=== PATIENT | female | born 1940 | race Caucasian/White ===

== ENCOUNTER 2022-03-17 09:53 | Observation (INO) ==
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
[2022-03-17] MEDS ORDERED: ACETAMINOPHEN 500 MG TAB PO STA (10:14)
[2022-03-17] MEDS ORDERED: BENZONATATE 100 MG CAPSULE PO ONE (10:14)
[2022-03-17] MEDS ORDERED: ALBUTEROL HFA 8 GM INHALER INH ONE (10:14)
[2022-03-17] MEDS ORDERED: SODIUM CHLORIDE 0.9% 1000ML 1,000 ML IV SCH (10:15)
[2022-03-17 10:51] LABS: Basophils # (auto) 0.06 K/uL (0-0.2); Basophils % (auto) 0.7 %; Eosinophils # (auto) 0.15 K/uL (0-0.50); Eosinophils % (auto) 1.8 %; Hematocrit (blood only) 41.2 % (37.0-47.0); Hemoglobin 14.1 g/dl (12.0-16.0); Immature Granulocytes # (auto) 0.04 K/uL (0.01-0.20); Immature Granulocytes % (auto) 0.5 %; Lymphocytes # (auto) 1.27 K/uL (1.2-3.4); Lymphocytes % (auto) 14.9 %; Mean Corpuscular Hemoglobin 31.1 pg (25.0-34.0); Mean Corpuscular Hgb Conc 34.2 g/dL (32.0-36.0); Mean Corpuscular Volume 90.9 fL (80.0-100.0); Mean Platelet Volume 9.4 fL (9.4-12.4); Neutrophils % (auto) 75.1 %; Platelet Count 232 K/uL (130-400); RDW Coefficient of Variation 11.8 % (11.5-14.5); RDW Standard Deviation 39.5 fL (36.4-46.3); Red Blood Count 4.53 M/uL (4.20-5.40); White Blood Count 8.52 K/ul (4.8-10.8)
--- NOTE | 2022-03-17 11:08 | XRay Report ---
XR chest 1V portable HISTORY: 81 years-old Female cough acute cough COMPARISON: CT abdomen and pelvis 05/17/2020 TECHNIQUE: AP view of the chest FINDINGS: Mild cardiomegaly with coronary arterial stenting. No pneumothorax, pleural effusion, airspace consol idation or overt pulmonary edema. Suspected right paratracheal opacity may be secondary to summation density/vascular pedicle. Bones appear grossly intact. IMPRESSION: No acute process. ACT 112: Negative or not required by law. The above report was generated using voice recognition software. It may contain grammatical, syntax o r spelling errors. Electronically signed by: Jaxson Wilkinson M.D. 03/17/2022 11:06 AM
[2022-03-17 11:13] LABS: Albumin Globulin Ratio 1.3 (0.9-2); Albumin Level 3.6 gm/dl (3.4-5.0); Bilirubin,Total 0.9 mg/dl (0.2-1.0); Creatinine Clr Calc Pharmacy 49.6 ml/min; Est GFR (African American) 66.7 ml/min; Est GFR (Non-African American) 57.6 ml/min; Globulin 2.8 gm/dl (2.5-4.0); Magnesium 1.9 mg/dl (1.7-2.4); Potassium 3.6 mmol/L (3.5-5.1); Total Protein 6.4 gm/dl (6.0-8.3)
[2022-03-17 12:02] LABS: Influenza A virus by PCR Negative (Neg); Influenza B virus by PCR Negative (Neg); RSV by PCR Negative (Neg); SARS CoV2 RNA(COVID-19) Ceph NEGATIVE (Negative)
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
[2022-03-17] MEDS ORDERED: METOPROLOL SUCC 25MG EXT REL TAB PO SCH (12:45)
[2022-03-17] MEDS ORDERED: METOPROLOL TARTRATE 1 MG/ML VIAL IV STA ×3 (12:45→14:09)
--- NOTE | 2022-03-17 13:18 | Electrocardiogram Report ---
Test Reason : Blood Pressure : / mmHG Vent. Rate : 098 BPM Atrial Rate : 098 BPM P-R Int : 120 ms QRS Dur : 088 ms QT Int : 354 ms P-R-T Axes : 015 -46 136 degrees QTc Int : 451 ms Sinus rhythm with Premature supraventricular complexes Left axis deviation Abnormal ECG No previous ECGs available Confirmed by Gregorio Mcdaniel ([id number]) on 03/17/2022 1:18:02 PM Referred By: REFERRED SELF Confirmed By:Gregorio Mcdaniel
--- NOTE | 2022-03-17 13:18 | Electrocardiogram Report ---
Test Reason : Blood Pressure : / mmHG Vent. Rate : 158 BPM Atrial Rate : 312 BPM P-R Int : 000 ms QRS Dur : 084 ms QT Int : 228 ms P-R-T Axes : -86 -50 228 degrees QTc Int : 369 ms Atrial flutter with variable A-V block Left axis deviation Abnormal ECG When compared with ECG of 17-MAR-2022 10:21, (unconfirmed) Significant changes have occurred Confirmed by Gregorio Mcdaniel ([id number]) on 03/17/2022 1:18:15 PM Referred By: REFERRED SELF Confirmed By:Gregorio Mcdaniel
[2022-03-17] MEDS ORDERED: ACETAMINOPHEN 325 MG TAB PO PRN (14:38)
[2022-03-17] MEDS ORDERED: GLUCOSE 40% GEL 15 GM TUBE PO PRN (14:38)
[2022-03-17] MEDS ORDERED: PANCREAZE (LIPASE 10,500U) CAP PO PRN (14:38)
[2022-03-17] MEDS ORDERED: METOPROLOL TARTRATE 1 MG/ML VIAL IV PRN (14:38)
[2022-03-17] MEDS ORDERED: DEXTROSE 50% 50 ML SYRINGE IV PRN (14:38)
[2022-03-17] MEDS ORDERED: GLUCAGON FOR INJ 1 MG VIAL SQ PRN (14:38)
[2022-03-17] MEDS ORDERED: GLUCOSE 10 TAB/TUBE PO PRN (14:38)
[2022-03-17] MEDS ORDERED: CARBOHYDRATES FOR HYPOGLYCEMIA PO PRN (14:38)
[2022-03-17] MEDS ORDERED: Heparin IV Adult Wt-Based Standard WITH Bolus Protocol IV SCH (15:15)
[2022-03-17] MEDS ORDERED: HEPARIN SOD (PORCINE) 1000 UNIT/ML IV ONE (15:30)
[2022-03-17 15:59] LABS: INR 1.1 (0.9-1.1); Partial Thromboplastin Time 27.1 Seconds (21.0-31.0); Prothrombin Time 11.9 Seconds (9.0-12.0)
[2022-03-17] MEDS: HEPARIN SODIUM/DEXTROSE 25,000 UNITS/500 ML BAG IV SCH (16:24)
[2022-03-17] MEDS: ASPIRIN 81 MG ECTAB PO SCH (16:24)
[2022-03-17] MEDS: INSULIN ASPART PER UNIT SC SCH ×2 (17:10→20:36)
[2022-03-17] MEDS: BENZONATATE 100 MG CAPSULE PO PRN (19:53)
[2022-03-17] MEDS: MELATONIN 3 MG TAB PO SCH (20:52)
[2022-03-17] MEDS: METOPROLOL TARTRATE 25 MG TAB PO SCH (20:52)
[2022-03-17] MEDS: LANTUS PER UNIT CHARGE SQ SCH (20:56)
[2022-03-17 23:33] LABS: Partial Thromboplastin Ratio > 5.1
[2022-03-18 00:14] LABS: Partial Thromboplastin Time > 139.0 Seconds (21.0-31.0)
[2022-03-18] MEDS ORDERED: ALBUTEROL HFA 8 GM INHALER INH ONE (02:27)
[2022-03-18] MEDS: BENZONATATE 100 MG CAPSULE PO PRN (02:30)
[2022-03-18 03:25] LABS: Basophils # (auto) 0.08 K/uL (0-0.2); Basophils % (auto) 0.8 %; Eosinophils # (auto) 0.36 K/uL (0-0.50); Eosinophils % (auto) 3.6 %; Hematocrit (blood only) 37.5 % (37.0-47.0); Hemoglobin 12.8 g/dl (12.0-16.0); Immature Granulocytes # (auto) 0.04 K/uL (0.01-0.20); Immature Granulocytes % (auto) 0.4 %; Lymphocytes # (auto) 2.49 K/uL (1.2-3.4); Lymphocytes % (auto) 24.7 %; Mean Corpuscular Hemoglobin 31.3 pg (25.0-34.0); Mean Corpuscular Hgb Conc 34.1 g/dL (32.0-36.0); Mean Corpuscular Volume 91.7 fL (80.0-100.0); Mean Platelet Volume 9.4 fL (9.4-12.4); Monocytes # (auto) 0.82 K/uL (0.11-0.59); Monocytes % (auto) 8.1 %; Neutrophils # (auto) 6.29 K/uL (1.40-6.50); Neutrophils % (auto) 62.4 %; Platelet Count 214 K/uL (130-400); RDW Coefficient of Variation 11.9 % (11.5-14.5); RDW Standard Deviation 39.8 fL (36.4-46.3); Red Blood Count 4.09 M/uL (4.20-5.40); White Blood Count 10.08 K/ul (4.8-10.8)
[2022-03-18 03:45] LABS: Calcium 9.3 mg/dl (8.5-10.1); Creatinine Clr Calc Pharmacy 48.6 ml/min; Est GFR (Non-African American) 56.1 ml/min; Potassium 3.4 mmol/L (3.5-5.1)
[2022-03-18 03:50] LABS: Partial Thromboplastin Ratio 1.7
[2022-03-18] MEDS: LEVOTHYROXINE SODIUM 75 MCG TABLET PO SCH (05:58)
[2022-03-18] MEDS: INSULIN ASPART PER UNIT SC SCH ×4 (08:04→20:01)
[2022-03-18] MEDS: METOPROLOL TARTRATE 25 MG TAB PO SCH ×2 (09:24→20:06)
[2022-03-18] MEDS: PANTOprazole 40 MG TAB PO SCH (09:24)
[2022-03-18] MEDS: ATORVASTATIN 40 MG TAB PO SCH (09:25)
[2022-03-18] MEDS: ASPIRIN 81 MG ECTAB PO SCH (09:25)
[2022-03-18] MEDS: LANTUS PER UNIT CHARGE SQ SCH ×2 (09:30→21:20)
--- NOTE | 2022-03-18 10:32 | XCELERA ---
[id number]
--- NOTE | 2022-03-18 17:01 | Hospitalist Progress Note ---
Date of Service March 18, 2022 Assessment & Plan (1) Atrial flutter: Plan: URI symptoms No hypoxia COVID/flu/RSV negative CXR no evidence of acute process or pneumonia. No pulmonary edema Suspect viral URI, treat symptomatically New atrial flutter, rates 150s, history of CAD with PCI x4 Initial EKG sinus, during ER stay EKG with ST depressions and atrial flutter rate 158. On review with cardiology with flutter, but not reflective of ischemia. Improved with fluid, did not receive any rate control/rhythm control prior to converting spontaneously in the room initially Patient did not twice recurrently enter and then abort into atrial flutter wi th a rate of approximately 150 while under hospitalist assessment, asymptomatic with this Heparinized pending additional cardiac eval Troponin trended Clinically without chest pain Echo pending Discussed with cardiology. Agree that is likely precipitated in the setting of missing metoprolol and a URI. Will give metoprolol now, and restart oral dosing. If echo is not significantly abnormal, and troponin is normal or has a peak and downtrend consistent with demand reasonable to convert to DOAC in the morning, discharged on metoprolol, and have outpatient follow-up. Will need to establish with [facility] cardiology on discharge. Will defer formal inpatient consult at this time. 03/18--- patient presently denies chest pain or shortness of breath Patient reports that she has episodes of a flutter/A. fib in the past and was evaluated by counter molder in [facility] and recommended to be on oral anticoagulants. Patient however due to her experience with anticoagulants in her aspirin and bleeding concerns stop taking her oral anticoagulation after initial period of time over the past few years Patient presently on IV heparin and wants to think about if she wants to continue oral anticoagulants upon discharge We will continue present management at this time and trend troponin levels and decide on further management with anticoagulation with on patient's decision Type II DM Hold glipizide Weight-based basal bolus Glucose checks AC/at bedtime, goal BSG [id number] A1c pending Depression GERD Continue pantoprazole Hypothyroidism Synthroid 75 mcg daily DVT prophylaxis: Anticoagulated Diet: Heart healthy, DM Disposition: PCU as may require IV metoprolol for rate control CODE STATUS: DNR/DNI discussed with patient (2) Diabetic neuropathy associated with type 2 diabetes mellitus: (3) CAD (coronary artery disease): (4) PVD (peripheral vascular disease): (5) Hypertension: (6) Hyperlipidemia: (7) Diabetes: (8) Hypothyroidism: Admission and Anticipated Discharge Date Admission Date: March 17, 2022 Subjective Patient reports feeling improved with her nasal congestion secondary to URI No further palpitations or chest pain Presently on IV heparin Patient reports that she was asked to start oral anticoagulation for a flutter but patient had stopped taking it few years ago Physical Exam Physical Exam: Head and ENT no thyroid enlargement trachea midline Cardiovascular S1-S2 heard l no S3 no rubs Lungs bilateral air entry fair no wheezing Abdomen soft nondistended positive bowel sounds no rebound tenderness Extremity shows trace edema Neurologically no focal deficits Skin shows no rash no cyanosis Results & Data Results & Data ([facility]) Vital Signs (Past 12 Hours) Vital Signs Temp Pulse Pulse Resp BP BP Pulse Ox 03/18/22 15:27 36.3 C L 58 L 16 108/56 L 97 03/18/22 11:03 36.9 C 60 16 128/74 98 03/18/22 07:50 36.6 C 57 L 16 129/80 96 03/18/22 07:00 58 L O2 Del Method 03/18/22 15:27 Room Air 03/18/22 11:03 Room Air 03/18/22 07:50 Room Air 03/18/22 07:00 Laboratory Results Short CBC 03/18/22 Range/Units 03:04 WBC 10.08 (4.8-10.8) K/ul Hgb 12.8 (12.0-16.0) g/dl Hct 37.5 (37.0-47.0) % Plt Count 214 (130-400) K/uL BMP 03/18/22 03:04 Sodium 140 Potassium 3.4 L Chloride 105 Carbon Dioxide 29 BUN 15 Creatinine 0.94 Glucose 116 H Calcium 9.3 PG Care Time/CCT Total # of Minutes Spent Total Time Spent with Patient: Total time spent is greater than 50% in coordination of care (as documented) at patient's floor/unit and/or counseling patient: Coding Level of Care Code 54397 SUB INP/OBS CARE 2/35MIN Diagnoses Atrial flutter I48.92 Diabetic neuropathy associated with type 2 diabetes mellitus E11.40 CAD (coronary artery disease) I25.10 PVD (peripheral vascular disease) I73.9 Hypertension I10 Hyperlipidemia E78.5 Diabetes E11.9 Hypothyroidism E03.9
[2022-03-18] MEDS: MELATONIN 3 MG TAB PO SCH (20:01)
[2022-03-18] MEDS: FLUTICASONE PROPIONATE NA SPR 16 GM BTL SCH (20:01)
[2022-03-18] MEDS: HEPARIN SODIUM/DEXTROSE 25,000 UNITS/500 ML BAG IV SCH (22:40)
[2022-03-19] MEDS: LEVOTHYROXINE SODIUM 75 MCG TABLET PO SCH (06:20)
[2022-03-19 07:11] LABS: Hematocrit (blood only) 35.9 % (37.0-47.0); Hemoglobin 12.2 g/dl (12.0-16.0); Mean Corpuscular Hemoglobin 31.3 pg (25.0-34.0); Mean Corpuscular Volume 92.1 fL (80.0-100.0); Mean Platelet Volume 9.5 fL (9.4-12.4); Platelet Count 229 K/uL (130-400); RDW Coefficient of Variation 12.2 % (11.5-14.5); RDW Standard Deviation 40.9 fL (36.4-46.3); White Blood Count 9.78 K/ul (4.8-10.8)
[2022-03-19 07:20] LABS: Estimated Average Glucose 134 mg/dl; Hemoglobin A1C 6.3 % (4.5-5.6)
[2022-03-19 07:32] LABS: BUN Creatinine Ratio 14.9 (10-20); Calcium 9.3 mg/dl (8.5-10.1); Creatinine Clr Calc Pharmacy 47.6 ml/min; Est GFR (African American) 71.4 ml/min; Est GFR (Non-African American) 61.6 ml/min; Potassium 3.6 mmol/L (3.5-5.1)
[2022-03-19 07:47] LABS: Thyroid Stimulating Hormone 3.433 uIu/ml (0.300-4.500)
[2022-03-19] MEDS: ASPIRIN 81 MG ECTAB PO SCH (09:30)
[2022-03-19] MEDS: ATORVASTATIN 40 MG TAB PO SCH (09:31)
[2022-03-19] MEDS: FLUTICASONE PROPIONATE NA SPR 16 GM BTL SCH (09:33)
[2022-03-19] MEDS: LANTUS PER UNIT CHARGE SQ SCH ×2 (09:34→20:39)
[2022-03-19] MEDS: PANTOprazole 40 MG TAB PO SCH (09:38)
[2022-03-19] MEDS: INSULIN ASPART PER UNIT SC SCH ×4 (09:58→20:41)
[2022-03-19] MEDS: METOPROLOL TARTRATE 25 MG TAB PO SCH ×2 (09:59→20:37)
[2022-03-19] MEDS: BENZONATATE 100 MG CAPSULE PO PRN (10:03)
[2022-03-19 10:18] LABS: T4 Free Thyroxine 0.99 ng/dl (0.61-1.60)
--- NOTE | 2022-03-19 15:51 | Hospitalist Progress Note ---
Date of Service March 19, 2022 Assessment & Plan (1) Atrial flutter: Plan: She has converted to normal sinus rhythm. She has back on her metoprolol. Heparin drip converted to Eliquis. Risks and benefits of systemic anticoagulation were explained to the patient and her who is at the bedside. Cardiac echo reveals mild left ventricular hypertrophy with no regional wall motion abnormalities, normal ejection fraction, mild mitral regurgitation. Appreciate cardiology consultation and recommendations (2) Diabetic neuropathy associated with type 2 diabetes mellitus: Plan: ADA diet. Sliding scale coverage if needed. Continue current medical therapy (3) CAD (coronary artery disease): Plan: Stable. Medical management (4) PVD (peripheral vascular disease): Plan: Stable. Medical management (5) Hypertension: Plan: Stable. Medical management (6) Hyperlipidemia: Plan: Statin therapy (7) Diabetes: Plan: Type II. ADA diet. Sliding scale coverage as needed (8) Hypothyroidism: Plan: Continue thyroid replacement therapy (9) Weakness: Plan: OT and PT assessments requested. Supportive care Plan Hopefully home tomorrow on March 20 Admission and Anticipated Discharge Date Admission Date: March 17, 2022 Subjective Alert and oriented. She remains in normal sinus rhythm. Heparin drip has again been converted to Eliquis. She is complaining of weakness that she states is chronic and has been present for years. OT and PT assessments requested. Hopefully she will go home tomorrow, March 20 Review of Systems Review of Systems: Constitutional-no fever or chills ENT-no blurred vision, no double vision, no epistaxis, no sore throat Respiratory-no cough, no wheezing, no shortness of breath Cardiac-no palpitations, no chest pain, no syncope GI-no nausea, vomiting, diarrhea, melena, hematochezia -no urinary retention, no urinary incontinence, no dysuria, no hematuria Musculoskeletal-no joint pain, no muscle tenderness Skin-no bruising, no rashes, no pruritus Neuro-generalized weakness which is not new Psych-no depression, no anxiety Physical Exam Physical Exam: General-alert and oriented x3, no fevers, no chills HEENT-head atraumatic and normocephalic, pupils equal and reactive to light, extraocular muscles intact Neck-no lymphadenopathy or thyromegaly, trachea midline Chest-clear to auscultation percussion. No rales wheezing or rhonchi Cardiac-regular rate and rhythm, normal S1 and S2 Abdomen-normal bowel sounds, nontender, no hepatosplenomegaly Extremities-no cyanosis, clubbing, or edema Neuro-cranial nerves II through XII intact, motor and sensory function within normal limits, strength symmetrical but generalized weakness , no focal deficits Psych-normal affect, normal mood Results & Data Results & Data ([facility]) Vital Signs (Past 12 Hours) Vital Signs Temp Pulse Resp BP BP Pulse Ox O2 Del Method 03/19/22 11:34 Room Air 03/19/22 11:13 37 C 53 L 16 114/68 95 Room Air 03/19/22 09:16 56 L 113/63 03/19/22 07:37 36.6 C 65 14 131/83 95 Room Air 03/19/22 04:29 36.8 C 54 L 19 134/73 96 Room Air Laboratory Results 03/19/22 06:30 03/19/22 06:30 PG Care Time/CCT Total # of Minutes Spent Total Time Spent with Patient: Total time spent is greater than 50% in coordination of care (as documented) at patient's floor/unit and/or counseling patient: Coding Level of Care Code 54686 SUB INP/OBS CARE 3/50MIN Diagnoses Atrial flutter I48.92 Diabetic neuropathy associated with type 2 diabetes mellitus E11.40 CAD (coronary artery disease) I25.10 PVD (peripheral vascular disease) I73.9 Hypertension I10 Hyperlipidemia E78.5 Diabetes E11.9 Hypothyroidism E03.9 Weakness R53.1
[2022-03-19] MEDS: APIXABAN 5 MG TABLET PO SCH (20:38)
[2022-03-19] MEDS: MELATONIN 3 MG TAB PO SCH (20:39)
[2022-03-20] MEDS: LEVOTHYROXINE SODIUM 75 MCG TABLET PO SCH (06:26)
[2022-03-20 06:41] LABS: Hematocrit (blood only) 33.8 % (37.0-47.0); Hemoglobin 11.4 g/dl (12.0-16.0); Mean Corpuscular Hemoglobin 30.9 pg (25.0-34.0); Mean Corpuscular Hgb Conc 33.7 g/dL (32.0-36.0); Mean Corpuscular Volume 91.6 fL (80.0-100.0); Mean Platelet Volume 9.2 fL (9.4-12.4); Platelet Count 222 K/uL (130-400); RDW Standard Deviation 40.3 fL (36.4-46.3); Red Blood Count 3.69 M/uL (4.20-5.40)
[2022-03-20 07:04] LABS: BUN Creatinine Ratio 22.5 (10-20); Calcium 9.1 mg/dl (8.5-10.1); Creatinine Clr Calc Pharmacy 51.8 ml/min; Est GFR (Non-African American) 68.2 ml/min; Potassium 3.8 mmol/L (3.5-5.1)
[2022-03-20] MEDS: PANTOprazole 40 MG TAB PO SCH (08:19)
[2022-03-20] MEDS: ATORVASTATIN 40 MG TAB PO SCH (08:19)
[2022-03-20] MEDS: ASPIRIN 81 MG ECTAB PO SCH (08:19)
[2022-03-20] MEDS: METOPROLOL TARTRATE 25 MG TAB PO SCH ×2 (08:19→22:35)
[2022-03-20] MEDS: APIXABAN 5 MG TABLET PO SCH ×2 (08:20→20:55)
[2022-03-20] MEDS: FLUTICASONE PROPIONATE NA SPR 16 GM BTL SCH (08:20)
[2022-03-20] MEDS: INSULIN ASPART PER UNIT SC SCH ×4 (08:21→20:43)
[2022-03-20] MEDS: LANTUS PER UNIT CHARGE SQ SCH ×2 (08:22→20:58)
[2022-03-20 11:37] LABS: Appearance Urine Turbid (Clear); Bacteria Urine Automated 3+ (Negative); Bilirubin Urine Negative (Negative); Blood Urine 2+ (Negative); Color Urine Yellow; Epithelial Cell Urine Auto >30 /lpf (0-5); Glucose Urine UA Negative (Negative); Ketones Urine Negative (Negative); Leukocyte Esterase Urine 2+ (Negative); Nitrite Urine Negative (Negative); Protein Urine Negative (Negative); Specific Gravity Urine 1.019 (1.000-1.030); Urobilinogen Urine Negative (Negative); WBC Urine Automated >30 /hpf (0-5)
--- NOTE | 2022-03-20 14:17 | Hospitalist Progress Note ---
Date of Service March 20, 2022 Assessment & Plan (1) Atrial flutter: Plan: She has converted to and remains in normal sinus rhythm. She has back on her metoprolol. Heparin drip has been converted to Eliquis. Risks and benefits of systemic anticoagulation were explained to the patient and her who is at the bedside. Cardiac echo reveals mild left ventricular hypertrophy with no regional wall motion abnormalities, normal ejection fraction, mild mitral r egurgitation. Appreciate cardiology consultation and recommendations (2) Diabetic neuropathy associated with type 2 diabetes mellitus: Plan: ADA diet. Sliding scale coverage if needed. Continue current medical therapy (3) CAD (coronary artery disease): Plan: Stable. Medical management (4) PVD (peripheral vascular disease): Plan: Stable. Medical management (5) Hypertension: Plan: Stable. Medical management (6) Hyperlipidemia: Plan: Statin therapy (7) Diabetes: Plan: Type II. ADA diet. Sliding scale coverage as needed (8) Hypothyroidism: Plan: Continue thyroid replacement therapy (9) Weakness: Plan: OT and PT assessments appreciated . Supportive care Plan Therapy services have recommended rehab placement. Case management notified. Admission and Anticipated Discharge Date Admission Date: March 17, 2022 Subjective Alert and oriented. No distress. She remains in normal sinus rhythm. She is tolerating Eliquis well. OT and PT evaluations completed. Rehab placement recommended. Case management notified. Review of Systems Review of Systems: Constitutional-no fever or chills ENT-no blurred vision, no double vision, no epistaxis, no sore throat Respiratory-no cough, no wheezing, no shortness of breath Cardiac-no palpitations, no chest pain, no syncope GI-no nausea, vomiting, diarrhea, melena, hematochezia -no urinary retention, no urinary incontinence, no dysuria, no hematuria Musculoskeletal-no joint pain, no muscle tenderness Skin-no bruising, no rashes, no pruritus Neuro-generalized weakness which is not new Psych-no depression, no anxiety Physical Exam Physical Exam: General-alert and oriented x3, no fevers, no chills HEENT-head atraumatic and normocephalic, pupils equal and reactive to light, extraocular muscles intact Neck-no lymphadenopathy or thyromegaly, trachea midline Chest-clear to auscultation percussion. No rales wheezing or rhonchi Cardiac-regular rate and rhythm, normal S1 and S2 Abdomen-normal bowel sounds, nontender, no hepatosplenomegaly Extremities-no cyanosis, clubbing, or edema Neuro-cranial nerves II through XII intact, motor and sensory function within normal limits, strength symmetrical but generalized weakness , no focal deficits Psych-normal affect, normal mood Results & Data Results & Data ([facility]) Vital Signs (Past 12 Hours) Vital Signs Temp Pulse Resp BP BP Pulse Ox O2 Del Method 03/20/22 11:02 36.8 C 56 L 17 131/70 96 Room Air 03/20/22 07:12 36.6 C 59 L 17 133/76 95 Room Air 03/20/22 03:36 36.7 C 59 L 20 128/74 96 Room Air Laboratory Results 03/20/22 06:16 03/20/22 06:16 PG Care Time/CCT Total # of Minutes Spent Total Time Spent with Patient: Total time spent is greater than 50% in coordination of care (as documented) at patient's floor/unit and/or counseling patient: Coding Level of Care Code 90879 SUB INP/OBS CARE 3/50MIN Diagnoses Atrial flutter I48.92 Diabetic neuropathy associated with type 2 diabetes mellitus E11.40 CAD (coronary artery disease) I25.10 PVD (peripheral vascular disease) I73.9 Hypertension I10 Hyperlipidemia E78.5 Diabetes E11.9 Hypothyroidism E03.9 Weakness R53.1
[2022-03-20] MEDS: MELATONIN 3 MG TAB PO SCH (20:55)
[2022-03-21] MEDS: LEVOTHYROXINE SODIUM 75 MCG TABLET PO SCH (06:29)
[2022-03-21] MEDS: LANTUS PER UNIT CHARGE SQ SCH ×2 (08:42→19:51)
[2022-03-21] MEDS: INSULIN ASPART PER UNIT SC SCH ×4 (08:42→19:45)
[2022-03-21] MEDS: APIXABAN 5 MG TABLET PO SCH ×2 (08:46→19:45)
[2022-03-21] MEDS: ATORVASTATIN 40 MG TAB PO SCH (08:46)
[2022-03-21] MEDS: ASPIRIN 81 MG ECTAB PO SCH (08:46)
[2022-03-21 08:47] LABS: Calcium 9.6 mg/dl (8.5-10.1)
[2022-03-21] MEDS: PANTOprazole 40 MG TAB PO SCH (08:47)
[2022-03-21] MEDS: FLUTICASONE PROPIONATE NA SPR 16 GM BTL SCH (08:47)
[2022-03-21 08:50] LABS: Creatinine Clr Calc Pharmacy 39.9 ml/min; Est GFR (African American) 57.5 ml/min; Est GFR (Non-African American) 49.6 ml/min
[2022-03-21] MEDS: METOPROLOL TARTRATE 25 MG TAB PO SCH ×2 (10:20→19:46)
--- NOTE | 2022-03-21 12:48 | Hospitalist Progress Note ---
Date of Service March 21, 2022 Assessment & Plan (1) Atrial flutter: Plan: She has converted to and remains in normal sinus rhythm. She has back on her metoprolol. Heparin drip has been converted to Eliquis. Risks and benefits of systemic anticoagulation were explained to the patient and her who is at the bedside. Cardiac echo reveals mild left ventricular hypertrophy with no regional wall motion abnormalities, normal ejection fraction, mild mitral r egurgitation. Appreciate cardiology consultation and recommendations (2) Diabetic neuropathy associated with type 2 diabetes mellitus: Plan: ADA diet. Sliding scale coverage if needed. Continue current medical therapy (3) CAD (coronary artery disease): Plan: Stable. Medical management (4) PVD (peripheral vascular disease): Plan: Stable. Medical management (5) Hypertension: Plan: Stable. Medical management (6) Hyperlipidemia: Plan: Statin therapy (7) Diabetes: Plan: Type II. ADA diet. Sliding scale coverage as needed (8) Hypothyroidism: Plan: Continue thyroid replacement therapy (9) Weakness: Plan: OT and PT assessments appreciated . Supportive care (10) Demand ischemia: Plan: Present on admission due to elevated heart rate. Now resolved. No evidence of acute coronary syndrome Plan Anticipate discharge to either IPR or SNF when arrangements are finalized. She is stable for discharge Admission and Anticipated Discharge Date Admission Date: March 17, 2022 Subjective Alert and oriented. Asymptomatic. is at the bedside. She is awaiting placement Review of Systems Review of Systems: Constitutional-no fever or chills ENT-no blurred vision, no double vision, no epistaxis, no sore throat Respiratory-no cough, no wheezing, no shortness of breath Cardiac-no palpitations, no chest pain, no syncope GI-no nausea, vomiting, diarrhea, melena, hematochezia -no urinary retention, no urinary incontinence, no dysuria, no hematuria Musculoskeletal-no joint pain, no muscle tenderness Skin-no bruising, no rashes, no pruritus Neuro-generalized weakness which is not new Psych-no depression, no anxiety Physical Exam Physical Exam: General-alert and oriented x3, no fevers, no chills HEENT-head atraumatic and normocephalic, pupils equal and reactive to light, extraocular muscles intact Neck-no lymphadenopathy or thyromegaly, trachea midline Chest-clear to auscultation percussion. No rales wheezing or rhonchi Cardiac-regular rate and rhythm, normal S1 and S2 Abdomen-normal bowel sounds, nontender, no hepatosplenomegaly Extremities-no cyanosis, clubbing, or edema Neuro-cranial nerves II through XII intact, motor and sensory function within normal limits, strength symmetrical but generalized weakness , no focal deficits Psych-normal affect, normal mood Results & Data Results & Data ([facility]) Vital Signs (Past 12 Hours) Vital Signs Temp Pulse Resp BP Pulse Ox O2 Del Method 03/21/22 12:00 36.7 C 62 18 142/82 H 96 Room Air 03/21/22 10:20 65 03/21/22 07:54 36.6 C 59 L 18 133/79 95 Room Air 03/21/22 02:50 36.5 C 52 L 20 123/73 96 Room Air Laboratory Results 03/20/22 06:16 03/21/22 07:06 PG Care Time/CCT Total # of Minutes Spent Total Time Spent with Patient: Total time spent is greater than 50% in coordination of care (as documented) at patient's floor/unit and/or counseling patient: Coding Level of Care Code 55575 SUB INP/OBS CARE 3/50MIN Diagnoses Atrial flutter I48.92 Diabetic neuropathy associated with type 2 diabetes mellitus E11.40 CAD (coronary artery disease) I25.10 PVD (peripheral vascular disease) I73.9 Hypertension I10 Hyperlipidemia E78.5 Diabetes E11.9 Hypothyroidism E03.9 Weakness R53.1 Demand ischemia I24.8
[2022-03-21] MEDS: MELATONIN 3 MG TAB PO SCH (19:47)
[2022-03-22] MEDS: LEVOTHYROXINE SODIUM 75 MCG TABLET PO SCH (06:08)
[2022-03-22 07:58] LABS: BUN Creatinine Ratio 25.6 (10-20); Calcium 8.9 mg/dl (8.5-10.1); Creatinine Clr Calc Pharmacy 50.6 ml/min; Est GFR (African American) 76.7 ml/min; Est GFR (Non-African American) 66.2 ml/min; Potassium 4.2 mmol/L (3.5-5.1)
[2022-03-22] MEDS: INSULIN ASPART PER UNIT SC SCH ×4 (09:10→20:13)
[2022-03-22] MEDS: LANTUS PER UNIT CHARGE SQ SCH ×2 (09:11→20:29)
[2022-03-22] MEDS: APIXABAN 5 MG TABLET PO SCH ×2 (09:18→20:31)
[2022-03-22] MEDS: ASPIRIN 81 MG ECTAB PO SCH (09:18)
[2022-03-22] MEDS: FLUTICASONE PROPIONATE NA SPR 16 GM BTL SCH (09:18)
[2022-03-22] MEDS: METOPROLOL TARTRATE 25 MG TAB PO SCH ×2 (09:19→20:31)
[2022-03-22] MEDS: ATORVASTATIN 40 MG TAB PO SCH (09:19)
[2022-03-22] MEDS: PANTOprazole 40 MG TAB PO SCH (09:19)
--- NOTE | 2022-03-22 12:46 | Hospitalist Progress Note ---
Date of Service March 22, 2022 Assessment & Plan (1) Atrial flutter: Plan: She has converted to and remains in normal sinus rhythm. She has back on her metoprolol. Heparin drip has been converted to Eliquis. Risks and benefits of systemic anticoagulation were explained to the patient and her . Cardiac echo reveals mild left ventricular hypertrophy with no regional wall motion abnormalities, normal ejection fraction, mild mitral regurgitation. Appreciate cardiology consultation and recommendations (2) Diabetic neuropathy associated with type 2 diabetes mellitus: Plan: ADA diet. Sliding scale coverage if needed. Continue current medical therapy (3) CAD (coronary artery disease): Plan: Stable. Medical management (4) PVD (peripheral vascular disease): Plan: Stable. Medical management (5) Hypertension: Plan: Stable. Medical management (6) Hyperlipidemia: Plan: Statin therapy (7) Diabetes: Plan: Type II. ADA diet. Sliding scale coverage as needed (8) Hypothyroidism: Plan: Continue thyroid replacement therapy (9) Weakness: Plan: OT and PT assessments appreciated . Supportive care (10) Demand ischemia: Plan: Present on admission due to elevated heart rate. Now resolved. No evidence of acute coronary syndrome Plan Anticipate discharge to either IPR or SNF when arrangements are finalized. She is stable for discharge Admission and Anticipated Discharge Date Admission Date: March 17, 2022 Subjective Alert and oriented. No new problems. She remains in normal sinus rhythm. Case management pursuing SNF or IPR placement. Review of Systems Review of Systems: Constitutional-no fever or chills ENT-no blurred vision, no double vision, no epistaxis, no sore throat Respiratory-no cough, no wheezing, no shortness of breath Cardiac-no palpitations, no chest pain, no syncope GI-no nausea, vomiting, diarrhea, melena, hematochezia -no urinary retention, no urinary incontinence, no dysuria, no hematuria Musculoskeletal-no joint pain, no muscle tenderness Skin-no bruising, no rashes, no pruritus Neuro-generalized weakness which is not new Psych-no depression, no anxiety Physical Exam Physical Exam: General-alert and oriented x3, no fevers, no chills HEENT-head atraumatic and normocephalic, pupils equal and reactive to light, extraocular muscles intact Neck-no lymphadenopathy or thyromegaly, trachea midline Chest-clear to auscultation percussion. No rales wheezing or rhonchi Cardiac-regular rate and rhythm, normal S1 and S2 Abdomen-normal bowel sounds, nontender, no hepatosplenomegaly Extremities-no cyanosis, clubbing, or edema Neuro-cranial nerves II through XII intact, motor and sensory function within normal limits, strength symmetrical but generalized weakness , no focal deficits Psych-normal affect, normal mood Results & Data Results & Data ([facility]) Vital Signs (Past 12 Hours) Vital Signs Temp Pulse Pulse Resp BP BP Pulse Ox 03/22/22 12:15 36.7 C 49 L 16 127/70 95 03/22/22 10:08 56 L 03/22/22 09:17 63 03/22/22 08:27 36.6 C 62 16 124/73 96 03/22/22 02:33 36.6 C 52 L 16 147/79 H 98 O2 Del Method 03/22/22 12:15 Room Air 03/22/22 10:08 03/22/22 09:17 03/22/22 08:27 Room Air 03/22/22 02:33 Room Air Laboratory Results 03/20/22 06:16 03/22/22 07:14 PG Care Time/CCT Total # of Minutes Spent Total Time Spent with Patient: Total time spent is greater than 50% in coordination of care (as documented) at patient's floor/unit and/or counseling patient: Coding Level of Care Code 17442 SUB INP/OBS CARE 2/35MIN Diagnoses Atrial flutter I48.92 Diabetic neuropathy associated with type 2 diabetes mellitus E11.40 CAD (coronary artery disease) I25.10 PVD (peripheral vascular disease) I73.9 Hypertension I10 Hyperlipidemia E78.5 Diabetes E11.9 Hypothyroidism E03.9 Weakness R53.1 Demand ischemia I24.8
[2022-03-22] MEDS: MELATONIN 3 MG TAB PO SCH (20:31)
[2022-03-23] MEDS: METOPROLOL TARTRATE 25 MG TAB PO SCH ×4 (03:50→21:11)
[2022-03-23] MEDS: LEVOTHYROXINE SODIUM 75 MCG TABLET PO SCH (05:50)
[2022-03-23 07:30] LABS: Potassium 4.2 mmol/L (3.5-5.1)
[2022-03-23 07:35] LABS: BUN Creatinine Ratio 22.1 (10-20); Creatinine Clr Calc Pharmacy 43.6 ml/min; Est GFR (African American) 64.2 ml/min; Est GFR (Non-African American) 55.4 ml/min
[2022-03-23] MEDS: INSULIN ASPART PER UNIT SC SCH ×4 (08:00→21:02)
[2022-03-23] MEDS: ATORVASTATIN 40 MG TAB PO SCH (08:01)
[2022-03-23] MEDS: PANTOprazole 40 MG TAB PO SCH (08:02)
[2022-03-23] MEDS: APIXABAN 5 MG TABLET PO SCH ×2 (08:02→21:10)
[2022-03-23] MEDS: ASPIRIN 81 MG ECTAB PO SCH (08:02)
[2022-03-23] MEDS: FLUTICASONE PROPIONATE NA SPR 16 GM BTL SCH (08:05)
[2022-03-23] MEDS: LANTUS PER UNIT CHARGE SQ SCH ×2 (08:10→21:11)
--- NOTE | 2022-03-23 12:22 | Hospitalist Progress Note ---
Date of Service March 23, 2022 Assessment & Plan (1) Atrial flutter: Plan: She has converted to and remains in normal sinus rhythm although she has a somewhat slow heart rate. We will hold metoprolol if heart rate is less than 50 rather than 60. She is back on her metoprolol. Heparin drip has been converted to Eliquis. Risks and benefits of systemic anticoagulation were explained to the patient and her . Cardiac echo reveals mild left ventricular hy pertrophy with no regional wall motion abnormalities, normal ejection fraction, mild mitral regurgitation. Appreciate cardiology consultation and recommendations (2) Diabetic neuropathy associated with type 2 diabetes mellitus: Plan: ADA diet. Sliding scale coverage if needed. Continue current medical therapy (3) CAD (coronary artery disease): Plan: Stable. Medical management (4) PVD (peripheral vascular disease): Plan: Stable. Medical management (5) Hypertension: Plan: Stable. Medical management (6) Hyperlipidemia: Plan: Statin therapy (7) Diabetes: Plan: Type II. ADA diet. Sliding scale coverage as needed (8) Hypothyroidism: Plan: Continue thyroid replacement therapy (9) Weakness: Plan: OT and PT assessments appreciated . Supportive care (10) Demand ischemia: Plan: Present on admission due to elevated heart rate. Now resolved. No evidence of acute coronary syndrome Plan Anticipate discharge to either IPR or SNF when arrangements are finalized. She is stable for discharge. Hopefully that will occur today, March 23 Admission and Anticipated Discharge Date Admission Date: March 17, 2022 Subjective Stable. Metoprolol holding parameters adjusted for heart rate less than 50 rat her than 60. Blood pressure is stable. She is asymptomatic. Awaiting SNF or IPR placement. Awaiting insurance authorization Review of Systems Review of Systems: Constitutional-no fever or chills ENT-no blurred vision, no double vision, no epistaxis, no sore throat Respiratory-no cough, no wheezing, no shortness of breath Cardiac-no palpitations, no chest pain, no syncope GI-no nausea, vomiting, diarrhea, melena, hematochezia -no urinary retention, no urinary incontinence, no dysuria, no hematuria Musculoskeletal-no joint pain, no muscle tenderness Skin-no bruising, no rashes, no pruritus Neuro-generalized weakness which is not new Psych-no depression, no anxiety Physical Exam Physical Exam: General-alert and oriented x3, no fevers, no chills HEENT-head atraumatic and normocephalic, pupils equal and reactive to light, extraocular muscles intact Neck-no lymphadenopathy or thyromegaly, trachea midline Chest-clear to auscultation percussion. No rales wheezing or rhonchi Cardiac-bradycardic regular rate and rhythm, normal S1 and S2 Abdomen-normal bowel sounds, nontender, no hepatosplenomegaly Extremities-no cyanosis, clubbing, or edema Neuro-cranial nerves II through XII intact, motor and sensory function within normal limits, strength symmetrical but generalized weakness , no focal deficits Psych-normal affect, normal mood Results & Data Results & Data ([facility]) Vital Signs (Past 12 Hours) Vital Signs Temp Pulse Resp BP BP Pulse Ox O2 Del Method 03/23/22 11:27 36.7 C 64 19 118/74 93 Room Air 03/23/22 08:08 36.6 C 50 L 18 131/71 92 Room Air 03/23/22 03:01 36.8 C 56 L 18 138/78 94 Room Air PG Care Time/CCT Total # of Minutes Spent Total Time Spent with Patient: Total time spent is greater than 50% in coordination of care (as documented) at patient's floor/unit and/or counseling patient: Coding Level of Care Code 73543 SUB INP/OBS CARE 3/50MIN Diagnoses Atrial flutter I48.92 Diabetic neuropathy associated with type 2 diabetes mellitus E11.40 CAD (coronary artery disease) I25.10 PVD (peripheral vascular disease) I73.9 Hypertension I10 Hyperlipidemia E78.5 Diabetes E11.9 Hypothyroidism E03.9 Weakness R53.1 Demand ischemia I24.8
[2022-03-23] MEDS: MELATONIN 3 MG TAB PO SCH (21:10)
[2022-03-24] MEDS: LEVOTHYROXINE SODIUM 75 MCG TABLET PO SCH (05:41)
[2022-03-24] MEDS: INSULIN ASPART PER UNIT SC SCH ×2 (08:00→12:46)
[2022-03-24] MEDS: APIXABAN 5 MG TABLET PO SCH (08:32)
[2022-03-24] MEDS: ASPIRIN 81 MG ECTAB PO SCH (08:34)
[2022-03-24] MEDS: METOPROLOL TARTRATE 25 MG TAB PO SCH (08:35)
[2022-03-24] MEDS: ATORVASTATIN 40 MG TAB PO SCH (08:35)
[2022-03-24] MEDS: PANTOprazole 40 MG TAB PO SCH (08:35)
[2022-03-24] MEDS: FLUTICASONE PROPIONATE NA SPR 16 GM BTL SCH (08:36)
[2022-03-24] MEDS: LANTUS PER UNIT CHARGE SQ SCH (08:39)
--- NOTE | 2022-03-24 11:07 | Discharge Summary ---
Date of Service March 24, 2022 Admission HPI Per Admitting Provider Yobani is an 81-year-old female with a past medical history of CAD with 4 stents who presented with cough and URI symptoms COVID-negative and he was found to be in atrial flutter with RVR on admission Yobani is an 81yo F who presented with one week of URI symptoms. Feeling sick wth a sore throat for 4 days with a cough. Non productive. No wheezing. No fevers. some chills throughout the day. No sick contacts. No nausea or vomting, +1 day sof loose bowels which improved after she stopped chewing gum No chest pain, n ochest pressure. Was lightheaded during Er assessment Uses nitro intermittently at home fo the last 4 years. Rare intermittent chest pain, does not think exercise associated. Dizzy 'all the time intermittently' in the last 4 yearsa Hx of 4x stents placed 6 years ago at [facility] in [place]. Is not currently following with a cardiology No history of heart failure. stents were caught 'for some other reason', pt denies heart attack Takes an occasional aspirin, misses dosees frequency as it is hard on her stomach. akes a full dose. No bloody or black bowel movements. 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 She notes since feeling sick for the last 4 days she has not taken any of her medications including metoprolol. Other than aspirin and a second medicine which she took for 1 year after stents denies any other anticoagulation treatment history, has never had bleeding problems Medical History: Reviewed Medications: Reviewed Surgical History: Reviewed Allergies: Reviewed Social History: Former tobacco use, more than 100 pack years in remission for several years Code Status: DNR/DNI Principal Diagnosis Atrial flutter with rapid ventricular rate Discharge Exam General-alert and oriented x3, no fevers, no chills HEENT-head atraumatic and normocephalic, pupils equal and reactive to light, extraocular muscles intact Neck-no lymphadenopathy or thyromegaly, trachea midline Chest-clear to auscultation percussion. No rales wheezing or rhonchi Cardiac-bradycardic regular rate and rhythm, normal S1 and S2 Abdomen-normal bowel sounds, nontender, no hepatosplenomegaly Extremities-no cyanosis, clubbing, or edema Neuro-cranial nerves II through XII intact, motor and sensory function within normal limits, strength symmetrical but generalized weakness , no focal deficits Psych-normal affect, normal mood Discharge Data Allergies Allergy/AdvReac Type Severity Reaction Status Date / Time bee venom protein (honey bee) Allergy Unknown Unverified 10/19/21 14:41 Consultations 03/17/22 12:13 ED Decision to Admit Stat Hospital Course (1) Atrial flutter: She has converted to and remains in normal sinus rhythm although she has a somewhat slow heart rate. We will hold metoprolol if heart rate is less than 50 . She is back on her metoprolol. Heparin drip has been converted to Eliquis. Risks and benefits of systemic anticoagulation were explained to the patient and her . Cardiac echo reveals mild left ventricular hypertrophy with no regional wall motion abnormalities, normal ejection fraction, mild mitral regurgitation. Appreciate cardiology consultation and recommendations (2) Diabetic neuropathy associated with type 2 diabetes mellitus: ADA diet. Sliding scale coverage if needed. Continue current medical therapy (3) CAD (coronary artery disease): Stable. Medical management (4) PVD (peripheral vascular disease): Stable. Medical management (5) Hypertension: Stable. Medical management (6) Hyperlipidemia: Statin therapy (7) Diabetes: Type II. ADA diet. Sliding scale coverage as needed (8) Hypothyroidism: Continue thyroid replacement therapy (9) Weakness: OT and PT assessments appreciated . Supportive care (10) Demand ischemia: Present on admission due to elevated heart rate. Now resolved. No evidence of acute coronary syndrome Plan IPR has been denied by insurance and she does not not want to wait until a bed is available at [facility]. She prefers to go home today, March 24. Home health services will be requested. Total Time Total Time Spent Total Time Spent (In Minutes): 35 minutes Discharge Plan Discharge Items Patient Disposition: Home - Home Health Services Reason For Visit: AFLUTTER RVR Discharge Diagnosis: New onset atrial flutter with rapid ventricular rate Activity: Resume your previous activity Non-emergency contact: Primary Care Provider Call non-emergency contact if: you have any medication questions and your symptoms worsen Follow-up/Referrals: Yash Tavares DO [Primary Care Provider] - Diet: Carb Consistent or DM2 and Heart Healthy Addtl Attending Provider Instructions: Eliquis blood thinner has been started. Decrease aspirin dose to 81 mg daily Pending Studies at Discharge: No Stand-Alone Forms: My [facility], Smoking Cessation Medications and DC Order Prescriptions: New Eliquis 5 mg Tablet 5 mg PO BID Qty: 30 0RF aspirin 81 mg tablet,delayed release (DR/EC) 81 mg PO DAILY Qty: 90 0RF Continued nystatin 100,000 unit/gram cream 1 applic topical BID Qty: 30 0RF atorvastatin 80 mg tablet 80 mg PO DAILY Qty: 90 1RF levothyroxine 75 mcg tablet 75 mcg PO DAILY Qty: 90 1RF glipizide 2.5 mg tablet extended release 24hr 2.5 mg PO DAILY Qty: 90 3RF nitroglycerin 0.4 mg tablet, sublingual 0.4 mg SL Q5M PRN (Reason: chest pain) Qty: 25 1RF sulfamethoxazole-trimethoprim [Bactrim DS] 800-160 mg tablet 1 tab PO BID Qty: 14 0RF senna 8.6 mg capsule 8.6 mg PO DAILY levocetirizine [Xyzal] 5 mg tablet 5 mg PO DAILY PRN metoprolol tartrate 25 mg tablet 25 mg PO BID Qty: 180 3RF loratadine [Claritin] 10 mg tablet 10 mg PO DAILY PRN mecobalamin (vitamin B12) 1,000 mcg tablet,chewable 1,000 mcg PO DAILY melatonin 3 mg capsule 3 mg PO HS Creon 36,000-114,000- 180,000 unit capsule,delayed release(DR/EC) 2 cap PO TID PRN (Reason: digestion) cholecalciferol (vitamin D3) [Vitamin D3] 2,000 unit Capsule 2,000 unit PO DAILY pantoprazole 40 mg tablet,delayed release (DR/EC) 40 mg PO DAILY PRN Discontinued aspirin 325 mg tablet 325 mg PO .COMPLEX Rx Instructions: 325 mg PO Q 3-4 DAYS; Discharge Orders: Discharge Order (Routine); Ordered 03/24/22 Ordered By: Barber Rivera/Other Patient Handouts: Managing Type 2 Diabetes Admission Data Admit Date/Time: 03/17/22 12:28 Attending Provider: Barber Tellez Admit Provider: Moy Calloway Primary Care Provider: Yash Tavares Other Providers: Moy Calloway ; [facility] ; Brendan Greco [facility] Coding Level of Care Code HOSP INP/OBS DISCH >30 MIN Diagnoses Atrial flutter I48.92 Diabetic neuropathy associated with type 2 diabetes mellitus E11.40 CAD (coronary artery disease) I25.10 PVD (peripheral vascular disease) I73.9 Hypertension I10 Hyperlipidemia E78.5 Diabetes E11.9 Hypothyroidism E03.9 Weakness R53.1 Demand ischemia I24.8
== END 2022-03-24 13:33 | disposition home health service (06) | DRG 309 ==
LOC: ED 09:53 → SUATTDRO 12:28 → 2S 12:28 → INTOOBSV 12:28 → 2S 14:00

== ENCOUNTER 2022-05-03 17:31 | Inpatient (IN) ==
--- NOTE | 2022-05-03 17:36 | ED Triage Note ---
Date of Service May 03, 2022 History of Present Illness This patient was briefly evaluated while in triage. An abbreviated physical exam was performed. This patient is a 81-year-old Female who presents to the ED for evaluation of confusion, trouble moving arms and legs and feeling weak for the past few days. No recent falls, did not hit head. Takes Eliquis and aspirin. Was seen this morning and diagnosed with UTI and COVID. Started on Paxlovid today. says that she does not walk much or leave her bed often at baseline. Physical Exam CONSTITUTIONAL: No acute distress. Well appearing. RESPIRATORY: Nonlabored breathing. Equal expansion bilaterally. CARDIOVASCULAR: No peripheral edema. NEUROLOGIC: Alert and oriented X 4. Normal speech. Initial orders for labs and / or imaging were placed and patient was placed in the waiting area until a bed is available. Please see further documentation for the full ED course.
[2022-05-03 18:21] LABS: Basophils # (auto) 0.01 K/uL (0-0.2); Basophils % (auto) 0.2 %; Hematocrit (blood only) 44.9 % (37.0-47.0); Hemoglobin 14.6 g/dl (12.0-16.0); Immature Granulocytes # (auto) 0.03 K/uL (0.01-0.20); Immature Granulocytes % (auto) 0.6 %; Lymphocytes # (auto) 1.14 K/uL (1.2-3.4); Lymphocytes % (auto) 23.1 %; Mean Corpuscular Hemoglobin 30.2 pg (25.0-34.0); Mean Corpuscular Hgb Conc 32.5 g/dL (32.0-36.0); Mean Platelet Volume 9.6 fL (9.4-12.4); Monocytes # (auto) 0.58 K/uL (0.11-0.59); Monocytes % (auto) 11.8 %; Neutrophils # (auto) 3.17 K/uL (1.40-6.50); Neutrophils % (auto) 64.3 %; Platelet Count 181 K/uL (130-400); RDW Coefficient of Variation 12.6 % (11.5-14.5); RDW Standard Deviation 43.3 fL (36.4-46.3); Red Blood Count 4.83 M/uL (4.20-5.40); White Blood Count 4.93 K/ul (4.8-10.8)
[2022-05-03 18:33] LABS: Alanine Aminotransferase 24 U/L (7-52); Albumin Globulin Ratio 1.3 (0.9-2); Alkaline Phosphatase 89 U/L (34-104); Anion Gap 11 (3-11); Aspartate Aminotransferase 32 U/L (13-39); BUN Creatinine Ratio 19.3 (10-20); Bilirubin,Total 0.7 mg/dl (0.2-1.0); Blood Urea Nitrogen 21 mg/dl (6-23); Calcium 9.1 mg/dl (8.6-10.3); Carbon Dioxide 23 mmol/L (21-32); Chloride 104 mmol/L (98-107); Est GFR (African American) 54.4 ml/min; Est GFR (Non-African American) 46.9 ml/min; Globulin 3.1 gm/dl (2.5-4.0); Glucose 114 mg/dl (70-99(Fasting)); Magnesium 1.9 mg/dl (1.7-2.4); Potassium 4.2 mmol/L (3.5-5.1); Sodium 138 mmol/L (136-145); Total Protein 7.1 gm/dl (6.0-8.3)
[2022-05-03 18:41] LABS: Prothrombin Time 11.1 Seconds (9.0-12.0)
[2022-05-03 18:47] LABS: Troponin I High Sensitivity 89.7 pg/ml (0-14)
[2022-05-03 18:49] LABS: Thyroid Stimulating Hormone 0.273 uIu/ml (0.300-4.500)
[2022-05-03 19:24] LABS: T4 Free Thyroxine 0.81 ng/dl (0.61-1.60)
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
--- NOTE | 2022-05-03 19:41 | XRay Report ---
XR chest 1V portable HISTORY: weakness COMPARISON: Chest 05/03/2022. FINDINGS: There is a punctate calcified granuloma within the left lower lobe. Otherwise, the lungs ar e clear. The heart is normal in size. No pleural effusions. No pneumothorax. Prior cholecystectomy. IMPRESSION: No acute process. ACT 112: Negative or not required by law. Electronically signed by: Silverio Monroe M.D. 05/03/2022 7:40 PM
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
[2022-05-03] MEDS ORDERED: GLUCOSE 10 TAB/TUBE PO PRN (20:00)
[2022-05-03] MEDS ORDERED: CARBOHYDRATES FOR HYPOGLYCEMIA PO PRN (20:00)
[2022-05-03] MEDS ORDERED: GLUCOSE 40% GEL 15 GM TUBE PO PRN (20:00)
[2022-05-03] MEDS ORDERED: DEXTROSE 50% 50 ML SYRINGE IV PRN (20:00)
[2022-05-03] MEDS ORDERED: GLUCAGON FOR INJ 1 MG VIAL SQ PRN (20:00)
[2022-05-03] MEDS ORDERED: guaiFENesin SUGAR FREE 200 MG/10 ML UDC PO PRN (20:23)
[2022-05-03] MEDS ORDERED: LACTATED RINGER'S 1,000 ML IV SCH (20:45)
[2022-05-03] MEDS ORDERED: OR MISCELLANEOUS MED XX ONE (21:00)
[2022-05-03] MEDS: LANTUS PER UNIT CHARGE SQ SCH (23:59)
[2022-05-03] MEDS: INSULIN ASPART PER UNIT CHARGE SC SCH (23:59)
[2022-05-04] MEDS: Patient's HEIGHT &/or WEIGHT Needed SCH ×2 (00:49→00:54)
[2022-05-04] MEDS ORDERED: MICONAZOLE NITRATE POWDER 85 GM EXT PRN (01:08)
[2022-05-04] MEDS: NIRMATRELVIR/RITONAVIR 1 EA TAB PO SCH ×3 (01:41→21:22)
[2022-05-04] MEDS: APIXABAN 2.5 MG TAB PO SCH ×3 (01:42→21:18)
[2022-05-04] MEDS: METOPROLOL TARTRATE 25 MG TAB PO SCH ×3 (01:42→21:19)
[2022-05-04 06:16] LABS: Basophils # (auto) 0.02 K/uL (0-0.2); Basophils % (auto) 0.3 %; Hematocrit (blood only) 40.6 % (37.0-47.0); Hemoglobin 13.8 g/dl (12.0-16.0); Immature Granulocytes # (auto) 0.03 K/uL (0.01-0.20); Immature Granulocytes % (auto) 0.4 %; Lymphocytes # (auto) 1.88 K/uL (1.2-3.4); Mean Corpuscular Hemoglobin 30.6 pg (25.0-34.0); Mean Platelet Volume 10.1 fL (9.4-12.4); Monocytes # (auto) 0.86 K/uL (0.11-0.59); Neutrophils # (auto) 5.03 K/uL (1.40-6.50); Neutrophils % (auto) 64.3 %; Platelet Count 184 K/uL (130-400); RDW Coefficient of Variation 12.7 % (11.5-14.5); Red Blood Count 4.51 M/uL (4.20-5.40); White Blood Count 7.82 K/ul (4.8-10.8)
[2022-05-04] MEDS: LEVOTHYROXINE SODIUM 75 MCG TABLET PO SCH (06:33)
[2022-05-04 06:34] LABS: BUN Creatinine Ratio 24.8 (10-20); Calcium 8.7 mg/dl (8.6-10.3); Creatinine Clr Calc Pharmacy 39.5 ml/min; Est GFR (African American) 56.9 ml/min; Est GFR (Non-African American) 49.1 ml/min; Magnesium 1.9 mg/dl (1.7-2.4); Potassium 4.1 mmol/L (3.5-5.1)
[2022-05-04] MEDS: INSULIN ASPART PER UNIT CHARGE SC SCH ×4 (09:09→21:16)
[2022-05-04] MEDS: LANTUS PER UNIT CHARGE SQ SCH ×2 (09:10→21:28)
[2022-05-04] MEDS: ASPIRIN 81 MG ECTAB PO SCH (09:24)
--- NOTE | 2022-05-04 11:28 | Electrocardiogram Report ---
Test Reason : Blood Pressure : / mmHG Vent. Rate : 099 BPM Atrial Rate : 099 BPM P-R Int : 142 ms QRS Dur : 086 ms QT Int : 352 ms P-R-T Axes : 034 -46 135 degrees QTc Int : 451 ms Poor data quality, interpretation may be adversely affected Sinus rhythm with Premature atrial complexes Left anterior fascicular block Incomplete right bundle branch block Abnormal ECG When compared with ECG of 03-MAY-2022 07:02, Premature atrial complexes are now Present Nonspecific T wave abnormality now evident in Inferior leads Confirmed by Kali Hayes ([id number]) on 05/04/2022 11:27:53 AM Referred By: REFERRED SELF Confirmed By:Bruce Hayes
--- NOTE | 2022-05-04 14:32 | Hospitalist Progress Note ---
Date of Service May 04, 2022 Assessment & Plan (1) Weakness: Plan: -Admit to med/surge -The patient is currently afebrile, hemodynamically stable, and stable on RA -Has had progressive generalized weakness over the past 72 hours, 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 No dysuria or hematuria, patient notes increased urinary frequency but unsure if this is related to incontinence more than an acute infection. WBC WNL and UA is cloudy, but without bacteria >Will hold abx for now and monitor UA and urine culture being obtained at the time of the admission -Follow blood and urine cultures -Will continue supportive treatment for now with prn tylenol, pulm hygiene -Patient brought her Paxlovid with her, has had one dose, confirmed with Pharmacy, we will continue her course here -PT/OT consults place, fall precautions ordered -BL SCD's and home Eliquis for DVT PPX (2) COVID-19: Plan: -Stable on RA and asymptomatic, CXR today is clear by my read as well as formal read -Continue supportive tx as described in Weakness plan -Continue to monitor for hypoxia (3) Demand ischemia: Plan: -Patient has a history of elevated troponin due to demand ischemia -Initial high sen trop this afternoon was 89, 2 hour repeat fell to 87, the patient is asymptomatic and without acute ST segment or T-wave changes -No need to continue trending trops at this time, continue to monitor for symptoms and repeat ECG as needed (4) Atrial flutter: Plan: -HR currently controlled -Continue metoprolol and Eliquis (5) Diabetes: Plan: -Hold glipizide -Monitor BSG ACHS, goal is 110-140 -Lantus 5 units BID, correction factor of 50 with carb ratio of 15 -DMII diet, adjust regimen as needed (6) Hypertension: Plan: -Stable -Continue metoprolol (7) Hyperlipidemia: Plan: -Hold statin while on Paxlovid (8) Hypothyroidism: Plan: -Free T4 WNL -Continue levothyroxine Admission and Anticipated Discharge Date Admission Date: May 03, 2022 Subjective denies sob,just feels overwhelmingly weak. Symptoms onset ~3dys prior to starting Paxlovid Review of Systems Review of Systems: Denies current fever, chills, headache, changes in vision, hearing, taste, and smell, chest pain, SOB, cough, abdominal pain, nausea, vomiting, diarrhea, hematemesis, melena, dysuria, hematuria, and recent falls. All systems have been reviewed and are otherwise negative. Respiratory: denies symptoms Cardiovascular: Additional Comments: no chest pain Gastrointestinal: anorexia Neurologic: weak Physical Exam Physical Exam: WDWN WF in NAD Constitutional: afebrile x 24 hrs Neck: supple Respiratory: clear on shallow respirations Cardiovascular: reg Gastrointestinal (Abdomen): soft, nondistended Musculoskeletal: no c/c/e Results & Data Results & Data Vital Signs (Past 12 Hours) Vital Signs Temp Pulse Resp BP Pulse Ox O2 Del Method 05/04/22 07:00 36.7 C 100 H 18 100/60 94 Room Air PG Care Time/CCT Total # of Minutes Spent Total Time Spent with Patient: Total time spent is greater than 50% in coordination of care (as documented) at patient's floor/unit and/or counseling patient: Coding Level of Care Code 36642 SUB INP/OBS CARE 2/35MIN Diagnoses Weakness R53.1 COVID-19 U07.1 Demand ischemia I24.8 Atrial flutter I48.92 Diabetes E11.9 Hypertension I10 Hyperlipidemia E78.5 Hypothyroidism E03.9
[2022-05-04] MEDS ORDERED: ACETAMINOPHEN 500 MG TAB PO PRN (20:12)
[2022-05-04] MEDS ORDERED: oxyCODONE/ACETAMINOPHEN 5mg/325mg TAB PO STA (23:19)
[2022-05-05] MEDS: LEVOTHYROXINE SODIUM 75 MCG TABLET PO SCH (05:26)
[2022-05-05 06:36] LABS: BUN Creatinine Ratio 28.5 (10-20); C Reactive Protein 2.31 mg/dl (0-0.5); Calcium 7.9 mg/dl (8.6-10.3); Creatinine Clr Calc Pharmacy 28.8 ml/min; Est GFR (African American) 38.8 ml/min; Est GFR (Non-African American) 33.5 ml/min; Magnesium 1.9 mg/dl (1.7-2.4); Potassium 3.9 mmol/L (3.5-5.1)
[2022-05-05 07:43] LABS: Hematocrit (blood only) 34.8 % (37.0-47.0); Hemoglobin 11.3 g/dl (12.0-16.0); Mean Corpuscular Hgb Conc 32.5 g/dL (32.0-36.0); Mean Corpuscular Volume 92.3 fL (80.0-100.0); Platelet Count 147 K/uL (130-400); RDW Coefficient of Variation 12.8 % (11.5-14.5); RDW Standard Deviation 43.8 fL (36.4-46.3); Red Blood Count 3.77 M/uL (4.20-5.40); White Blood Count 4.15 K/ul (4.8-10.8)
[2022-05-05] MEDS: ASPIRIN 81 MG ECTAB PO SCH (08:20)
[2022-05-05] MEDS: APIXABAN 2.5 MG TAB PO SCH ×2 (08:20→21:20)
[2022-05-05] MEDS: METOPROLOL TARTRATE 25 MG TAB PO SCH (08:22)
[2022-05-05] MEDS: NIRMATRELVIR/RITONAVIR 1 EA TAB PO SCH ×2 (08:22→21:21)
[2022-05-05 08:36] LABS: Acanthocytes 1+; Basophils # (auto) 0.02 K/uL (0-0.2); Basophils % (auto) 0.5 %; Eosinophils # (auto) 0.02 K/uL (0-0.50); Eosinophils % (auto) 0.5 %; Immature Granulocytes # (auto) 0.01 K/uL (0.01-0.20); Immature Granulocytes % (auto) 0.2 %; Lymphocytes # (auto) 2.89 K/uL (1.2-3.4); Lymphocytes % (auto) 69.6 %; Monocytes # (auto) 0.36 K/uL (0.11-0.59); Monocytes % (auto) 8.7 %; Neutrophils # (auto) 0.85 K/uL (1.40-6.50); Neutrophils % (auto) 20.5 %
[2022-05-05] MEDS: INSULIN ASPART PER UNIT CHARGE SC SCH ×4 (09:54→21:26)
[2022-05-05] MEDS: SODIUM CHLORIDE 0.9% 1000ML 1,000 ML IV SCH ×2 (10:15→21:21)
[2022-05-05] MEDS: LANTUS PER UNIT CHARGE SQ SCH (10:16)
--- NOTE | 2022-05-05 12:37 | Electrocardiogram Report ---
Test Reason : Blood Pressure : / mmHG Vent. Rate : 043 BPM Atrial Rate : 043 BPM P-R Int : 112 ms QRS Dur : 090 ms QT Int : 488 ms P-R-T Axes : 090 -26 048 degrees QTc Int : 412 ms Poor data quality, interpretation may be adversely affected Marked sinus bradycardia Nonspecific ST and T wave abnormality Abnormal ECG When compared with ECG of 03-MAY-2022 17:42, Premature atrial complexes are no longer Present Vent. rate has decreased BY 56 BPM Nonspecific T wave abnormality no longer evident in Inferior leads Confirmed by Gregorio Mcdaniel ([id number]) on 05/05/2022 12:36:45 PM Referred By: REFERRED SELF Confirmed By:Gregorio Mcdaniel
[2022-05-05 14:05] LABS: Appearance Urine Cloudy (Clear); Bacteria Urine Automated Negative (Negative); Bilirubin Urine Negative (Negative); Blood Urine Negative (Negative); Color Urine Yellow; Glucose Urine UA Negative (Negative); Ketones Urine Negative (Negative); Leukocyte Esterase Urine Negative (Negative); Nitrite Urine Negative (Negative); Protein Urine Negative (Negative); RBC Urine Automated 0-4 /hpf (0-4); Specific Gravity Urine 1.018 (1.000-1.030); Urobilinogen Urine Negative (Negative)
--- NOTE | 2022-05-05 17:06 | Hospitalist Progress Note ---
Date of Service May 05, 2022 Assessment & Plan (1) Weakness: Plan: -Admit to med/surge -The patient is currently afebrile, hemodynamically stable, and stable on RA -Has had progressive generalized weakness over the 72 hours SANDWICH HAND, 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 No dysuria or hematuria, patient notes increased urinary frequency but unsure if this is related to incontinence more than an acute infection. WBC WNL and UA is cloudy, but without bacteria >Will hold abx for now and monitor UA and urine culture results are pending -Follow blood and urine cultures -Will continue supportive treatment for now with prn tylenol, pulm hygiene -Patient brought her Paxlovid with her, has had one dose, confirmed with Pharmacy, we will continue her course here -PT/OT consults place, fall precautions ordered -BL SCD's and home Eliquis for DVT PPX (2) COVID-19: Plan: -Stable on RA and asymptomatic, CXR today is clear by my read as well as formal read -Continue supportive tx as described in Weakness plan -Continue to monitor for hypoxia (3) Demand ischemia: Plan: -Patient has a history of elevated troponin due to demand ischemia -Initial high sen trop this afternoon was 89, 2 hour repeat fell to 87, the patient is asymptomatic and without acute ST segment or T-wave changes -No need to continue trending trops at this time, continue to monitor for symptoms and repeat ECG as needed (4) Atrial flutter: Plan: -by hx -Continue Eliquis metoprolol on hold due to bradycardia (5) Diabetes: Plan: -Hold glipizide -Monitor BSG ACHS, goal is 110-140 -Lantus 5 units BID, placed on hold due to marginal oral intake. glu 76-136 range, continue SSI -DMII diet, adjust regimen as needed (6) Hypertension: Plan: -Stable (7) Hyperlipidemia: Plan: -Hold statin while on Paxlovid (8) Hypothyroidism: Plan: -Free T4 WNL -Continue levothyroxine (9) Bradycardia: Plan: appears to be sinus bradycardia Will stop Metoprolol, effect on bradycardia outweighs benefit of a.flutter prevention Will consult cardio. probable manifestation of Covid Admission and Anticipated Discharge Date Admission Date: May 04, 2022 Subjective denies sob,just feels overwhelmingly weak. Symptoms onset ~3days prior to starting Paxlovid Mental status has been waxing and waning Review of Systems Review of Systems: Denies current fever, chills, headache, changes in vision, hearing, taste, and smell, chest pain, SOB, cough, abdominal pain, nausea, vomiting, diarrhea, hematemesis, melena, dysuria, hematuria, and recent falls. All systems have been reviewed and are otherwise negative. Respiratory: denies symptoms Cardiovascular: Additional Comments: no chest pain Gastrointestinal: anorexia Neurologic: weak Physical Exam Physical Exam: WDWN WF in NAD, somewhat lethargic and very weak Constitutional: afebrile for 24 hrs Neck: trachea midline, no thyromegaly Respiratory: very shallow respirations, no interstitial ralles can be appreciated Cardiovascular: bradycardia, HR sinus ~43/min Gastrointestinal (Abdomen): normal bowel sounds, soft, nontender, no hepatosplenomegaly Musculoskeletal: very weak, but nonfocal Results & Data Results & Data Vital Signs (Past 12 Hours) Vital Signs Temp Pulse Resp BP Pulse Ox O2 Del Method 05/05/22 14:31 36.6 C 45 L 16 110/68 96 Room Air 05/05/22 12:13 41 L 16 108/67 95 Room Air 05/05/22 08:34 44 L 18 90/56 L 96 Room Air PG Care Time/CCT Total # of Minutes Spent Total Time Spent with Patient: Total time spent is greater than 50% in coordination of care (as documented) at patient's floor/unit and/or counseling patient: Coding Level of Care Code 45023 SUB INP/OBS CARE 2/35MIN Diagnoses Weakness R53.1 COVID-19 U07.1 Demand ischemia I24.8 Atrial flutter I48.92 Diabetes E11.9 Hypertension I10 Hyperlipidemia E78.5 Hypothyroidism E03.9 Bradycardia R00.1
[2022-05-06] MEDS: LEVOTHYROXINE SODIUM 75 MCG TABLET PO SCH (05:36)
[2022-05-06] MEDS: SODIUM CHLORIDE 0.9% 1000ML 1,000 ML IV SCH (08:12)
[2022-05-06] MEDS: ASPIRIN 81 MG ECTAB PO SCH (08:13)
[2022-05-06] MEDS: NIRMATRELVIR/RITONAVIR 1 EA TAB PO SCH ×2 (08:14→20:51)
[2022-05-06 08:23] LABS: Hematocrit (blood only) 34.3 % (37.0-47.0); Hemoglobin 11.5 g/dl (12.0-16.0); Mean Corpuscular Hemoglobin 30.6 pg (25.0-34.0); Mean Corpuscular Hgb Conc 33.5 g/dL (32.0-36.0); Mean Corpuscular Volume 91.2 fL (80.0-100.0); Mean Platelet Volume 9.7 fL (9.4-12.4); Platelet Count 147 K/uL (130-400); RDW Coefficient of Variation 12.5 % (11.5-14.5); RDW Standard Deviation 41.9 fL (36.4-46.3); Red Blood Count 3.76 M/uL (4.20-5.40); White Blood Count 4.75 K/ul (4.8-10.8)
[2022-05-06 08:45] LABS: BUN Creatinine Ratio 27.5 (10-20); Calcium 7.7 mg/dl (8.6-10.3); Creatinine Clr Calc Pharmacy 51.8 ml/min; Est GFR (Non-African American) 68.2 ml/min; Magnesium 1.7 mg/dl (1.7-2.4); Potassium 3.9 mmol/L (3.5-5.1)
[2022-05-06] MEDS: APIXABAN 2.5 MG TAB PO SCH ×2 (09:16→21:03)
[2022-05-06] MEDS: INSULIN ASPART PER UNIT CHARGE SC SCH ×4 (09:16→20:49)
[2022-05-06 09:19] LABS: Acanthocytes 1+; Basophils # (auto) 0.01 K/uL (0-0.2); Basophils % (auto) 0.2 %; Eosinophils # (auto) 0.03 K/uL (0-0.50); Eosinophils % (auto) 0.6 %; Immature Granulocytes # (auto) 0.01 K/uL (0.01-0.20); Immature Granulocytes % (auto) 0.2 %; Lymphocytes # (auto) 2.66 K/uL (1.2-3.4); Monocytes # (auto) 0.32 K/uL (0.11-0.59); Monocytes % (auto) 6.7 %; Neutrophils # (auto) 1.72 K/uL (1.40-6.50); Neutrophils % (auto) 36.3 %
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
--- NOTE | 2022-05-06 13:57 | Electrocardiogram Report ---
Test Reason : Blood Pressure : / mmHG Vent. Rate : 052 BPM Atrial Rate : 052 BPM P-R Int : 102 ms QRS Dur : 088 ms QT Int : 438 ms P-R-T Axes : -22 -44 042 degrees QTc Int : 407 ms Poor data quality, interpretation may be adversely affected Sinus bradycardia with short IN with Premature supraventricular complexes Left axis deviation Nonspecific ST and T wave abnormality Abnormal ECG When compared with ECG of 05-MAY-2022 10:10, Premature supraventricular complexes are now Present Confirmed by Gregorio Mcdaniel ([id number]) on 05/06/2022 1:57:14 PM Referred By: REFERRED SELF Confirmed By:Gregorio Mcdaniel
--- NOTE | 2022-05-06 14:01 | Hospitalist Progress Note ---
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 No dysuria or hematuria, patient notes increased urinary frequency but unsure if this is related to incontinence more than an acute infection. WBC WNL and UA is cloudy, but without bacteria >Will hold abx for now and monitor UA and urine culture results are pending -Follow blood and urine cultures, neg to date -Will continue supportive treatment for now with prn tylenol, pulm hygiene -Patient brought her Paxlovid with her, has had one dose, confirmed with Pharmacy, we will continue her course here -PT/OT consults place, fall precautions ordered -BL SCD's and home Eliquis for DVT PPX (2) COVID-19: Plan: -Stable on RA and asymptomatic, CXR today is clear -Continue supportive tx as described in Weakness plan -Continue to monitor for hypoxia (3) Demand ischemia: Plan: -Patient has a history of elevated troponin due to demand ischemia -Initial high sen trop this afternoon was 89, 2 hour repeat fell to 87, the patient is asymptomatic and without acute ST segment or T-wave changes -No need to continue trending trops at this time, continue to monitor for symptoms and cardiology would like daily ECG while hospitalized (4) Atrial flutter: Plan: -by hx -Continue Eliquis metoprolol on hold due to bradycardia (5) Diabetes: Plan: -Hold glipizide -Monitor BSG ACHS, goal is 110-140 -Lantus 5 units BID, placed on hold due to marginal oral intake. glu 91-154 range, continue SSI -DMII diet, adjust regimen as needed (6) Hypertension: Plan: -Stable (7) Hyperlipidemia: Plan: -Hold statin while on Paxlovid (8) Hypothyroidism: Plan: -Free T4 WNL -Continue levothyroxine (9) Bradycardia: Plan: appears to be sinus bradycardia stopped Metoprolol, effect on bradycardia outweighs benefit of a.flutter prevention cardio input appreciated probable manifestation of Covid Admission and Anticipated Discharge Date Admission Date: May 04, 2022 Subjective denies sob,just feels overwhelmingly weak. Symptoms onset ~3days prior to starting Paxlovid Mental status has been waxing and waning Review of Systems Review of Systems: Denies current fever, chills, headache, changes in vision, hearing, taste, and smell, chest pain, SOB, cough, abdominal pain, nausea, vomiting, diarrhea, hematemesis, melena, dysuria, hematuria, and recent falls. All systems have been reviewed and are otherwise negative. Respiratory: denies symptoms Cardiovascular: Additional Comments: no chest pain Gastrointestinal: anorexia Neurologic: weak Physical Exam Physical Exam: WDWN WF in NAD, somewhat lethargic and very weak, though voice does appear stronger today Neck: trachea midline, no thyromegaly Respiratory: normal respiratory effort, lungs clear to auscultation Cardiovascular: bradycardia, HR 35-48 Gastrointestinal (Abdomen): normal bowel sounds, soft, nontender, no hepatosplenomegaly Results & Data Results & Data Vital Signs (Past 12 Hours) Vital Signs Temp Pulse Resp BP Pulse Ox O2 Del Method 05/06/22 08:04 36.5 C 53 L 16 124/79 96 Room Air PG Care Time/CCT Total # of Minutes Spent Total Time Spent with Patient: Total time spent is greater than 50% in coordination of care (as documented) at patient's floor/unit and/or counseling patient: Coding Level of Care Code 29159 SUB INP/OBS CARE 2/35MIN Diagnoses Weakness R53.1 COVID-19 U07.1 Demand ischemia I24.8 Atrial flutter I48.92 Diabetes E11.9 Hypertension I10 Hyperlipidemia E78.5 Hypothyroidism E03.9 Bradycardia R00.1
[2022-05-07] MEDS: LEVOTHYROXINE SODIUM 75 MCG TABLET PO SCH (05:26)
[2022-05-07] MEDS: ASPIRIN 81 MG ECTAB PO SCH (08:08)
[2022-05-07] MEDS: APIXABAN 2.5 MG TAB PO SCH ×2 (08:08→21:24)
[2022-05-07] MEDS: NIRMATRELVIR/RITONAVIR 1 EA TAB PO SCH ×2 (08:08→21:24)
[2022-05-07] MEDS: INSULIN ASPART PER UNIT CHARGE SC SCH ×4 (09:26→21:23)
--- NOTE | 2022-05-07 21:10 | Hospitalist Progress Note ---
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 No dysuria or hematuria, patient notes increased urinary frequency but unsure if this is related to incontinence more than an acute infection. WBC WNL and UA is cloudy, but without bacteria >Will hold abx for now and monitor UA and urine culture results are pending -Follow blood and urine cultures, neg to date -Will continue supportive treatment for now with prn tylenol, pulm hygiene -Patient brought her Paxlovid with her, has had one dose, confirmed with Pharmacy, we will continue her course here -PT/OT consults place, fall precautions ordered -BL SCD's and home Eliquis for DVT PPX Patient is awaiting placement (2) COVID-19: Plan: -Stable on RA and asymptomatic, CXR today is clear -Continue supportive tx as described in Weakness plan -Continue to monitor for hypoxia (3) Demand ischemia: Plan: -Patient has a history of elevated troponin due to demand ischemia -Initial high sen trop this afternoon was 89, 2 hour repeat fell to 87, the patient is asymptomatic and without acute ST segment or T-wave changes -No need to continue trending trops at this time, continue to monitor for symptoms and cardiology would like daily ECG while hospitalized (4) Atrial flutter: Plan: -by hx -Continue Eliquis metoprolol on hold due to bradycardia (5) Diabetes: Plan: -Hold glipizide -Monitor BSG ACHS, goal is 110-140 -Lantus 5 units BID, placed on hold due to marginal oral intake. glu 91-154 range, continue SSI -DMII diet, adjust regimen as needed (6) Hypertension: Plan: -Stable (7) Hyperlipidemia: Plan: -Hold statin while on Paxlovid (8) Hypothyroidism: Plan: -Free T4 WNL -Continue levothyroxine (9) Bradycardia: Plan: appears to be sinus bradycardia stopped Metoprolol, effect on bradycardia outweighs benefit of a.flutter prev ention cardio input appreciated probable manifestation of Covid Admission and Anticipated Discharge Date Admission Date: May 04, 2022 Subjective 81 yo female reports no new symptoms Review of Systems Review of Systems: All systems reviewed & are unremarkable except as noted in HPI & below Physical Exam Physical Exam: WDWN WF in NAD, awake, alert, though voice does appear stronger today Neck: trachea midline, no thyromegaly Respiratory: normal respiratory effort, lungs clear to auscultation Gastrointestinal (Abdomen): normal bowel sounds, soft, nontender, no hepatosplenomegaly Results & Data Results & Data Vital Signs (Past 12 Hours) Vital Signs Temp Pulse Resp BP Pulse Ox O2 Del Method 05/07/22 20:52 36.6 C 55 L 154/75 H 98 Room Air 05/07/22 14:56 36.6 C 58 L 16 130/80 96 Room Air PG Care Time/CCT Total # of Minutes Spent Total Time Spent with Patient: Total time spent is greater than 50% in coordination of care (as documented) at patient's floor/unit and/or counseling patient: Coding Level of Care Code 81992 SUB INP/OBS CARE 2/35MIN Diagnoses Weakness R53.1 COVID-19 U07.1 Demand ischemia I24.8 Atrial flutter I48.92 Diabetes E11.9 Hypertension I10 Hyperlipidemia E78.5 Hypothyroidism E03.9 Bradycardia R00.1
[2022-05-08] MEDS: LEVOTHYROXINE SODIUM 75 MCG TABLET PO SCH (05:44)
[2022-05-08] MEDS: ASPIRIN 81 MG ECTAB PO SCH (08:14)
[2022-05-08] MEDS: APIXABAN 2.5 MG TAB PO SCH ×2 (08:14→20:03)
[2022-05-08] MEDS: INSULIN ASPART PER UNIT CHARGE SC SCH ×4 (09:05→20:08)
[2022-05-08] MEDS ORDERED: INSULIN ASPART PER UNIT CHARGE SC ONE (09:46)
[2022-05-08] MEDS ORDERED: LANTUS PER UNIT CHARGE SQ ONE (09:46)
[2022-05-08] MEDS: SENNA 8.6 MG TAB PO PRN (16:21)
--- NOTE | 2022-05-08 22:09 | Hospitalist Progress Note ---
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 No dysuria or hematuria, patient notes increased urinary frequency but unsure if this is related to incontinence more than an acute infection. WBC WNL and UA is cloudy, but without bacteria >Will hold abx for now and monitor UA and urine culture results are pending -Follow blood and urine cultures, neg to date -Will continue supportive treatment for now with prn tylenol, pulm hygiene -Patient brought her Paxlovid with her, has had one dose, confirmed with Pharmacy, we will continue her course here -PT/OT consults place, fall precautions ordered -BL SCD's and home Eliquis for DVT PPX Patient will be discharged tomorrow. (2) COVID-19: Plan: -Stable on RA and asymptomatic, CXR today is clear -Continue supportive tx as described in Weakness plan -Continue to monitor for hypoxia (3) Demand ischemia: Plan: -Patient has a history of elevated troponin due to demand ischemia -Initial high sen trop this afternoon was 89, 2 hour repeat fell to 87, the patient is asymptomatic and without acute ST segment or T-wave changes -No need to continue trending trops at this time, continue to monitor for symptoms and cardiology would like daily ECG while hospitalized (4) Atrial flutter: Plan: -by hx -Continue Eliquis metoprolol on hold due to bradycardia (5) Diabetes: Plan: -Hold glipizide -Monitor BSG ACHS, goal is 110-140 -Lantus 5 units BID, placed on hold due to marginal oral intake. glu 91-154 range, continue SSI -DMII diet, adjust regimen as needed (6) Hypertension: Plan: -Stable (7) Hyperlipidemia: Plan: -Hold statin while on Paxlovid (8) Hypothyroidism: Plan: -Free T4 WNL -Continue levothyroxine (9) Bradycardia: Plan: appears to be sinus bradycardia stopped Metoprolol, effect on bradycardia outweighs benefit of a.flutter prevention cardio input appreciated probable manifestation of Covid Admission and Anticipated Discharge Date Admission Date: May 04, 2022 Subjective 81 yo female reports feeling well. Patient has no new complaints. Review of Systems Review of Systems: All systems reviewed & are unremarkable except as noted in HPI & below Physical Exam Physical Exam: Gen: WD/WN WF in NAD, awake, alert, seems back to baseline Neck: trachea midline, no thyromegaly Respiratory: normal respiratory effort, lungs clear to auscultation Gastrointestinal (Abdomen): normal bowel sounds, soft, nontender, no hepatosplenomegaly Results & Data Results & Data Vital Signs (Past 12 Hours) Vital Signs Temp Pulse Resp BP Pulse Ox O2 Del Method 05/08/22 22:08 36.8 C 58 L 18 130/72 96 Room Air 05/08/22 17:30 36.6 C 56 L 18 144/78 H 99 Room Air PG Care Time/CCT Total # of Minutes Spent Total Time Spent with Patient: Total time spent is greater than 50% in coordination of care (as documented) at patient's floor/unit and/or counseling patient: Coding Level of Care Code 90287 SUB INP/OBS CARE 2/35MIN Diagnoses Weakness R53.1 COVID-19 U07.1 Demand ischemia I24.8 Atrial flutter I48.92 Diabetes E11.9 Hypertension I10 Hyperlipidemia E78.5 Hypothyroidism E03.9 Bradycardia R00.1
[2022-05-09] MEDS: LEVOTHYROXINE SODIUM 75 MCG TABLET PO SCH (05:30)
[2022-05-09] MEDS: ASPIRIN 81 MG ECTAB PO SCH (08:53)
[2022-05-09] MEDS: APIXABAN 2.5 MG TAB PO SCH (08:53)
[2022-05-09] MEDS: SENNA 8.6 MG TAB PO PRN (08:54)
[2022-05-09] MEDS: INSULIN ASPART PER UNIT CHARGE SC SCH ×2 (09:12→13:17)
--- NOTE | 2022-05-09 15:37 | Discharge Summary ---
Date of Service May 09, 2022 Admission HPI Per Admitting Provider Yobani is an 81 year old female with a PMH significant for atrial flutter on Eliquis, hypothyroidism, DM II, CAD, PVD, and HTN who presented to the [facility] ED on 05/03/22 for continued weakness. Per chart review, the patient presented to the [facility] ED approximately 12 hours earlier today for the same symptoms. She was found to be covid positive but stable on RA and was discharged home with a course of Paxlovid. Unfortunately she was still too weak to properly care for herself at home and returned to the ED. In the ED the patient was found to be be afebrile, hemodynamically stable, and stable on RA. Labs were remarkable for a CBC with lymphocyte count of 1.14 otherwise WNL stable renal function and electrolytes, LFT's WNL, initial high sen trop of 89.7 (was noted to have two troponins earlier today of 86 -->76.5), TSH of 0.273 but with Free T4 WNL. Chest x-ray was read as "No acute process.". At the time of the exam the patient was lying in bed in no acute distress with her sitting bedside. She states that she started to develop generalized weakness approximately 2 days ago. This has progressed to the point where she is too weak to safely ambulate in and around her home and her BL legs feel very weak. When asked, the patient states that she has been having increased urinary frequency. She denies recent fever, chills, changes in vision, hearing, taste, and smell, chest pain, SOB, abd pain, nausea, vomiting, diarrhea, dysuria, hematuria, melena, LE swelling and recent trauma/falls. So far she had one dose of Paxlovid, she did bring her prescription in with her. The patient and her have approximately 28 steps to climb at home. We discussed code status, she wishes to be a DNR/DNI and for her to make medical decisions for her if she cannot make them herself. Per chart review, the patient was seen by her PCP on 04/24/22 and was diagnosed with a UTI. She was given a 7 day course of Bactrim of which she completed. Please refer to Dr. Patel's attestation for any changes to the treatment plan Principal Diagnosis weakness from COVID 19 Discharge Exam Gen: WD/WN WF in NAD, awake, alert, seems back to baseline Neck: trachea midline, no thyromegaly Respiratory: normal respiratory effort, lungs clear to auscultation Gastrointestinal (Abdomen): normal bowel sounds, soft, nontender, no hepatosplenomegaly Discharge Data Allergies Allergy/AdvReac Type Severity Reaction Status Date / Time bee venom protein (honey bee) Allergy Unknown Unverified 04/24/22 13:52 No Known Drug Allergies Allergy Verified 04/24/22 13:52 Consultations 05/03/22 19:41 ED Decision to Admit Stat 05/05/22 11:39 Consult Cardiology Routine Hospital Course (1) Weakness: -Admit to med/surge -The patient is currently afebrile, hemodynamically stable, and stable on RA -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 No dysuria or hematuria, patient notes increased urinary frequency but unsure if this is relat ed to incontinence more than an acute infection. WBC WNL and UA is cloudy, but without bacteria >Will hold abx for now and monitor UA and urine culture results are pending -Follow blood and urine cultures, neg to date -Will continue supportive treatment for now with prn tylenol, pulm hygiene -Patient brought her Paxlovid with her, has had one dose, confirmed with Pharmacy, we will continue her course here -PT/OT consults place, fall precautions ordered -BL SCD's and home Eliquis for DVT PPX Patient will be discharged today. (2) COVID-19: -Stable on RA and asymptomatic, CXR today is clear -Continue supportive tx as described in Weakness plan -Continue to monitor for hypoxia (3) Demand ischemia: -Patient has a history of elevated troponin due to demand ischemia -Initial high sen trop this afternoon was 89, 2 hour repeat fell to 87, the patient is asymptomatic and without acute ST segment or T-wave changes -No need to continue trending trops at this time, continue to monitor for symptoms and cardiology would like daily ECG while hospitalized (4) Atrial flutter: -by hx -Continue Eliquis metoprolol on hold due to bradycardia (5) Diabetes: -Hold glipizide -Monitor BSG ACHS, goal is 110-140 -Lantus 5 units BID, placed on hold due to marginal oral intake. glu 91-154 ran ge, continue SSI -DMII diet, adjust regimen as needed (6) Hypertension: -Stable (7) Hyperlipidemia: -Hold statin while on Paxlovid (8) Hypothyroidism: -Free T4 WNL -Continue levothyroxine (9) Bradycardia: appears to be sinus bradycardia stopped Metoprolol, effect on bradycardia outweighs benefit of a.flutter prevention cardio input appreciated probable manifestation of Covid Total Time Total Time Spent Total Time Spent (In Minutes): 32 Discharge Plan Discharge Items Patient Disposition: Transfer Residential Fac Reason For Visit: generalized weakness Discharge Diagnosis: COVID 19 Activity: Resume your previous activity Non-emergency contact: Primary Care Provider Call non-emergency contact if: you have any medication questions Follow-up/Referrals: Yash Tavares, [Primary Care Provider] - Diet: Carb Consistent or DM2 Addtl Attending Provider Instructions: You have been hospitalized for an acute medical problem. During your stay at [facility], we have made an effort to correct the problem that brought you to the hospital while keeping you as comfortable as possible. Medications were used to bring your condition under control and your discharge instructions will include directions for any medications you should take after leaving the hospital. Please make sure you see your Primary Care Provider as part of your follow up plan. Pending Studies at Discharge: No Stand-Alone Forms: My [facility] Ease My [employer], Smoking Cessation Skilled Items Patient informed of condition?: No DNR: Yes Discharge Level of Care: Skilled Communicable Disease: No Discharge Prognosis: Stable Lines: None Urinary Catheter: No Medications and DC Order Prescriptions: Continued glipizide 2.5 mg tablet extended release 24hr 2.5 mg PO DAILY Qty: 90 3RF atorvastatin 80 mg tablet 80 mg PO DAILY Qty: 90 1RF levothyroxine 75 mcg tablet 75 mcg PO DAILY Qty: 90 3RF levocetirizine [Xyzal] 5 mg tablet 5 mg PO DAILY PRN (Reason: Allergy Symptoms) senna 8.6 mg capsule 8.6 mg PO DAILY PRN (Reason: constipation) Eliquis 5 mg tablet 5 mg PO BID Qty: 60 3RF nitroglycerin 0.4 mg tablet, sublingual 0.4 mg SL Q5M PRN (Reason: chest pain) Qty: 25 1RF loratadine [Claritin] 10 mg tablet 10 mg PO DAILY PRN (Reason: allergy symtoms) mecobalamin (vitamin B12) 1,000 mcg tablet,chewable 1,000 mcg PO DAILY cholecalciferol (vitamin D3) [Vitamin D3] 2,000 unit Capsule 2,000 unit PO DAILY aspirin 81 mg tablet,delayed release (DR/EC) 81 mg PO DAILY Qty: 90 0RF Discontinued metoprolol tartrate 25 mg tablet 25 mg PO BID Qty: 180 3RF sulfamethoxazole-trimethoprim [Bactrim DS] 800-160 mg tablet 1 tab PO BID Qty: 14 0RF Paxlovid (EUA) 300 mg (150 mg x 2)-100 mg tablet See Rx Instructions .ROUTE .COMPLEX Qty: 30 0RF Rx Instructions: take TWO 150 mg tablets of nirmatrelvir with ONE 100 mg tablet of ritonavir twice daily for 5 days Discharge Orders: Discharge Order (Routine); Ordered 05/09/22 Ordered By: Irineo Rivera/Other Patient Handouts: COVID-19 Home Care Admission Data Admit Date/Time: 05/04/22 14:21 Attending Provider: Irineo Garcia Admit Provider: Teofilo Rodriguez Primary Care Provider: Yash Tavares Other Providers: Shivani Patel ; Marcus Luna ; Chito Cao ; Gregorio Mcdaniel ; Jarocho Evans ; Cain Laird ; Michael Carrasco Jr ; Bi Greenwood ; Kaur Mckeon ; Ankita Brizuela ; Tong Quintero ; Kali Hayes ; Barber Rodrigues ; Iona Sahu ; Mehreen Hebert ; Moses Batista ; Jorge Samuel ; Vladimir Colon ; Jarocho Curiel V. ; Brendan Greco [place] ; [place] Other Interventions: Discharge Summary Assessment (RN) Last Done: 05/09/22 15:37 Coding Level of Care Code 88512 INP/OBS DISCH >30 MIN Diagnoses Weakness R53.1 COVID-19 U07.1 Demand ischemia I24.8 Atrial flutter I48.92 Diabetes E11.9 Hypertension I10 Hyperlipidemia E78.5 Hypothyroidism E03.9 Bradycardia R00.1
[2022-05-11] MEDS ORDERED: APIXABAN 5 MG TABLET PO SCH (09:00)
== END 2022-05-09 16:51 | DRG 178 ==
LOC: 3E 17:31 → ED 17:31 → SUATTDRO 19:59 → 3E 22:33 → SUATTDRO 05-04 14:21

== ENCOUNTER 2022-10-08 15:20 | Inpatient (IN) ==
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
[2022-10-08 16:00] LABS: Basophils # (auto) 0.03 K/uL (0.00-0.20); Basophils % (auto) 0.5 %; Eosinophils # (auto) 0.03 K/uL (0.00-0.50); Eosinophils % (auto) 0.5 %; Hematocrit (blood only) 44.2 % (37.0-47.0); Hemoglobin 15.6 g/dl (12.0-16.0); Immature Granulocytes # (auto) 0.04 K/uL (0.01-0.20); Immature Granulocytes % (auto) 0.6 %; Lymphocytes # (auto) 1.18 K/uL (1.20-3.40); Lymphocytes % (auto) 18.6 %; Mean Corpuscular Hemoglobin 31.3 pg (25.0-34.0); Mean Corpuscular Hgb Conc 35.3 g/dL (32.0-36.0); Mean Corpuscular Volume 88.8 fL (80.0-100.0); Mean Platelet Volume 9.5 fL (9.4-12.4); Monocytes # (auto) 0.41 K/uL (0.11-0.59); Monocytes % (auto) 6.5 %; Neutrophils # (auto) 4.66 K/uL (1.40-6.50); Neutrophils % (auto) 73.3 %; Platelet Count 205 K/uL (130-400); RDW Coefficient of Variation 12.6 % (11.5-14.5); Red Blood Count 4.98 M/uL (4.20-5.40); White Blood Count 6.35 K/ul (4.8-10.8)
[2022-10-08 16:25] LABS: Albumin Level 4.1 gm/dl (3.4-5.0); BUN Creatinine Ratio 18.3 (10-20); Bilirubin Direct 0.2 mg/dl (0-0.2); Bilirubin,Total 1.1 mg/dl (0.2-1.0); Calcium 9.6 mg/dl (8.6-10.3); Creatinine Clr Calc Pharmacy 54.4 ml/min; Est GFR (African American) 76.2 ml/min; Est GFR (Non-African American) 65.7 ml/min; Magnesium 1.7 mg/dl (1.7-2.4); Potassium 4.2 mmol/L (3.5-5.1); Total Protein 7.2 gm/dl (6.0-8.3)
--- NOTE | 2022-10-08 16:25 | CT Scan Report ---
CT head/brain wo con CLINICAL HISTORY: ams Technique: Contiguous axial CT images of the head were acquired from the base of the skull to the henrietta porfirio without intravenous contrast administration. Images were viewed in brain, subdural and bone [facility]. Automated dose lowering techniques and/or adjustment according to patient size were utilized for this exam. Comparison: Comparison is made to CT head 05/03/2022 Findings: Areas of decreased attenuation are present in the periventricular and subcortical white matter bilate rally consistent with small vessel ischemic disease. Generalized cerebral atrophy with commensurate e nlargement of the ventricles, sulci, and cisterns is also present. There is no acute intracranial hem orrhage or evidence of acute territorial infarction. No shift of the midline structures, mass effect, or extra-axial abnormalities are shown. Atherosclerotic calcifications are present in the intracran ial segments of the internal carotid arteries. Calcification is noted in the falx. Imaged portions of the paranasal sinuses and mastoid air cells are clear. The orbits appear normal. There are no acute fractures of the calvaria or scalp swelling. Impression: No acute intracranial hemorrhage, no evidence of acute territorial infarction or other acute intracra nial disease process. ACT 112: Negative or not required by law. Electronically signed by: Oral Mc M.D. 10/08/2022 4:23 PM
[2022-10-08 16:32] LABS: Troponin I High Sensitivity 63.5 pg/ml (0-14)
[2022-10-08 16:49] LABS: Appearance Urine Cloudy (Clear); Bilirubin Urine Negative (Negative); Blood Urine 3+ (Negative); Color Urine Yellow; Glucose Urine UA Negative (Negative); Ketones Urine Negative (Negative); Leukocyte Esterase Urine 3+ (Negative); Nitrite Urine Negative (Negative); Protein Urine Negative (Negative); RBC Urine Automated 0-4 /hpf (0-4); Specific Gravity Urine 1.017 (1.000-1.030); Urobilinogen Urine Negative (Negative); WBC Urine Automated >30 /hpf (0-5); pH Urine 5.5 (4.5-7.5)
[2022-10-08 17:06] LABS: Amorphous Sediment Urine Present (None Prsent); Bacteria Urine Automated 2+ (Negative)
--- NOTE | 2022-10-08 17:15 | XRay Report ---
XR chest 1V portable CLINICAL HISTORY: Sepsis. COMPARISON STUDY: Chest radiograph May 03, 2022. FINDINGS: Lung volumes are mildly diminished suggestive of a hypoventilatory study. Lungs are clear. There is no pneumothorax or pleural effusion. Cardiomegaly is noted. Mediastinal contours are normal. There is no evidence for pulmonary edema. IMPRESSION: No acute cardiopulmonary findings. Cardiomegaly. ACT 112: Negative or not required by law. Electronically signed by: Torrey Pat M.D. 10/08/2022 5:14 PM
[2022-10-08] MEDS ORDERED: cefTRIAXone SODIUM 2,000 MG/70 ML BAG IV STA (17:44)
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
[2022-10-08] MEDS ORDERED: GLUCOSE 10 TAB/TUBE PO PRN (20:23)
[2022-10-08] MEDS ORDERED: ONDANSETRON INJ 2 MG/ML 2 ML VIAL IV PRN (20:23)
[2022-10-08] MEDS ORDERED: GLUCOSE 40% GEL 15 GM TUBE PO PRN (20:23)
[2022-10-08] MEDS ORDERED: GLUCAGON FOR INJ 1 MG VIAL SQ PRN (20:23)
[2022-10-08] MEDS ORDERED: CARBOHYDRATES FOR HYPOGLYCEMIA PO PRN (20:23)
[2022-10-08] MEDS ORDERED: SODIUM CHLORIDE 0.9% 500 ML IV SCH (20:23)
[2022-10-08] MEDS ORDERED: DEXTROSE 50% 50 ML SYRINGE IV PRN (20:23)
[2022-10-08] MEDS: APIXABAN 5 MG TABLET PO SCH (21:18)
[2022-10-08] MEDS: LANTUS PER UNIT CHARGE SQ SCH (21:18)
[2022-10-08] MEDS: INSULIN ASPART PER UNIT CHARGE SC SCH (21:18)
[2022-10-08] MEDS: ACETAMINOPHEN 325 MG TAB PO PRN (21:23)
--- NOTE | 2022-10-09 08:01 | Hospitalist Progress Note ---
Date of Service October 09, 2022 Assessment & Plan (1) Bacteremia due to Staphylococcus: Plan: -BCx collected 10/08/22 with 2/2 cultures POSITIVE for GPC, PCR POSITIVE for Staph species (not S. aures, epidermidis, or lugdunensis) -Unclear etiology of bacteremia given GNR in urine to date, with no obvious evidence of acute wounds or recent surgeries -Initiated vancomycin with consult, follow cultures -Echocardiogram ordered to eval for vegetation (2) Acute UTI (urinary tract infection): Plan: -Afebrile, no leukocytosis, with UA suggestive of infection and reported dysuria -UCx growing GNR, with previous cultures over last year largely growing mixed bib, E. coli, alpha strep; continue Rocephin -Monitor CBC (3) Weakness: Plan: -Pt with known history of weakness with recent hospitalization for such and functional decline -Acute weakness likely multifactorial, possibly UTI/bacteremia playing a role, see care of these above -PT/OT consulted for dispo planning, will continue to work with patient but may benefit from short course rehab on discharge (4) Hypertension: Plan: -Noted history though is not on any anti-hypertensives per home medications -Currently asymptomatic with systolic elevations 150s-170s -Deferring initiation of anti-HTN for now, will monitor (5) Atrial flutter: Plan: -Chronic, stable -In sinus rhythm at present, EKG on admission unremarkable -Adequately rate-controlled, not on any home rate control agents -Continue anticoagulation with Eliquis (6) CAD (coronary artery disease): Plan: -Chronic, stable, also with Hx PAD -History of troponin elevations at baseline -Continue aspirin, statin (7) B12 deficiency: Plan: -Chronic, stable, Hgb 14 -B12 466 in 07/2022 -Continue oral supplementation (8) Hypothyroidism: Plan: -Continue levothyroxine (9) Diabetic neuropathy associated with type 2 diabetes mellitus: Plan: -Well-controlled, A1C 6.4% in 07/2022 -Holding home glipizide -Lantus 5u BID, SSI (10) Elevated troponin: Plan: -Troponin 64 on admission, EKG w/o acute ST change -Known history of elevated troponin at baseline in setting of CAD -Will not trend troponin for now -Monitor for new ACS symptoms Plan FENGI: DM2 diet Code status: DNR/DNI DVT prophylaxis: Eliquis Isolation: None Disposition: Medical/surgical Admission and Anticipated Discharge Date Admission Date: October 08, 2022 Subjective No overnight events, feels no further dysuria, endorses fatigue/generalized weakness better than yesterday but still worse than baseline. Denies chest pain, SOB, nausea, dizziness. No wounds or cuts per patient, no recent surgeries. Physical Exam Constitutional: WD/WN, vitals as above Respiratory: normal respiratory effort, lungs clear to auscultation Cardiovascular: RRR, no murmur, no edema Gastrointestinal (Abdomen): normal bowel sounds, soft, nontender, no hepatosplenomegaly Skin: no rashes, warm and dry Psychiatric: A+Ox3, euthymic affect Results & Data Results & Data Vital Signs (Past 12 Hours) Vital Signs Temp Pulse Resp BP BP Pulse Ox O2 Del Method 10/08/22 23:07 37 C 146/73 H 10/08/22 20:25 Room Air 10/08/22 20:25 38.1 C H 76 16 205/83 H 94 Room Air PG Care Time/CCT Total # of Minutes Spent Total Time Spent with Patient: Total time spent is greater than 50% in coordination of care (as documented) at patient's floor/unit and/or counseling patient: Coding Level of Care Code 72858 SUB INP/OBS CARE 3/50MIN Diagnoses Bacteremia due to Staphylococcus R78.81; B95.8 Acute UTI (urinary tract infection) N39.0 Weakness R53.1 Hypertension I10 Atrial flutter I48.92 CAD (coronary artery disease) I25.10 B12 deficiency E53.8 Hypothyroidism E03.9 Diabetic neuropathy associated with type 2 diabetes mellitus E11.40 Elevated troponin R77.8
[2022-10-09] MEDS: LEVOTHYROXINE SODIUM 75 MCG TABLET PO SCH (08:19)
[2022-10-09] MEDS: APIXABAN 5 MG TABLET PO SCH ×2 (08:20→20:00)
[2022-10-09] MEDS: ATORVASTATIN 40 MG TAB PO SCH (08:20)
[2022-10-09] MEDS: CYANOCOBALAMIN (B-12) 500 MCG TABLET PO SCH (08:20)
[2022-10-09] MEDS: ASPIRIN 81 MG ECTAB PO SCH (08:21)
[2022-10-09] MEDS: INSULIN ASPART PER UNIT CHARGE SC SCH ×4 (08:24→20:44)
[2022-10-09 08:26] LABS: Hematocrit (blood only) 41.1 % (37.0-47.0); Hemoglobin 14.1 g/dl (12.0-16.0); Mean Corpuscular Hemoglobin 30.8 pg (25.0-34.0); Mean Corpuscular Hgb Conc 34.3 g/dL (32.0-36.0); Mean Corpuscular Volume 89.7 fL (80.0-100.0); Mean Platelet Volume 9.3 fL (9.4-12.4); Platelet Count 175 K/uL (130-400); RDW Coefficient of Variation 12.8 % (11.5-14.5); RDW Standard Deviation 42.2 fL (36.4-46.3); Red Blood Count 4.58 M/uL (4.20-5.40); White Blood Count 5.29 K/ul (4.8-10.8)
[2022-10-09] MEDS: LANTUS PER UNIT CHARGE SQ SCH ×2 (08:26→20:43)
--- NOTE | 2022-10-09 08:41 | Billing Data ---
Date of Service October 08, 2022 Coding Level of Care Code 62854 INT INP/OBS CARE
[2022-10-09 09:03] LABS: Calcium 9.2 mg/dl (8.6-10.3); Potassium 4.1 mmol/L (3.5-5.1)
[2022-10-09 09:09] LABS: BUN Creatinine Ratio 20.8 (10-20); Creatinine Clr Calc Pharmacy 55.3 ml/min; Est GFR (African American) 82.2 ml/min; Est GFR (Non-African American) 70.9 ml/min
[2022-10-09] MEDS: ACETAMINOPHEN 325 MG TAB PO PRN ×2 (09:27→18:42)
[2022-10-09 12:29] LABS: A calco-baum cmplx NotReported Not Detected (NotDetected); Bact fragilis Not Reported Not Detected (NotDetected); C auris Not Reported Not Detected (NotDetected); Calbicans Not Reported Not Detected (NotDetected); Candida glabrata Not Reported Not Detected (NotDetected); Candida krusei Not Reported Not Detected (NotDetected); Cneoformans/gatti Not Reported Not Detected (NotDetected); Cparapsilosis Not Reported Not Detected (NotDetected); Ctropicalis Not Reported Not Detected (NotDetected); E cloacae compx Not Reported Not Detected (NotDetected); Efaecalis Not Reported Not Detected (NotDetected); Efaecium Not Reported Not Detected (NotDetected); Enterobacterales Not Reported Not Detected (NotDetected); Escherichia coli Not Reported Not Detected (NotDetected); H influenzae Not Reported Not Detected (NotDetected); K aerogenes Not Reported Not Detected (NotDetected); Koxytoca Not Reported Not Detected (NotDetected); Kpneumoniae grp Not Reported Not Detected (NotDetected); Lmonocyt Not Reported Not Detected (NotDetected); N meningitidis Not Reported Not Detected (NotDetected); P aeruginosa Not Reported Not Detected (NotDetected); Proteus spp Not Reported Not Detected (NotDetected); Salmonella spp Not Reported Not Detected (NotDetected); Smarcescens Not Reported Not Detected (NotDetected); Staph lugdunensis Not Reported Not Detected (NotDetected); Staph spp. Not Reported DETECTED (NotDetected); Staphaureus Not Reported Not Detected (NotDetected); Staphepi Not Reported Not Detected (NotDetected); Stenmaltophilia Not Reported Not Detected (NotDetected); Strep agal(GrpB) Not Reported Not Detected (NotDetected); Strep pneum Not Reported Not Detected (NotDetected); Strep pyog (GrpA) Not Reported Not Detected (NotDetected); Strep spp Not Reported Not Detected (NotDetected)
[2022-10-09 12:40] LABS: Staphylococcus spp. DETECTED (NotDetected)
[2022-10-09] MEDS ORDERED: VANCOMYCIN CONSULT ACTIVE PRN (13:03)
[2022-10-09] MEDS ORDERED: VANCOMYCIN HCL 1,750 MG in SODIUM CHLORIDE 0.9% 500 ML IV ONE (13:15)
--- NOTE | 2022-10-09 13:18 | Pharmacy Report ---
Pharmacy PK ABX Note - Date of Service October 09, 2022 - Assessment and Plan Assessment 82 year old F receiving empiric vancomycin and ceftriaxone for treatment of gram-positive cocci bacteremia secondary to currently unknown source/concern for UTI. Pertinent microbiologic data includes: blood cultures x 2 (10/08/22): gram- positive cocci clusters (Biofire positive for Staph species, not aureus, epidermidis, or lugdunensis), urine culture (10/08/22): gram-negative bacilli. Echocardiogram ordered. Tmax of 38.1 C yesterday, renal function appears to be at baseline. Follow cultures and de-escalate as able. Current regimen appropriate in this empiric setting. Day # 1 of antimicrobial therapy. Plan Vancomycin * Loading dose: 1750 mg IV x 1 * Maintenance dose: 1250 mg IV every 18 hours * Regimen is predicted to achieve target AUC/GUILLERMINA of 400-600 mg/L.hr * Random vancomycin level ordered for 10/11/22 AM prior to 3rd maintenance dose Ceftriaxone * 2 g IV q24h - appropriate Pharmacy will continue to follow and will adjust dose/frequency as necessary. Thank you. Pharmacy has transitioned to AUC monitoring for vancomycin. AUC/GUILLERMINA is the preferred PK/PD target and is associated with decreased risk of nephrotoxicity compared to traditional trough targets.
[2022-10-09] MEDS: cefTRIAXone SODIUM 2,000 MG in DEXTROSE 5% 50 ML IV SCH (17:30)
--- NOTE | 2022-10-09 19:01 | XCELERA ---
[id number] \\[id number]
[2022-10-09] MEDS: VANCOMYCIN HCL 1,250 MG in SODIUM CHLORIDE 0.9% 250 ML IV SCH (21:27)
--- NOTE | 2022-10-10 06:17 | Electrocardiogram Report ---
Test Reason : Blood Pressure : / mmHG Vent. Rate : 075 BPM Atrial Rate : 075 BPM P-R Int : 096 ms QRS Dur : 092 ms QT Int : 340 ms P-R-T Axes : -05 -35 079 degrees QTc Int : 379 ms Sinus rhythm with short [place] Left axis deviation Incomplete right bundle branch block Nonspecific ST and T wave abnormality Abnormal ECG When compared with ECG of 06-MAY-2022 11:59, Premature supraventricular complexes are no longer Present Confirmed by Bi Greenwood ([id number]) on 10/10/2022 6:17:33 AM Referred By: Confirmed By:Bi Greenwood
[2022-10-10] MEDS: ACETAMINOPHEN 325 MG TAB PO PRN (07:53)
[2022-10-10] MEDS: INSULIN ASPART PER UNIT CHARGE SC SCH ×4 (08:28→20:37)
[2022-10-10] MEDS: LANTUS PER UNIT CHARGE SQ SCH ×2 (08:34→20:43)
[2022-10-10] MEDS: LEVOTHYROXINE SODIUM 75 MCG TABLET PO SCH (08:37)
[2022-10-10] MEDS: APIXABAN 5 MG TABLET PO SCH ×2 (08:37→20:32)
[2022-10-10] MEDS: ATORVASTATIN 40 MG TAB PO SCH (08:38)
[2022-10-10] MEDS: ASPIRIN 81 MG ECTAB PO SCH (08:38)
[2022-10-10] MEDS: CYANOCOBALAMIN (B-12) 500 MCG TABLET PO SCH (08:39)
--- NOTE | 2022-10-10 09:13 | Hospitalist Progress Note ---
Date of Service October 10, 2022 Assessment & Plan (1) Bacteremia due to Staphylococcus: Plan: -BCx collected 10/08/22 with 2/2 cultures POSITIVE for GPC, PCR POSITIVE for Staph species (not S. aures, epidermidis, or lugdunensis) -Unclear etiology of bacteremia given GNR in urine to date, with no obvious evidence of acute infected wounds or recent surgeries on thorough exam -Initiated vancomycin with consult, deescalate based on culture results -TTE ordered to eval for vegetation, no evidence of such -ID consult tomorrow to aid in dispo planning and antibiotic choice/duration (2) Acute UTI (urinary tract infection): Plan: -Afebrile, no leukocytosis, with UA suggestive of infection and reported dysuria -UCx growing GNR, with previous cultures over last year largely growing mixed bib, E. coli, alpha strep; continue Rocephin -Monitor CBC (3) Weakness: Plan: -Pt with known history of weakness with recent hospitalization for such and functional decline -Acute weakness likely multifactorial, possibly UTI/bacteremia playing a role, see care of these above -PT/OT consulted for dispo planning, will continue to work with patient but may benefit from short course rehab on discharge if not able to reach normal function (4) Hypertension: Plan: -Noted history though is not on any anti-hypertensives per home medications -Currently asymptomatic with systolic elevations 140s-170s -Deferring initiation of anti-HTN for now, will monitor (5) Atrial flutter: Plan: -Chronic, stable -Normal HR on vitals checks, EKG on admission unremarkable -Adequately rate-controlled, not on any home rate control agents -Continue anticoagulation with Eliquis (6) CAD (coronary artery disease): Plan: -Chronic, stable, also with Hx PAD -History of troponin elevations at baseline -Continue aspirin, statin (7) B12 deficiency: Plan: -Chronic, stable, Hgb 14 -B12 466 in 07/2022 -Continue oral supplementation (8) Hypothyroidism: Plan: -Continue levothyroxine (9) Diabetic neuropathy associated with type 2 diabetes mellitus: Plan: -Well-controlled, A1C 6.4% in 07/2022 -Holding home glipizide -Lantus 5u BID, SSI (10) Elevated troponin: Plan: -Troponin 64 on admission, EKG w/o acute ST change -Known history of elevated troponin at baseline in setting of CAD -Will not trend troponin for now -Monitor for new ACS symptoms (11) Metabolic encephalopathy: Plan: -2/2 bacteremia vs. UTI, treating as above, resolved and alert and oriented today Plan FENGI: DM2 diet Code status: DNR/DNI DVT prophylaxis: Eliquis Isolation: None Disposition: Medical/surgical Admission and Anticipated Discharge Date Admission Date: October 09, 2022 Subjective No acute events overnight. She denies recent injuries, falls, surgeries. She does not have a history of joint replacements. She denies chest pain, SOB, nausea, diarrhea. Physical Exam Constitutional: WD/WN, vitals as above Respiratory: normal respiratory effort, lungs clear to auscultation Cardiovascular: RRR, no murmur, no edema Gastrointestinal (Abdomen): normal bowel sounds, soft, nontender, no hepatosplenomegaly Skin: no rashes, warm and dry Small scab on plantar RIGHT 2nd toe, no surrounding erythema, nontender, no purulent drainage Very mild intertrigo under bilateral breasts No other wounds, cuts, scrapes, bruising, erythema noted on full head to toe skin exam Psychiatric: A+Ox3, euthymic affect Results & Data Results & Data Vital Signs (Past 12 Hours) Vital Signs Temp Pulse Resp BP Pulse Ox O2 Del Method 10/10/22 07:39 36.9 C 71 16 150/84 H 97 Room Air PG Care Time/CCT Total # of Minutes Spent Total Time Spent with Patient: Total time spent is greater than 50% in coordination of care (as documented) at patient's floor/unit and/or counseling patient: Coding Level of Care Code 63858 SUB INP/OBS CARE 3/50MIN Diagnoses Bacteremia due to Staphylococcus R78.81; B95.8 Acute UTI (urinary tract infection) N39.0 Weakness R53.1 Hypertension I10 Atrial flutter I48.92 CAD (coronary artery disease) I25.10 B12 deficiency E53.8 Hypothyroidism E03.9 Diabetic neuropathy associated with type 2 diabetes mellitus E11.40 Elevated troponin R77.8 Metabolic encephalopathy G93.41
[2022-10-10 09:40] LABS: Basophils # (auto) 0.03 K/uL (0.00-0.20); Basophils % (auto) 0.6 %; Eosinophils # (auto) 0.19 K/uL (0.00-0.50); Eosinophils % (auto) 3.6 %; Hematocrit (blood only) 37.6 % (37.0-47.0); Hemoglobin 12.9 g/dl (12.0-16.0); Immature Granulocytes # (auto) 0.03 K/uL (0.01-0.20); Immature Granulocytes % (auto) 0.6 %; Lymphocytes # (auto) 1.41 K/uL (1.20-3.40); Mean Corpuscular Hemoglobin 30.7 pg (25.0-34.0); Mean Corpuscular Hgb Conc 34.3 g/dL (32.0-36.0); Mean Corpuscular Volume 89.5 fL (80.0-100.0); Mean Platelet Volume 9.8 fL (9.4-12.4); Monocytes # (auto) 0.42 K/uL (0.11-0.59); Neutrophils # (auto) 3.15 K/uL (1.40-6.50); Neutrophils % (auto) 60.2 %; Platelet Count 182 K/uL (130-400); RDW Coefficient of Variation 12.8 % (11.5-14.5); RDW Standard Deviation 41.8 fL (36.4-46.3); White Blood Count 5.23 K/ul (4.8-10.8)
[2022-10-10 10:08] LABS: BUN Creatinine Ratio 22.5 (10-20); Calcium 8.7 mg/dl (8.6-10.3); Creatinine Clr Calc Pharmacy 53.2 ml/min; Est GFR (African American) 78.5 ml/min; Est GFR (Non-African American) 67.7 ml/min; Potassium 3.8 mmol/L (3.5-5.1)
[2022-10-10] MEDS: VANCOMYCIN HCL 1,250 MG in SODIUM CHLORIDE 0.9% 250 ML IV SCH (15:57)
[2022-10-10] MEDS: cefTRIAXone SODIUM 2,000 MG in DEXTROSE 5% 50 ML IV SCH (17:28)
[2022-10-11 05:48] LABS: Hematocrit (blood only) 35.1 % (37.0-47.0); Hemoglobin 12.1 g/dl (12.0-16.0); Mean Corpuscular Hemoglobin 30.8 pg (25.0-34.0); Mean Corpuscular Hgb Conc 34.5 g/dL (32.0-36.0); Mean Corpuscular Volume 89.3 fL (80.0-100.0); Mean Platelet Volume 9.7 fL (9.4-12.4); Platelet Count 174 K/uL (130-400); RDW Coefficient of Variation 12.7 % (11.5-14.5); RDW Standard Deviation 41.7 fL (36.4-46.3); Red Blood Count 3.93 M/uL (4.20-5.40); White Blood Count 5.68 K/ul (4.8-10.8)
[2022-10-11] MEDS: ACETAMINOPHEN 325 MG TAB PO PRN (07:52)
[2022-10-11] MEDS: APIXABAN 5 MG TABLET PO SCH ×2 (08:31→21:27)
[2022-10-11] MEDS: CYANOCOBALAMIN (B-12) 500 MCG TABLET PO SCH (08:31)
[2022-10-11] MEDS: ASPIRIN 81 MG ECTAB PO SCH (08:31)
[2022-10-11] MEDS: ATORVASTATIN 40 MG TAB PO SCH (08:32)
[2022-10-11] MEDS: LEVOTHYROXINE SODIUM 75 MCG TABLET PO SCH (08:32)
[2022-10-11] MEDS: LANTUS PER UNIT CHARGE SQ SCH ×2 (08:34→21:27)
[2022-10-11] MEDS: INSULIN ASPART PER UNIT CHARGE SC SCH ×4 (09:34→21:27)
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
--- NOTE | 2022-10-11 10:17 | Hospitalist Progress Note ---
Date of Service October 11, 2022 Assessment & Plan (1) Weakness: Plan: -Pt with known history of weakness with recent hospitalization for such and functional decline -Acute weakness likely multifactorial, possibly dehydration, chronic debility, also does not wear her sneaker properly putting her at risk of falls -PT/OT consulted for dispo planning, will continue to work with patient but may benefit from short course rehab on discharge if not able to reach normal fu nction (2) Bacteremia due to Staphylococcus: Plan: -BCx collected 10/08/22 with 2/2 cultures POSITIVE for GPC, PCR POSITIVE for Staph species (not S. aures, epidermidis, or lugdunensis) -Unclear etiology of bacteremia given GNR in urine to date, with no obvious evidence of acute infected wounds or recent surgeries on thorough exam, likely CoNS contaminant -ID consulted and appreciate recommendations, can discontinue antibiotics as likely contaminant -TTE ordered to eval for vegetation, no evidence of such (3) Acute UTI (urinary tract infection): Plan: -Ruled out, asymptomatic bacteruria -UCx growing Pseudomonas, symptoms of confusion and weakness improved while on Rocephin which would not cover this, unlikely to be UTI, Abx discontinued (4) Hypertension: Plan: -Noted history though is not on any anti-hypertensives per home medications -Currently asymptomatic with systolic elevations 140s-170s -Deferring initiation of anti-HTN oral med for now, hydralazine as needed for SBP >180 (5) Atrial flutter: Plan: -Chronic, stable -Normal HR on vitals checks, EKG on admission unremarkable -Adequately rate-controlled, not on any home rate control agents -Continue anticoagulation with Eliquis (6) CAD (coronary artery disease): Plan: -Chronic, stable, also with Hx PAD -History of troponin elevations at baseline -Continue aspirin, statin (7) B12 deficiency: Plan: -Chronic, stable, Hgb 14 -B12 466 in 07/2022 -Continue oral supplementation (8) Hypothyroidism: Plan: -Continue levothyroxine (9) Diabetic neuropathy associated with type 2 diabetes mellitus: Plan: -Well-controlled, A1C 6.4% in 07/2022 -Holding home glipizide -Lantus 5u BID, SSI (10) Elevated troponin: Plan: -Troponin 64 on admission, EKG w/o acute ST change -Known history of elevated troponin at baseline in setting of CAD -Monitor for new ACS symptoms (11) Metabolic encephalopathy: Plan: -2/2 infection vs. dehydration vs. worsening dementia, treating as above, resolved and alert and oriented Plan FENGI: DM2 diet Code status: DNR/DNI DVT prophylaxis: Eliquis Isolation: None Disposition: Medical/surgical Awaiting word from [facility] for beds Admission and Anticipated Discharge Date Admission Date: October 09, 2022 Subjective No acute events overnight, no complaints today. Physical Exam Constitutional: WD/WN, vitals as above Respiratory: normal respiratory effort, lungs clear to auscultation Cardiovascular: RRR, no murmur, no edema Gastrointestinal (Abdomen): normal bowel sounds, soft, nontender, no hepatosplenomegaly Skin: no rashes, warm and dry No abnormalities noted to exposed areas of skin Psychiatric: A+Ox3, euthymic affect Results & Data Results & Data Vital Signs (Past 12 Hours) Vital Signs Temp Pulse Resp BP Pulse Ox O2 Del Method 10/11/22 07:33 36.7 C 57 L 18 171/90 H 93 Room Air PG Care Time/CCT Total # of Minutes Spent Total Time Spent with Patient: Total time spent is greater than 50% in coordination of care (as documented) at patient's floor/unit and/or counseling patient: Coding Level of Care Code 99365 SUB INP/OBS CARE 3/50MIN Diagnoses Weakness R53.1 Bacteremia due to Staphylococcus R78.81; B95.8 Acute UTI (urinary tract infection) N39.0 Hypertension I10 Atrial flutter I48.92 CAD (coronary artery disease) I25.10 B12 deficiency E53.8 Hypothyroidism E03.9 Diabetic neuropathy associated with type 2 diabetes mellitus E11.40 Elevated troponin R77.8 Metabolic encephalopathy G93.41
[2022-10-11] MEDS: VANCOMYCIN HCL 1,250 MG in SODIUM CHLORIDE 0.9% 250 ML IV SCH (10:42)
[2022-10-11] MEDS ORDERED: hydrALAZINE HCL 20 MG/ML VIAL IV PRN (15:51)
[2022-10-11] MEDS: POLYETHYLENE (MIRALAX) 17 GM PACK PO SCH (17:43)
[2022-10-12] MEDS: ACETAMINOPHEN 325 MG TAB PO PRN (07:51)
[2022-10-12] MEDS: INSULIN ASPART PER UNIT CHARGE SC SCH ×4 (08:09→21:12)
[2022-10-12] MEDS: LANTUS PER UNIT CHARGE SQ SCH ×2 (08:19→21:12)
[2022-10-12] MEDS: CYANOCOBALAMIN (B-12) 500 MCG TABLET PO SCH (08:20)
[2022-10-12] MEDS: LEVOTHYROXINE SODIUM 75 MCG TABLET PO SCH (08:20)
[2022-10-12] MEDS: APIXABAN 5 MG TABLET PO SCH ×2 (08:20→21:22)
[2022-10-12] MEDS: ASPIRIN 81 MG ECTAB PO SCH (08:21)
[2022-10-12] MEDS: ATORVASTATIN 40 MG TAB PO SCH (08:21)
[2022-10-12] MEDS: POLYETHYLENE (MIRALAX) 17 GM PACK PO SCH (08:22)
--- NOTE | 2022-10-12 13:45 | Hospitalist Progress Note ---
Date of Service October 12, 2022 Assessment & Plan (1) Weakness: Plan: -Pt with known history of weakness with recent hospitalization for such and functional decline -Acute weakness likely multifactorial, possibly dehydration, chronic debility, -PT/OT consulted plan is for [facility] tomorrow (2) COVID: Plan: Tested positive for COVID, I doubt if theres an active infection Patient is not sob and saturating well on room air. she does not have any symptoms (3) Bacteremia due to Staphylococcus: Plan: -BCx collected 10/08/22 with 2/2 cultures POSITIVE for GPC, PCR POSITIVE for Staph species (not S. aures, epidermidis, or lugdunensis) -Unclear etiology of bacteremia given GNR in urine to date, with no obvious evidence of acute infected wounds or recent surgeries on thorough exam, likely CoNS contaminant -ID consulted and appreciate recommendations, can discontinue antibiotics as likely contaminant -TTE did not show any sign of vegetation (4) Acute UTI (urinary tract infection): Plan: -Ruled out, asymptomatic bacteruria -UCx growing Pseudomonas, symptoms of confusion and weakness improved while on Rocephin which would not cover this, unlikely to be UTI, - Abx discontinued (5) Hypertension: Plan: -Noted history though is not on any anti-hypertensives per home medications -Currently asymptomatic with systolic elevations 140s-170s -started low dose amlodipine 5mg daily (6) Atrial flutter: Plan: -Chronic, stable -Normal HR on vitals checks, EKG on admission unremarkable -Adequately rate-controlled, not on any home rate control agents -Continue anticoagulation with Eliquis (7) CAD (coronary artery disease): Plan: -Chronic, stable, also with Hx PAD -History of troponin elevations at baseline -Continue aspirin, statin (8) B12 deficiency: Plan: -Chronic, stable, Hgb 14 -B12 466 in 07/2022 -Continue oral supplementation (9) Hypothyroidism: Plan: -Continue levothyroxine (10) Diabetic neuropathy associated with type 2 diabetes mellitus: Plan: -Well-controlled, A1C 6.4% in 07/2022 -Holding home glipizide -Lantus 5u BID, SSI (11) Elevated troponin: Plan: -Troponin 64 on admission, EKG w/o acute ST change -Known history of elevated troponin at baseline in setting of CAD -Monitor for new ACS symptoms (12) Metabolic encephalopathy: Plan: -2/2 infection vs. dehydration vs. worsening dementia, treating as above, resolved and alert and oriented Plan FENGI: DM2 diet Code status: DNR/DNI DVT prophylaxis: Eliquis Isolation: None Disposition: Medical/surgical accepted at [facility], awaiting auth Admission and Anticipated Discharge Date Admission Date: October 09, 2022 Subjective patient seen and examined, no new complaints Review of Systems Review of Systems: All systems reviewed are negative, apart from the ones contained in the history. Physical Exam Physical Exam: The patient is awake, alert and oriented 3, well developed and well nourished, normocephalic and atraumatic, lying in bed and in no acute distress. HEENT--PERRL, EOMI, mucous membranes and oropharynx mildly dry Neck--supple. No JVD. No bruits. Thyroid normal, trachea midline, no adenopathy. Heart--normal S1 and S2. No murmurs, rubs or gallops. Lungs--clear bilaterally, no respiratory distress, no accessory muscle use. Abdomen--normal bowel sounds and soft. Mild epigastric and left sided abdominal pain Extremities--no cyanosis or clubbing. No edema. Dermatologic--normal skin turgor, normal color, no abnormal lymph nodes, no rash. Neurologic--cranial nerves II through XII grossly intact. Rheumatologic--normal range of motion. Psychiatric--normal affect. Results & Data Results & Data Vital Signs (Past 12 Hours) Vital Signs Temp Pulse Resp BP Pulse Ox O2 Del Method 10/12/22 07:38 97.9 F 56 L 18 171/80 H 96 Room Air PG Care Time/CCT Total # of Minutes Spent Total Time Spent with Patient: Total time spent is greater than 50% in coordination of care (as documented) at patient's floor/unit and/or counseling patient: Coding Level of Care Code 75265 SUB INP/OBS CARE 2/35MIN Diagnoses Weakness R53.1 COVID U07.1 Bacteremia due to Staphylococcus R78.81; B95.8 Acute UTI (urinary tract infection) N39.0 Hypertension I10 Atrial flutter I48.92 CAD (coronary artery disease) I25.10 B12 deficiency E53.8 Hypothyroidism E03.9 Diabetic neuropathy associated with type 2 diabetes mellitus E11.40 Elevated troponin R77.8 Metabolic encephalopathy G93.41 Time Spent (min) 35
[2022-10-12] MEDS ORDERED: amLODIPine BESYLATE 5 MG TAB PO ONE (14:00)
[2022-10-13] MEDS: LANTUS PER UNIT CHARGE SQ SCH ×2 (08:19→21:16)
[2022-10-13] MEDS: INSULIN ASPART PER UNIT CHARGE SC SCH ×4 (08:19→21:16)
[2022-10-13 08:42] LABS: Hematocrit (blood only) 37.4 % (37.0-47.0); Hemoglobin 12.6 g/dl (12.0-16.0); Mean Corpuscular Hemoglobin 30.3 pg (25.0-34.0); Mean Corpuscular Hgb Conc 33.7 g/dL (32.0-36.0); Mean Corpuscular Volume 89.9 fL (80.0-100.0); Mean Platelet Volume 9.5 fL (9.4-12.4); Platelet Count 221 K/uL (130-400); RDW Coefficient of Variation 12.5 % (11.5-14.5); RDW Standard Deviation 41.1 fL (36.4-46.3); Red Blood Count 4.16 M/uL (4.20-5.40); White Blood Count 6.43 K/ul (4.8-10.8)
[2022-10-13] MEDS: POLYETHYLENE (MIRALAX) 17 GM PACK PO SCH ×2 (09:35→10:05)
[2022-10-13 09:55] LABS: Creatinine Clr Calc Pharmacy 53.9 ml/min; Est GFR (African American) 79.7 ml/min; Est GFR (Non-African American) 68.7 ml/min
[2022-10-13] MEDS: ATORVASTATIN 40 MG TAB PO SCH (10:05)
[2022-10-13] MEDS: CYANOCOBALAMIN (B-12) 500 MCG TABLET PO SCH (10:05)
[2022-10-13] MEDS: APIXABAN 5 MG TABLET PO SCH ×2 (10:05→21:30)
[2022-10-13] MEDS: ASPIRIN 81 MG ECTAB PO SCH (10:05)
[2022-10-13] MEDS: amLODIPine BESYLATE 5 MG TAB PO SCH (10:06)
[2022-10-13] MEDS: LEVOTHYROXINE SODIUM 75 MCG TABLET PO SCH (10:06)
--- NOTE | 2022-10-13 13:47 | Hospitalist Progress Note ---
Date of Service October 13, 2022 Assessment & Plan (1) Weakness: Plan: -Pt with known history of weakness with recent hospitalization for such and functional decline -Acute weakness likely multifactorial, possibly dehydration, chronic debility, -PT/OT consulted plan is for [facility] tomorrow (2) COVID: Plan: Tested positive for COVID, I doubt if theres an active infection Patient is not sob and saturating well on room air. she does not have any symptoms (3) Bacteremia due to Staphylococcus: Plan: -BCx collected 10/08/22 with 2/2 cultures POSITIVE for GPC, PCR POSITIVE for Staph species (not S. aures, epidermidis, or lugdunensis) -Unclear etiology of bacteremia given GNR in urine to date, with no obvious evidence of acute infected wounds or recent surgeries on thorough exam, likely CoNS contaminant -ID consulted and appreciate recommendations, can discontinue antibiotics as likely contaminant -TTE did not show any sign of vegetation (4) Acute UTI (urinary tract infection): Plan: -Ruled out, asymptomatic bacteruria -UCx growing Pseudomonas, symptoms of confusion and weakness improved while on Rocephin which would not cover this, unlikely to be UTI, - Abx discontinued (5) Hypertension: Plan: -Noted history though is not on any anti-hypertensives per home medications -Currently asymptomatic with systolic elevations 140s-170s -started low dose amlodipine 5mg daily (6) Atrial flutter: Plan: -Chronic, stable -Normal HR on vitals checks, EKG on admission unremarkable -Adequately rate-controlled, not on any home rate control agents -Continue anticoagulation with Eliquis (7) CAD (coronary artery disease): Plan: -Chronic, stable, also with Hx PAD -History of troponin elevations at baseline -Continue aspirin, statin (8) B12 deficiency: Plan: -Chronic, stable, Hgb 14 -B12 466 in 07/2022 -Continue oral supplementation (9) Hypothyroidism: Plan: -Continue levothyroxine (10) Diabetic neuropathy associated with type 2 diabetes mellitus: Plan: -Well-controlled, A1C 6.4% in 07/2022 -Holding home glipizide -Lantus 5u BID, SSI (11) Elevated troponin: Plan: -Troponin 64 on admission, EKG w/o acute ST change -Known history of elevated troponin at baseline in setting of CAD -Monitor for new ACS symptoms (12) Metabolic encephalopathy: Plan: -2/2 infection vs. dehydration vs. worsening dementia, treating as above, resolved and alert and oriented Plan FENGI: DM2 diet Code status: DNR/DNI DVT prophylaxis: Eliquis Isolation: None Disposition: Medical/surgical accepted at [facility], however Insurance auth was denied. Patient may have to go home with home health. will reconsult PT Admission and Anticipated Discharge Date Admission Date: October 09, 2022 Subjective patient seen and examined, no new complaints. Insurance denied auth for [facility] Review of Systems Review of Systems: All systems reviewed are negative, apart from the ones contained in the history. Physical Exam Physical Exam: The patient is awake, alert and oriented 3, well developed and well nourished, normocephalic and atraumatic, lying in bed and in no acute distress. HEENT--PERRL, EOMI, mucous membranes and oropharynx mildly dry Neck--supple. No JVD. No bruits. Thyroid normal, trachea midline, no adenopathy. Heart--normal S1 and S2. No murmurs, rubs or gallops. Lungs--clear bilaterally, no respiratory distress, no accessory muscle use. Abdomen--normal bowel sounds and soft. Mild epigastric and left sided abdominal pain Extremities--no cyanosis or clubbing. No edema. Dermatologic--normal skin turgor, normal color, no abnormal lymph nodes, no rash. Neurologic--cranial nerves II through XII grossly intact. Rheumatologic--normal range of motion. Psychiatric--normal affect. Results & Data Results & Data Vital Signs (Past 12 Hours) Vital Signs Temp Pulse Resp BP BP Pulse Ox O2 Del Method 10/13/22 12:20 157/78 H 10/13/22 08:02 98.2 F 58 L 16 186/74 H 96 Room Air PG Care Time/CCT Total # of Minutes Spent Total Time Spent with Patient: Total time spent is greater than 50% in coordination of care (as documented) at patient's floor/unit and/or counseling patient: Coding Level of Care Code 61647 SUB INP/OBS CARE 2/35MIN Diagnoses Weakness R53.1 COVID U07.1 Bacteremia due to Staphylococcus R78.81; B95.8 Acute UTI (urinary tract infection) N39.0 Hypertension I10 Atrial flutter I48.92 CAD (coronary artery disease) I25.10 B12 deficiency E53.8 Hypothyroidism E03.9 Diabetic neuropathy associated with type 2 diabetes mellitus E11.40 Elevated troponin R77.8 Metabolic encephalopathy G93.41 Time Spent (min) 35
[2022-10-13] MEDS: ACETAMINOPHEN 325 MG TAB PO PRN (21:23)
[2022-10-14] MEDS: INSULIN ASPART PER UNIT CHARGE SC SCH ×4 (08:40→20:44)
[2022-10-14] MEDS: CYANOCOBALAMIN (B-12) 500 MCG TABLET PO SCH (08:43)
[2022-10-14] MEDS: ATORVASTATIN 40 MG TAB PO SCH (08:43)
[2022-10-14] MEDS: ASPIRIN 81 MG ECTAB PO SCH (08:43)
[2022-10-14] MEDS: LEVOTHYROXINE SODIUM 75 MCG TABLET PO SCH (08:43)
[2022-10-14] MEDS: APIXABAN 5 MG TABLET PO SCH ×2 (08:43→20:52)
[2022-10-14] MEDS: amLODIPine BESYLATE 5 MG TAB PO SCH (08:43)
[2022-10-14] MEDS: ACETAMINOPHEN 325 MG TAB PO PRN (08:44)
[2022-10-14] MEDS: LANTUS PER UNIT CHARGE SQ SCH ×2 (08:47→20:45)
[2022-10-14] MEDS: POLYETHYLENE (MIRALAX) 17 GM PACK PO SCH ×2 (08:48→10:53)
[2022-10-14 09:08] LABS: Creatinine Clr Calc Pharmacy 62.6 ml/min; Est GFR (African American) 93.1 ml/min; Est GFR (Non-African American) 80.3 ml/min
[2022-10-14] MEDS ORDERED: KETOROLAC TROMETHAMINE 15 MG/ML VIAL IV ONE (12:06)
[2022-10-14] MEDS ORDERED: traMADol HCL 50 MG TABLET PO PRN (12:06)
--- NOTE | 2022-10-14 13:06 | Hospitalist Progress Note ---
Date of Service October 14, 2022 Assessment & Plan (1) Weakness: Plan: -Pt with known history of weakness with recent hospitalization for such and functional decline -Acute weakness likely multifactorial, possibly dehydration, chronic debility, -PT/OT consulted Was acceped at [facility], however, insurance denied authorization -In view of recent positive covid test, will not be accepted at [facility] till 10 days -May need to go home with home PT (2) COVID: Plan: Tested positive for COVID, I doubt if theres an active infection Patient is not sob and saturating well on room air. she does not have any symptoms (3) Bacteremia due to Staphylococcus: Plan: -BCx collected 10/08/22 with 2/2 cultures POSITIVE for GPC, PCR POSITIVE for Staph species (not S. aures, epidermidis, or lugdunensis) -Unclear etiology of bacteremia given GNR in urine to date, with no obvious evidence of acute infected wounds or recent surgeries on thorough exam, likely CoNS contaminant -ID consulted and appreciate recommendations, antibiotics discontinued -TTE did not show any sign of vegetation (4) Acute UTI (urinary tract infection): Plan: -Ruled out, asymptomatic bacteruria -UCx growing Pseudomonas, symptoms of confusion and weakness improved while on Rocephin which would not cover this, unlikely to be UTI, - Abx discontinued (5) Hypertension: Plan: -Noted history though is not on any anti-hypertensives per home medications -Currently asymptomatic with systolic elevations 140s-170s -started low dose amlodipine 5mg daily (6) Atrial flutter: Plan: -Chronic, stable -Normal HR on vitals checks, EKG on admission unremarkable -Adequately rate-controlled, not on any home rate control agents -Continue anticoagulation with Eliquis (7) CAD (coronary artery disease): Plan: -Chronic, stable, also with Hx PAD -History of troponin elevations at baseline -Continue aspirin, statin (8) B12 deficiency: Plan: -Chronic, stable, Hgb 14 -B12 466 in 07/2022 -Continue oral supplementation (9) Hypothyroidism: Plan: -Continue levothyroxine (10) Diabetic neuropathy associated with type 2 diabetes mellitus: Plan: -Well-controlled, A1C 6.4% in 07/2022 -Holding home glipizide -Lantus 5u BID, SSI (11) Elevated troponin: Plan: -Troponin 64 on admission, EKG w/o acute ST change -Known history of elevated troponin at baseline in setting of CAD -Monitor for new ACS symptoms (12) Metabolic encephalopathy: Plan: -2/2 infection vs. dehydration vs. worsening dementia, treating as above, resolved and alert and oriented Plan FENGI: DM2 diet Code status: DNR/DNI DVT prophylaxis: Eliquis Isolation: None Disposition: Medical/surgical accepted at [facility], however Insurance auth was denied. Patient may have to go home with home health. will reconsult PT Admission and Anticipated Discharge Date Admission Date: October 09, 2022 Subjective patient seen and examined, no new complaints. Insurance denied auth for [facility], awaiting reassessment by PT. Patient may need to go home with home PT Review of Systems Review of Systems: All systems reviewed are negative, apart from the ones contained in the history. Physical Exam Physical Exam: The patient is awake, alert and oriented 3, well developed and well nourished, normocephalic and atraumatic, lying in bed and in no acute distress. HEENT--PERRL, EOMI, mucous membranes and oropharynx mildly dry Neck--supple. No JVD. No bruits. Thyroid normal, trachea midline, no adenopathy. Heart--normal S1 and S2. No murmurs, rubs or gallops. Lungs--clear bilaterally, no respiratory distress, no accessory muscle use. Abdomen--normal bowel sounds and soft. Mild epigastric and left sided abdominal pain Extremities--no cyanosis or clubbing. No edema. Dermatologic--normal skin turgor, normal color, no abnormal lymph nodes, no rash. Neurologic--cranial nerves II through XII grossly intact. Rheumatologic--normal range of motion. Psychiatric--normal affect. Results & Data Results & Data Vital Signs (Past 12 Hours) Vital Signs Temp Pulse Resp BP Pulse Ox O2 Del Method 10/14/22 08:30 97.7 F 74 16 165/81 H 96 Room Air PG Care Time/CCT Total # of Minutes Spent Total Time Spent with Patient: Total time spent is greater than 50% in coordination of care (as documented) at patient's floor/unit and/or counseling patient: Coding Level of Care Code 99238 SUB INP/OBS CARE 2/35MIN Diagnoses Weakness R53.1 COVID U07.1 Bacteremia due to Staphylococcus R78.81; B95.8 Acute UTI (urinary tract infection) N39.0 Hypertension I10 Atrial flutter I48.92 CAD (coronary artery disease) I25.10 B12 deficiency E53.8 Hypothyroidism E03.9 Diabetic neuropathy associated with type 2 diabetes mellitus E11.40 Elevated troponin R77.8 Metabolic encephalopathy G93.41 Time Spent (min) 35
[2022-10-15] MEDS: INSULIN ASPART PER UNIT CHARGE SC SCH ×4 (08:11→20:53)
[2022-10-15] MEDS: APIXABAN 5 MG TABLET PO SCH ×2 (08:13→21:01)
[2022-10-15] MEDS: ASPIRIN 81 MG ECTAB PO SCH (08:13)
[2022-10-15] MEDS: CYANOCOBALAMIN (B-12) 500 MCG TABLET PO SCH (08:13)
[2022-10-15] MEDS: ATORVASTATIN 40 MG TAB PO SCH (08:13)
[2022-10-15] MEDS: LEVOTHYROXINE SODIUM 75 MCG TABLET PO SCH (08:14)
[2022-10-15] MEDS: POLYETHYLENE (MIRALAX) 17 GM PACK PO SCH (08:14)
[2022-10-15] MEDS: amLODIPine BESYLATE 5 MG TAB PO SCH (08:19)
[2022-10-15] MEDS: glipiZIDE 5 MG TAB PO SCH (09:38)
--- NOTE | 2022-10-15 14:43 | Hospitalist Progress Note ---
Date of Service October 15, 2022 Assessment & Plan (1) Weakness: Plan: Continue supportive care. Continue OT and PT. Hopeful placement at [facility]. Both OT and PT recommend rehab placement. Insurance denied SNF placement. (2) COVID: Plan: Tested positive for COVID by nasal swab. No evidence of active infection. Asymptomatic in this respect (3) Bacteremia due to Staphylococcus: Plan: Contaminant. No treatment needed. Appreciate infectious disease consultation and recommendation. TTE did not show any sign of vegetation (4) Acute UTI (urinary tract infection): Plan: Ruled out. This appears to be colonization. No antibiotic treatment needed (5) Hypertension: Plan: Improved on amlodipine. Continue current management (6) Atrial flutter: Plan: Controlled with current medical management. Continue Eliquis. (7) CAD (coronary artery disease): Plan: Stable. Continue current medical management (8) B12 deficiency: Plan: Stable. Continue oral supplementation (9) Hypothyroidism: Plan: Stable. Continue levothyroxine (10) Diabetic neuropathy associated with type 2 diabetes mellitus: Plan: ADA diet. Lantus has been discontinued. Her usual low-dose glipizide has been restarted. Sliding scale coverage as needed. (11) Elevated troponin: Plan: No evidence of acute coronary syndrome. No acute EKG changes. No chest pain (12) Metabolic encephalopathy: Plan: Present on admission. Now resolved Plan Insurance denied SNF placement. Hopeful discharge to [facility] when arrangements are finalized. She is stable for discharge Admission and Anticipated Discharge Date Admission Date: October 09, 2022 Subjective Alert and oriented. No distress. Blood pressure acceptable with amlodipine. Lantus discontinued since she does not take this at home. Restart her low-dose glipizide which she takes at home. Insurance denied SNF. OT and PT recommend rehab. We will ask case management to pursue [facility] placement. She is stable for discharge Review of Systems Review of Systems: Constitutional-no fever or chills ENT-no blurred vision, no double vision, no epistaxis, no sore throat Respiratory-no cough, no wheezing, no shortness of breath Cardiac-no palpitations, no chest pain, no syncope GI-no nausea, vomiting, diarrhea, melena, hematochezia -no urinary retention, no urinary incontinence, no dysuria, no hematuria Musculoskeletal-no joint pain, no muscle tenderness Skin-no bruising, no rashes, no pruritus Neuro-no isolated weakness, no paresthesia, no weakness Psych-no depression, no anxiety Physical Exam Physical Exam: General-alert and oriented x3, no fevers, no chills HEENT-head atraumatic and normocephalic, pupils equal and reactive to light, extraocular muscles intact Neck-no lymphadenopathy or thyromegaly, trachea midline Chest-clear to auscultation percussion. No rales wheezing or rhonchi Cardiac-regular rate and rhythm, normal S1 and S2 Abdomen-normal bowel sounds, nontender, no hepatosplenomegaly Extremities-no cyanosis, clubbing, or edema Neuro-cranial nerves II through XII intact, motor and sensory function within normal limits, strength symmetrical with generalized weakness , no focal deficits Psych-normal affect, normal mood Results & Data Results & Data Vital Signs (Past 12 Hours) Vital Signs Temp Pulse Resp BP Pulse Ox O2 Del Method 10/15/22 08:52 Room Air 10/15/22 08:00 36.5 C 65 18 138/79 95 Room Air Laboratory Results 10/13/22 07:06 10/14/22 08:21 PG Care Time/CCT Total # of Minutes Spent Total Time Spent with Patient: Total time spent is greater than 50% in coordination of care (as documented) at patient's floor/unit and/or counseling patient: Coding Level of Care Code 59682 SUB INP/OBS CARE 3/50MIN Diagnoses Weakness R53.1 COVID U07.1 Bacteremia due to Staphylococcus R78.81; B95.8 Acute UTI (urinary tract infection) N39.0 Hypertension I10 Atrial flutter I48.92 CAD (coronary artery disease) I25.10 B12 deficiency E53.8 Hypothyroidism E03.9 Diabetic neuropathy associated with type 2 diabetes mellitus E11.40 Elevated troponin R77.8 Metabolic encephalopathy G93.41
[2022-10-15] MEDS: ACETAMINOPHEN 325 MG TAB PO PRN (21:04)
[2022-10-16] MEDS: CYANOCOBALAMIN (B-12) 500 MCG TABLET PO SCH (08:53)
[2022-10-16] MEDS: ATORVASTATIN 40 MG TAB PO SCH (08:53)
[2022-10-16] MEDS: APIXABAN 5 MG TABLET PO SCH (08:53)
[2022-10-16] MEDS: amLODIPine BESYLATE 5 MG TAB PO SCH (08:54)
[2022-10-16] MEDS: ASPIRIN 81 MG ECTAB PO SCH (08:54)
[2022-10-16] MEDS: LEVOTHYROXINE SODIUM 75 MCG TABLET PO SCH (08:55)
[2022-10-16] MEDS: glipiZIDE 5 MG TAB PO SCH (08:55)
[2022-10-16] MEDS: INSULIN ASPART PER UNIT CHARGE SC SCH ×2 (08:57→12:27)
[2022-10-16] MEDS: POLYETHYLENE (MIRALAX) 17 GM PACK PO SCH (09:00)
--- NOTE | 2022-10-16 14:10 | Hospitalist Progress Note ---
Date of Service October 16, 2022 Assessment & Plan (1) Weakness: Plan: Continue supportive care. Continue OT and PT. Hopeful placement at [facility]. Both OT and PT recommend rehab placement. Insurance denied SNF placement. (2) COVID: Plan: Tested positive for COVID by nasal swab. No evidence of active infection. Asymptomatic in this respect (3) Bacteremia due to Staphylococcus: Plan: Contaminant. No treatment needed. Appreciate infectious disease consultation and recommendation. TTE did not show any sign of vegetation (4) Acute UTI (urinary tract infection): Plan: Ruled out. This appears to be colonization. No antibiotic treatment needed (5) Hypertension: Plan: Now controlled with addition of amlodipine. Continue current management (6) Atrial flutter: Plan: Controlled with current medical management. Continue Eliquis. (7) CAD (coronary artery disease): Plan: Stable. Continue current medical management (8) B12 deficiency: Plan: Stable. Continue oral supplementation (9) Hypothyroidism: Plan: Stable. Continue levothyroxine (10) Diabetic neuropathy associated with type 2 diabetes mellitus: Plan: ADA diet. Lantus has been discontinued. Her usual low-dose glipizide has been restarted. Sliding scale coverage as needed. (11) Elevated troponin: Plan: No evidence of acute coronary syndrome. No acute EKG changes. No chest pain (12) Metabolic encephalopathy: Plan: Present on admission. Now resolved Plan Insurance denied SNF placement. Case management informed me that the denial would apply to [facility] also. Will discharge home with home health services. Admission and Anticipated Discharge Date Admission Date: October 09, 2022 Subjective Alert and oriented. No new problems. Glucose 119 on the regimen she usually takes at home. Blood pressure remains well controlled with addition of amlodipine. Review of Systems Review of Systems: Constitutional-no fever or chills ENT-no blurred vision, no double vision, no epistaxis, no sore throat Respiratory-no cough, no wheezing, no shortness of breath Cardiac-no palpitations, no chest pain, no syncope GI-no nausea, vomiting, diarrhea, melena, hematochezia -no urinary retention, no urinary incontinence, no dysuria, no hematuria Musculoskeletal-no joint pain, no muscle tenderness Skin-no bruising, no rashes, no pruritus Neuro-no isolated weakness, no paresthesia, no weakness Psych-no depression, no anxiety Physical Exam Physical Exam: General-alert and oriented x3, no fevers, no chills HEENT-head atraumatic and normocephalic, pupils equal and reactive to light, extraocular muscles intact Neck-no lymphadenopathy or thyromegaly, trachea midline Chest-clear to auscultation percussion. No rales wheezing or rhonchi Cardiac-regular rate and rhythm, normal S1 and S2 Abdomen-normal bowel sounds, nontender, no hepatosplenomegaly Extremities-no cyanosis, clubbing, or edema Neuro-cranial nerves II through XII intact, motor and sensory function within normal limits, strength symmetrical with generalized weakness , no focal deficits Psych-normal affect, normal mood Results & Data Results & Data Vital Signs (Past 12 Hours) Vital Signs Temp Pulse Resp BP Pulse Ox O2 Del Method 10/16/22 08:07 36.4 C L 67 16 146/81 H 96 Room Air Laboratory Results 10/13/22 07:06 10/14/22 08:21 PG Care Time/CCT Total # of Minutes Spent Total Time Spent with Patient: Total time spent is greater than 50% in coordination of care (as documented) at patient's floor/unit and/or counseling patient: Coding Level of Care Code 81435 SUB INP/OBS CARE 3/50MIN Diagnoses Weakness R53.1 COVID U07.1 Bacteremia due to Staphylococcus R78.81; B95.8 Acute UTI (urinary tract infection) N39.0 Hypertension I10 Atrial flutter I48.92 CAD (coronary artery disease) I25.10 B12 deficiency E53.8 Hypothyroidism E03.9 Diabetic neuropathy associated with type 2 diabetes mellitus E11.40 Elevated troponin R77.8 Metabolic encephalopathy G93.41
--- NOTE | 2022-10-16 14:14 | Discharge Summary ---
Date of Service October 16, 2022 Admission HPI Per Admitting Provider 81 yo F with PMH atrial flutter on Eliquis, hypothyrodism, DM2 with neuropathy, CAD s/p PA + PCI 2x, PVD, HTN, HLD, urinary incontinence presenting with weakness. Pt is poor historian, history largely obtained from daughter at bedside. Pt admitted earlier this year in 04/2022 for weakness 2/2 COVID infection. She reports feeling well overall and in usual state of health until earlier this AM- awoke later than usual with feeling of generalized weakness greatest in legs bilaterally and malaise, fatigue. She does report a recent urinary infection being treated with antibiotics by her PCP though last PCP note in 07/2022 does not mention any UTI. She was bedridden for most of day and brought to ER by family for further evaluation. Pt arrived to ER hemodynamically stable. Initial evaluation with unremarkable C BC, BMP, procalcitonin, negative head CT, negative CXR, troponin 64 (pt's troponins elevated at baseline with CAD), EKG w/o acute ST change. UA with +LE, bacteria, WBCs. At present, pt reports some improvement in her weakness. She does state she's had ongoing dysuria but cannot clearly identify when her last UTI was or antibiotics treating it. She denies chest pain, dyspnea, palpitations. At base line mental status per family at bedside. Principal Diagnosis Generalized weakness, failure to thrive, metabolic encephalopathy, uncontrolled hypertension, nasal COVID swab positivity without symptoms Discharge Exam General-alert and oriented x3, no fevers, no chills HEENT-head atraumatic and normocephalic, pupils equal and reactive to light, extraocular muscles intact Neck-no lymphadenopathy or thyromegaly, trachea midline Chest-clear to auscultation percussion. No rales wheezing or rhonchi Cardiac-regular rate and rhythm, normal S1 and S2 Abdomen-normal bowel sounds, nontender, no hepatosplenomegaly Extremities-no cyanosis, clubbing, or edema Neuro-cranial nerves II through XII intact, motor and sensory function within normal limits, strength symmetrical with generalized weakness , no focal deficits Psych-normal affect, normal mood Discharge Data Allergies Allergy/AdvReac Type Severity Reaction Status Date / Time bee venom protein (honey bee) Allergy Unknown Unverified 07/27/22 11:04 No Known Drug Allergies Allergy Verified 07/27/22 11:04 Consultations 10/08/22 18:00 ED Decision to Admit Stat 10/11/22 07:39 Consult Infectious Diseases Routine Ordered Studies 10/08/22 15:48 CT head/brain wo con Stat Hospital Course (1) Weakness: Continue supportive care. OT and PT recommend rehab placement but this has been denied by her insurance. Will discharge home with home health services. (2) COVID: Tested positive for COVID by nasal swab. No evidence of active infection. Asymptomatic in this respect (3) Bacteremia due to Staphylococcus: Contaminant. No treatment needed. Appreciate infectious disease consultation and recommendation. TTE did not show any sign of vegetation (4) Acute UTI (urinary tract infection): Ruled out. This appears to be colonization. No antibiotic treatment needed (5) Hypertension: Now controlled with addition of amlodipine. Continue current management (6) Atrial flutter: Controlled with current medical management. Continue Eliquis. (7) CAD (coronary artery disease): Stable. Continue current medical management (8) B12 deficiency: Stable. Continue oral supplementation (9) Hypothyroidism: Stable. Continue levothyroxine (10) Diabetic neuropathy associated with type 2 diabetes mellitus: ADA diet. Lantus has been discontinued. Her usual low-dose glipizide has been restarted. Sliding scale coverage as needed. (11) Elevated troponin: No evidence of acute coronary syndrome. No acute EKG changes. No chest pain (12) Metabolic encephalopathy: Present on admission. Now resolved Plan Home with home health services. Insurance denied SNF/IPR placement. Total Time Total Time Spent Total Time Spent (In Minutes): 45-minute Discharge Plan Discharge Items Patient Disposition: Home - Home Health Services Reason For Visit: WEAKNESS Discharge Diagnosis: Weakness, metabolic encephalopathy, adult failure to thrive, uncontrolled hypertension, COVID positivity by nasal swab without acute illness Activity: Resume your previous activity Non-emergency contact: Primary Care Provider Call non-emergency contact if: you have any medication questions Follow-up/Referrals: Yash Tavares, [Primary Care Provider] - Diet: Carb Consistent or DM2 and Heart Healthy Addtl Attending Provider Instructions: Home health services have been ordered which includes occupational therapy and physical therapy Pending Studies at Discharge: No Stand-Alone Forms: [facility], Smoking Cessation Medications and DC Order Prescriptions: New amlodipine [Norvasc] 5 mg Tablet 5 mg PO QAM Qty: 30 0RF Continued atorvastatin 80 mg tablet 80 mg PO DAILY Qty: 90 1RF levothyroxine 75 mcg tablet 75 mcg PO DAILY Qty: 90 3RF senna 8.6 mg capsule 8.6 mg PO DAILY PRN (Reason: constipation) Eliquis 5 mg tablet 5 mg PO BID Qty: 60 3RF nitroglycerin 0.4 mg tablet, sublingual 0.4 mg SL Q5M PRN (Reason: chest pain) Qty: 25 1RF loratadine [Claritin] 10 mg tablet 10 mg PO DAILY PRN (Reason: allergy symtoms) mecobalamin (vitamin B12) 1,000 mcg tablet,chewable 1,000 mcg PO DAILY olopatadine [Pataday Once Daily Relief] 0.2 % drops 1 drp ophthalmic (eye) DAILY Qty: 2.5 0RF cholecalciferol (vitamin D3) [Vitamin D3] 2,000 unit Capsule 2,000 unit PO DAILY aspirin 81 mg tablet,delayed release (DR/EC) 81 mg PO DAILY Qty: 90 0RF glipizide 2.5 mg tablet extended release 24hr 2.5 mg PO DAILY metoprolol tartrate 25 mg tablet 25 mg PO BID Discharge Orders: Discharge Order (Routine); Ordered 10/16/22 Ordered By: Barber Tellez Admission Data Admit Date/Time: 10/09/22 12:57 Attending Provider: Barber Tellez Admit Provider: Glenn Kim Primary Care Provider: Yash Tavares Other Providers: Teofilo Rodriguez ; Brendan Greco [place] ; Zina Espinal ; Walter Adhikari ; Danielle Fontenot ; Erika Hull ; Marlin Singletary ; Codie Ohara ; Renée London Antonie J. ; Caro Lerma Coding Level of Care Code 74096 INP/OBS DISCH >30 MIN Diagnoses Weakness R53.1 COVID U07.1 Bacteremia due to Staphylococcus R78.81; B95.8 Acute UTI (urinary tract infection) N39.0 Hypertension I10 Atrial flutter I48.92 CAD (coronary artery disease) I25.10 B12 deficiency E53.8 Hypothyroidism E03.9 Diabetic neuropathy associated with type 2 diabetes mellitus E11.40 Elevated troponin R77.8 Metabolic encephalopathy G93.41
== END 2022-10-16 16:21 | disposition home health service (06) | DRG 640 ==
LOC: ED 15:20 → 3N 15:20 → SUATTDRO 18:32 → 3N 19:58 → SUATTDRO 10-09 12:57 → 3N 10-09 15:33 → 3W 10-12 13:26

== ENCOUNTER 2023-01-03 14:10 | Inpatient (IN) ==
[2023-01-03] MEDS ORDERED: CEFEPIME 2,000 MG/20 ML VIAL IV STA (14:22)
[2023-01-03] MEDS ORDERED: SODIUM CHLORIDE 0.9% 500 ML IV SCH (14:30)
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
[2023-01-03 14:58] LABS: Basophils # (auto) 0.02 K/uL (0.00-0.20); Basophils % (auto) 0.3 %; Eosinophils # (auto) 0.02 K/uL (0.00-0.50); Eosinophils % (auto) 0.3 %; Hematocrit (blood only) 39.4 % (37.0-47.0); Hemoglobin 13.5 g/dl (12.0-16.0); Immature Granulocytes # (auto) 0.03 K/uL (0.01-0.20); Immature Granulocytes % (auto) 0.4 %; Lymphocytes # (auto) 1.15 K/uL (1.20-3.40); Lymphocytes % (auto) 15.2 %; Mean Corpuscular Hemoglobin 30.9 pg (25.0-34.0); Mean Corpuscular Hgb Conc 34.3 g/dL (32.0-36.0); Mean Corpuscular Volume 90.2 fL (80.0-100.0); Mean Platelet Volume 9.5 fL (9.4-12.4); Monocytes # (auto) 0.53 K/uL (0.11-0.59); Neutrophils # (auto) 5.81 K/uL (1.40-6.50); Neutrophils % (auto) 76.8 %; Platelet Count 184 K/uL (130-400); RDW Coefficient of Variation 12.1 % (11.5-14.5); RDW Standard Deviation 39.6 fL (36.4-46.3); Red Blood Count 4.37 M/uL (4.20-5.40); White Blood Count 7.56 K/ul (4.8-10.8)
[2023-01-03] MEDS ORDERED: SODIUM CHLORIDE 0.9% 500 ML IV ONE (14:58)
[2023-01-03 15:16] LABS: Albumin Globulin Ratio 1.2 (0.9-2); Albumin Level 3.6 gm/dl (3.4-5.0); BUN Creatinine Ratio 24.7 (10-20); Calcium 9.2 mg/dl (8.6-10.3); Creatinine Clr Calc Pharmacy 63.1 ml/min; Est GFR (African American) 87.7 ml/min; Est GFR (Non-African American) 75.6 ml/min; Globulin 2.9 gm/dl (2.5-4.0); Magnesium 1.9 mg/dl (1.7-2.4); Potassium 3.8 mmol/L (3.5-5.1); Total Protein 6.5 gm/dl (6.0-8.3)
[2023-01-03 15:26] LABS: INR 1.1 (0.9-1.1); Partial Thromboplastin Time 28.7 Seconds (21.0-31.0); Prothrombin Time 11.8 Seconds (9.0-12.0)
[2023-01-03 15:32] LABS: Thyroid Stimulating Hormone 0.383 uIu/ml (0.300-4.500)
[2023-01-03 15:34] LABS: Troponin I High Sensitivity 50.6 pg/ml (0-14)
[2023-01-03 15:38] LABS: Appearance Urine Cloudy (Clear); Bacteria Urine Automated 4+ (Negative); Bilirubin Urine Negative (Negative); Blood Urine 3+ (Negative); Cast Urine Automated 0 /lpf (0-5); Color Urine Yellow; Glucose Urine UA Negative (Negative); Ketones Urine Negative (Negative); Leukocyte Esterase Urine 3+ (Negative); Nitrite Urine Positive (Negative); Protein Urine Trace (Negative); RBC Urine Automated >30 /hpf (0-4); Specific Gravity Urine 1.014 (1.000-1.030); Urobilinogen Urine Negative (Negative); WBC Urine Automated >30 /hpf (0-5); pH Urine 5.5 (4.5-7.5)
--- NOTE | 2023-01-03 15:39 | CT Scan Report ---
CT head/brain wo con CLINICAL HISTORY: delirium Technique: Contiguous axial CT images of the head were acquired from the base of the skull to the henrietta porfirio without intravenous contrast administration. Images were viewed in brain, subdural and [facility]. Automated dose lowering techniques and/or adjustment according to patient size were utilized for this exam. Comparison: Comparison is made to CT head 10/08/2022 Findings: Areas of decreased attenuation are present in the periventricular and subcortical white matter bilate rally consistent with small vessel ischemic disease. Generalized cerebral atrophy with commensurate e nlargement of the ventricles, sulci, and cisterns is also present. There is no acute intracranial hem orrhage or evidence of acute territorial infarction. No shift of the midline structures, mass effect, or extra-axial abnormalities are shown. Atherosclerotic calcifications are present in the intracran ial segments of the internal carotid arteries. Imaged portions of the paranasal sinuses and mastoid air cells are clear. The orbits appear normal. There are no acute fractures of the calvaria or scalp swelling. Impression: No acute intracranial hemorrhage, no evidence of acute territorial infarction or other acute intracra nial disease process. ACT 112: Negative or not required by law. Electronically signed by: Oral Mc M.D. 01/03/2023 3:38 PM
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
--- NOTE | 2023-01-03 16:14 | XRay Report ---
XR chest 1V portable CLINICAL HISTORY: weakness TECHNIQUE: Single frontal radiograph of the chest was obtained. Comparison: Comparison is made to chest radiograph 10/08/2022 FINDINGS: No lines and tubes are seen. Cardiomegaly is noted. The lungs are clear. No evidence of pleural effus ion or pneumothorax. IMPRESSION: No acute chest disease. ACT 112: Negative or not required by law. Electronically signed by: Oral Mc M.D. 01/03/2023 4:12 PM
[2023-01-03 16:21] LABS: Adenovirus PCR Not Detected (NotDetected); Bordetella parapertussis PCR Not Detected (NotDetected); Bordetella pertussis PCR Not Detected (NotDetected); Chlamydia pneumoniae PCR Not Detected (NotDetected); Coronavirus 229E PCR Not Detected (NotDetected); Coronavirus CoV-2 (COVID19)PCR Not Detected (NotDetected); Coronavirus HKU1 PCR Not Detected (NotDetected); Coronavirus NL63 PCR Not Detected (NotDetected); Coronavirus OC43PCR Not Detected (NotDetected); Human Metapneumovirus PCR Not Detected (NotDetected); Influenza A PCR Not Detected (NotDetected); Influenza B PCR Not Detected (NotDetected); Mycoplasma pneumoniae PCR Not Detected (NotDetected); Parainfluenza Virus 1 PCR Not Detected (NotDetected); Parainfluenza Virus 2 PCR Not Detected (NotDetected); Parainfluenza Virus 3 PCR Not Detected (NotDetected); Parainfluenza Virus 4 PCR Not Detected (NotDetected); Respiratory Syncytial VirusPCR Not Detected (NotDetected); Rhinovirus/Enterovirus PCR Not Detected (NotDetected)
[2023-01-03] MEDS ORDERED: ASPIRIN 81 MG ECTAB PO STA (17:05)
[2023-01-03] MEDS ORDERED: ACETAMINOPHEN 325 MG TAB PO STA (17:05)
[2023-01-03] MEDS ORDERED: GLUCOSE 10 TAB/TUBE PO PRN (20:29)
[2023-01-03] MEDS ORDERED: ACETAMINOPHEN 325 MG TAB PO PRN (20:29)
[2023-01-03] MEDS ORDERED: GLUCAGON FOR INJ 1 MG VIAL SQ PRN (20:29)
[2023-01-03] MEDS ORDERED: GLUCOSE 40% GEL 15 GM TUBE PO PRN (20:29)
[2023-01-03] MEDS ORDERED: CARBOHYDRATES FOR HYPOGLYCEMIA PO PRN (20:29)
[2023-01-03] MEDS ORDERED: NITROGLYCERIN SL 0.4 MG/TAB TAB SL PRN (20:29)
[2023-01-03] MEDS ORDERED: DEXTROSE 50% 50 ML SYRINGE IV PRN (20:29)
[2023-01-03] MEDS: APIXABAN 5 MG TABLET PO SCH (21:49)
[2023-01-03] MEDS: INSULIN ASPART PER UNIT CHARGE SC SCH (21:49)
[2023-01-03] MEDS: METOPROLOL TARTRATE 25 MG TAB PO SCH (21:49)
[2023-01-03] MEDS: LANTUS PER UNIT CHARGE SQ SCH (21:51)
[2023-01-04] MEDS ORDERED: CEFEPIME 2,000 MG in SYRINGE 0 ML IV SCH (03:00)
[2023-01-04] MEDS: LEVOTHYROXINE SODIUM 75 MCG TABLET PO SCH (05:55)
[2023-01-04 06:05] LABS: Basophils # (auto) 0.03 K/uL (0.00-0.20); Basophils % (auto) 0.4 %; Eosinophils # (auto) 0.01 K/uL (0.00-0.50); Eosinophils % (auto) 0.1 %; Hematocrit (blood only) 38.3 % (37.0-47.0); Immature Granulocytes # (auto) 0.03 K/uL (0.01-0.20); Immature Granulocytes % (auto) 0.4 %; Lymphocytes # (auto) 0.93 K/uL (1.20-3.40); Lymphocytes % (auto) 13.6 %; Mean Corpuscular Hemoglobin 30.4 pg (25.0-34.0); Mean Corpuscular Hgb Conc 33.9 g/dL (32.0-36.0); Mean Corpuscular Volume 89.7 fL (80.0-100.0); Mean Platelet Volume 9.6 fL (9.4-12.4); Monocytes # (auto) 0.58 K/uL (0.11-0.59); Monocytes % (auto) 8.5 %; Neutrophils # (auto) 5.26 K/uL (1.40-6.50); Platelet Count 165 K/uL (130-400); RDW Coefficient of Variation 12.3 % (11.5-14.5); RDW Standard Deviation 40.2 fL (36.4-46.3); Red Blood Count 4.27 M/uL (4.20-5.40); White Blood Count 6.84 K/ul (4.8-10.8)
[2023-01-04 06:17] LABS: BUN Creatinine Ratio 26.2 (10-20); Calcium 8.6 mg/dl (8.6-10.3); Creatinine Clr Calc Pharmacy 66.1 ml/min; Est GFR (African American) 94.5 ml/min; Est GFR (Non-African American) 81.5 ml/min; Potassium 3.8 mmol/L (3.5-5.1)
[2023-01-04 06:35] LABS: Troponin I High Sensitivity 52.8 pg/ml (0-14)
[2023-01-04 07:34] LABS: Estimated Average Glucose 131 mg/dl; Hemoglobin A1C 6.2 % (4.5-5.6)
--- NOTE | 2023-01-04 07:45 | Hospitalist Progress Note ---
Date of Service January 04, 2023 Assessment & Plan (1) UTI (urinary tract infection): Plan: Burning with urination, dysuria x1 day with increased confusion/ambulatory dysfunction and mildly slurred speech AM 01/03. Lactic 1.1, no procal Reports hx UTI x 3 in past 7 months with similar episodes CT head negative for acute CVA on admission UA on admit w/ 3+ leuk esterase, >30 WBC, >30RBC, 5-10 epi, 4+ bacteria Blood cultures obtained on admission, urine cultures Urine cultures with gram negative bacilli, blood culture PCR ID w/ klebsiella pneumonia Continue Cefepime IV (prior urine cx september w/ pseudomonas) and f/u final blood/urine cultures Case Coordinator consulted for nutritional supplements, monitor PO intake. Not overly dehydrated on exam/holding off IVF at present time PT/OT consulted DVT proph: home eliquis 5mg BID continued (hx aflutter) (2) Bacteremia: Plan: blood cultures on admission pending , PCR ID as above and monitor final cultures. consider repeat blood cultures pending final results/can avoid unless febrile (3) Altered mental status: Plan: Oriented to name, birthday, location; not oriented to month/year. CT head negative for CVA on admit * Per family, this is an acute change in her cognitive baseline, but similar to past episodes involving UTI No facial droop/unilateral deficit on exam, suspecting AMS 2nd to UTI/bacteremia as above, abx as outlined Per in room 01/04, patient mental status much improved/almost back to baseline -consider B12if any continued issues. TSH wnl 0.383, remains on usual 75mcg replacement PT/OT evals (4) Hypertension: Plan: BP 151/87 on arrival, continues on metoprolol. BP stable 138/73 and will monitor (5) Diabetes: Plan: Last A1c was 6.4% on 07/27/2022, repeat 6.2. Glu 103 on arrival Home glipizide on hold, utilizing SSI while inpatient, BSGs acceptable and monitor SSI as needed Diet: DM II BSGs 93, 82 this morning - will hold glargine BID for now, monitor on SSI (6) Elevated troponin: Plan: Troponin 50.6 on arrival, repeat 52.8. No arrhythmia on telemetry. Suspect demand ischemia from infection above, improved on repeat. NO CHEST PAIN REPORTED Consider downgrade after 24 hours if no issues (hx aflutter, eliquis continued) (7) Atrial flutter: Plan: Chronic; stable. In sinus rhythm on admission, rates controlled Remains on metoprolol, eliquis Keep mag/K replete- will give 20meq kcl, 1gm IV mag. Check levels in AM/ Monitoring on tele -- downgrade after 24 hours if no issues/mentation back to baseline (8) Hypothyroidism: Plan: Continue levothyroxine. TSH wnl Plan continued inpatient stay f/u urine/blood cultures, continues on Cefepime for now. Admission and Anticipated Discharge Date Admission Date: January 03, 2023 Subjective evaluated this morning, doing well. Reports feeling better. [place] at bedside, reports almost back to her usual self, some confusion at times but answering questions appropriately. Notes Yobani has had 3 UTIs in the past 6-7 months. Discussed could be because bacteria in blood/will plan for repeat cultures. Appetite reported fair but tray at bedside gone -- reports ate half banana/half coffee and he finished it. Discussed will have nutritional supplements. Notes has not been very active, using wheelchair for ambulation at baseline. Therapy evals to be undertaken. No fever/chills, chest pain, shortness of breath, abdominal pain reported. They have important date next to go [facility] to visit grandchild, hoping to be discharged by Saturday pending cultures/antibiotics. Questions/concerns addressed at this time. Physical Exam 2 Physical Exam: General: 82yo female sitting up in bed, NAD, at bedside HEENT: head normocephalic, atraumatic, mm slightly dry, trachea midline Resp: even/unlabored, no obvious w/c/r, slightly diminished in the bases, on room air CV: RRR, no significant m/r/g, no pitting edema/calf tenderness GI: +BS, soft/NT : no bautista MSK/Neuro: generalized weakness but nonfocal, answering questions appropriately, no slurred speech, strength equal bilaterally Psych: alert to person/place, intermittent time (easily reoriented), cooperative Skin: no obvious rashes/lesions Results & Data Results & Data Vital Signs (Past 12 Hours) Vital Signs Temp Pulse Pulse Pulse Resp BP Pulse Ox 01/04/23 07:14 57 L 01/04/23 03:00 36.6 C 55 L 16 152/64 H 94 01/04/23 00:34 51 L 01/04/23 00:32 59 L 01/04/23 00:02 36.8 C 70 14 145/74 H 94 01/03/23 20:29 36.8 C 70 14 145/74 H 94 O2 Del Method 01/04/23 07:14 01/04/23 03:00 Room Air 01/04/23 00:34 01/04/23 00:32 01/04/23 00:02 Room Air 01/03/23 20:29 Room Air Laboratory Results 01/04/23 05:27 01/04/23 05:27 Diagnostic Findings Chest X-Ray 01/03/23 14:22 XR chest 1V portable CLINICAL HISTORY: weakness TECHNIQUE: Single frontal radiograph of the chest was obtained. Comparison: Comparison is made to chest radiograph 10/08/2022 FINDINGS: No lines and tubes are seen. Cardiomegaly is noted. The lungs are clear. No evidence of pleural effusion or pneumothorax. IMPRESSION: No acute chest disease. ACT 112: Negative or not required by law. Electronically signed by: Oral Mc M.D. 01/03/2023 4:[address] 01/03/23 14:22 CT head/brain wo con CLINICAL HISTORY: delirium Technique: Contiguous axial CT images of the head were acquired from the base of the skull to the vertex without intravenous contrast administration. Images were viewed in brain, subdural and bone windows. Automated dose lowering techniques and/or adjustment according to patient size were utilized for this exam. Comparison: Comparison is made to CT head 10/08/2022 Findings: Areas of decreased attenuation are present in the periventricular and subcortical white matter bilaterally consistent with small vessel ischemic disease. Generalized cerebral atrophy with commensurate enlargement of the ventricles, sulci, and cisterns is also present. There is no acute intracranial hemorrhage or evidence of acute territorial infarction. No shift of the midline structures, mass effect, or extra-axial abnormalities are shown. Atherosclerotic calcifications are present in the intracranial segments of the internal carotid arteries. Imaged portions of the paranasal sinuses and mastoid air cells are clear. The orbits appear normal. There are no acute fractures of the calvaria or scalp swelling. Impression: No acute intracranial hemorrhage, no evidence of acute territorial infarction or other acute intracranial disease process. ACT 112: Negative or not required by law. Electronically signed by: Oral Mc M.D. 01/03/2023 3:38 PM PG Care Time/CCT Total # of Minutes Spent Total Time Spent with Patient: Total time spent is greater than 50% in coordination of care (as documented) at patient's floor/unit and/or counseling patient: Coding Level of Care Code 87768 SUB INP/OBS CARE 3/50MIN Diagnoses UTI (urinary tract infection) N39.0 Bacteremia R78.81 Altered mental status R41.82 Hypertension I10 Diabetes E11.9 Elevated troponin R77.8 Atrial flutter I48.92 Hypothyroidism E03.9
[2023-01-04 08:12] LABS: A calco-baum cmplx NotReported Not Detected (NotDetected); Bact fragilis Not Reported Not Detected (NotDetected); Blood Culture Id Panel See PCR Comment (NotDetected); C auris Not Reported Not Detected (NotDetected); CTX-M Resistant Gene Not Detected (NotDetected); Calbicans Not Reported Not Detected (NotDetected); Candida glabrata Not Reported Not Detected (NotDetected); Candida krusei Not Reported Not Detected (NotDetected); Cneoformans/gatti Not Reported Not Detected (NotDetected); Cparapsilosis Not Reported Not Detected (NotDetected); E cloacae compx Not Reported Not Detected (NotDetected); Efaecalis Not Reported Not Detected (NotDetected); Efaecium Not Reported Not Detected (NotDetected); Enterobacterales DETECTED (NotDetected); Enterobacterales Not Reported DETECTED (NotDetected); Escherichia coli Not Reported Not Detected (NotDetected); H influenzae Not Reported Not Detected (NotDetected); IMP Resistant Gene Not Detected (NotDetected); K aerogenes Not Reported Not Detected (NotDetected); KPC Resistant Gene Not Detected (NotDetected); Koxytoca Not Reported Not Detected (NotDetected); Kpneumoniae grp Not Reported DETECTED (NotDetected); Lmonocyt Not Reported Not Detected (NotDetected); N meningitidis Not Reported Not Detected (NotDetected); NDM Resistant Gene Not Detected (NotDetected); OXA 48 Like Resistant Gene Not Detected (NotDetected); P aeruginosa Not Reported Not Detected (NotDetected); Proteus spp Not Reported Not Detected (NotDetected); Salmonella spp Not Reported Not Detected (NotDetected); Smarcescens Not Reported Not Detected (NotDetected); Staph lugdunensis Not Reported Not Detected (NotDetected); Staph spp. Not Reported Not Detected (NotDetected); Staphaureus Not Reported Not Detected (NotDetected); Staphepi Not Reported Not Detected (NotDetected); Stenmaltophilia Not Reported Not Detected (NotDetected); Strep agal(GrpB) Not Reported Not Detected (NotDetected); Strep pneum Not Reported Not Detected (NotDetected); Strep pyog (GrpA) Not Reported Not Detected (NotDetected); Strep spp Not Reported Not Detected (NotDetected); VIM Resistant Gene Not Detected (NotDetected); mcr-1 Colistin Resistant Gene Not Detected (NotDetected)
[2023-01-04] MEDS: ASPIRIN 81 MG ECTAB PO SCH (08:14)
[2023-01-04] MEDS: APIXABAN 5 MG TABLET PO SCH ×2 (08:14→20:53)
[2023-01-04] MEDS: ATORVASTATIN 40 MG TAB PO SCH (08:15)
[2023-01-04 08:20] LABS: Klebsiella pneumoniae group DETECTED (NotDetected)
[2023-01-04] MEDS ORDERED: INFLUENZA VACCINE HIGH-DOSE (HD-IIV4) PF 65+ 0.7mL SYR IM ONE (09:00)
[2023-01-04] MEDS: INSULIN ASPART PER UNIT CHARGE SC SCH ×4 (09:08→20:46)
[2023-01-04] MEDS: LANTUS PER UNIT CHARGE SQ SCH (09:11)
--- NOTE | 2023-01-04 09:24 | Electrocardiogram Report ---
Test Reason : Blood Pressure : / mmHG Vent. Rate : 076 BPM Atrial Rate : 076 BPM P-R Int : 102 ms QRS Dur : 086 ms QT Int : 446 ms P-R-T Axes : 018 -30 -18 degrees QTc Int : 501 ms Sinus rhythm with short VT Left axis deviation Nonspecific ST and T wave abnormality Abnormal ECG When compared with ECG of 08-OCT-2022 15:29, Nonspecific T wave abnormality now evident in Inferior leads QT has lengthened Confirmed by Gregorio Mcdaniel ([id number]) on 01/04/2023 9:24:24 AM Referred By: REFERRED SELF Confirmed By:Gregorio Mcdaniel
[2023-01-04] MEDS ORDERED: MAGNESIUM SULFATE / D5W 1 GM/100 ML BAG IV ONE (10:09)
[2023-01-04] MEDS ORDERED: POTASSIUM CHLORIDE PWD 20 MEQ PACK PO ONE (10:09)
[2023-01-04] MEDS: METOPROLOL TARTRATE 25 MG TAB PO SCH ×2 (11:07→20:53)
[2023-01-04] MEDS: CEFEPIME 2,000 MG in SYRINGE 0 ML IV SCH ×2 (16:11→20:53)
[2023-01-05] MEDS: LEVOTHYROXINE SODIUM 75 MCG TABLET PO SCH (05:52)
[2023-01-05] MEDS: CEFEPIME 2,000 MG in SYRINGE 0 ML IV SCH (06:11)
[2023-01-05 08:23] LABS: Basophils # (auto) 0.04 K/uL (0.00-0.20); Basophils % (auto) 0.6 %; Eosinophils # (auto) 0.16 K/uL (0.00-0.50); Eosinophils % (auto) 2.4 %; Hematocrit (blood only) 38.1 % (37.0-47.0); Immature Granulocytes # (auto) 0.04 K/uL (0.01-0.20); Immature Granulocytes % (auto) 0.6 %; Lymphocytes # (auto) 1.53 K/uL (1.20-3.40); Mean Corpuscular Hemoglobin 30.2 pg (25.0-34.0); Mean Corpuscular Hgb Conc 34.1 g/dL (32.0-36.0); Mean Corpuscular Volume 88.6 fL (80.0-100.0); Mean Platelet Volume 9.8 fL (9.4-12.4); Monocytes # (auto) 0.77 K/uL (0.11-0.59); Monocytes % (auto) 11.6 %; Neutrophils # (auto) 4.12 K/uL (1.40-6.50); Neutrophils % (auto) 61.8 %; Platelet Count 168 K/uL (130-400); RDW Coefficient of Variation 12.4 % (11.5-14.5); RDW Standard Deviation 40.6 fL (36.4-46.3); White Blood Count 6.66 K/ul (4.8-10.8)
[2023-01-05 08:37] LABS: BUN Creatinine Ratio 30.6 (10-20); Calcium 8.6 mg/dl (8.6-10.3); Creatinine Clr Calc Pharmacy 60.3 ml/min; Est GFR (African American) 89.1 ml/min; Est GFR (Non-African American) 76.9 ml/min; Magnesium 2.2 mg/dl (1.7-2.4); Potassium 3.9 mmol/L (3.5-5.1)
[2023-01-05] MEDS: INSULIN ASPART PER UNIT CHARGE SC SCH ×4 (08:37→20:01)
[2023-01-05] MEDS: METOPROLOL TARTRATE 25 MG TAB PO SCH ×2 (08:39→19:55)
[2023-01-05] MEDS: APIXABAN 5 MG TABLET PO SCH ×2 (08:40→19:55)
[2023-01-05] MEDS: ATORVASTATIN 40 MG TAB PO SCH (08:40)
[2023-01-05] MEDS: ASPIRIN 81 MG ECTAB PO SCH (08:40)
--- NOTE | 2023-01-05 09:02 | XCELERA ---
[id number] \\[id number]
--- NOTE | 2023-01-05 11:17 | Hospitalist Progress Note ---
Date of Service January 05, 2023 Assessment & Plan (1) UTI (urinary tract infection): Plan: Burning with urination, dysuria x1 day Patient's reports the patient was confused, with ambulation dysfunction, and mildly slurred speech the morning of 01/03 Cefepime started in the ED --> 01/05 switched to Cipro IV q12 Urine culture on 10/08/2022 grew Pseudomonas, blood culture biofire confirms -Echo: EF 60-65%, no wall motion abnormalities PT/OT consult for ambulatory dysfunction/generalized weakness (2) Recurrent urinary tract infection: Plan: Hx of 3 UTIs within the past 7 months leading to similar episode - Was seen by urology 06/2021, with main concerns of urinary incontinence at that time - CTAP without any kidney stones or bladder abnormalities Urology consult, appreciate recs (3) Altered mental status: Plan: Oriented to name, birthday, location; not oriented to month/year Per family, this is an acute change in her cognitive baseline, but similar to past episodes involving UTI No focal deficits on exam. No hx of strokes Likely secondary to UTI Electrolytes/LFTs WNL, Head CT revealed NAF 01/05: back to baseline, answering questions appropriately, able to recall her medical history (4) Hypertension: Plan: BP 151/87 on arrival Continue metoprolol (5) Diabetes: Plan: Last A1c was 6.4% on 07/27/2022, repeat 01/04: 6.2 Glucose 103 on arrival Hold glipizide SSI with Lantus 5u BID Target goal BSG 110-140, CF 50, carb ratio 15 BSG ACHS T2DM diet Adjust regimen as needed (6) Elevated troponin: Plan: Troponin 56.8 on arrival, repeat downtrending Clinically, patient denies chest pain Continuous telemetry monitoring - NSR consider downgrade tomorrow if remains stable without further episodes of AMS (7) Atrial flutter: Plan: Chronic; stable Rate controlled EKG on arrival showed sinus rhythm with short WA at 76 bpm; QTc 501 Continue metoprolol, Eliquis (8) Hypothyroidism: Plan: Continue levothyroxine Plan Disposition:continued admission DNR/DNI VTE PPx: On Eliquis Admission and Anticipated Discharge Date Admission Date: January 03, 2023 Supervising Physician Co-Signing Physician Notes Attending Attestation - Chart reviewed, care plan d/w DAYANARA Thompson. I agree w/ the hall components of her documentation. Bacteremia 2nd to klebsiella UTI. Stable, vitals/labs acceptable. Remains on IV abx therapy - plan 14 day course of IV/PO abx. Can switch to cipro today; d/c cefepime. Teofilo Mina MD Subjective 1035 - Patient seen sitting up in bed, at bedside. Reports that she if feeling better. confused as to why she keeps getting UTIs, reports they seem to go away and then come right back. Reports that she does wear briefs at home, but states she tries not to sit in soiled ones very long. Moves around the house with a walker, does not leave often because she has 14 steps to get in. She does feel weak, reports that she could only stand and shuffle a few steps with OT yesterday. Appetite is improving. Denies CP and SOB. Tele - NSR 60s, bradycardia with PVCs overnight 40-60s Review of Systems Review of Systems: All systems reviewed & are unremarkable except as noted in Subjective Physical Exam Physical Exam: General: WN/WD, NAD, VS as above Resp: normal respiratory effort, lungs clear to auscultation CV: RRR, no murmur, no edema Abd: normal bowel sounds, non tender, no hepatosplenomegaly Extremities: Moves all extremities, no edema : Purewik in place Neuro: A&O x3, Skin: intact, no lesions noted Results & Data Results & Data Vital Signs (Past 12 Hours) Vital Signs Temp Pulse Pulse Resp BP Pulse Ox O2 Del Method 01/05/23 10:28 Room Air 01/05/23 07:42 36.9 C 83 16 148/77 H 94 Room Air 01/05/23 07:00 46 L 01/05/23 03:06 36.6 C 61 18 179/70 H 95 Room Air 01/04/23 23:23 37.2 C 55 L 18 156/74 H 97 Room Air Laboratory Results reviewed CBC, chemistry and magnesium. [id number] glucose reviewed Diagnostic Findings echo reviewed. EF 55 to 60% PG Care Time/CCT Total # of Minutes Spent Total Time Spent with Patient: Total time spent is greater than 50% in coordination of care (as documented) at patient's floor/unit and/or counseling patient: Coding Level of Care Code 42796 SUB INP/OBS CARE MIN Diagnoses UTI (urinary tract infection) N39.0 Recurrent urinary tract infection N39.0 Altered mental status R41.82 Hypertension I10 Diabetes E11.9 Elevated troponin R77.8 Atrial flutter I48.92 Hypothyroidism E03.9
--- NOTE | 2023-01-05 12:21 | CT Scan Report ---
ABDOMEN AND PELVIS CT WITHOUT CONTRAST CT DOSE: 759.08 mGy.cm HISTORY: Flank pain. r/o stone TECHNIQUE: Multiaxial CT images of the abdomen and pelvis were performed without contrast. A dose lo wering technique was utilized adhering to the principles of ALARA. COMPARISON STUDY: Abdomen and pelvis CT 05/17/2020. FINDINGS: Stable bibasilar nodules with the largest in the left lower lobe measuring 6 mm. These are likely benign given the long-term stability no pneumoperitoneum. No pneumatosis. No acute fractures i dentified. Coronary artery calcifications are noted. Cholecystectomy. The unenhanced liver, spleen, a nd adrenal glands unremarkable. Pancreatic calcifications again noted consistent with chronic pancrea titis. No evidence for acute pancreatitis. No renal or ureteral stones. No hydronephrosis. No retrope ritoneal lymphadenopathy. Calcified plaque within the normal caliber abdominal aorta. No pelvic free fluid or pelvic lymphadenopathy. The bladder is unremarkable. The uterus and bilateral adnexa are wit hin normal limits. Rectosigmoid anastomosis is noted. Suboptimal evaluation for bowel pathology due t o the lack of intravenous and oral contrast. However, there is no definite bowel wall thickening or o bstruction. Colonic diverticulosis. No evidence for acute diverticulitis. Zkpz-ti-acriqefn fecal rete ntion is noted. IMPRESSION: 1. No renal or ureteral stones. No hydronephrosis. 2. No bowel wall thickening or obstruction. 3. Zcji-op-ppaefrby fecal retention. 4. Prior cholecystectomy. 5. Colonic diverticulosis. No evidence for acute diverticulitis. 6. Chronic pancreatitis again noted. No evidence for acute pancreatitis. ACT 112: Negative or not required by law. Electronically signed by: Silverio Monroe M.D. 01/05/2023 12:18 PM
[2023-01-05] MEDS: CIPROFLOXACIN / D5W 400 MG/200 ML BAG IV SCH (13:48)
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
[2023-01-06] MEDS: CIPROFLOXACIN / D5W 400 MG/200 ML BAG IV SCH ×2 (03:17→13:42)
[2023-01-06] MEDS: LEVOTHYROXINE SODIUM 75 MCG TABLET PO SCH (06:06)
[2023-01-06 06:59] LABS: Basophils # (auto) 0.04 K/uL (0.00-0.20); Basophils % (auto) 0.6 %; Eosinophils # (auto) 0.31 K/uL (0.00-0.50); Eosinophils % (auto) 4.9 %; Hematocrit (blood only) 37.3 % (37.0-47.0); Hemoglobin 12.5 g/dl (12.0-16.0); Immature Granulocytes # (auto) 0.04 K/uL (0.01-0.20); Immature Granulocytes % (auto) 0.6 %; Lymphocytes # (auto) 1.62 K/uL (1.20-3.40); Lymphocytes % (auto) 25.4 %; Mean Corpuscular Hemoglobin 30.3 pg (25.0-34.0); Mean Corpuscular Hgb Conc 33.5 g/dL (32.0-36.0); Mean Corpuscular Volume 90.3 fL (80.0-100.0); Mean Platelet Volume 9.4 fL (9.4-12.4); Monocytes # (auto) 0.69 K/uL (0.11-0.59); Monocytes % (auto) 10.8 %; Neutrophils # (auto) 3.68 K/uL (1.40-6.50); Neutrophils % (auto) 57.7 %; Platelet Count 185 K/uL (130-400); RDW Coefficient of Variation 12.4 % (11.5-14.5); RDW Standard Deviation 41.1 fL (36.4-46.3); Red Blood Count 4.13 M/uL (4.20-5.40); White Blood Count 6.38 K/ul (4.8-10.8)
[2023-01-06 07:16] LABS: BUN Creatinine Ratio 37.1 (10-20); Calcium 8.8 mg/dl (8.6-10.3); Est GFR (Non-African American) 82.8 ml/min; Potassium 3.9 mmol/L (3.5-5.1)
[2023-01-06] MEDS: METOPROLOL TARTRATE 25 MG TAB PO SCH ×2 (08:34→20:26)
[2023-01-06] MEDS: ATORVASTATIN 40 MG TAB PO SCH (08:34)
[2023-01-06] MEDS: ASPIRIN 81 MG ECTAB PO SCH (08:35)
[2023-01-06] MEDS: APIXABAN 5 MG TABLET PO SCH (08:35)
[2023-01-06] MEDS: INSULIN ASPART PER UNIT CHARGE SC SCH ×4 (08:42→20:28)
[2023-01-06] MEDS ORDERED: METOPROLOL TARTRATE 1 MG/ML VIAL IV STA (11:15)
[2023-01-06] MEDS ORDERED: METOPROLOL TARTRATE 1 MG/ML VIAL IV ONE (11:19)
--- NOTE | 2023-01-06 14:30 | Hospitalist Progress Note ---
Date of Service January 06, 2023 Assessment & Plan (1) UTI (urinary tract infection): Plan: Burning with urination, dysuria x1 day Patient's reports the patient was confused, with ambulation dysfunction, and mildly slurred speech the morning of 01/03 Cefepime started in the ED --> 01/05 switched to Cipro IV q12 Urine culture on 10/08/2022 grew Pseudomonas, blood culture biofire confirms -Echo: EF 60-65%, no wall motion abnormalities PT/OT consult for ambulatory dysfunction/generalized weakness (2) Atrial flutter: Plan: Chronic; on metoprolol and Eliquis EKG on arrival showed sinus rhythm with short NC at 76 bpm; QTc 501 01/06: Sustained afib/aflutter, patient with chest heaviness during this time - IV Lopressor given - pt converted during administration of 1st dose - Will transfer to PCU incase recurrence and further needs for other medications - Trop: elevated at 45.1, but decreased from admission 52.8 - Repeat trop- downtrending, 43.5 - increase Metoprolol to 37.5mg BID, consider further advancing if BP allows - Spoke to cardiology by phone --> recommend holding Eliquis - NPO at midnight for probably cardio procedure in the am Continue Tele (3) Recurrent urinary tract infection: Plan: Hx of 3 UTIs within the past 7 months leading to similar episode - Was seen by urology 06/2021, with main concerns of urinary incontinence at that time - CTAP without any kidney stones or bladder abnormalities Urology consult - agree with current management - Downscale abx when culture and sensitivies - follow up outpatient regarding recurrent UTIs. (4) Altered mental status: Plan: Oriented to name, birthday, location; not oriented to month/year Per family, this is an acute change in her cognitive baseline, but similar to past episodes involving UTI No focal deficits on exam. No hx of strokes Likely secondary to UTI Electrolytes/LFTs WNL, Head CT revealed NAF 01/05: back to baseline, answering questions appropriately, able to recall her medical history (5) Hypertension: Plan: BP 151/87 on arrival Metoprolol as above (6) Diabetes: Plan: Last A1c was 6.4% on 07/27/2022, repeat 01/04: 6.2 Glucose 103 on arrival Hold glipizide SSI with Lantus 5u BID Target goal BSG 110-140, CF 50, carb ratio 15 BSG ACHS T2DM diet Adjust regimen as needed (7) Elevated troponin: Plan: Troponin 56.8 on arrival, repeat downtrending Clinically, patient denies chest pain Continuous telemetry monitoring (8) Hypothyroidism: Plan: Continue levothyroxine Plan Disposition:continued admission - transfer to PCU DNR/DNI VTE PPx: On Eliquis (on Hold) Admission and Anticipated Discharge Date Admission Date: January 05, 2023 Supervising Physician Co-Signing Physician Notes Attending Attestation and Progress Note: Pt seen/examined, chart reviewed, care plan d/w DAYANARA Thompson. I agree w/ the hall components of her documentation. Called by staff that patient had converted to rapid a.fib, rate ~150 BPM. Upon arrival she was laying in bed. Apparently she had had mild chest heaviness with left arm discomfort. Symptoms were transient. EKG with rapid afib with lateral ST changes (depression). Fortunately pt converted back to NSR without intervention. Exam (was after she converted back to NSR) - gen - NAD neck - no JVD heart - RRR, s1 s2, no murmur lungs - CTA b/l abd - soft NT ND BS+ ext - no edema, pulses 2+ b/l A/P: 1. Bacteremia 2nd to klebsiella UTI. Clinicall improved. IV/PO abx course x 2 weeks. Currently on IV cipro. 2. Rapid a.fib - resolved, converted back to NSR. Known/past h/o a.fib. Cont metoprolol - increase to 37.5mg BID. 3. chest heaviness - has known history of CAD requiring stents (stents placed at hospital in [place]). Follows with Dr Evans, [facility]. Serial trops. Spoke with on-call cardiology --> plan to keep NPO at midnight, hold Eliquis --> likely to need ischemic eval tomorrow (cath?). 4. acute metabolic encephalopathy - 2nd to #1. updated at bedside today. Teofilo Mina MD Subjective 1100 - notified by RN that monitoring manager showing A-fib/flutter rates 140 - 150s. went to patient room to evaluate patient, she is laying in the bed does not appear in acute distress. she does report that she has a heaviness feeling in her chest and her left arm had felt heavy but this has resolved. States that she had an episode similar to this approximately 2 weeks ago at home and she took a nitroglycerin and that did not seem to help but the symptoms eventually subsided. States that she has a very low pain tolerance, and was not experiencing any pain during today's event. At 1 point did report that she was short of breath, but O2 sat stable and was not requiring any oxygen. Patient rarely leaves the house because she has 14 steps to enter and cannot do these without getting short of breath. most of the walking she does is to the bathroom, estimated about 10 feet. present at bedside. Together they are poor historians regarding Yobani's prior medical care. Do report than she has had 4 stents placed, 2 of those are femoral. unsure what prompted the workup for those to be placed. Do follow with [facility] - unsure if they are aware that she has been have LUO. Review of Systems Review of Systems: All systems reviewed & are unremarkable except as noted in Subjective Physical Exam Physical Exam: General: WN/WD, NAD, VS as above Resp: normal respiratory effort, lungs clear to auscultation CV: tachycardic, afib. no murmur Abd: normal bowel sounds, non tender, no hepatosplenomegaly Extremities: Moves all extremities, no edema : Purewik in place Neuro: A&O x3, Skin: intact, no lesions noted Results & Data Results & Data Vital Signs (Past 12 Hours) Vital Signs Temp Pulse Pulse Resp BP BP BP 01/06/23 11:31 64 117/72 01/06/23 11:29 64 117/72 01/06/23 11:21 166 H 131/76 01/06/23 11:10 36.9 C 135 H 18 131/76 01/06/23 10:30 01/06/23 08:14 60 01/06/23 07:59 36.8 C 68 16 155/77 H 01/06/23 03:17 36.8 C 59 L 18 146/71 H Pulse Ox O2 Del Method 01/06/23 11:31 01/06/23 11:29 95 Room Air 01/06/23 11:21 01/06/23 11:10 96 Room Air 01/06/23 10:30 Room Air 01/06/23 08:14 01/06/23 07:59 97 Room Air 01/06/23 03:17 95 Room Air Laboratory Results CBC, chemistry and troponin reviewed PG Care Time/CCT Total # of Minutes Spent Total Time Spent with Patient: Total time spent is greater than 50% in coordination of care (as documented) at patient's floor/unit and/or counseling patient: Coding Level of Care Code 20511 SUB INP/OBS CARE 3/50MIN Diagnoses UTI (urinary tract infection) N39.0 Atrial flutter I48.92 Recurrent urinary tract infection N39.0 Altered mental status R41.82 Hypertension I10 Diabetes E11.9 Elevated troponin R77.8 Hypothyroidism E03.9
[2023-01-07] MEDS: CIPROFLOXACIN / D5W 400 MG/200 ML BAG IV SCH ×2 (02:10→13:12)
[2023-01-07] MEDS: LEVOTHYROXINE SODIUM 75 MCG TABLET PO SCH (05:37)
[2023-01-07] MEDS: INSULIN ASPART PER UNIT CHARGE SC SCH ×4 (08:05→20:27)
[2023-01-07] MEDS: ATORVASTATIN 40 MG TAB PO SCH (08:17)
[2023-01-07] MEDS: ASPIRIN 81 MG ECTAB PO SCH (08:18)
[2023-01-07 09:29] LABS: BUN Creatinine Ratio 27.1 (10-20); Calcium 9.1 mg/dl (8.6-10.3); Creatinine Clr Calc Pharmacy 74.6 ml/min; Est GFR (African American) 97.5 ml/min; Est GFR (Non-African American) 84.2 ml/min
[2023-01-07] MEDS: METOPROLOL TARTRATE 25 MG TAB PO SCH ×2 (11:23→20:27)
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
--- NOTE | 2023-01-07 17:37 | Electrocardiogram Report ---
Test Reason : Blood Pressure : / mmHG Vent. Rate : 140 BPM Atrial Rate : 136 BPM P-R Int : 094 ms QRS Dur : 096 ms QT Int : 274 ms P-R-T Axes : 205 -48 205 degrees QTc Int : 418 ms Atrial fibrillation Left axis deviation Incomplete right bundle branch block Left anterior fascicular block Abnormal ECG When compared with ECG of 03-JAN-2023 15:17, ST now depressed in Lateral leads T wave inversion now evident in Lateral leads Confirmed by Kali Hayes ([id number]) on 01/07/2023 5:37:21 PM Referred By: REFERRED SELF Confirmed By:Bruce Hayes
--- NOTE | 2023-01-07 17:39 | Electrocardiogram Report ---
Test Reason : Blood Pressure : / mmHG Vent. Rate : 061 BPM Atrial Rate : 061 BPM P-R Int : 152 ms QRS Dur : 090 ms QT Int : 414 ms P-R-T Axes : 047 -42 037 degrees QTc Int : 416 ms Normal sinus rhythm Left axis deviation Incomplete right bundle branch block Nonspecific T wave abnormality Abnormal ECG Confirmed by Kali Hayes ([id number]) on 01/07/2023 5:39:21 PM Referred By: REFERRED SELF Confirmed By:Bruce Hayes
--- NOTE | 2023-01-07 21:26 | Hospitalist Progress Note ---
Date of Service January 07, 2023 Assessment & Plan (1) Bacteremia: Plan: 2nd pansen klebsiella source - urinary tract CT a/p without urinary tract pathology day #5 of appropriate IV abx -- initially cefepime, now IV cipro plan 14 days of Rx no signs/symptoms of ongoing infection (2) UTI (urinary tract infection): Plan: 2nd pansens klebsiella Initial Rx - cefepime Changed 01/05 to Cipro 400mg IV q12 complicated by bacteremai day #5 of Rx today planning 14 days of Rx can later switch to PO cipro 750mg BID (higher dose due to bacteremia coverage) to complete the course (3) PAF (paroxysmal atrial fibrillation): Plan: 01/06 - lasted <1 hour spontaneously converted to NSR rates were ~150 BPM during the PAF run while in rapid a.fib had chest heaviness/discomfort with radiation to L arm (see #4 below) fortunately no troponin leak during this episode has remained in NSR since then Eliquis on hold for cath tomorrow by Dr Evans, 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 Cont beta wil - we did increase metoprolol to 37.5mg BID from 25mg BID (4) Angina pectoris: Plan: episode of angina during her PAF episode yesterday she reports having had other episodes of chest symptoms at home recently requiring the use of nitro the chest heaviness yesterday was similar to what she has had at home EKG while in PAF showed lateral ST depressions she has had L Cx stent in the past in [facility] ([facility]) due to symptoms at home, episode yesterday, and known CAD we consulted Dr Evans from [facility] [place] plan - cath tomorrow NPO at PA cont beta wil cont asa cont statin (5) Atrial flutter: Plan: h/o such had PAF run 01/06 as above cont BB Eliquis on hold - having heart cath 01/08 cont telemetry (6) Recurrent urinary tract infection: Plan: Hx of 3 UTIs within the past 7 months Was seen by urology 06/2021, with main concerns of urinary incontinence at that time CT A/P without any kidney stones or bladder abnormalities to account for UTIs Urology consult appreciated -- they advise outpatient f/u with them in clinic (7) Altered mental status: Plan: ACUTE METABOLIC ENCEPHALOPATHY -- 2nd to #1, #2 improved seems to have baseline cognitive impairment?? (8) Hypertension: Plan: most readings are acceptable we just increased her metoprolol yesterday from 25mg BID to 37.5mg BID trend (9) Diabetes: Plan: HbA1C 01/04 - 6.2% Hold glipizide - in light of advanced age, tight a1c control, risk of hypoglycemia with sulfonylurea - would d/c glipizide after this hospital stay Lantus placed on hold (was started at time ER admission) loose novolog SSI BSGs have been excellent (10) Elevated troponin: Plan: Troponin 56.8 on arrival, repeat downtrending - even following yesterday's PAF and chest pain episode (11) Hypothyroidism: Plan: Continue levothyroxine TSH wnl (12) CAD (coronary artery disease): Plan: h/o stents placed at [facility] 10 years ago per patient?? ([facility]) follows with Dr Evans, [facility] Cards see #4 above known Left Cx disease cath tomorrow Plan PT/OT evals completed a few days ago -- both advised rehab post discharge will need to d/w pt's /family Admission and Anticipated Discharge Date Admission Date: January 05, 2023 Subjective no chest symptoms overnight - denies any episode of chest heaviness, pain, etc no left arm pain overnight denies dyspnea at rest no PAF on tele overnight she was seen by Dr Evans this am - scheduled for cath tomorrow - she did not remember any of this discussion she had obvious confusion during the visit - pleasant confusion eating well last BM - 01/06 Review of Systems Review of Systems: gen - no fevers or chills cv - no orthopnea pulm - no dyspnea at rest, no cough GI - no nausea/emesis Physical Exam Physical Exam: gen - NAD, pleasant confusion neck - no JVD mouth - MMM heart - RRR, s1 s2, 2/6 systolic murmur LSB lungs - CTA b/l, no rales abd - soft NT; BS+; slightly distended; no HSM ext - no edema, pulses 2+ b/l psych - oriented to person/place but not time Results & Data Results & Data Vital Signs (Past 12 Hours) Vital Signs Temp Pulse Resp BP Pulse Ox O2 Del Method 01/07/23 19:44 36.8 C 60 18 141/74 H 95 Room Air 01/07/23 16:21 36.4 C L 51 L 18 136/73 97 Room Air 01/07/23 10:58 36.5 C 55 L 17 129/81 97 Room Air Laboratory Results Laboratory Results - last 24 hr 01/07/23 01/07/23 01/07/23 07:12 08:40 11:22 Sodium 139 Potassium 4.0 Chloride 108 H Carbon Dioxide 25 Anion Gap 6 BUN 16 Creatinine 0.59 L Est Cr Clr Drug Dosing 74.6 Est GFR ( Amer) 97.5 Est GFR (Non-Af Amer) 84.2 BUN/Creatinine Ratio 27.1 H Glucose 133 H POC Glucose 135 H 166 H Calcium 9.1 01/07/23 01/07/23 01/07/23 14:15 16:06 20:06 Sodium Potassium Chloride Carbon Dioxide Anion Gap BUN Creatinine Est Cr Clr Drug Dosing Est GFR ( Amer) Est GFR (Non-Af Amer) BUN/Creatinine Ratio Glucose POC Glucose 169 H 133 H 227 H Calcium PG Care Time/CCT Total # of Minutes Spent Total Time Spent with Patient: Total time spent is greater than 50% in coordination of care (as documented) at patient's floor/unit and/or counseling patient: Coding Level of Care Code 25013 SUB INP/OBS CARE 235MIN Diagnoses Bacteremia R78.81 UTI (urinary tract infection) N39.0 PAF (paroxysmal atrial fibrillation) I48.0 Angina pectoris I20.9 Atrial flutter I48.92 Recurrent urinary tract infection N39.0 Altered mental status R41.82 Hypertension I10 Diabetes E11.9 Elevated troponin R77.8 Hypothyroidism E03.9 CAD (coronary artery disease) I25.10
[2023-01-08] MEDS: CIPROFLOXACIN / D5W 400 MG/200 ML BAG IV SCH ×2 (02:04→14:40)
[2023-01-08] MEDS: LEVOTHYROXINE SODIUM 75 MCG TABLET PO SCH (05:49)
[2023-01-08 07:33] LABS: Calcium 8.8 mg/dl (8.6-10.3); Creatinine Clr Calc Pharmacy 64.4 ml/min; Est GFR (African American) 93.1 ml/min; Est GFR (Non-African American) 80.3 ml/min; Potassium 4.4 mmol/L (3.5-5.1)
[2023-01-08] MEDS: INSULIN ASPART PER UNIT CHARGE SC SCH ×4 (08:15→21:17)
[2023-01-08] MEDS: ATORVASTATIN 40 MG TAB PO SCH (08:24)
[2023-01-08] MEDS: METOPROLOL TARTRATE 25 MG TAB PO SCH ×2 (08:24→21:17)
[2023-01-08] MEDS: ASPIRIN 81 MG ECTAB PO SCH (08:24)
--- NOTE | 2023-01-08 09:49 | Pre Anesthesia Assessment ---
Date of Service January 08, 2023 Pre Sedation Assessment Vital Signs Temp Pulse Pulse Pulse Resp BP BP 01/08/23 09:42 54 L 18 169/72 H 01/08/23 07:43 36.6 C 66 18 145/63 H 01/08/23 02:25 36.3 C L 57 L 18 153/79 H 01/08/23 00:00 48 L 01/07/23 22:29 36.5 C 50 L 18 143/77 H 01/07/23 20:29 01/07/23 19:44 36.8 C 60 18 141/74 H 01/07/23 16:21 36.4 C L 51 L 18 136/73 01/07/23 10:58 36.5 C 55 L 17 129/81 Pulse Ox Pulse Ox O2 Del Method O2 Del Method 01/08/23 09:42 99 Room Air 01/08/23 07:43 96 Room Air 01/08/23 02:25 97 Room Air 01/08/23 00:00 01/07/23 22:29 97 Room Air 01/07/23 20:29 95 Room Air 01/07/23 19:44 95 Room Air 01/07/23 16:21 97 Room Air 01/07/23 10:58 97 Room Air Cardiovascular RRR, no murmur, no edema Respiratory normal respiratory effort, lungs clear to auscultation Pre-Sedation Airway Assessment Smoking Status: Former smoker Short, Thick Neck: No Thyromental Distance: > or= 3.5 Finger Breadths Oral Cavity: + WNL Mallampati Class: III ASA: ASA3 NPO Status Date of Last Intake of Fluids: 01/08/23 Time of Last Intake of Fluids: 02:00 Date of Last Intake of Solid Food: 01/07/23 Notes The planned sedation has been discussed with the patient. Informed Consent was obtained. I have identified the patient, determined the appropriateness of sedation and have assessed the patient immediately prior to the procedure. All medicine(s) and interventions are by my order.
[2023-01-08] MEDS ORDERED: HEPARIN (PORCINE) 1000 UNIT/ML 10 ML (CATH LAB USE ONLY) ONE (12:26)
[2023-01-08] MEDS ORDERED: niCARdipine HCL INJ 2.5 MG/ML 10 ML AMP ONE (12:26)
[2023-01-08] MEDS ORDERED: fentaNYL citrate PF 100 MCG/2 ML VIAL ONE (12:26)
[2023-01-08] MEDS ORDERED: MIDAZOLAM HCL 1 MG/ML 2ML VIAL ONE (12:26)
[2023-01-08] MEDS ORDERED: NITROGLYCERIN/D5W 100MCG/ML 20ML SYR ONE (12:27)
--- NOTE | 2023-01-08 13:32 | Post Anesthesia Assessment ---
Date of Service January 08, 2023 Post Sedation Assessment Vital Signs Temp Pulse Pulse Pulse Resp BP BP 01/08/23 09:42 54 L 18 169/72 H 01/08/23 07:43 36.6 C 66 18 145/63 H 01/08/23 02:25 36.3 C L 57 L 18 153/79 H 01/08/23 00:00 48 L 01/07/23 22:29 36.5 C 50 L 18 143/77 H 01/07/23 20:29 01/07/23 19:44 36.8 C 60 18 141/74 H 01/07/23 16:21 36.4 C L 51 L 18 136/73 Pulse Ox Pulse Ox O2 Del Method O2 Del Method 01/08/23 09:42 99 Room Air 01/08/23 07:43 96 Room Air 01/08/23 02:25 97 Room Air 01/08/23 00:00 01/07/23 22:29 97 Room Air 01/07/23 20:29 95 Room Air 01/07/23 19:44 95 Room Air 01/07/23 16:21 97 Room Air Recovery Score Activity: Moves 4 extremities Respiration: Deep Breath/Cough Circulation: +/-20% PreAnes Value Consciousness: Fully Awake Oxygen Saturation: > 92% On Room Air Discharge Sedation Level of Care: Fast Track Phase II Post Sedation Plan On clinical assessment, the patient appears to have tolerated the sedation without complications. Patient is recovering as anticipated. Patient will continue to be monitored by nursing and may be discharged when sedation discharge criteria are met per below protocol. Upon Completions of procedure up to 15 minutes continue every 5 minute vital signs and the P.A.R. score; then discharge to a Phase I or Fast Track to Phase II per the following guidelines: * Discharge Patient to appropriate Phase II area if PAR is 8 or greater or return to pre- procedure baseline. The post - procedure orders will be as di rected. * If PAR score is less than 8 or not return to pre-procedure baseline then patient will follow Phase I monitoring till PAR is reached for Phase II. The Phase I may be done in procedure room or may call to secure a Phase I area. * If naloxone or flumazenil are used for reversal, hold in Phase I for continued monitoring from when last reversal dose was given for a minimum of 60 minutes or longer pending the nurse and/or physician discretion of patient condition before discharge to Phase II. Please call the Sedation Physician to re-evaluate and complete post-note for discharge to Phase II area. Do NOT discharge from procedure sedation or Phase 1 until post- sedation evaluation note is complete by procedure /sedation MD Sedation Discharge Instructions to be given to the patient at discharge to home. [facility] Procedure Codes (Charges) Indication for Procedure Indication for procedure: NSTEMI Sedation/Anesthesia Procedure 1: Sedation/Anesthesia: 73748 Mod Sedation by the same physician;Init15 Min C hild Age 5 & Up (Initial 15 min, start 1250) Total Sedation Time (minutes): 29 Procedure 2: Sedation/Anesthesia: 35562 Mod Sedation by the same physician; Ea [id number] Minutes (Additional 14 min End 1319) Total Sedation Time (minutes): 29
[2023-01-08] MEDS ORDERED: OPTIRAY 350 ONE (13:46)
--- NOTE | 2023-01-08 13:57 | Cardiac Catheterization ---
[facility] Data: Field Staff Manager Cardiac Status Clinical evaluation leading to the procedure CAD Presenation: Non STEMI Anginal Classification: CCS IV Heart Failure: No Cardiogenic Shock within 24 Hours: No Cardiac Arrest within 24 Hours: No Imaging Studies Past 6 Months: No Coronary Anatomy Dominant: Right Left Main (% Stenosis): Normal LAD (% Stenosis): Mid (50-60 percent) D1 (% Stenosis): Ostial (50%) Circumflex (% Stenosis): Mid (Stent patent) OM1 (% Stenosis): Proximal (50%,), Mid (30%) and Distal (40 to 50%) RCA (% Stenosis): Proximal (Stent patent, in-stent restenosis 10%) R PDA (% Stenosis): Proximal (40%) R PL1 (% Stenosis): Normal Diagnostic Physicians Name: Jarocho Evans MD, PhD Closure Device Percutaneous Entry Location: Radial Closure Device: Radial Band Recommendations: Medical Therapy and/or Counseling Intraprocedure Events Significant Disection: No Perforation: No Cardiac Cath Procedure Full Procedure Date January 08, 2023 Pre-Procedure Diagnosis Pre-Procedure Diagnosis: Non STEMI AUC Score AUC Score: 07 Post-Procedure Diagnosis Post-Procedure Diagnosis: Moderate CAD Procedure(s) Performed Procedure(s) Performed: Coronary Angiography, Ultrasound Guided Vascular Access and Fractional Flow Basom Punchboard Inserter Jarocho Evans MD, PhD Estimated Blood Loss Estimated Blood Loss: 5 mL Medication(s) Medication(s): Fentanyl, Heparin, Lidocaine 1%, Nicardipine, Nitroglycerin and Versed Summary of Findings Brief description: Patient was brought to the cardiac catheterization suite where she was shaved and prepped in a sterile fashion. Sedated using IV Versed and fentanyl. Soft tissues of the right wrist were anesthetized using 2 mL of 1% Xylocaine. The right radial artery was accessed using the ultrasound for guidance (image saved) and a 6 [place] radial artery glide sheath was placed. All catheters were advanced and exchanged over a 0.035 J-tip wire. Initial wire was a Melly wire. Patient was provided anticoagulation with IV heparin and antispasmodics including nicardipine and nitroglycerin. Left coronary angiography in orthogonal views with a 5 [place] 4 diagnostic catheter. Right coronary angiography in orthogonal views with a 5 [place] 4 diagnostic catheter. Diagnostic catheters were removed. IFR was undertaken with a 5 [place] EBU 3.0 guide catheter which was used to engage the left main coronary. The Doppler wave wire was advanced through the guide catheter and positioned with the transducer just distal to the guide catheter tip. The system was flushed with normal saline and the pressures were equalized. The guidewire was then advanced and positioned distally in the LAD. IFR was sampled 3 times. Guidewire was removed and final angiographic evaluation was performed in orthogonal views. The guide catheter was then removed. The radial artery sheath was removed and hemostasis was obtained using the TR band. Patient remained hemodynamically stable and asymptomatic. She was returned to the recovery area. This ended the case. Coronary angiography findings: YAM-ouldq-yjxlrij vessel trifurcating into LAD, circumflex, and ramus. Mild luminal irregularities. LAD-large caliber and transapical vessel. Proximal segment with mild plaque. First diagonal is medium to large and branching with ostial 50% stenosis. The rest of the vessel has mild luminal irregularities. The mid LAD has diffuse disease with up to 50 to 60% narrowing. It provides a medium caliber branching second diagonal with mild luminal irregularities. The early distal LAD has long eccentric stenosis appearing up to 40% narrowed. Then the most distal portion of the vessel has diffuse luminal irregularities. Of note, the flow is sluggish in the left coronary system. WAh-xbdny-giqmzuj and nondominant. Provides a large caliber multi branching OM1. This has mild diffuse disease proximally and then there is a focal 50% stenosis after the first major branch. The mid OM remains relatively large with diffuse mild less than 30% stenosis and then as it approaches the multi branching distal portion there is a long eccentric stenosis of 40 to 50%. Mid circumflex provides to atrial branches and there is a long prior stent which is widely patent. It provides a small to medium caliber OM 2 and then distally becomes small to medium in caliber and terminates. Ramus-small to medium caliber vessel with diffuse mild disease. FGB-qgpeb-dgvsnai and dominant vessel. Proximal stent is widely patent. There is mild in-stent restenosis of 10% near the distal aspect of the stent. The mid and distal RCA have diffuse mild disease and then the vessel bifurcates into a large PDA and large posterolateral. The ostial to proximal PDA has 40% narrowing. Posterior lateral branch has diffuse luminal irregularities. IFR analysis of LAD-0.95, 0.95, 0.96. Therefore, this is not hemodynamically significant. No evidence of dissection or perforation post IFR analysis Summary: 1. Patent prior stents 2. Angiographically moderate coronary disease. LAD lesion is determined to be not hemodynamically significant by IFR analysis. 3. Continue guideline directed medical therapy for secondary prevention of coronary disease including; low-dose aspirin, high intensity statin therapy, beta-wil, plus or minus AVIVA inhibitor/ARB as tolerated. Hemodynamics Rest Ao:: 105/51 mmHg Final Ao: 119/47 mmHg LV: Not performed Recommendations Recommendations: Medical Therapy and/or Counseling Radiation Exposure (mGy) 86.33 mGy, fluoroscopy time 6.1 minutes Contrast (mls) 110 Anesthesia 2 mg IV Versed, 25 mcg IV fentanyl. Start time 1250, end time 1319 Procedural Complication(s) None Disposition Recovery Room\PACU I attest to the content of the Intraoperative Record and any orders documented therein. Any exceptions are noted below. [facility] Card Cath Procedure Codes Cardiac Catheterization Procedure 1: Cardiovascular Cath Procedures: 97057 Coronaries Procedure 2: Cardiovascular Cath Procedures: 34070 (Doppler) Pressure Wire Therapeutic Services & Ancillary Procedure 1: Cardiovascular Tx and Anc Procedures: 94629 Ultrasonic Guidance Vascular Access Moderate Sedation Procedure 1: Sedation/Anesthesia: 49080 Mod Sedation by the same physician;Init15 Min Child Age 5 & Up (Initial 15 min, start time 1250) Procedure 2: Sedation/Anesthesia: 48162 Mod Sedation by the same physician; Ea [id number] Minutes (Additional 14 min, end time 1319) PG Care Time/CCT Total # of Minutes Spent Total Time Spent with Patient: Total time spent is greater than 50% in coordination of care (as documented) at patient's floor/unit and/or counseling patient:
--- NOTE | 2023-01-08 15:44 | Hospitalist Progress Note ---
Date of Service January 08, 2023 Assessment & Plan (1) Bacteremia: Plan: 2nd pansen klebsiella source - urinary tract CT a/p without urinary tract pathology day #6 of appropriate IV abx -- initially cefepime, now IV cipro plan 14 days of Rx 01/08: continue cipro no signs/symptoms of ongoing infection can later switch to PO cipro 750mg BID (higher dose due to bacteremia coverage) to complete the course (2) UTI (urinary tract infection): Plan: 2nd pansens klebsiella see above (3) PAF (paroxysmal atrial fibrillation): Plan: 01/06 - lasted <1 hour spontaneously converted to NSR rates were ~150 BPM during the PAF run while in rapid a.fib had chest heaviness/discomfort with radiation to L arm (see #4 below) fortunately no troponin leak during this episode has remained in NSR since then Eliquis on hold for cath by Dr Evans, her primary global account manager - can resume tomorrow if no hematoma or bleeding from access site Cont beta wil - we did increase metoprolol to 37.5mg BID from 25mg BID (4) Angina pectoris: Plan: episode of angina during her PAF episode she reports having had other episodes of chest symptoms at home recently requiring the use of nitro the chest heaviness yesterday was similar to what she has had at home EKG while in PAF showed lateral ST depressions she has had L Cx stent in the past in [facility] ([facility]) due to symptoms at home, episode above, and known CAD we consulted Dr Evans from [facility] Coronary angiogram 01/08 Dr. Evans: diagnostic Coronary Anatomy Dominant: Right Left Main (% Stenosis): Normal LAD (% Stenosis): Mid (50-60 percent) D1 (% Stenosis): Ostial (50%) Circumflex (% Stenosis): Mid (Stent patent) OM1 (% Stenosis): Proximal (50%,), Mid (30%) and Distal (40 to 50%) RCA (% Stenosis): Proximal (Stent patent, in-stent restenosis 10%) R PDA (% Stenosis): Proximal (40%) R PL1 (% Stenosis): Normal cont beta wil cont asa cont statin (5) Atrial flutter: Plan: h/o such had PAF run 01/06 as above cont BB resume Eliquis post angiogram cont telemetry (6) Recurrent urinary tract infection: Plan: Hx of 3 UTIs within the past 7 months Was seen by urology 06/2021, with main concerns of urinary incontinence at that time CT A/P without any kidney stones or bladder abnormalities to account for UTIs Urology consult appreciated -- they advise outpatient f/u with them in clinic (7) Altered mental status: Plan: ACUTE METABOLIC ENCEPHALOPATHY -- 2nd to #1, #2 improved/resolved seems to have baseline cognitive impairment? (8) Hypertension: Plan: most readings are acceptable we just increased her metoprolol yesterday from 25mg BID to 37.5mg BID BPs reviewed 01/08, at goal (9) Diabetes: Plan: HbA1C 01/04 - 6.2% Hold glipizide - in light of advanced age, tight a1c control, risk of hypoglycemia with sulfonylurea - would d/c glipizide after this hospital stay Lantus placed on hold (was started at time ER admission) loose novolog SSI BSGs reviewed 01/08, at goal (10) Elevated troponin: Plan: Troponin 56.8 on arrival, repeat downtrending - reflects myocardial strain related to infection (11) Hypothyroidism: Plan: Continue levothyroxine TSH wnl (12) CAD (coronary artery disease): Plan: see above Plan PT/OT evals completed a few days ago -- both advised rehab post discharge planning [facility] for [facility]hab Admission and Anticipated Discharge Date Admission Date: January 05, 2023 Subjective feeling well today with no chest pain shortness of breath abdominal pain flank pain had coronary angiogram today and there were no obstructive lesions, no PCI required Physical Exam 2 Physical Exam: PHYSICAL EXAMINATION Last 24h vital signs reviewed, see documentation in flowsheet General: comfortable appearing, no distress HEENT: Normocephalic, atraumatic, pupils round and equal, sclerae anicteric, no conjunctival injection, moist mucus membranes Lungs: Normal respiratory effort. Clear to auscultation bilaterally. No RRW Heart: Regular rate and rhythm, no murmurs. No JVD Abdomen: Soft, nontender, nondistended. no suprapubic tenderness Bowel sounds present. Extremities: Warm, dry, well-perfused. pressure cuff on right risk angiogram access site. hand is cool but RN states device is about to be removed. No extremity edema. Neuro: Alert and oriented x 4, face symmetric, moves 4 extremities well Psych: Normal affect and behavior Results & Data Results & Data Vital Signs (Past 12 Hours) Vital Signs Temp Pulse Pulse Resp BP BP Pulse Ox 01/08/23 15:00 36.5 C 48 L 18 135/68 98 01/08/23 14:45 36.4 C L 47 L 16 132/68 97 01/08/23 14:30 36.5 C 48 L 18 129/66 98 01/08/23 14:00 36.4 C L 47 L 47 L 18 130/66 98 01/08/23 13:45 45 L 18 134/64 96 01/08/23 13:30 53 L 18 136/58 L 96 01/08/23 09:42 54 L 18 169/72 H 99 01/08/23 07:43 36.6 C 66 18 145/63 H 96 O2 Del Method 01/08/23 15:00 Room Air 01/08/23 14:45 Room Air 01/08/23 14:30 Room Air 01/08/23 14:00 Room Air 01/08/23 13:45 Room Air 01/08/23 13:30 Room Air 01/08/23 09:42 Room Air 01/08/23 07:43 Room Air Laboratory Results 01/06/23 06:42 01/08/23 06:05 PG Care Time/CCT Total # of Minutes Spent Total Time Spent with Patient: Total time spent is greater than 50% in coordination of care (as documented) at patient's floor/unit and/or counseling patient: Coding Level of Care Code 80763 SUB INP/OBS CARE 2/35MIN Diagnoses Bacteremia R78.81 UTI (urinary tract infection) N39.0 PAF (paroxysmal atrial fibrillation) I48.0 Angina pectoris I20.9 Atrial flutter I48.92 Recurrent urinary tract infection N39.0 Altered mental status R41.82 Hypertension I10 Diabetes E11.9 Elevated troponin R77.8 Hypothyroidism E03.9 CAD (coronary artery disease) I25.10
[2023-01-08] MEDS ORDERED: SENNA 8.6 MG TAB PO PRN (18:10)
[2023-01-08] MEDS ORDERED: DOCUSATE SODIUM 100 MG CAP PO PRN (18:10)
[2023-01-08] MEDS: APIXABAN 5 MG TABLET PO SCH (21:17)
[2023-01-09] MEDS: CIPROFLOXACIN / D5W 400 MG/200 ML BAG IV SCH ×2 (02:03→13:23)
[2023-01-09] MEDS: LEVOTHYROXINE SODIUM 75 MCG TABLET PO SCH (06:00)
[2023-01-09] MEDS: INSULIN ASPART PER UNIT CHARGE SC SCH ×4 (08:29→21:14)
[2023-01-09] MEDS: APIXABAN 5 MG TABLET PO SCH ×2 (08:31→21:16)
[2023-01-09] MEDS: ASPIRIN 81 MG ECTAB PO SCH (08:31)
[2023-01-09] MEDS: ATORVASTATIN 40 MG TAB PO SCH (08:31)
[2023-01-09] MEDS: METOPROLOL TARTRATE 25 MG TAB PO SCH ×2 (08:58→21:13)
--- NOTE | 2023-01-09 18:04 | Hospitalist Progress Note ---
Date of Service January 09, 2023 Assessment & Plan (1) Bacteremia: Plan: 2nd pansen klebsiella source - urinary tract CT a/p without urinary tract pathology day #7 of appropriate IV abx -- initially cefepime, now IV cipro plan 14 days of Rx 01/08: continue cipro no signs/symptoms of ongoing infection can switch to PO cipro 750mg BID on discharge (higher dose due to bacteremia coverage) to complete the course (2) UTI (urinary tract infection): Plan: 2nd pansens klebsiella see above Concerns about recurrent UTI - reports three UTIs since April. She has baseline urinary incontinence. Reviewed chart, several discharge summaries. I see two which appear likely including this episode, another admission was thought to have asymptomatic bacteriuria. Will check bladder scan. Discussed trial of cranberry, which is not clearly effective but is safe to try. Recommend against chronic suppressive antibiotics except as a last resort, safer to treat instances when they occur with appropriate abx. Was seen by urology 06/2021, with main concerns of urinary incontinence at that time CT A/P without any kidney stones or bladder abnormalities to account for UTIs Urology consulted this admission -- they advise outpatient f/u with them in clinic Discussed the above at length with patient and her 01/09. (3) PAF (paroxysmal atrial fibrillation): Plan: 01/06 - lasted <1 hour spontaneously converted to NSR rates were ~150 BPM during the PAF run while in rapid a.fib had chest heaviness/discomfort with radiation to L arm (see #4 below) fortunately no troponin leak during this episode has remained in NSR since then Resumed apixaban Cont beta wil - we did increase metoprolol to 37.5mg BID from 25mg BID (4) Angina pectoris: Plan: episode of angina during her PAF episode she reports having had other episodes of chest symptoms at home recently requiring the use of nitro the chest heaviness yesterday was similar to what she has had at home EKG while in PAF showed lateral ST depressions she has had L Cx stent in the past in [facility] ([facility]) due to symptoms at home, episode above, and known CAD we consulted Dr Evans [place] [facility] Coronary angiogram 01/08 Dr. Evans: diagnostic Coronary Anatomy Dominant: Right Left Main (% Stenosis): Normal LAD (% Stenosis): Mid (50-60 percent) D1 (% Stenosis): Ostial (50%) Circumflex (% Stenosis): Mid (Stent patent) OM1 (% Stenosis): Proximal (50%,), Mid (30%) and Distal (40 to 50%) RCA (% Stenosis): Proximal (Stent patent, in-stent restenosis 10%) R PDA (% Stenosis): Proximal (40%) R PL1 (% Stenosis): Normal cont beta wil cont asa cont statin (5) Atrial flutter: Plan: h/o such had PAF run 01/06 as above cont BB, apixaban (6) Recurrent urinary tract infection: Plan: Hx of 2 or 3 UTIs within the past 7 months - see above (7) Altered mental status: Plan: ACUTE METABOLIC ENCEPHALOPATHY -- 2nd to #1, #2 resolved (8) Hypertension: Plan: metoprolol was increased BPs reviewed 01/09, at goal (9) Diabetes: Plan: HbA1C 01/04 - 6.2% Hold glipizide - in light of advanced age, tight a1c control, risk of hypoglycemia with sulfonylurea - would d/c glipizide after this hospital stay Lantus placed on hold (was started at time ER admission) loose novolog SSI BSGs reviewed 01/09, at goal (10) Elevated troponin: Plan: Troponin 56.8 on arrival, repeat downtrending - reflects myocardial strain related to infection (11) Hypothyroidism: Plan: Continue levothyroxine TSH wnl (12) CAD (coronary artery disease): Plan: see above Plan PT/OT evals completed a few days ago -- both advised rehab post discharge planning [facility] or SN[facility] for rehab Admission and Anticipated Discharge Date Admission Date: January 05, 2023 Subjective doing well. No chest pain, no abdominal pain, no dyspnea. at bedside - I answered questions about recurrent UTIs and prevention, unfortunately prevention measures have disappointing efficacy and chronic suppressive antibiotics are problematic wrt side effects and eventual development of antibiotic resistance Physical Exam Physical Exam: PHYSICAL EXAMINATION Last 24h vital signs reviewed, see documentation in flowsheet Exam unchanged 01/09: General: comfortable appearing, no distress HEENT: Normocephalic, atraumatic, pupils round and equal, sclerae anicteric, no conjunctival injection, moist mucus membranes Lungs: Normal respiratory effort. Clear to auscultation bilaterally. No RRW Heart: Regular rate and rhythm, no murmurs. No JVD Abdomen: Soft, nontender, nondistended. no suprapubic tenderness Bowel sounds present. Extremities: Warm, dry, well-perfused. Neuro: Alert and oriented x 4, face symmetric, moves 4 extremities well Psych: Normal affect and behavior Results & Data Results & Data Vital Signs (Past 12 Hours) Vital Signs Temp Pulse Pulse Resp BP Pulse Ox O2 Del Method 01/09/23 16:05 36.7 C 88 20 97 Room Air 01/09/23 15:40 49 L 01/09/23 12:00 36.6 C 74 18 110/63 96 Room Air 01/09/23 06:45 49 L PG Care Time/CCT Total # of Minutes Spent Total Time Spent with Patient: Total time spent is greater than 50% in coordination of care (as documented) at patient's floor/unit and/or counseling patient: Coding Level of Care Code 24833 SUB INP/OBS CARE 2/35MIN Diagnoses Bacteremia R78.81 UTI (urinary tract infection) N39.0 PAF (paroxysmal atrial fibrillation) I48.0 Angina pectoris I20.9 Atrial flutter I48.92 Recurrent urinary tract infection N39.0 Altered mental status R41.82 Hypertension I10 Diabetes E11.9 Elevated troponin R77.8 Hypothyroidism E03.9 CAD (coronary artery disease) I25.10
[2023-01-10] MEDS: CIPROFLOXACIN / D5W 400 MG/200 ML BAG IV SCH ×2 (01:54→13:50)
[2023-01-10] MEDS: LEVOTHYROXINE SODIUM 75 MCG TABLET PO SCH (05:55)
[2023-01-10] MEDS: INSULIN ASPART PER UNIT CHARGE SC SCH ×4 (08:07→20:49)
[2023-01-10] MEDS: ASPIRIN 81 MG ECTAB PO SCH (08:13)
[2023-01-10] MEDS: ATORVASTATIN 40 MG TAB PO SCH (08:13)
[2023-01-10] MEDS: APIXABAN 5 MG TABLET PO SCH ×2 (08:13→21:42)
[2023-01-10] MEDS: METOPROLOL TARTRATE 25 MG TAB PO SCH ×2 (08:14→21:42)
--- NOTE | 2023-01-10 17:58 | Hospitalist Progress Note ---
Date of Service January 10, 2023 Assessment & Plan (1) Bacteremia: Plan: 2nd pansen klebsiella source - urinary tract CT a/p without urinary tract pathology day #8 of appropriate IV abx -- initially cefepime, now IV cipro plan 14 days of Rx 01/10: continue cipro no signs/symptoms of ongoing infection can switch to PO cipro 750mg BID on discharge (higher dose due to bacteremia coverage) to complete the course (2) UTI (urinary tract infection): Plan: 2nd pansens klebsiella see above Concerns about recurrent UTI - reports three UTIs since April. She has baseline urinary incontinence. Reviewed chart, several discharge summaries. I see two which appear likely including this episode, another admission was thought to have asymptomatic bacteriuria. Will check bladder scan. Discussed trial of cranberry, which is not clearly effective but is safe to try. Recommend against chronic suppressive antibiotics except as a last resort, safer to treat instances when they occur with appropriate abx. Was seen by urology 06/2021, with main concerns of urinary incontinence at that time CT A/P without any kidney stones or bladder abnormalities to account for UTIs Urology consulted this admission -- they advise outpatient f/u with them in clinic Discussed the above at length with patient and her 01/09, 01/10. (3) PAF (paroxysmal atrial fibrillation): Plan: 01/06 - lasted <1 hour spontaneously converted to NSR rates were ~150 BPM during the PAF run while in rapid a.fib had chest heaviness/discomfort with radiation to L arm (see #4 below) fortunately no troponin leak during this episode has remained in NSR since then Resumed apixaban Cont beta wil - we did increase metoprolol to 37.5mg BID from 25mg BID (4) Angina pectoris: Plan: episode of angina during her PAF episode she reports having had other episodes of chest symptoms at home recently requiring the use of nitro the chest heaviness yesterday was similar to what she has had at home EKG while in PAF showed lateral ST depressions [facility] the [facility] due to symptoms at home, episode above, and known CAD we consulted Dr Evans [place] [facility] Coronary angi[place] 01/08 Dr. Evans: diagnostic Coronary Anatomy Dominant: Right Left Main (% Stenosis): Normal LAD (% Stenosis): Mid (50-60 percent) D1 (% Stenosis): Ostial (50%) Circumflex (% Stenosis): Mid (Stent patent) OM1 (% Stenosis): Proximal (50%,), Mid (30%) and Distal (40 to 50%) RCA (% Stenosis): Proximal (Stent patent, in-stent restenosis 10%) R PDA (% Stenosis): Proximal (40%) R PL1 (% Stenosis): Normal cont beta wil cont asa cont statin (5) Atrial flutter: Plan: h/o such had PAF run 01/06 as above cont BB, apixaban (6) Recurrent urinary tract infection: Plan: Hx of 2 or 3 UTIs within the past 7 months - see above (7) Altered mental status: Plan: ACUTE METABOLIC ENCEPHALOPATHY -- 2nd to #1, #2 resolved (8) Hypertension: Plan: metoprolol was increased BPs reviewed 01/10, at goal (9) Diabetes: Plan: HbA1C 01/04 - 6.2% Hold glipizide - in light of advanced age, tight a1c control, risk of hypoglycemia with sulfonylurea - would d/c glipizide after this hospital stay Lantus placed on hold (was started at time ER admission) loose novolog SSI BSGs reviewed 01/09, at goal (10) Elevated troponin: Plan: Troponin 56.8 on arrival, repeat downtrending - reflects myocardial strain related to infection (11) Hypothyroidism: Plan: Continue levothyroxine TSH wnl (12) CAD (coronary artery disease): Plan: see above Plan PT/OT evals completed a few days ago -- both advised rehab post discharge planning [facility] or [facility] for rehab Admission and Anticipated Discharge Date Admission Date: January 05, 2023 Subjective had been napping when I came this am and didn't try to wake too much but no dysuria abd pain or chest pain. at bedside updated and we discussed plan of care Physical Exam Physical Exam: PHYSICAL EXAMINATION Last 24h vital signs reviewed, see documentation in flowsheet Exam unchanged 01/10: General: comfortable appearing, no distress, napping, woke up briefly HEENT: Normocephalic, atraumatic, pupils round and equal, sclerae anicteric, no conjunctival injection, moist mucus membranes Lungs: Normal respiratory effort. Clear to auscultation bilaterally. No RRW Heart: Regular rate and rhythm, no murmurs. No JVD Abdomen: Soft, nontender, nondistended. +BT Extremities: Warm, dry, well-perfused. Neuro: sleepy but aroused to voice, face symmetric, moves 4 extremities well Psych: Normal affect and behavior Results & Data Results & Data Vital Signs (Past 12 Hours) Vital Signs Temp Pulse Pulse Resp BP BP Pulse Ox 01/10/23 15:30 57 L 01/10/23 15:25 37.1 C 57 L 19 123/71 98 01/10/23 11:18 37.1 C 55 L 18 121/73 95 01/10/23 10:06 59 L 01/10/23 07:05 36.5 C 59 L 18 149/69 H 95 O2 Del Method 01/10/23 15:30 01/10/23 15:25 Room Air 01/10/23 11:18 Room Air 01/10/23 10:06 01/10/23 07:05 Room Air PG Care Time/CCT Total # of Minutes Spent Total Time Spent with Patient: Total time spent is greater than 50% in coordination of care (as documented) at patient's floor/unit and/or counseling patient: Coding Level of Care Code 55825 SUB INP/OBS CARE /MIN Diagnoses Bacteremia R78.81 UTI (urinary tract infection) N39.0 PAF (paroxysmal atrial fibrillation) I48.0 Angina pectoris I20.9 Atrial flutter I48.92 Recurrent urinary tract infection N39.0 Altered mental status R41.82 Hypertension I10 Diabetes E11.9 Elevated troponin R77.8 Hypothyroidism E03.9 CAD (coronary artery disease) I25.10
[2023-01-11] MEDS: CIPROFLOXACIN / D5W 400 MG/200 ML BAG IV SCH ×2 (01:53→14:34)
[2023-01-11] MEDS: LEVOTHYROXINE SODIUM 75 MCG TABLET PO SCH (05:50)
[2023-01-11 07:21] LABS: Hematocrit (blood only) 35.9 % (37.0-47.0); Hemoglobin 11.9 g/dl (12.0-16.0); Mean Corpuscular Hemoglobin 30.3 pg (25.0-34.0); Mean Corpuscular Hgb Conc 33.1 g/dL (32.0-36.0); Mean Corpuscular Volume 91.3 fL (80.0-100.0); Mean Platelet Volume 9.4 fL (9.4-12.4); Platelet Count 262 K/uL (130-400); RDW Coefficient of Variation 12.6 % (11.5-14.5); RDW Standard Deviation 41.9 fL (36.4-46.3); Red Blood Count 3.93 M/uL (4.20-5.40); White Blood Count 8.77 K/ul (4.8-10.8)
[2023-01-11 07:27] LABS: BUN Creatinine Ratio 22.4 (10-20); Calcium 8.7 mg/dl (8.6-10.3); Creatinine Clr Calc Pharmacy 67.5 ml/min; Est GFR (African American) 93.6 ml/min; Est GFR (Non-African American) 80.7 ml/min; Potassium 4.1 mmol/L (3.5-5.1)
[2023-01-11] MEDS: INSULIN ASPART PER UNIT CHARGE SC SCH ×4 (08:11→20:31)
[2023-01-11] MEDS: METOPROLOL TARTRATE 25 MG TAB PO SCH ×2 (08:13→20:29)
[2023-01-11] MEDS: ASPIRIN 81 MG ECTAB PO SCH (08:14)
[2023-01-11] MEDS: ATORVASTATIN 40 MG TAB PO SCH (08:15)
[2023-01-11] MEDS: APIXABAN 5 MG TABLET PO SCH ×2 (08:15→20:29)
--- NOTE | 2023-01-11 16:23 | Hospitalist Progress Note ---
Date of Service January 11, 2023 Assessment & Plan (1) Bacteremia: Plan: 2nd pansen klebsiella source - urinary tract CT a/p without urinary tract pathology day #9 of appropriate IV abx -- initially cefepime, now IV cipro. after 10d IV will change to po 750 bid. 14d total (2) UTI (urinary tract infection): Plan: 2nd pansens klebsiella see above Concerns about recurrent UTI - reports three UTIs since April. She has baseline urinary incontinence. Reviewed chart, several discharge summaries. I see two which appear likely including this episode, another admission was thought to have asymptomatic bacteriuria. Will check bladder scan. Discussed trial of cranberry, which is not clearly effective but is safe to try. Recommend against chronic suppressive antibiotics except as a last resort, safer to treat instances when they occur with appropriate abx. Was seen by urology 06/2021, with main concerns of urinary incontinence at that time CT A/P without any kidney stones or bladder abnormalities to account for UTIs Urology consulted this admission -- they advise outpatient f/u with them in clinic Discussed the above at length with patient and her 01/09, 01/10. (3) PAF (paroxysmal atrial fibrillation): Plan: 01/06 - lasted <1 hour spontaneously converted to NSR rates were ~150 BPM during the PAF run while in rapid a.fib had chest heaviness/discomfort with radiation to L arm (see #4 below) fortunately no troponin leak during this episode has remained in NSR since then Resumed apixaban Cont beta wil - we did increase metoprolol to 37.5mg BID from 25mg BID (4) Angina pectoris: Plan: episode of angina during her PAF episode she reports having had other episodes of chest symptoms at home recently requiring the use of nitro the chest heaviness yesterday was similar to what she has had at home EKG while in PAF showed lateral ST depressions she has had L Cx stent in the past in [facility] ([facility]) due to symptoms at home, episode above, and known CAD we consulted Dr Evans from [facility] Cardiology Coronary angiogram 01/08 Dr. Evans: diagnostic Coronary Anatomy Dominant: Right Left Main (% Stenosis): Normal LAD (% Stenosis): Mid (50-60 percent) D1 (% Stenosis): Ostial (50%) Circumflex (% Stenosis): Mid (Stent patent) OM1 (% Stenosis): Proximal (50%,), Mid (30%) and Distal (40 to 50%) RCA (% Stenosis): Proximal (Stent patent, in-stent restenosis 10%) R PDA (% Stenosis): Proximal (40%) R PL1 (% Stenosis): Normal cont beta wil cont asa cont statin (5) Atrial flutter: Plan: h/o such had PAF run 01/06 as above cont BB, apixaban (6) Recurrent urinary tract infection: Plan: Hx of 2 or 3 UTIs within the past 7 months - see above (7) Altered mental status: Plan: ACUTE METABOLIC ENCEPHALOPATHY -- 2nd to #1, #2 resolved (8) Hypertension: Plan: metoprolol was increased BPs reviewed 01/10, at goal (9) Diabetes: Plan: HbA1C 01/04 - 6.2% Hold glipizide - in light of advanced age, tight a1c control, risk of hypoglycemia with sulfonylurea - would d/c glipizide after this hospital stay Lantus placed on hold (was started at time ER admission) loose novolog SSI BSGs reviewed 01/11, at goal (10) Elevated troponin: Plan: Troponin 56.8 on arrival, repeat downtrending - reflects myocardial strain related to infection (11) Hypothyroidism: Plan: Continue levothyroxine TSH wnl (12) CAD (coronary artery disease): Plan: see above Plan PT/OT evals completed a few days ago -- both advised rehab post discharge Today I had [id number] call with physician representing her insurance - they denied acute rehab auth, recommended SNF. Discussed with child care leader and requesting SNF auth. Admission and Anticipated Discharge Date Admission Date: January 05, 2023 Subjective walked about 23 feet in HW with PT, needing 1 person assist No chest pain or dyspnea in room, daughter in room Physical Exam 2 Physical Exam: PHYSICAL EXAMINATION Last 24h vital signs reviewed, see documentation in flowsheet Exam unchanged 01/11: General: comfortable appearing, no distress, awake sitting in bed HEENT: Normocephalic, atraumatic, pupils round and equal, sclerae anicteric, no conjunctival injection, moist mucus membranes Lungs: Normal respiratory effort. Clear to auscultation bilaterally. No RRW Heart: Regular rate and rhythm, no murmurs. No JVD Abdomen: Soft, nontender, nondistended. +BT Extremities: Warm, dry, well-perfused. Neuro: AOx4, face symmetric, moves 4 extremities well Psych: Normal affect and behavior Results & Data Results & Data Vital Signs (Past 12 Hours) Vital Signs Temp Pulse Resp BP BP Pulse Ox O2 Del Method 01/11/23 15:00 36.7 C 56 L 18 131/70 96 Room Air 01/11/23 11:02 36.9 C 57 L 20 136/76 95 Room Air 01/11/23 07:22 37.6 C H 57 L 19 132/73 96 Room Air Laboratory Results 01/11/23 06:33 01/11/23 06:33 PG Care Time/CCT Total # of Minutes Spent Total Time Spent with Patient: Total time spent on clinical activities today: 40 minutes Coding Level of Care Code 02785 SUB INP/OBS CARE 2/35MIN Diagnoses Bacteremia R78.81 UTI (urinary tract infection) N39.0 PAF (paroxysmal atrial fibrillation) I48.0 Angina pectoris I20.9 Atrial flutter I48.92 Recurrent urinary tract infection N39.0 Altered mental status R41.82 Hypertension I10 Diabetes E11.9 Elevated troponin R77.8 Hypothyroidism E03.9 CAD (coronary artery disease) I25.10
[2023-01-12] MEDS: CIPROFLOXACIN / D5W 400 MG/200 ML BAG IV SCH ×2 (02:18→13:06)
[2023-01-12] MEDS: LEVOTHYROXINE SODIUM 75 MCG TABLET PO SCH (04:26)
[2023-01-12] MEDS: INSULIN ASPART PER UNIT CHARGE SC SCH ×2 (08:24→12:23)
[2023-01-12] MEDS: APIXABAN 5 MG TABLET PO SCH (08:25)
[2023-01-12] MEDS: ASPIRIN 81 MG ECTAB PO SCH (08:25)
[2023-01-12] MEDS: ATORVASTATIN 40 MG TAB PO SCH (08:25)
[2023-01-12] MEDS: METOPROLOL TARTRATE 25 MG TAB PO SCH (08:26)
--- NOTE | 2023-01-12 13:31 | Discharge Summary ---
Date of Service January 12, 2023 Admission HPI Per Admitting Provider Yobani is an 82-year-old female with PMH of recurrent UTIs, CAD, atrial flutter, hypothyroidism, HTN, diabetes, mild cognitive impairment, depression, and PTSD. She presented via EMS for altered mental status beginning the morning of 01/03 at 1000. Per , she could not stand from bed, seemed confused, and exhibited mildly slurred speech. Her daughter, at the bedside, reports that she has had 3 UTIs in the last 6 months with similar episodes of altered mental status. Patient wears depends due to urinary incontinence. She is a poor historian due to acute change in mental status. She does not manage her own medications, but instead has a nurse, every Saturday. Patient did not take her medications this morning. She reports no recent changes to medication. No sick contacts. Patient also endorses a low-grade fever starting this morning, for which she has not taken anything. She uses a walker at baseline; and had trouble getting up the stairs last night, per . Patient denies recent to bacco or alcohol use. Patient is hypertensive at 151/87 with mild temp at 37.6 C at time of admission. ED course: NSS 500 mL x 2 Cefepime 2000 mg ROS: Patient endorses low-grade fever, chills, sweats, ROGERS, dizziness, diarrhea (a couple days ago), burning with urination, urinary incontinence, dysuria, and numbness in toes (ongoing). Patient denies CP, SOB, abdominal pain, N/V, blood in stool/urine, or saddle anesthesia. No PMHx of CVA, DVT/PEs, PR (per patient) Principal Diagnosis Klebsiella bacteremia due to urinary tract infection Discharge Exam PHYSICAL EXAMINATION Last 24h vital signs reviewed, see documentation in flowsheet General: comfortable appearing, no distress, awake sitting in bed, in room HEENT: Normocephalic, atraumatic, pupils round and equal, sclerae anicteric, no conjunctival injection, moist mucus membranes Lungs: Normal respiratory effort. Heart: Abdomen: nondistended. Extremities: Warm, dry, well-perfused. No LE edema Neuro: AOx4, face symmetric, moves 4 extremities well Psych: Normal affect and behavior Discharge Data Allergies Allergy/AdvReac Type Severity Reaction Status Date / Time bee venom protein (honey bee) Allergy Unknown Unverified 12/17/22 10:22 No Known Drug Allergies Allergy Verified 12/17/22 10:22 Consultations 01/03/23 15:58 ED Decision to Admit Stat 01/05/23 13:28 Consult Urology Routine 01/07/23 08:00 Consult Cardiology Routine Procedures Performed Operation Date: 01/08/23 09:30 Actual Procedures p Cineradiography w/Routine Exam - Jarocho Evans MD, PhD s Cath, Coronaries ONLY (no LV) - Jarocho Evans MD, PhD s Fraction Flow Hercules SGL Ves - Jarocho Evans MD, PhD s Ultrasound Vascular Access - Jarocho Evans MD, PhD Ordered Studies 01/03/23 14:22 CT head/brain wo con Stat 01/05/23 11:38 CT stones [CT abd pelvis wo con] Urgent 01/08/23 07:00 CL Cath Imgs for PACS use only Routine Chest X-Ray 01/03/23 14:22 XR chest 1V portable CLINICAL HISTORY: weakness TECHNIQUE: Single frontal radiograph of the chest was obtained. Comparison: Comparison is made to chest radiograph 10/08/2022 FINDINGS: No lines and tubes are seen. Cardiomegaly is noted. The lungs are clear. No evidence of pleural effusion or pneumothorax. IMPRESSION: No acute chest disease. ACT 112: Negative or not required by law. Electronically signed by: Oral Mc M.D. 01/03/2023 4:[address] 01/03/23 14:22 CT head/brain wo con CLINICAL HISTORY: delirium Technique: Contiguous axial CT images of the head were acquired from the base of the skull to the vertex without intravenous contrast administration. Images were viewed in brain, subdural and bone windows. Automated dose lowering techniques and/or adjustment according to patient size were utilized for this exam. Comparison: Comparison is made to CT head 10/08/2022 Findings: Areas of decreased attenuation are present in the periventricular and subcortical white matter bilaterally consistent with small vessel ischemic disease. Generalized cerebral atrophy with commensurate enlargement of the ventricles, sulci, and cisterns is also present. There is no acute intracranial hemorrhage or evidence of acute territorial infarction. No shift of the midline structures, mass effect, or extra-axial abnormalities are shown. Atherosclerotic calcifications are present in the intracranial segments of the internal carotid arteries. Imaged portions of the paranasal sinuses and mastoid air cells are clear. The orbits appear normal. There are no acute fractures of the calvaria or scalp swelling. Impression: No acute intracranial hemorrhage, no evidence of acute territorial infarction or other acute intracranial disease process. ACT 112: Negative or not required by law. Electronically signed by: Oral Mc M.D. 01/03/2023 3:38 PM Abdomen/Pelvis CT 01/05/23 11:[address] WITHOUT CONTRAST CT DOSE: 759.08 mGy.cm HISTORY: Flank pain. r/o stone TECHNIQUE: Multiaxial CT images of the abdomen and pelvis were performed without contrast. A dose lowering technique was utilized adhering to the principles of ALARA. COMPARISON STUDY: Abdomen and pelvis CT 05/17/2020. FINDINGS: Stable bibasilar nodules with the largest in the left lower lobe measuring 6 mm. These are likely benign given the long-term stability no pneumoperitoneum. No pneumatosis. No acute fractures identified. Coronary artery calcifications are noted. Cholecystectomy. The unenhanced liver, spleen, and adrenal glands unremarkable. Pancreatic calcifications again noted consistent with chronic pancreatitis. No evidence for acute pancreatitis. No renal or ureteral stones. No hydronephrosis. No retroperitoneal lymphadenopathy. Calcifi ed plaque within the normal caliber abdominal aorta. No pelvic free fluid or pelvic lymphadenopathy. The bladder is unremarkable. The uterus and bilateral adnexa are within normal limits. Rectosigmoid anastomosis is noted. Suboptimal evaluation for bowel pathology due to the lack of intravenous and oral contrast. However, there is no definite bowel wall thickening or obstruction. Colonic diverticulosis. No evidence for acute diverticulitis. Cpaj-ns-khzgvpal fecal retention is noted. IMPRESSION: 1. No renal or ureteral stones. No hydronephrosis. 2. No bowel wall thickening or obstruction. 3. Fcoz-vm-dawrfvvi fecal retention. 4. Prior cholecystectomy. 5. Colonic diverticulosis. No evidence for acute diverticulitis. 6. Chronic pancreatitis again noted. No evidence for acute pancreatitis. ACT 112: Negative or not required by law. Electronically signed by: Silverio Monroe M.D. 01/05/2023 12:18 PM 01/12/23 01/12/23 01/11/23 Range/Units 11:08 07:18 19:58 POC Glucose 160 H 118 H 136 H (70-99) mg/dl 01/11/23 Range/Units 16:26 POC Glucose 158 H (70-99) mg/dl Diabetes Follow up Primary care Hospital Course (1) Bacteremia: Admitted treated for UTI with cefepime, IV fluids, improved. Urine culture and blood culture grew pérez-sensitive klebsiella. Cefepime IV 01/03-01/05 Changed to IV cipro 01/05-01/12 so had 10 days IV therapy. May complete course of treatment for bacteremia with oral cipro (low risk due to urinary source, cipro has excellent oral bioavailability) to complete total 14d course, end date 01/19/23. Symptoms resovled. CT a/p without urinary tract pathology (2) UTI (urinary tract infection): 2nd pansens klebsiella see above Concerns about recurrent UTI - reports three UTIs since April. She has baseline urinary incontinence. Reviewed chart, several discharge summaries. I see two which appear likely including this episode, another admission was thought to have asymptomatic bacteriuria. Will check bladder scan. Discussed trial of cranberry, which is not clearly effective but is safe to try. Recommend against chronic suppressive antibiotics except as a last resort, safer to treat instances when they occur with appropriate abx. Consider cranberry supplement though not clearly effective based on the evidence. Was seen by urology 06/2021, with main concerns of urinary incontinence at that time CT A/P without any kidney stones or bladder abnormalities to account for UTIs Urology consulted this admission -- they advise outpatient f/u with them in clinic Discussed the above at length with patient and her 01/09, 01/10. (3) PAF (paroxysmal atrial fibrillation): 01/06 - lasted <1 hour spontaneously converted to NSR rates were ~150 BPM during the PAF run while in rapid a.fib had chest heaviness/discomfort with radiation to L arm (see #4 below) fortunately no troponin leak during this episode has remained in NSR since then Resumed apixaban Cont beta wil - we did increase metoprolol to 37.5mg BID from 25mg BID, tolerating well (4) Angina pectoris: episode of angina during her PAF episode she reports having had other episodes of chest symptoms at home recently requiring the use of nitro the chest heaviness was similar to what she has had at home EKG while in PAF showed lateral ST depressions she has had L Cx stent in the past in [facility] ([facility]) due to symptoms at home, episode above, and known CAD we consulted Dr Evans from [facility] Cardiology Coronary angiogram 01/08 Dr. Evans: diagnostic Coronary Anatomy Dominant: Right Left Main (% Stenosis): Normal LAD (% Stenosis): Mid (50-60 percent) D1 (% Stenosis): Ostial (50%) Circumflex (% Stenosis): Mid (Stent patent) OM1 (% Stenosis): Proximal (50%,), Mid (30%) and Distal (40 to 50%) RCA (% Stenosis): Proximal (Stent patent, in-stent restenosis 10%) R PDA (% Stenosis): Proximal (40%) R PL1 (% Stenosis): Normal nonobstructive CAD, stents patent cont beta wil cont asa cont statin Follow up in clinic with Dr. Evans (5) Atrial flutter: h/o such had PAF run 01/06 as above cont BB, apixaban (6) Recurrent urinary tract infection: Hx of 2 or 3 UTIs within the past 7 months - see above (7) Altered mental status: ACUTE METABOLIC ENCEPHALOPATHY -- 2nd to infection resolved, normal mental status (8) Hypertension: metoprolol was increased BPs reviewed 01/10, 01/11, at goal. 12 mildly elevated but otherwise normotensive for days so will not change meds based on this one day. (9) Diabetes: HbA1C 01/04 - 6.2% - in light of advanced age, tight a1c control, risk of hypoglycemia with sulfonylurea - discontinued glipizide loose novolog SSI BSGs reviewed 01/11, at goal Probably can be diet controlled at this point. (10) Elevated troponin: Troponin 56.8 on arrival, repeat downtrending - reflects myocardial strain related to infection (11) Hypothyroidism: Continue levothyroxine TSH wnl (12) CAD (coronary artery disease): see above Total Time Total Time Spent Total Time Spent (In Minutes): 40 minutes coordinating care for discharge Discharge Plan Discharge Items Patient Disposition: Transfer Custodial Fac Reason For Visit: DECONDITIONING, NAUSEA, EASY SATIETY Discharge Diagnosis: UTI and bacteremia due to klebsiella PAF CAD s/p cath HTN HLD Condition on Discharge: Fair Activity: As commented below Activity Comment: PT and OT will help you resume your activities Non-emergency contact: Primary Care Provider and [facility] Call non-emergency contact if: you have any medication questions, your symptoms worsen, you have a fever and your wound has increased drainage Follow-up/Referrals: Jarocho Evans MD, PhD [Physician] - Juan Alexis DO [Physician] - (make a follow up appointment - was seen as senior energy consultant in hospital for recurrent UTI) Yash Tavares DO [Primary Care Provider] - Diet: Carb Consistent or DM2 and Heart Healthy Addtl Attending Provider Instructions: PT and OT evaluate and treat Continue ciprofloxacin for bacteremia end date 01/18 Glipizide was discontinued because of age/risk and overcontrol A1c was 6.2% Diet control for now, use PRN short acting insulin if BG >180 Pending Studies at Discharge: No Stand-Alone Forms: My [facility] Skilled Items Patient informed of condition?: Yes DNR: Yes Discharge Level of Care: Skilled Communicable Disease: No Discharge Prognosis: Improving Lines: None Urinary Catheter: No Medications and DC Order Prescriptions: New metoprolol tartrate 25 mg Tablet 37.5 mg PO BID Qty: 90 11RF insulin aspart U-100 [Novolog U-100 Insulin aspart] 100 unit/mL Solution See Rx Instructions .ROUTE .COMPLEX Qty: 0 0RF Rx Instructions: low dose sliding scale for BG>180 acetaminophen 325 mg Tablet 650 mg PO Q4H PRN (Reason: fever or pain) Qty: 0 0RF Carbohydrates For Hypoglycemia 15 - 30 g PO UD PRNQty: 0 0RF ciprofloxacin HCl 750 mg tablet 750 mg PO Q12H Qty: 1 0RF sennosides [Senokot] 8.6 mg Tablet 8.6 mg PO QAM PRN (Reason: constipation) Qty: 0 0RF Continued atorvastatin 80 mg tablet 80 mg PO DAILY Qty: 90 1RF levothyroxine 75 mcg tablet 75 mcg PO DAILY Qty: 90 3RF Eliquis 5 mg tablet 5 mg PO BID Qty: 60 3RF nitroglycerin 0.4 mg tablet, sublingual 0.4 mg SL Q5M PRN (Reason: chest pain) Qty: 25 1RF loratadine [Claritin] 10 mg tablet 10 mg PO DAILY PRN (Reason: allergy symtoms) aspirin 81 mg tablet,delayed release (DR/EC) 162 mg PO DAILY PRN mecobalamin (vitamin B12) 1,000 mcg tablet,chewable 1,000 mcg PO DAILY cholecalciferol (vitamin D3) [Vitamin D3] 2,000 unit Capsule 2,000 unit PO DAILY olopatadine [Pataday Once Daily Relief] 0.2 % drops 1 drp ophthalmic (eye) DAILY PRN (Reason: Itching) Discontinued glipizide 2.5 mg tablet extended release 24hr See Rx Instructions .ROUTE .COMPLEX Qty: 90 3RF Dose Instruction: TAKE 1 TABLET BY MOUTH EVERY DAY Rx Instructions: TAKE 1 TABLET BY MOUTH EVERY DAY metoprolol tartrate 25 mg tablet 25 mg PO BID Discharge Orders: Discharge Order (Routine); Ordered 01/12/23 Ordered By: Caro Osorio Admission Data Admit Date/Time: 01/05/23 13:09 Attending Provider: Caro Osorio Admit Provider: Moy Calloway Primary Care Provider: Yash Tavares Other Providers: [facility]; Moy Calloway; Jarocho Evans; [facility]; [facility]; [place] Coding Level of Care Code 94944 INP/OBS DISCH >30 MIN Diagnoses Bacteremia R78.81 UTI (urinary tract infection) N39.0 PAF (paroxysmal atrial fibrillation) I48.0 Angina pectoris I20.9 Atrial flutter I48.92 Recurrent urinary tract infection N39.0 Altered mental status R41.82 Hypertension I10 Diabetes E11.9 Elevated troponin R77.8 Hypothyroidism E03.9 CAD (coronary artery disease) I25.10
== END 2023-01-12 14:15 | DRG 689 ==
LOC: EDINP 14:10 → 2N 14:10 → ED 14:10 → SUATTDRO 17:04 → 2N 20:08 → SUATTDRO 01-05 13:09 → 2S 01-06 16:50
PROC: CLB.CCO (2023-01-08 09:30)

== ENCOUNTER 2023-03-09 12:18 | Observation (INO) ==
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
[2023-03-09] MEDS: ONDANSETRON INJ 2 MG/ML 2 ML VIAL IV STA (12:51)
[2023-03-09 13:05] LABS: Hematocrit (blood only) 44.4 % (37.0-47.0); Hemoglobin 14.5 g/dl (12.0-16.0); Mean Corpuscular Hemoglobin 29.7 pg (25.0-34.0); Mean Corpuscular Hgb Conc 32.7 g/dL (32.0-36.0); Mean Platelet Volume 10.2 fL (9.4-12.4); Platelet Count 204 K/uL (130-400); RDW Coefficient of Variation 13.4 % (11.5-14.5); RDW Standard Deviation 44.7 fL (36.4-46.3); Red Blood Count 4.88 M/uL (4.20-5.40); White Blood Count 8.38 K/ul (4.8-10.8)
[2023-03-09 13:23] LABS: Albumin Globulin Ratio 1.4 (0.9-2); Albumin Level 3.8 gm/dl (3.4-5.0); BUN Creatinine Ratio 29.5 (10-20); Bilirubin,Total 0.8 mg/dl (0.2-1.0); Calcium 9.2 mg/dl (8.6-10.3); Creatinine Clr Calc Pharmacy 56.7 ml/min; Est GFR (African American) 80.9 ml/min; Est GFR (Non-African American) 69.8 ml/min; Globulin 2.8 gm/dl (2.5-4.0); Potassium 3.9 mmol/L (3.5-5.1); Total Protein 6.6 gm/dl (6.0-8.3)
[2023-03-09 13:28] LABS: Appearance Urine Slightly Cloudy (Clear); Bilirubin Urine Negative (Negative); Blood Urine 3+ (Negative); Color Urine Yellow; Glucose Urine UA Negative (Negative); Ketones Urine Negative (Negative); Leukocyte Esterase Urine Trace (Negative); Nitrite Urine Negative (Negative); Protein Urine Negative (Negative); Specific Gravity Urine 1.015 (1.000-1.030); Urobilinogen Urine Negative (Negative); pH Urine 5.5 (4.5-7.5)
[2023-03-09 13:29] LABS: Troponin I High Sensitivity 40.1 pg/ml (0-14)
[2023-03-09 13:33] LABS: Prothrombin Time 11.3 Seconds (9.0-12.0)
[2023-03-09 13:38] LABS: Epithelial Cell Urine >30 /lpf (0-5); RBC Urine >30 /hpf (0-4)
[2023-03-09 13:42] LABS: Bacteria Urine Negative (Negative)
--- NOTE | 2023-03-09 14:15 | CT Scan Report ---
CT abd pelvis wo con CLINICAL HISTORY: gross hematuria TECHNIQUE: Helical axial images of the abdomen and pelvis were obtained. Automated dose lowering tech niques and/or adjustment according to patient size were utilized for this exam. This exam was perfor med without intravenous contrast. CT DOSE: 1037.67 mGy.cm COMPARISON: Comparison is made to CT abdomen pelvis 01/05/2023 FINDINGS: Lower chest: No acute abnormality. Liver: Unremarkable. No focal lesions are seen. Gallbladder and biliary tree: Patient is status post cholecystectomy. No intra- or extrahepatic bilia ry ductal dilation. Pancreas: The pancreas is atrophic with multiple calcifications. Spleen: Unremarkable. Adrenals: Unremarkable. Kidneys and ureters: Unremarkable. Bladder: Unremarkable. Reproductive organs: Unremarkable. Bowel: Diverticulosis is seen without evidence of diverticulitis. Lymph nodes Retroperitoneal: Unremarkable. Pelvic: Unremarkable. Mesenteric: Unremarkable. Peritoneum: Normal. Vessels: Unremarkable. Abdominal wall: Unremarkable. Bones: Minimal degenerative changes are seen. IMPRESSION: 1. No acute abnormalities and in particular no evidence of urothelial lesion or nephrolithiasis. 2. Diverticulosis without diverticulitis. 3. Postsurgical changes of posterior knee. 4. Changes of chronic pancreatitis. 5. Additional findings as above. ACT 112: Negative or not required by law. Electronically signed by: Oral Mc M.D. 03/09/2023 2:13 PM
--- NOTE | 2023-03-09 15:21 | XRay Report ---
XR chest 1V portable HISTORY: chest pain COMPARISON: Chest 01/03/2023. FINDINGS: The lungs are clear. Cardiac silhouette is normal in size. No pleural effusions. No pneumot horax. IMPRESSION: No acute process. ACT 112: Negative or not required by law. Electronically signed by: Silverio Monroe M.D. 03/09/2023 3:20 PM
[2023-03-09 15:41] LABS: Partial Thromboplastin Time 29 Seconds (21-31)
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
[2023-03-09] MEDS: ACETAMINOPHEN 1,000 MG/100 ML VIAL IV STA (16:16)
[2023-03-09] MEDS: METOPROLOL TARTRATE 25 MG TAB PO SCH (20:42)
[2023-03-09] MEDS: METHENAMINE HIPPURATE 1 GM TAB PO SCH (20:44)
[2023-03-10] MEDS: LEVOTHYROXINE SODIUM 75 MCG TABLET PO SCH (05:53)
[2023-03-10 06:32] LABS: Basophils # (auto) 0.07 K/uL (0.00-0.20); Basophils % (auto) 0.9 %; Eosinophils # (auto) 0.17 K/uL (0.00-0.50); Eosinophils % (auto) 2.2 %; Hematocrit (blood only) 39.1 % (37.0-47.0); Hemoglobin 13.1 g/dl (12.0-16.0); Immature Granulocytes # (auto) 0.06 K/uL (0.01-0.20); Immature Granulocytes % (auto) 0.8 %; Lymphocytes # (auto) 2.94 K/uL (1.20-3.40); Lymphocytes % (auto) 37.3 %; Mean Corpuscular Hgb Conc 33.5 g/dL (32.0-36.0); Mean Corpuscular Volume 89.7 fL (80.0-100.0); Mean Platelet Volume 10.4 fL (9.4-12.4); Monocytes # (auto) 0.56 K/uL (0.11-0.59); Monocytes % (auto) 7.1 %; Neutrophils # (auto) 4.08 K/uL (1.40-6.50); Neutrophils % (auto) 51.7 %; Platelet Count 177 K/uL (130-400); RDW Coefficient of Variation 13.5 % (11.5-14.5); RDW Standard Deviation 44.5 fL (36.4-46.3); Red Blood Count 4.36 M/uL (4.20-5.40); White Blood Count 7.88 K/ul (4.8-10.8)
[2023-03-10 06:58] LABS: BUN Creatinine Ratio 42.2 (10-20); Calcium 9.1 mg/dl (8.6-10.3); Creatinine Clr Calc Pharmacy 69.1 ml/min; Est GFR (Non-African American) 81.9 ml/min; Potassium 4.2 mmol/L (3.5-5.1)
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
[2023-03-10] MEDS: ATORVASTATIN 40 MG TAB PO SCH (08:28)
[2023-03-10] MEDS: POLYETHYLENE (MIRALAX) 17 GM PACK PO SCH (09:52)
--- NOTE | 2023-03-10 09:58 | Electrocardiogram Report ---
Test Reason : Blood Pressure : / mmHG Vent. Rate : 054 BPM Atrial Rate : 054 BPM P-R Int : 108 ms QRS Dur : 096 ms QT Int : 414 ms P-R-T Axes : 002 -27 072 degrees QTc Int : 392 ms Sinus bradycardia with short OK Nonspecific ST and T wave abnormality Abnormal ECG When compared with ECG of 06-JAN-2023 11:45, OK interval has decreased RSR' pattern in V1 is no longer Present Confirmed by Gregorio Mcdaniel ([id number]) on 03/10/2023 9:57:50 AM Referred By: Yash Tavares Confirmed By:Gregorio Mcdaniel
--- NOTE | 2023-03-10 10:00 | Electrocardiogram Report ---
Test Reason : Blood Pressure : / mmHG Vent. Rate : 045 BPM Atrial Rate : 045 BPM P-R Int : 118 ms QRS Dur : 090 ms QT Int : 450 ms P-R-T Axes : 014 -31 062 degrees QTc Int : 389 ms Sinus bradycardia Left axis deviation Nonspecific ST and T wave abnormality Abnormal ECG When compared with ECG of 06-JAN-2023 11:45, No significant change was found Confirmed by Gregorio Mcdaniel ([id number]) on 03/10/2023 10:00:09 AM Referred By: Yash Tavares Confirmed By:Gregorio Mcdaniel
[2023-03-10] MEDS: DOCUSATE SODIUM/SENNA 50/8.6MG TAB PO SCH (10:05)
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
[2023-03-10] MEDS: traMADol HCL 50 MG TABLET PO PRN (20:18)
--- NOTE | 2023-03-10 23:07 | Hospitalist Progress Note ---
Date of Service March 10, 2023 Assessment & Plan (1) Hematuria: Plan: Hold Eliquis No anatomical reason for this on CT UA does not appear infected Consult urology Appreciate input awaiting culture (2) Dysuria: Plan: UA not suggestive of infection. Will send for urine culture. Deferred antibiotics. (3) Ambulatory dysfunction: Plan: PT/OT, patient requesting placement (4) PAF (paroxysmal atrial fibrillation): Plan: Currently in normal sinus rhythm Continue metoprolol tartrate with reduced hold parameters of heart rate of 50, will reduce back to her previous dose of 25 mg p.o. BID as bradycardia may be (5) Hypothyroidism: Plan: TSH within normal limits [02/18] Continue levothyroxine (6) Diabetes: Plan: Hemoglobin A1c 6.6 in February, no need to repeat this Glipizide discontinued last admission No Lantus needed last admission with good glucose control No need for BSG ACHS or insulin this admission (7) Myofascial pain: (8) Physical deconditioning: (9) Generalized weakness: Plan VTE prophylaxis - Eliquis on hold as above Diet - heart healthy, type 2 diabetes Disposition - admit to [facility] (2 midnight rule) Admission and Anticipated Discharge Date Admission Date: March 09, 2023 Subjective Patient reports no new symptoms. Urine appears more clear. Review of Systems Review of Systems: All systems reviewed & are unremarkable except as noted in HPI & below Physical Exam Physical Exam: General: Alert and oriented, no acute distress HEENT: Normocephalic, mucous membranes moist Pulmonary: Nonlabored respirations Abdomen: Nondistended Extremities: Moves all 4 spontaneously Neuro: No gross deficits Skin: Warm, dry, no rashes noted Results & Data Results & Data Vital Signs (Past 12 Hours) Vital Signs Temp Pulse Resp BP Pulse Ox O2 Del Method 03/10/23 20:15 36.8 C 68 18 159/71 H 96 Room Air 03/10/23 15:23 36.9 C 51 L 16 138/76 96 Room Air PG Care Time/CCT Total # of Minutes Spent Total Time Spent with Patient: Total time spent is greater than 50% in coordination of care (as documented) at patient's floor/unit and/or counseling patient: Coding Level of Care Code 07808 SUB INP/OBS CARE 2/35MIN Diagnoses Hematuria R31.9 Dysuria R30.0 Ambulatory dysfunction R26.2 PAF (paroxysmal atrial fibrillation) I48.0 Hypothyroidism E03.9 Diabetes E11.9 Myofascial pain M79.18 Physical deconditioning R53.81 Generalized weakness R53.1
[2023-03-11 07:34] LABS: Hematocrit (blood only) 40.1 % (37.0-47.0); Hemoglobin 13.4 g/dl (12.0-16.0); Mean Corpuscular Hemoglobin 29.8 pg (25.0-34.0); Mean Corpuscular Hgb Conc 33.4 g/dL (32.0-36.0); Mean Corpuscular Volume 89.1 fL (80.0-100.0); Mean Platelet Volume 10.1 fL (9.4-12.4); Platelet Count 178 K/uL (130-400); RDW Coefficient of Variation 13.3 % (11.5-14.5); RDW Standard Deviation 43.8 fL (36.4-46.3); White Blood Count 8.43 K/ul (4.8-10.8)
[2023-03-11 07:53] LABS: BUN Creatinine Ratio 33.3 (10-20); Calcium 9.3 mg/dl (8.6-10.3); Creatinine Clr Calc Pharmacy 61.4 ml/min; Est GFR (African American) 89.1 ml/min; Est GFR (Non-African American) 76.9 ml/min; Potassium 4.3 mmol/L (3.5-5.1)
[2023-03-11] MEDS: NITROFURANTOIN MONOHYDRATE 100 MG CAP PO SCH (20:18)
--- NOTE | 2023-03-11 22:34 | Hospitalist Progress Note ---
Date of Service March 11, 2023 Assessment & Plan (1) Hematuria: Plan: Hold Eliquis No anatomical reason for this on CT UA does not appear infected Consult urology Appreciate input culture shows contaminant However, outpatient culture showed aerococcus urinae and coagulase negative staph. Sensitive to macrobid D/w Dr. Nguyễn ok to use macrobid as Crcl above 60 (2) Dysuria: Plan: UA not suggestive of infection. Will send for urine culture. (3) Ambulatory dysfunction: Plan: PT/OT, patient requesting placement (4) PAF (paroxysmal atrial fibrillation): Plan: Currently in normal sinus rhythm Continue metoprolol tartrate with reduced hold parameters of heart rate of 50, will reduce back to her previous dose of 25 mg p.o. BID as bradycardia may be (5) Hypothyroidism: Plan: TSH within normal limits [02/18] Continue levothyroxine (6) Diabetes: Plan: Hemoglobin A1c 6.6 in February, no need to repeat this Glipizide discontinued last admission No Lantus needed last admission with good glucose control No need for BSG ACHS or insulin this admission (7) Myofascial pain: (8) Physical deconditioning: (9) Generalized weakness: Plan VTE prophylaxis - Eliquis on hold as above Diet - heart healthy, type 2 diabetes Disposition - admit to [facility] (2 midnight rule) Admission and Anticipated Discharge Date Admission Date: March 09, 2023 Subjective Patient reports less hematuria Review of Systems Review of Systems: All systems reviewed & are unremarkable except as noted in HPI & below Physical Exam Physical Exam: General: Alert and oriented, no acute distress HEENT: Normocephalic, mucous membranes moist Pulmonary: Nonlabored respirations Abdomen: Nondistended Extremities: Moves all 4 spontaneously Neuro: No gross deficits Skin: Warm, dry, no rashes noted Results & Data Results & Data Vital Signs (Past 12 Hours) Vital Signs Temp Pulse Resp BP Pulse Ox O2 Del Method 03/11/23 20:33 36.6 C 62 16 169/88 H 96 Room Air 03/11/23 14:30 36.6 C 63 16 170/83 H 98 Room Air PG Care Time/CCT Total # of Minutes Spent Total Time Spent with Patient: Total time spent is greater than 50% in coordination of care (as documented) at patient's floor/unit and/or counseling patient: Coding Level of Care Code 76281 SUB INP/OBS CARE 235MIN Diagnoses Hematuria R31.9 Dysuria R30.0 Ambulatory dysfunction R26.2 PAF (paroxysmal atrial fibrillation) I48.0 Hypothyroidism E03.9 Diabetes E11.9 Myofascial pain M79.18 Physical deconditioning R53.81 Generalized weakness R53.1
[2023-03-12 07:09] LABS: Hematocrit (blood only) 39.2 % (37.0-47.0); Hemoglobin 13.3 g/dl (12.0-16.0); Mean Corpuscular Hemoglobin 30.1 pg (25.0-34.0); Mean Corpuscular Hgb Conc 33.9 g/dL (32.0-36.0); Mean Corpuscular Volume 88.7 fL (80.0-100.0); Mean Platelet Volume 10.1 fL (9.4-12.4); Platelet Count 182 K/uL (130-400); RDW Coefficient of Variation 13.2 % (11.5-14.5); RDW Standard Deviation 43.2 fL (36.4-46.3); Red Blood Count 4.42 M/uL (4.20-5.40); White Blood Count 7.87 K/ul (4.8-10.8)
[2023-03-12 07:20] LABS: BUN Creatinine Ratio 31.9 (10-20); Calcium 9.3 mg/dl (8.6-10.3); Creatinine Clr Calc Pharmacy 61.4 ml/min; Est GFR (African American) 89.1 ml/min; Est GFR (Non-African American) 76.9 ml/min; Potassium 4.3 mmol/L (3.5-5.1)
[2023-03-12 10:58] LABS: Appearance Urine Cloudy (Clear); Bacteria Urine Automated Negative (Negative); Bilirubin Urine Negative (Negative); Blood Urine Trace (Negative); Cast Urine Automated 0 /lpf (0-5); Color Urine Yellow; Epithelial Cell Urine Auto >30 /lpf (0-5); Glucose Urine UA Negative (Negative); Ketones Urine Negative (Negative); Leukocyte Esterase Urine Negative (Negative); Nitrite Urine Negative (Negative); Protein Urine Negative (Negative); Specific Gravity Urine 1.014 (1.000-1.030); Urobilinogen Urine Negative (Negative)
[2023-03-12] MEDS: ACETAMINOPHEN 325 MG TAB PO STA (21:28)
--- NOTE | 2023-03-12 22:15 | Hospitalist Progress Note ---
Date of Service March 12, 2023 Assessment & Plan (1) Hematuria: Plan: Hold Eliquis No anatomical reason for this on CT UA does not appear infected Consult urology Appreciate input culture shows contaminant However, outpatient culture showed aerococcus urinae and coagulase negative staph. Sensitive to macrobid D/w Dr. Nguyễn ok to use macrobid as Crcl above 60 continue above treatment labs reviewed on 03/12 (2) Dysuria: Plan: UA not suggestive of infection. Will send for urine culture. (3) Ambulatory dysfunction: Plan: PT/OT, patient requesting placement (4) PAF (paroxysmal atrial fibrillation): Plan: Currently in normal sinus rhythm Continue metoprolol tartrate with reduced hold parameters of heart rate of 50, will reduce back to her previous dose of 25 mg p.o. BID as bradycardia may be (5) Hypothyroidism: Plan: TSH within normal limits [02/18] Continue levothyroxine (6) Diabetes: Plan: Hemoglobin A1c 6.6 in February, no need to repeat this Glipizide discontinued last admission No Lantus needed last admission with good glucose control No need for BSG ACHS or insulin this admission (7) Myofascial pain: (8) Physical deconditioning: (9) Generalized weakness: Plan VTE prophylaxis - Eliquis on hold as above Diet - heart healthy, type 2 diabetes Disposition - admit to [facility] (2 midnight rule) Admission and Anticipated Discharge Date Admission Date: March 09, 2023 Subjective Patient reports no new symptoms. Review of Systems Review of Systems: All systems reviewed & are unremarkable except as noted in HPI & below Physical Exam Physical Exam: General: Alert and oriented, no acute distress HEENT: Normocephalic, mucous membranes moist Pulmonary: Nonlabored respirations Abdomen: Nondistended Extremities: Moves all 4 spontaneously Neuro: No gross deficits Skin: Warm, dry, no rashes noted Results & Data Results & Data Vital Signs (Past 12 Hours) Vital Signs Temp Pulse Resp BP Pulse Ox O2 Del Method 03/12/23 20:31 36.8 C 68 18 165/74 H 94 Room Air 03/12/23 14:42 36.6 C 60 16 156/80 H 98 Room Air PG Care Time/CCT Total # of Minutes Spent Total Time Spent with Patient: Total time spent is greater than 50% in coordination of care (as documented) at patient's floor/unit and/or counseling patient: Coding Level of Care Code 21856 SUB INP/OBS CARE 235MIN Diagnoses Hematuria R31.9 Dysuria R30.0 Ambulatory dysfunction R26.2 PAF (paroxysmal atrial fibrillation) I48.0 Hypothyroidism E03.9 Diabetes E11.9 Myofascial pain M79.18 Physical deconditioning R53.81 Generalized weakness R53.1
[2023-03-13 07:01] LABS: Hematocrit (blood only) 40.9 % (37.0-47.0); Hemoglobin 13.4 g/dl (12.0-16.0); Mean Corpuscular Hemoglobin 29.8 pg (25.0-34.0); Mean Corpuscular Hgb Conc 32.8 g/dL (32.0-36.0); Mean Corpuscular Volume 90.9 fL (80.0-100.0); Mean Platelet Volume 9.9 fL (9.4-12.4); Platelet Count 188 K/uL (130-400); RDW Coefficient of Variation 13.5 % (11.5-14.5); RDW Standard Deviation 44.9 fL (36.4-46.3); White Blood Count 7.49 K/ul (4.8-10.8)
[2023-03-13 07:14] LABS: BUN Creatinine Ratio 30.9 (10-20); Calcium 9.4 mg/dl (8.6-10.3); Creatinine Clr Calc Pharmacy 65.1 ml/min; Est GFR (African American) 93.1 ml/min; Est GFR (Non-African American) 80.3 ml/min; Potassium 4.3 mmol/L (3.5-5.1)
[2023-03-13] MEDS: ACETAMINOPHEN 325 MG TAB PO PRN (15:53)
--- NOTE | 2023-03-13 18:39 | Hospitalist Progress Note ---
Date of Service March 13, 2023 Assessment & Plan (1) Hematuria: Plan: Hold Eliquis No anatomical reason for this on CT UA does not appear infected Urine cleared up. Consult urology Appreciate input culture shows contaminant However, outpatient culture showed aerococcus urinae and coagulase negative staph. Sensitive to macrobid D/w Dr. Nguyễn ok to use macrobid as Crcl above 60 continue above treatment labs reviewed on 03/12 (2) Dysuria: Plan: UA not suggestive of infection. Will send for urine culture. as above. (3) Ambulatory dysfunction: Plan: PT/OT, patient requesting placement (4) PAF (paroxysmal atrial fibrillation): Plan: Currently in normal sinus rhythm Continue metoprolol tartrate with reduced hold parameters of heart rate of 50, will reduce back to her previous dose of 25 mg p.o. BID as bradycardia may be (5) Hypothyroidism: Plan: TSH within normal limits [02/18] Continue levothyroxine (6) Diabetes: Plan: Hemoglobin A1c 6.6 in February, no need to repeat this Glipizide discontinued last admission No Lantus needed last admission with good glucose control No need for BSG ACHS or insulin this admission (7) Myofascial pain: (8) Physical deconditioning: (9) Generalized weakness: Plan VTE prophylaxis - Eliquis on hold as above; may consider restarting at discharge. Diet - heart healthy, type 2 diabetes Disposition - admit to [facility] (2 midnight rule) Admission and Anticipated Discharge Date Admission Date: March 09, 2023 Subjective Patient reports no new symptoms. Review of Systems Review of Systems: All systems reviewed & are unremarkable except as noted in HPI & below Physical Exam Physical Exam: General: Alert and oriented, no acute distress HEENT: Normocephalic, mucous membranes moist Pulmonary: Nonlabored respirations Abdomen: Nondistended Extremities: Moves all 4 spontaneously Neuro: No gross deficits Skin: Warm, dry, no rashes noted Results & Data Results & Data Vital Signs (Past 12 Hours) Vital Signs Temp Pulse Resp BP Pulse Ox O2 Del Method 03/13/23 14:42 36.5 C 67 16 135/80 96 Room Air 03/13/23 07:18 36.3 C L 50 L 16 147/76 H 95 Room Air PG Care Time/CCT Total # of Minutes Spent Total Time Spent with Patient: Total time spent is greater than 50% in coordination of care (as documented) at patient's floor/unit and/or counseling patient: Coding Level of Care Code 27534 SUB INP/OBS CARE 2/35MIN Diagnoses Hematuria R31.9 Dysuria R30.0 Ambulatory dysfunction R26.2 PAF (paroxysmal atrial fibrillation) I48.0 Hypothyroidism E03.9 Diabetes E11.9 Myofascial pain M79.18 Physical deconditioning R53.81 Generalized weakness R53.1
--- NOTE | 2023-03-14 07:42 | Hospitalist Progress Note ---
Date of Service March 14, 2023 Assessment & Plan (1) Hematuria: Plan: Hold Eliquis, hematuria is resolving No anatomical reason on CT UA does not appear infected, culture shows contaminant Consult urology, D/w Dr. Nguyễn ok to use macrobid as Crcl above 60 outpatient culture showed aerococcus urinae and coagulase negative staph sensitive to macrobid (2) PAF (paroxysmal atrial fibrillation): Plan: Currently in normal sinus rhythm Continue metoprolol tartrate (3) Diabetes: Plan: Hemoglobin A1c 6.6 in February Glipizide discontinued last admission No Lantus needed last admission with good glucose control No need for BSG ACHS or insulin this admission (4) Hypothyroidism: Plan: TSH within normal limits [02/18] Continue levothyroxine (5) Myofascial pain: Plan: Tylenol and tramadol prn (6) Ambulatory dysfunction: Plan: PT/OT, patient requesting placement Plan VTE prophylaxis - Eliquis on hold as above; may consider restarting at discharge. DNR Admission and Anticipated Discharge Date Admission Date: March 09, 2023 Subjective PT feeling improved now complaining of diarrhea, was not able to supply specimen today pt is weakened and is agreeable to going to rehab Physical Exam Physical Exam: awake and alert oriented cardiac regular with no murmurs lungs are clear Results & Data Results & Data Vital Signs (Past 12 Hours) Vital Signs Temp Pulse Resp BP Pulse Ox O2 Del Method 03/14/23 07:10 98.2 F 59 L 16 166/89 H 95 Room Air 03/13/23 20:14 97.9 F 65 20 122/72 95 Room Air 03/13/23 19:45 Room Air PG Care Time/CCT Total # of Minutes Spent Total Time Spent with Patient: Total time spent is greater than 50% in coordination of care (as documented) at patient's floor/unit and/or counseling patient: Coding Level of Care Code 44824 SUB INP/OBS CARE 2/35MIN Diagnoses Hematuria R31.9 PAF (paroxysmal atrial fibrillation) I48.0 Diabetes E11.9 Hypothyroidism E03.9 Myofascial pain M79.18 Ambulatory dysfunction R26.2
--- NOTE | 2023-03-15 07:25 | Hospitalist Progress Note ---
Date of Service March 15, 2023 Assessment & Plan (1) Hematuria: Plan: Hold Eliquis, hematuria has resolved and not recurred No anatomical reason on CT UA does not appear infected, culture shows contaminant Consult urology, D/w Dr. Nguyễn ok to use macrobid as Crcl above 60 outpatient culture showed Aerococcus urinae and coagulase negative staph sensitive to macrobid (2) PAF (paroxysmal atrial fibrillation): Plan: Currently in normal sinus rhythm Continue metoprolol tartrate (3) Diabetes: Plan: Hemoglobin A1c 6.6 in February Glipizide discontinued last admission No Lantus needed last admission with good glucose control No need for BSG ACHS or insulin this admission (4) Hypothyroidism: Plan: TSH within normal limits [02/18] Continue levothyroxine (5) Myofascial pain: Plan: Tylenol and tramadol prn (6) Ambulatory dysfunction: Plan: PT/OT, patient requesting placement Plan VTE prophylaxis - Eliquis remains on hold ; may consider restarting at discharge. DNR Admission and Anticipated Discharge Date Admission Date: March 09, 2023 Subjective PT feeling improved resolved diarrhea, c diff negative pt is weakened and is agreeable to going to rehab still in need of placement per insurance Physical Exam Physical Exam: awake and alert oriented cardiac regular with no murmurs lungs are clear abdomen is soft and non tender Results & Data Results & Data Vital Signs (Past 12 Hours) Vital Signs Temp Pulse Resp BP BP Pulse Ox O2 Del Method 03/15/23 07:10 97.3 F L 61 18 181/74 H 164/82 H 96 Room Air 03/14/23 19:34 98.1 F 59 L 16 131/77 94 Room Air PG Care Time/CCT Total # of Minutes Spent Total Time Spent with Patient: Total time spent is greater than 50% in coordination of care (as documented) at patient's floor/unit and/or counseling patient: Coding Level of Care Code 03489 SUB INP/OBS CARE 2/35MIN Diagnoses Hematuria R31.9 PAF (paroxysmal atrial fibrillation) I48.0 Diabetes E11.9 Hypothyroidism E03.9 Myofascial pain M79.18 Ambulatory dysfunction R26.2
--- NOTE | 2023-03-16 16:49 | Discharge Summary ---
Date of Service March 16, 2023 Admission HPI Per Admitting Provider Yobani Chaudhari is a 82-year-old female who presents to the ER due to generalized weakness, dysuria, hematuria. She reports 1 day of hematuria which she has not had before. Not passing clots. Currently on Eliquis for paroxysmal atrial fibrillation. Generalized weakness and fatigue has been going on for 2 months without significant recent change but she feels like she cannot manage at home and is requesting placement. She was recently hospitalized from January 03 - January 12, 2023 due to UTI sepsis with E. coli bacteremia. She underwent cardiac catheterization during that hospitalization due to concerns for a type I NSTEMI with chest pain and significant history of coronary artery disease - this subsequently showed patent previous stents with angiographically moderate coronary artery disease and no percutaneous coronary intervention was performed. She was noted to have paroxysmal atrial fibrillation with chest discomfort during events. She had known atrial flutter prior to this hospitalization. She had follow-up urine cultures on February 12 and March 05 which showed mixed bib only. Principal Diagnosis Hematuria resolved Urinary tract infection not confirmed treat empirically with Macrobid received 6 days of treatment Deconditioning with PT recommending inpatient subacute rehab patient wishes to go home despite the recommendations of home health was set up Discharge Exam Awake alert appropriate. No physical signs of distress Cardiac exam is regular lungs are clear Discharge Data Allergies Allergy/AdvReac Type Severity Reaction Status Date / Time bee venom protein (honey bee) Allergy Unknown Unverified 02/22/23 09:01 No Known Drug Allergies Allergy Verified 02/22/23 09:01 Consultations 03/09/23 15:16 ED Decision to Admit Stat 03/10/23 07:03 Consult Urology Routine 03/10/23 07:27 Consult Psychiatry Routine Ordered Studies Abdomen/Pelvis CT 03/09/23 12:33 CT abd pelvis wo con CLINICAL HISTORY: gross hematuria TECHNIQUE: Helical axial images of the abdomen and pelvis were obtained. Automated dose lowering techniques and/or adjustment according to patient size were utilized for this exam. This exam was performed without intravenous contrast. CT DOSE: 1037.67 mGy.cm COMPARISON: Comparison is made to CT abdomen pelvis 01/05/2023 FINDINGS: Lower chest: No acute abnormality. Liver: Unremarkable. No focal lesions are seen. Gallbladder and biliary tree: Patient is status post cholecystectomy. No intra- or extrahepatic biliary ductal dilation. Pancreas: The pancreas is atrophic with multiple calcifications. Spleen: Unremarkable. Adrenals: Unremarkable. Kidneys and ureters: Unremarkable. Bladder: Unremarkable. Reproductive organs: Unremarkable. Bowel: Diverticulosis is seen without evidence of diverticulitis. Lymph nodes Retroperitoneal: Unremarkable. Pelvic: Unremarkable. Mesenteric: Unremarkable. Peritoneum: Normal. Vessels: Unremarkable. Abdominal wall: Unremarkable. Bones: Minimal degenerative changes are seen. IMPRESSION: 1. No acute abnormalities and in particular no evidence of urothelial lesion or nephrolithiasis. 2. Diverticulosis without diverticulitis. 3. Postsurgical changes of posterior knee. 4. Changes of chronic pancreatitis. 5. Additional findings as above. ACT 112: Negative or not required by law. Electronically signed by: Oral Mc M.D. 03/09/2023 2:13 PM Chest X-Ray 03/09/23 15:11 XR chest 1V portable HISTORY: chest pain COMPARISON: Chest 01/03/2023. FINDINGS: The lungs are clear. Cardiac silhouette is normal in size. No pleural effusions. No pneumothorax. IMPRESSION: No acute process. Electronically signed by: Silverio Monroe M.D. 03/09/2023 3:20 PM Hospital Course (1) Hematuria: hematuria has resolved and not recurred, did hold home Eliquis will start on discharge recommending outpatient laboratories this week follow-up with family physician No anatomical reason on CT UA does not appear infected, culture shows contaminant Consult urology, D/w Dr. Delma sun to use macrobid as Crcl above 60 completed 6 full days of therapy outpatient culture showed Aerococcus urinae and coagulase negative staph s ensitive to macrobid (2) PAF (paroxysmal atrial fibrillation): Currently in normal sinus rhythm Continue metoprolol tartrate Restart anticoagulation after discharge (3) Diabetes: Hemoglobin A1c 6.6 in February Glipizide discontinued last admission No Lantus needed last admission with good glucose control No need for BSG ACHS or insulin this admission (4) Hypothyroidism: TSH within normal limits [02/18] Continue levothyroxine (5) Myofascial pain: Tylenol and tramadol prn (6) Ambulatory dysfunction: PT/OT, patient requesting placement patient refused placement as there was a delay patient will have home health instituted family is comfortable with this they will have family members help her get up her steps to get into her home Plan DNR Total Time Total Time Spent Total Time Spent (In Minutes): It required greater than 30 minutes to prepare this patient for discharge. Discharge Plan Discharge Items Patient Disposition: Home - Home Health Services Reason For Visit: GENERALIZED WEAKNESS Discharge Diagnosis: metabolic encephalopathy and generalized weakness hematuria- resolved suspected uti poa treated Activity: Per Instructions section Activity Comment: as per home PT evaluation Non-emergency contact: Primary Care Provider Call non-emergency contact if: your symptoms worsen Follow-up/Referrals: Yash Tavares DO [Primary Care Provider] - Diet: Regular Ambulatory Orders: Basic Metabolic Panel (Routine) Timeframe: 5 Days Location: Determined by Patient Ordered By: Maroi Hsieh Complete Blood Count no Diff (Routine) Timeframe: 5 Days Location: Determined by Patient Ordered By: Mario Beard Attending Provider Instructions: You were admitted with generalized weakness suspected to be from urinary tract infection when you arrived to the hospital. This was not proven by culture but you were treated empirically with an antibiotic per the recommendations of urology. Your other health health problems remained stable during her hospital stay including your irregular heartbeat and glucose intolerance [employer] Provider Instructions: check cbc and chemistry next week as we have restarted eliquis, Pending Studies at Discharge: No Stand-Alone Forms: My [facility] [place], Smoking Cessation Medications and DC Order Prescriptions: Continued levothyroxine 75 mcg tablet 75 mcg PO DAILY Qty: 90 3RF atorvastatin 80 mg tablet 80 mg PO DAILY Qty: 90 1RF Eliquis 5 mg tablet 5 mg PO BID Qty: 60 3RF nitroglycerin 0.4 mg tablet, sublingual 0.4 mg SL Q5M PRN (Reason: chest pain) Qty: 25 1RF methenamine hippurate 1 gram tablet 1 g PO BID Qty: 180 3RF mecobalamin (vitamin B12) 1,000 mcg tablet,chewable 0 mcg PO DAILY Rx Instructions: Unable to verify OTC medications with patient/family at this date/time cholecalciferol (vitamin D3) [Vitamin D3] 2,000 unit Capsule 0 unit PO DAILY Rx Instructions: Unable to verify OTC medications with patient/family at this date/time olopatadine [Pataday Once Daily Relief] 0.2 % drops 0 drp ophthalmic (eye) DAILY PRN (Reason: Itching) Rx Instructions: Unable to verify OTC medications with patient/family at this date/time sennosides [Senokot] 8.6 mg tablet 0 mg PO QAM PRN (Reason: constipation) Rx Instructions: Unable to verify OTC medications with patient/family at this date/time acetaminophen 325 mg tablet 0 mg PO Q4H PRN (Reason: fever or pain) Rx Instructions: Unable to verify OTC medications with patient/family at this date/time Changed metoprolol tartrate 25 mg tablet 25 mg PO BID Qty: 270 3RF Discontinued tramadol 50 mg tablet 50 mg PO DAILY PRN (Reason: pain) Qty: 20 0RF loratadine [Claritin] 10 mg tablet 0 mg PO DAILY PRN (Reason: allergy symtoms) Rx Instructions: Unable to verify OTC medications with patient/family at this date/time Discharge Orders: Discharge Order (Routine); Ordered 03/16/23 Ordered By: Mario Hsieh Admission Data Admit Date/Time: 03/09/23 17:02 Attending Provider: Mario Hsieh Admit Provider: Teofilo Rodriguez Primary Care Provider: Yash Tavraes Other Providers: Teofilo Rodriguez; Anna Mitchell; Serena Loya; Richard Alcazar; Freddie Esquivel; [facility] Other Interventions: Discharge Summary Assessment (RN) Last Done: 03/16/23 15:30 Coding Level of Care Code 92214 INP/OBS DISCH >30 MIN Diagnoses Hematuria R31.9 PAF (paroxysmal atrial fibrillation) I48.0 Diabetes E11.9 Hypothyroidism E03.9 Myofascial pain M79.18 Ambulatory dysfunction R26.2
== END 2023-03-16 16:49 | disposition home health service (06) | DRG 695 ==
LOC: ED 12:18 → SUATTDRO 17:02 → INTOOBSV 17:02 → 3W 17:02

== ENCOUNTER 2023-03-18 17:35 | Observation (INO) ==
[2023-03-18 18:51] LABS: Basophils # (auto) 0.03 K/uL (0.00-0.20); Basophils % (auto) 0.4 %; Eosinophils # (auto) 0.13 K/uL (0.00-0.50); Eosinophils % (auto) 1.9 %; Hematocrit (blood only) 41.9 % (37.0-47.0); Hemoglobin 14.3 g/dl (12.0-16.0); Immature Granulocytes # (auto) 0.04 K/uL (0.01-0.20); Immature Granulocytes % (auto) 0.6 %; Lymphocytes # (auto) 2.77 K/uL (1.20-3.40); Mean Corpuscular Hemoglobin 30.6 pg (25.0-34.0); Mean Corpuscular Hgb Conc 34.1 g/dL (32.0-36.0); Mean Corpuscular Volume 89.7 fL (80.0-100.0); Mean Platelet Volume 10.1 fL (9.4-12.4); Monocytes # (auto) 0.43 K/uL (0.11-0.59); Monocytes % (auto) 6.2 %; Neutrophils # (auto) 3.53 K/uL (1.40-6.50); Neutrophils % (auto) 50.9 %; Platelet Count 196 K/uL (130-400); RDW Coefficient of Variation 13.6 % (11.5-14.5); RDW Standard Deviation 44.6 fL (36.4-46.3); Red Blood Count 4.67 M/uL (4.20-5.40); White Blood Count 6.93 K/ul (4.8-10.8)
[2023-03-18 18:56] LABS: Albumin Globulin Ratio 1.3 (0.9-2); Albumin Level 3.6 gm/dl (3.4-5.0); BUN Creatinine Ratio 25.4 (10-20); Bilirubin,Total 0.6 mg/dl (0.2-1.0); Calcium 9.1 mg/dl (8.6-10.3); Creatinine Clr Calc Pharmacy 62.9 ml/min; Est GFR (African American) 90.7 ml/min; Est GFR (Non-African American) 78.2 ml/min; Globulin 2.8 gm/dl (2.5-4.0); Potassium 4.5 mmol/L (3.5-5.1); Total Protein 6.4 gm/dl (6.0-8.3)
[2023-03-18 19:03] LABS: Troponin I High Sensitivity 36.3 pg/ml (0-14)
[2023-03-18 19:17] LABS: Partial Thromboplastin Ratio 0.9; Partial Thromboplastin Time 26 Seconds (21-31); Prothrombin Time 10.9 Seconds (9.0-12.0)
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
[2023-03-18 20:19] LABS: Appearance Urine Clear (Clear); Bacteria Urine Automated Negative (Negative); Bilirubin Urine Negative (Negative); Blood Urine Trace (Negative); Color Urine Yellow; Epithelial Cell Urine Auto >30 /lpf (0-5); Glucose Urine UA Negative (Negative); Ketones Urine Negative (Negative); Leukocyte Esterase Urine Negative (Negative); Nitrite Urine Negative (Negative); Protein Urine Negative (Negative); RBC Urine Automated 0-4 /hpf (0-4); Specific Gravity Urine 1.014 (1.000-1.030); Urobilinogen Urine Negative (Negative); pH Urine 5.5 (4.5-7.5)
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
[2023-03-18 20:56] LABS: Influenza A virus by PCR Negative (Neg); Influenza B virus by PCR Negative (Neg); RSV by PCR Negative (Neg); SARS CoV2 RNA(COVID-19) Ceph NEGATIVE (Negative)
[2023-03-18] MEDS ORDERED: NITROGLYCERIN SL 0.4 MG/TAB TAB SL PRN (23:03)
[2023-03-18] MEDS ORDERED: ATROPINE SULFATE 0.1 MG/ML 5ML SYR IV PRN (23:03)
[2023-03-18] MEDS: APIXABAN 5 MG TABLET PO SCH (23:53)
[2023-03-18] MEDS: traMADol HCL 50 MG TABLET PO PRN (23:56)
[2023-03-19 03:42] LABS: Basophils # (auto) 0.03 K/uL (0.00-0.20); Basophils % (auto) 0.4 %; Eosinophils # (auto) 0.13 K/uL (0.00-0.50); Eosinophils % (auto) 1.9 %; Hematocrit (blood only) 37.8 % (37.0-47.0); Hemoglobin 12.9 g/dl (12.0-16.0); Immature Granulocytes # (auto) 0.06 K/uL (0.01-0.20); Immature Granulocytes % (auto) 0.9 %; Lymphocytes # (auto) 2.78 K/uL (1.20-3.40); Lymphocytes % (auto) 41.6 %; Mean Corpuscular Hemoglobin 30.6 pg (25.0-34.0); Mean Corpuscular Hgb Conc 34.1 g/dL (32.0-36.0); Mean Corpuscular Volume 89.6 fL (80.0-100.0); Mean Platelet Volume 9.5 fL (9.4-12.4); Monocytes # (auto) 0.46 K/uL (0.11-0.59); Monocytes % (auto) 6.9 %; Neutrophils # (auto) 3.22 K/uL (1.40-6.50); Neutrophils % (auto) 48.3 %; Platelet Count 168 K/uL (130-400); RDW Coefficient of Variation 13.4 % (11.5-14.5); RDW Standard Deviation 43.9 fL (36.4-46.3); Red Blood Count 4.22 M/uL (4.20-5.40); White Blood Count 6.68 K/ul (4.8-10.8)
[2023-03-19 03:55] LABS: Calcium 8.6 mg/dl (8.6-10.3); Creatinine Clr Calc Pharmacy 60.4 ml/min; Est GFR (African American) 86.2 ml/min; Est GFR (Non-African American) 74.4 ml/min; Potassium 3.9 mmol/L (3.5-5.1)
[2023-03-19] MEDS: LEVOTHYROXINE SODIUM 75 MCG TABLET PO SCH (06:24)
--- NOTE | 2023-03-19 07:08 | XRay Report ---
XR chest 1V not portable CLINICAL HISTORY: Chest pain, nonspecific COMPARISON STUDY: Chest radiograph March 09, 2023. FINDINGS: Lung volumes are normal. Lungs are clear. There is no pneumothorax or pleural effusion. Mil d cardiomegaly is unchanged. Mediastinal contours are normal. There is no evidence for pulmonary padmini a. IMPRESSION: No acute cardiopulmonary findings. No change in appearance of the chest. ACT 112: Negative or not required by law. Electronically signed by: Torrey Pat M.D. 03/19/2023 7:07 AM
--- NOTE | 2023-03-19 07:32 | Hospitalist Progress Note ---
Date of Service March 19, 2023 Assessment & Plan (1) Ambulatory dysfunction: Plan: Weakness With multiple recent hospitalizations, global deconditioning. No signs of infection on admission. No signs of gross electrolyte abnormality. Troponin is mildly elevated near her normal baseline and without EKG changes or signs of ACS. No dysrhythmias noted. He does have significant resting bradycardia in the high 40s to 50s at bedside assessment and has continued to take metoprolol. Reports that her bradycardia is relatively new. Metoprolol held? Contribution to her weakness although she has not been hypotensive. PT/OT/CM consulted (2) Chest pain: Plan: chest pain, non exertional EKG: Sinus bradycardia. No territorial ST elevations or depressions. No changes compared to prior 03/09/2023 Last echo 10/09/2022. 60 to 65% EF without wall motion abnormalities She has a elevated troponin near her prior baseline, 2-hour repeat has decreased Chest pain has resolved Do not suspect ACS, (3) Hematuria: Plan: Hematuria resolved, trace blood on UA without signs of UTI. CT 03/09/2023 did not show any evidence of urothelial lesions or kidney stones. Can continue outpatient follow-up with urologyWith outpatient cystoscopy.. Patient has resumed her apixaban but does not have gross hematuria on admission (4) Hypertension: Plan: Patient is with bradycardia in the 50s. She is not hypotensive. Will temporarily hold metoprolol for bradycardia in the low 50s blood pressure is up will try amlodipine (5) Hypothyroidism: Plan: Continue Synthroid (6) PAF (paroxysmal atrial fibrillation): Plan: Paroxysmal A-fib In sinus on admission Metoprolol held for bradycardia. Patient is not hypotensive on admission. Orthostatics pending (7) Diabetes: Plan: Type II DM Did not require sliding scale insulin or Lantus at last admission and last A1c was 6.6%. BSG is 139 on admission. Will liberalize diet and check BMP daily, can spot check glucose if needed. Plan DVT prophylaxis: Anticoagulated CODE STATUS: DNR/DNI Admission and Anticipated Discharge Date Admission Date: March 18, 2023 Subjective Pt returns after short stay at home, initial request was for rehab but pt wanted to try it at home when questioned about her Chest pain, she just said she had pain all over and was not doing well at home without a specific description of angina Physical Exam Physical Exam: awake and alert cardiac is regular lungs are clear but diminished at the bases ext with trace edema Results & Data Results & Data Vital Signs (Past 12 Hours) Vital Signs Temp Pulse Pulse Resp BP Pulse Ox O2 Del Method 03/19/23 07:27 45 L 03/19/23 06:25 54 L 18 184/86 H 98 Room Air 03/19/23 04:33 59 L 16 165/75 H 98 Room Air 03/19/23 00:37 59 L 03/18/23 23:57 97.5 F L 47 L 16 188/87 H 97 Room Air 03/18/23 22:18 98.2 F 50 L 19 97 Room Air 03/18/23 21:04 55 L 03/18/23 20:05 97.9 F 52 L 16 95 Room Air Laboratory Results reviewed cbc reviewed chemistry PG Care Time/CCT Total # of Minutes Spent Total Time Spent with Patient: Total time spent is greater than 50% in coordination of care (as documented) at patient's floor/unit and/or counseling patient: Coding Level of Care Code 28016 SUB INP/OBS CARE 3/50MIN Diagnoses Ambulatory dysfunction R26.2 Chest pain R07.9 Hematuria R31.9 Hypertension I10 Hypothyroidism E03.9 PAF (paroxysmal atrial fibrillation) I48.0 Diabetes E11.9
--- NOTE | 2023-03-19 07:55 | Electrocardiogram Report ---
Test Reason : Blood Pressure : / mmHG Vent. Rate : 060 BPM Atrial Rate : 060 BPM P-R Int : 118 ms QRS Dur : 088 ms QT Int : 390 ms P-R-T Axes : 023 -45 061 degrees QTc Int : 390 ms Normal sinus rhythm Left axis deviation Nonspecific ST abnormality Septal leads Nonspecific T wave abnormality Anterior leads Abnormal ECG When compared with ECG of 09-MAR-2023 19:41, No significant change was found Confirmed by Chito Cao ([id number]) on 03/19/2023 7:55:07 AM Referred By: REFERRED SELF Confirmed By:Chito Cao
[2023-03-19] MEDS: ATORVASTATIN 40 MG TAB PO SCH (09:16)
[2023-03-19] MEDS: CHOLECALCIFEROL 25 MCG (1000 UNITS) TAB PO SCH (09:17)
[2023-03-19] MEDS: amLODIPine BESYLATE 5 MG TAB PO ONE (17:51)
[2023-03-20] MEDS: POLYETHYLENE (MIRALAX) 17 GM PACK PO PRN (07:29)
[2023-03-20 07:39] LABS: Basophils # (auto) 0.04 K/uL (0.00-0.20); Basophils % (auto) 0.5 %; Eosinophils # (auto) 0.18 K/uL (0.00-0.50); Eosinophils % (auto) 2.4 %; Hematocrit (blood only) 40.3 % (37.0-47.0); Hemoglobin 13.5 g/dl (12.0-16.0); Immature Granulocytes # (auto) 0.05 K/uL (0.01-0.20); Immature Granulocytes % (auto) 0.7 %; Lymphocytes # (auto) 2.68 K/uL (1.20-3.40); Lymphocytes % (auto) 36.1 %; Mean Corpuscular Hemoglobin 30.5 pg (25.0-34.0); Mean Corpuscular Hgb Conc 33.5 g/dL (32.0-36.0); Mean Platelet Volume 9.7 fL (9.4-12.4); Monocytes # (auto) 0.46 K/uL (0.11-0.59); Monocytes % (auto) 6.2 %; Neutrophils # (auto) 4.02 K/uL (1.40-6.50); Neutrophils % (auto) 54.1 %; Platelet Count 177 K/uL (130-400); RDW Coefficient of Variation 13.3 % (11.5-14.5); RDW Standard Deviation 44.7 fL (36.4-46.3); Red Blood Count 4.43 M/uL (4.20-5.40); White Blood Count 7.43 K/ul (4.8-10.8)
[2023-03-20 07:57] LABS: BUN Creatinine Ratio 24.4 (10-20); Calcium 8.8 mg/dl (8.6-10.3); Creatinine Clr Calc Pharmacy 57.2 ml/min; Est GFR (African American) 80.9 ml/min; Est GFR (Non-African American) 69.8 ml/min; Potassium 4.3 mmol/L (3.5-5.1)
[2023-03-20 08:20] LABS: Lyme Ab IgG w/WB Rflx Negative (Negative); Lyme Ab IgM w/WB Rflx Negative (Negative)
[2023-03-20] MEDS: amLODIPine BESYLATE 5 MG TAB PO SCH (08:26)
--- NOTE | 2023-03-20 17:16 | Hospitalist Progress Note ---
Date of Service March 20, 2023 Assessment & Plan (1) Ambulatory dysfunction: Plan: Weakness With multiple recent hospitalizations, global deconditioning. No signs of infection on admission. No signs of gross electrolyte abnormality. Troponin is mildly elevated near her normal baseline and without EKG changes or signs of ACS. No dysrhythmias noted. He does have significant resting bradycardia in the high 40s to 50s at bedside assessment and has discontinued metoprolol. feels much better watch afib cautiously PT/OT/CM consulted, for placement (2) Chest pain: Plan: chest pain, non exertional EKG: Sinus bradycardia. No territorial ST elevations or depressions. No changes compared to prior 03/09/2023 Last echo 10/09/2022. 60 to 65% EF without wall motion abnormalities She has a elevated troponin near her prior baseline, 2-hour repeat has decreased Chest pain has resolved Do not suspect ACS, (3) Hematuria: Plan: Hematuria resolved, trace blood on UA without signs of UTI. CT 03/09/2023 did not show any evidence of urothelial lesions or kidney stones. Can continue outpatient follow-up with urologyWith outpatient cystoscopy.. Patient has resumed her apixaban but does not have gross hematuria on admission (4) Hypertension: Plan: Patient is with bradycardia in the 50s. She is not hypotensive. hold metoprolol for bradycardia in the low 50s blood pressure use amlodipine (5) Hypothyroidism: Plan: Continue Synthroid (6) PAF (paroxysmal atrial fibrillation): Plan: Paroxysmal A-fib In sinus on admission Metoprolol held for bradycardia. Patient is not hypotensive on admission. (7) Diabetes: Plan: Type II DM Did not require sliding scale insulin or Lantus at last admission and last A1c was 6.6%. BSG is 139 on admission. Will liberalize diet and check BMP daily, can spot check glucose if needed. Plan DVT prophylaxis: Anticoagulated CODE STATUS: DNR/DNI Admission and Anticipated Discharge Date Admission Date: March 19, 2023 Subjective pt feels much better, thinks its from stopping her metoprolol needs some bp control started amlodipine Physical Exam Physical Exam: awake and alert cardiac is regular lungs are clear but diminished at the bases ext with trace edema Results & Data Results & Data Vital Signs (Past 12 Hours) Vital Signs Temp Pulse Pulse Resp BP Pulse Ox Pulse Ox 03/20/23 14:59 98.4 F 77 18 146/74 H 97 03/20/23 14:29 96 03/20/23 08:27 68 03/20/23 07:36 97.7 F 47 L 18 126/83 94 03/20/23 07:00 56 L O2 Del Method O2 Flow Rate 03/20/23 14:59 Room Air 03/20/23 14:29 0 03/20/23 08:27 03/20/23 07:36 Room Air 03/20/23 07:00 Laboratory Results review cbc review chemistry PG Care Time/CCT Total # of Minutes Spent Total Time Spent with Patient: Total time spent is greater than 50% in coordination of care (as documented) at patient's floor/unit and/or counseling patient: Coding Level of Care Code 02359 SUB INP/OBS CARE 2/35MIN Diagnoses Ambulatory dysfunction R26.2 Chest pain R07.9 Hematuria R31.9 Hypertension I10 Hypothyroidism E03.9 PAF (paroxysmal atrial fibrillation) I48.0 Diabetes E11.9
[2023-03-20] MEDS ORDERED: MELATONIN 3 MG TAB PO PRN (22:58)
[2023-03-20] MEDS: ACETAMINOPHEN 325 MG TAB PO PRN (23:42)
[2023-03-21] MEDS: traMADol HCL 50 MG TABLET PO STA (00:12)
[2023-03-21 07:11] LABS: Basophils # (auto) 0.04 K/uL (0.00-0.20); Basophils % (auto) 0.5 %; Eosinophils # (auto) 0.19 K/uL (0.00-0.50); Eosinophils % (auto) 2.6 %; Hematocrit (blood only) 40.9 % (37.0-47.0); Hemoglobin 13.5 g/dl (12.0-16.0); Immature Granulocytes # (auto) 0.07 K/uL (0.01-0.20); Lymphocytes # (auto) 3.09 K/uL (1.20-3.40); Lymphocytes % (auto) 42.3 %; Mean Corpuscular Hemoglobin 29.8 pg (25.0-34.0); Mean Corpuscular Volume 90.3 fL (80.0-100.0); Mean Platelet Volume 9.3 fL (9.4-12.4); Monocytes # (auto) 0.52 K/uL (0.11-0.59); Monocytes % (auto) 7.1 %; Neutrophils % (auto) 46.5 %; Platelet Count 195 K/uL (130-400); RDW Coefficient of Variation 13.2 % (11.5-14.5); RDW Standard Deviation 43.5 fL (36.4-46.3); Red Blood Count 4.53 M/uL (4.20-5.40); White Blood Count 7.31 K/ul (4.8-10.8)
[2023-03-21 07:26] LABS: BUN Creatinine Ratio 22.1 (10-20); Calcium 8.8 mg/dl (8.6-10.3); Creatinine Clr Calc Pharmacy 65.6 ml/min; Est GFR (African American) 93.1 ml/min; Est GFR (Non-African American) 80.3 ml/min; Potassium 4.1 mmol/L (3.5-5.1)
--- NOTE | 2023-03-21 22:10 | Hospitalist Progress Note ---
Date of Service March 21, 2023 Assessment & Plan (1) Ambulatory dysfunction: Plan: Weakness With multiple recent hospitalizations, global deconditioning. No signs of infection on admission. No signs of gross electrolyte abnormality. Troponin is mildly elevated near her normal baseline and without EKG changes or signs of ACS. No dysrhythmias noted. He does have significant resting bradycardia in the high 40s to 50s at bedside assessment and has discontinued metoprolol. feels much better watch afib cautiously PT/OT/CM consulted, for placement (2) Chest pain: Plan: chest pain, non exertional EKG: Sinus bradycardia. No territorial ST elevations or depressions. No changes compared to prior 03/09/2023 Last echo 10/09/2022. 60 to 65% EF without wall motion abnormalities She has a elevated troponin near her prior baseline, 2-hour repeat has decreased Chest pain has resolved Do not suspect ACS, (3) Hematuria: Plan: Hematuria resolved, trace blood on UA without signs of UTI. CT 03/09/2023 did not show any evidence of urothelial lesions or kidney stones. Can continue outpatient follow-up with urologyWith outpatient cystoscopy.. Patient has resumed her apixaban but does not have gross hematuria on admission (4) Hypertension: Plan: Patient is with bradycardia in the 50s. She is not hypotensive. hold metoprolol for bradycardia in the low 50s blood pressure use amlodipine (5) Hypothyroidism: Plan: Continue Synthroid (6) PAF (paroxysmal atrial fibrillation): Plan: Paroxysmal A-fib In sinus on admission Metoprolol held for bradycardia. Patient is not hypotensive on admission. (7) Diabetes: Plan: Type II DM Did not require sliding scale insulin or Lantus at last admission and last A1c was 6.6%. BSG is 139 on admission. Will liberalize diet and check BMP daily, can spot check glucose if needed. Plan DVT prophylaxis: Anticoagulated CODE STATUS: DNR/DNI Admission and Anticipated Discharge Date Admission Date: March 19, 2023 Subjective 82 yo female reports no new symptoms. Review of Systems Review of Systems: All systems reviewed & are unremarkable except as noted in HPI & below Physical Exam Physical Exam: awake and alert cardiac is regular lungs are clear but diminished at the bases ext with trace edema Results & Data Results & Data Vital Signs (Past 12 Hours) Vital Signs Temp Pulse Pulse Resp BP Pulse Ox O2 Del Method 03/21/23 19:32 36.8 C 81 16 144/75 H 95 Room Air 03/21/23 15:54 36.4 C L 74 16 131/70 95 Room Air PG Care Time/CCT Total # of Minutes Spent Total Time Spent with Patient: Total time spent is greater than 50% in coordination of care (as documented) at patient's floor/unit and/or counseling patient: Coding Level of Care Code 73891 SUB INP/OBS CARE 2/35MIN Diagnoses Ambulatory dysfunction R26.2 Chest pain R07.9 Hematuria R31.9 Hypertension I10 Hypothyroidism E03.9 PAF (paroxysmal atrial fibrillation) I48.0 Diabetes E11.9 Time Spent (min) 35 Comment chart review/ sign out from previous doctor
[2023-03-22 07:32] LABS: Hematocrit (blood only) 37.3 % (37.0-47.0); Hemoglobin 12.7 g/dl (12.0-16.0); Mean Corpuscular Hemoglobin 30.1 pg (25.0-34.0); Mean Corpuscular Volume 88.4 fL (80.0-100.0); Mean Platelet Volume 9.3 fL (9.4-12.4); Platelet Count 187 K/uL (130-400); RDW Coefficient of Variation 13.2 % (11.5-14.5); Red Blood Count 4.22 M/uL (4.20-5.40); White Blood Count 7.48 K/ul (4.8-10.8)
[2023-03-22 07:49] LABS: BUN Creatinine Ratio 21.9 (10-20); Calcium 8.7 mg/dl (8.6-10.3); Creatinine Clr Calc Pharmacy 69.7 ml/min; Est GFR (Non-African American) 81.9 ml/min; Potassium 4.3 mmol/L (3.5-5.1)
--- NOTE | 2023-03-22 21:15 | Hospitalist Progress Note ---
Date of Service March 22, 2023 Assessment & Plan (1) Ambulatory dysfunction: Plan: Weakness With multiple recent hospitalizations, global deconditioning. No signs of infection on admission. No signs of gross electrolyte abnormality. Troponin is mildly elevated near her normal baseline and without EKG changes or signs of ACS. No dysrhythmias noted. He does have significant resting bradycardia in the high 40s to 50s at bedside assessment and has discontinued metoprolol. feels much better watch afib cautiously PT/OT/CM consulted, for placement (2) Chest pain: Plan: chest pain, non exertional EKG: Sinus bradycardia. No territorial ST elevations or depressions. No changes compared to prior 03/09/2023 Last echo 10/09/2022. 60 to 65% EF without wall motion abnormalities She has a elevated troponin near her prior baseline, 2-hour repeat has decreased Chest pain has resolved Do not suspect ACS, (3) Hematuria: Plan: Hematuria resolved, trace blood on UA without signs of UTI. CT 03/09/2023 did not show any evidence of urothelial lesions or kidney stones. Can continue outpatient follow-up with urologyWith outpatient cystoscopy.. Patient has resumed her apixaban but does not have gross hematuria on admission (4) Hypertension: Plan: Patient is with bradycardia in the 50s. She is not hypotensive. hold metoprolol for bradycardia in the low 50s blood pressure use amlodipine (5) Hypothyroidism: Plan: Continue Synthroid (6) PAF (paroxysmal atrial fibrillation): Plan: Paroxysmal A-fib In sinus on admission Metoprolol held for bradycardia. Patient is not hypotensive on admission. (7) Diabetes: Plan: Type II DM Did not require sliding scale insulin or Lantus at last admission and last A1c was 6.6%. BSG is 139 on admission. Will liberalize diet and check BMP daily, can spot check glucose if needed. Plan DVT prophylaxis: Anticoagulated CODE STATUS: DNR/DNI Admission and Anticipated Discharge Date Admission Date: March 19, 2023 Subjective patient reports no new symptoms. Review of Systems Review of Systems: All systems reviewed & are unremarkable except as noted in HPI & below Physical Exam Physical Exam: awake and alert cardiac is regular lungs are clear but diminished at the bases ext with trace edema Results & Data Results & Data Vital Signs (Past 12 Hours) Vital Signs Temp Pulse Resp BP Pulse Ox O2 Del Method 03/22/23 19:20 36.9 C 82 14 124/74 95 Room Air 03/22/23 14:43 37.0 C 72 16 144/79 H 95 Room Air PG Care Time/CCT Total # of Minutes Spent Total Time Spent with Patient: Total time spent is greater than 50% in coordination of care (as documented) at patient's floor/unit and/or counseling patient: Coding Level of Care Code 71556 SUB INP/OBS CARE /25MIN Diagnoses Ambulatory dysfunction R26.2 Chest pain R07.9 Hematuria R31.9 Hypertension I10 Hypothyroidism E03.9 PAF (paroxysmal atrial fibrillation) I48.0 Diabetes E11.9
--- NOTE | 2023-03-23 20:22 | Hospitalist Progress Note ---
Date of Service March 23, 2023 Assessment & Plan (1) Ambulatory dysfunction: Plan: Weakness With multiple recent hospitalizations, global deconditioning. No signs of infection on admission. No signs of gross electrolyte abnormality. Troponin is mildly elevated near her normal baseline and without EKG changes or signs of ACS. No dysrhythmias noted. He does have significant resting bradycardia in the high 40s to 50s at bedside assessment and has discontinued metoprolol. feels much better watch afib cautiously PT/OT/CM consulted, for placement (2) Chest pain: Plan: chest pain, non exertional EKG: Sinus bradycardia. No territorial ST elevations or depressions. No changes compared to prior 03/09/2023 Last echo 10/09/2022. 60 to 65% EF without wall motion abnormalities She has a elevated troponin near her prior baseline, 2-hour repeat has decreased Chest pain has resolved Do not suspect ACS, (3) Hematuria: Plan: Hematuria resolved, trace blood on UA without signs of UTI. CT 03/09/2023 did not show any evidence of urothelial lesions or kidney stones. Can continue outpatient follow-up with urologyWith outpatient cystoscopy.. Patient has resumed her apixaban but does not have gross hematuria on admission (4) Hypertension: Plan: Patient is with bradycardia in the 50s. She is not hypotensive. hold metoprolol for bradycardia in the low 50s blood pressure use amlodipine (5) Hypothyroidism: Plan: Continue Synthroid (6) PAF (paroxysmal atrial fibrillation): Plan: Paroxysmal A-fib In sinus on admission Metoprolol held for bradycardia. Patient is not hypotensive on admission. (7) Diabetes: Plan: Type II DM Did not require sliding scale insulin or Lantus at last admission and last A1c was 6.6%. BSG is 139 on admission. Will liberalize diet and check BMP daily, can spot check glucose if needed. Plan DVT prophylaxis: Anticoagulated CODE STATUS: DNR/DNI Admission and Anticipated Discharge Date Admission Date: March 19, 2023 Subjective Patient reports no new symptoms. Review of Systems Review of Systems: All systems reviewed & are unremarkable except as noted in HPI & below Physical Exam Physical Exam: awake and alert cardiac is regular lungs are clear but diminished at the bases ext with trace edema Results & Data Results & Data Vital Signs (Past 12 Hours) Vital Signs Temp Pulse Resp BP Pulse Ox O2 Del Method 03/23/23 15:09 37.1 C 67 16 123/68 95 Room Air PG Care Time/CCT Total # of Minutes Spent Total Time Spent with Patient: Total time spent is greater than 50% in coordination of care (as documented) at patient's floor/unit and/or counseling patient: Coding Level of Care Code 67317 SUB INP/OBS CARE 1/25MIN Diagnoses Ambulatory dysfunction R26.2 Chest pain R07.9 Hematuria R31.9 Hypertension I10 Hypothyroidism E03.9 PAF (paroxysmal atrial fibrillation) I48.0 Diabetes E11.9
--- NOTE | 2023-03-24 22:30 | Hospitalist Progress Note ---
Date of Service March 24, 2023 Assessment & Plan (1) Ambulatory dysfunction: Plan: Weakness With multiple recent hospitalizations, global deconditioning. No signs of infection on admission. No signs of gross electrolyte abnormality. Troponin is mildly elevated near her normal baseline and without EKG changes or signs of ACS. No dysrhythmias noted. He does have significant resting bradycardia in the high 40s to 50s at bedside assessment and has discontinued metoprolol. feels much better watch afib cautiously PT/OT/CM consulted, for placement (2) Chest pain: Plan: chest pain, non exertional EKG: Sinus bradycardia. No territorial ST elevations or depressions. No changes compared to prior 03/09/2023 Last echo 10/09/2022. 60 to 65% EF without wall motion abnormalities She has a elevated troponin near her prior baseline, 2-hour repeat has decreased Chest pain has resolved Do not suspect ACS, (3) Hematuria: Plan: Hematuria resolved, trace blood on UA without signs of UTI. CT 03/09/2023 did not show any evidence of urothelial lesions or kidney stones. Can continue outpatient follow-up with urologyWith outpatient cystoscopy.. Patient has resumed her apixaban but does not have gross hematuria on admission (4) Hypertension: Plan: Patient is with bradycardia in the 50s. She is not hypotensive. hold metoprolol for bradycardia in the low 50s blood pressure use amlodipine (5) Hypothyroidism: Plan: Continue Synthroid (6) PAF (paroxysmal atrial fibrillation): Plan: Paroxysmal A-fib In sinus on admission Metoprolol held for bradycardia. Patient is not hypotensive on admission. (7) Diabetes: Plan: Type II DM Did not require sliding scale insulin or Lantus at last admission and last A1c was 6.6%. BSG is 139 on admission. Will liberalize diet and check BMP daily, can spot check glucose if needed. Plan DVT prophylaxis: Anticoagulated CODE STATUS: DNR/DNI Admission and Anticipated Discharge Date Admission Date: March 19, 2023 Subjective Patient reports no new symptoms. Review of Systems Review of Systems: All systems reviewed & are unremarkable except as noted in HPI & below Physical Exam Physical Exam: awake and alert cardiac is regular lungs are clear but diminished at the bases ext with trace edema Results & Data Results & Data Vital Signs (Past 12 Hours) Vital Signs Temp Pulse Resp BP Pulse Ox O2 Del Method 03/24/23 19:43 37.2 C 75 16 146/77 H 97 Room Air 03/24/23 13:31 36.8 C 74 18 137/74 94 Room Air PG Care Time/CCT Total # of Minutes Spent Total Time Spent with Patient: Total time spent is greater than 50% in coordination of care (as documented) at patient's floor/unit and/or counseling patient: Coding Level of Care Code 27669 SUB INP/OBS CARE 2/35MIN Diagnoses Ambulatory dysfunction R26.2 Chest pain R07.9 Hematuria R31.9 Hypertension I10 Hypothyroidism E03.9 PAF (paroxysmal atrial fibrillation) I48.0 Diabetes E11.9
--- NOTE | 2023-03-25 22:00 | Hospitalist Progress Note ---
Date of Service March 25, 2023 Assessment & Plan (1) Ambulatory dysfunction: Plan: Weakness With multiple recent hospitalizations, global deconditioning. No signs of infection on admission. No signs of gross electrolyte abnormality. Troponin is mildly elevated near her normal baseline and without EKG changes or signs of ACS. No dysrhythmias noted. He does have significant resting bradycardia in the high 40s to 50s at bedside assessment and has discontinued metoprolol. feels much better watch afib cautiously PT/OT/CM consulted, for placement (2) Chest pain: Plan: chest pain, non exertional EKG: Sinus bradycardia. No territorial ST elevations or depressions. No changes compared to prior 03/09/2023 Last echo 10/09/2022. 60 to 65% EF without wall motion abnormalities She has a elevated troponin near her prior baseline, 2-hour repeat has decreased Chest pain has resolved Do not suspect ACS, (3) Hematuria: Plan: Hematuria resolved, trace blood on UA without signs of UTI. CT 03/09/2023 did not show any evidence of urothelial lesions or kidney stones. Can continue outpatient follow-up with urologyWith outpatient cystoscopy.. Patient has resumed her apixaban but does not have gross hematuria on admission (4) Hypertension: Plan: Patient is with bradycardia in the 50s. She is not hypotensive. hold metoprolol for bradycardia in the low 50s blood pressure use amlodipine (5) Hypothyroidism: Plan: Continue Synthroid (6) PAF (paroxysmal atrial fibrillation): Plan: Paroxysmal A-fib In sinus on admission Metoprolol held for bradycardia. Patient is not hypotensive on admission. (7) Diabetes: Plan: Type II DM Did not require sliding scale insulin or Lantus at last admission and last A1c was 6.6%. BSG is 139 on admission. Will liberalize diet and check BMP daily, can spot check glucose if needed. Plan DVT prophylaxis: Anticoagulated CODE STATUS: DNR/DNI Admission and Anticipated Discharge Date Admission Date: March 19, 2023 Subjective Patient reports no new symptoms. Review of Systems Review of Systems: All systems reviewed & are unremarkable except as noted in HPI & below Physical Exam Physical Exam: awake and alert cardiac is regular lungs are clear but diminished at the bases ext with trace edema Results & Data Results & Data Vital Signs (Past 12 Hours) Vital Signs Temp Pulse Resp BP Pulse Ox O2 Del Method 03/25/23 20:03 36.8 C 64 18 126/77 96 Room Air 03/25/23 14:56 36.4 C L 60 18 142/73 H 94 Room Air PG Care Time/CCT Total # of Minutes Spent Total Time Spent with Patient: Total time spent is greater than 50% in coordination of care (as documented) at patient's floor/unit and/or counseling patient: Coding Level of Care Code 71213 SUB INP/OBS CARE 2/35MIN Diagnoses Ambulatory dysfunction R26.2 Chest pain R07.9 Hematuria R31.9 Hypertension I10 Hypothyroidism E03.9 PAF (paroxysmal atrial fibrillation) I48.0 Diabetes E11.9
[2023-03-25] MEDS: MICONAZOLE NITRATE POWDER 85 GM EXT PRN (23:20)
--- NOTE | 2023-03-26 13:42 | Discharge Summary ---
Date of Service March 26, 2023 Admission HPI Per Admitting Provider Yobani is an 82-year-old female with past medical history of weakness, dysuria, hematuria, recent cardiac catheterization with patent stents who was discharged home after refusing placement on 03/16/2023 who Max presents to the ER with chest pressure, urinary frequency, and a feeling like she was going to and so called 911. Collateral from her daughter is that patient has been extremely weak since returning home and has been unable to walk or ambulate independently and exceeds the care ability of her family at home On ER assessment her urine is uninfected appearing, her high-sensitivity troponin is minimally elevated at 36.3, she is volume contracted without an LORENA, and has no leukocytosis. Chest x-ray is without acute findings. Quad screen pending at time of admission Yobani is seen at bedside. She reports she came in because she was feeling overall very weak and she knows the doctor her last admission when her to be admitted but she has trouble with loud noises due to concussion syndrome and cannot tolerate prolonged admission. Unfortunately after returning home she feels that she continues to be very weak and presented to the ER. She denies chest pain at time of provider assessment. Denies shortness of breath/dyspnea/syncope/presyncope. No fevers or chills. She reports she continues to take her Eliquis, has not had any return of her hematuria. Discharge Exam awake and alert cardiac is regular lungs are clear but diminished at the bases ext with trace edema Discharge Data Allergies Allergy/AdvReac Type Severity Reaction Status Date / Time bee venom protein (honey bee) Allergy Unknown Unverified 02/22/23 09:01 No Known Drug Allergies Allergy Verified 02/22/23 09:01 Consultations 03/18/23 19:42 ED Decision to Admit Stat Hospital Course (1) Ambulatory dysfunction: Weakness With multiple recent hospitalizations, global deconditioning. No signs of infection on admission. No signs of gross electrolyte abnormality. Troponin is mildly elevated near her normal baseline and without EKG changes or signs of ACS. No dysrhythmias noted. He does have significant resting bradycardia in the high 40s to 50s at bedside assessment and has discontinued metoprolol. feels much better watch afib cautiously PT/OT/CM consulted, for placement (2) Chest pain: chest pain, non exertional EKG: Sinus bradycardia. No territorial ST elevations or depressions. No changes compared to prior 03/09/2023 Last echo 10/09/2022. 60 to 65% EF without wall motion abnormalities She has a elevated troponin near her prior baseline, 2-hour repeat has decreased Chest pain has resolved Do not suspect ACS, (3) Hematuria: Hematuria resolved, trace blood on UA without signs of UTI. CT 03/09/2023 did not show any evidence of urothelial lesions or kidney stones. Can continue outpatient follow-up with urologyWith outpatient cystoscopy.. Patient has resumed her apixaban but does not have gross hematuria on admission (4) Hypertension: Patient is with bradycardia in the 50s. She is not hypotensive. hold metoprolol for bradycardia in the low 50s blood pressure use amlodipine (5) Hypothyroidism: Continue Synthroid (6) PAF (paroxysmal atrial fibrillation): Paroxysmal A-fib In sinus on admission Metoprolol held for bradycardia. Patient is not hypotensive on admission. (7) Diabetes: Type II DM Did not require sliding scale insulin or Lantus at last admission and last A1c was 6.6%. BSG is 139 on admission. Will liberalize diet and check BMP daily, can spot check glucose if needed. Plan DVT prophylaxis: Anticoagulated CODE STATUS: DNR/DNI Discharge Plan Discharge Items Patient Disposition: Transfer Care Home Fac Reason For Visit: WEAKNESS, AMBULATORY DYSFUNCTION, BRADYCARDIA Discharge Diagnosis: AMBULATORY DYSFUNCTION Activity: Resume your previous activity Non-emergency contact: Primary Care Provider Call non-emergency contact if: you have any medication questions Follow-up/Referrals: Yash Tavares DO [Primary Care Provider] - Diet: Heart Healthy Addtl Attending Provider Instructions: DISCHARGED TO INTERMEDIATE FACILITY FOLLOWUP WITH PCP IN 1-2 WEEKS Pending Studies at Discharge: No Stand-Alone Forms: My [facility] Skilled Items Patient informed of condition?: No DNR: Yes Discharge Level of Care: Skilled Communicable Disease: No Discharge Prognosis: Stable Lines: None Urinary Catheter: No Medications and DC Order Prescriptions: New polyethylene glycol 3350 [Miralax] 17 gram Powder In Packet 17 g PO DAILY PRN (Reason: constipation) Qty: 14 0RF amlodipine [Norvasc] 5 mg Tablet 5 mg PO QAM Qty: 30 0RF Continued levothyroxine 75 mcg tablet 75 mcg PO DAILY Qty: 90 3RF atorvastatin 80 mg tablet 80 mg PO DAILY Qty: 90 1RF Eliquis 5 mg tablet 5 mg PO BID Qty: 60 3RF nitroglycerin 0.4 mg tablet, sublingual 0.4 mg SL Q5M PRN (Reason: chest pain) Qty: 25 1RF methenamine hippurate 1 gram tablet 1 g PO BID Qty: 180 3RF cholecalciferol (vitamin D3) [Vitamin D3] 2,000 unit Capsule 2,000 unit PO DAILY tramadol 50 mg tablet 50 mg PO DAILY PRN (Reason: Pain) Discontinued metoprolol tartrate 25 mg tablet 25 mg PO BID Qty: 270 3RF Discharge Orders: Discharge Order (Routine); Ordered 03/26/23 Ordered By: Irineo Garcia Admission Data Admit Date/Time: 03/19/23 16:58 Attending Provider: Irineo Garcia Admit Provider: Moy Calloway Primary Care Provider: Yash Tavares Other Providers: [place]; [facility],; Moy Calloway Other Interventions: Discharge Summary Assessment (RN) Last Done: 03/26/23 12:04 Coding Diagnoses Ambulatory dysfunction R26.2 Chest pain R07.9 Hematuria R31.9 Hypertension I10 Hypothyroidism E03.9 PAF (paroxysmal atrial fibrillation) I48.0 Diabetes E11.9
== END 2023-03-26 13:05 ==
LOC: ED 17:35 → EDINP 17:35 → SUATTDRO 20:47 → 2N 23:03 → SUATTDRO 03-19 16:58 → 2N 03-19 18:39 → 3W 03-20 22:42

== ENCOUNTER 2023-05-09 14:51 | Observation (INO) ==
[2023-05-09 16:13] LABS: Basophils # (auto) 0.04 K/uL (0.00-0.20); Basophils % (auto) 0.4 %; Eosinophils # (auto) 0.02 K/uL (0.00-0.50); Eosinophils % (auto) 0.2 %; Hematocrit (blood only) 42.6 % (37.0-47.0); Immature Granulocytes # (auto) 0.08 K/uL (0.01-0.20); Immature Granulocytes % (auto) 0.7 %; Lymphocytes # (auto) 1.38 K/uL (1.20-3.40); Lymphocytes % (auto) 12.8 %; Mean Corpuscular Hemoglobin 30.9 pg (25.0-34.0); Mean Corpuscular Hgb Conc 35.2 g/dL (32.0-36.0); Mean Corpuscular Volume 87.8 fL (80.0-100.0); Mean Platelet Volume 10.3 fL (9.4-12.4); Monocytes # (auto) 0.68 K/uL (0.11-0.59); Monocytes % (auto) 6.3 %; Neutrophils # (auto) 8.54 K/uL (1.40-6.50); Neutrophils % (auto) 79.6 %; Platelet Count 218 K/uL (130-400); RDW Coefficient of Variation 13.1 % (11.5-14.5); Red Blood Count 4.85 M/uL (4.20-5.40); White Blood Count 10.74 K/ul (4.8-10.8)
[2023-05-09 16:30] LABS: Albumin Level 3.8 gm/dl (3.4-5.0); Anion Gap 10 (3-11); Bilirubin,Total 1.6 mg/dl (0.2-1.0); Calcium 9.4 mg/dl (8.6-10.3); Carbon Dioxide 25 mmol/L (21-32); Chloride 100 mmol/L (98-107); Sodium 135 mmol/L (136-145)
[2023-05-09 16:36] LABS: Alanine Aminotransferase 13 U/L (7-52); Albumin Globulin Ratio 1.2 (0.9-2); Alkaline Phosphatase 110 U/L (34-104); Aspartate Aminotransferase 20 U/L (13-39); BUN Creatinine Ratio 16.5 (10-20); Blood Urea Nitrogen 13 mg/dl (6-23); Est GFR (African American) 79.7 ml/min; Est GFR (Non-African American) 68.7 ml/min; Globulin 3.1 gm/dl (2.5-4.0); Glucose 115 mg/dl (70-99(Fasting)); Total Protein 6.9 gm/dl (6.0-8.3)
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
[2023-05-09 17:40] LABS: Appearance Urine Cloudy (Clear); Bacteria Urine Automated 2+ (Negative); Bilirubin Urine Negative (Negative); Blood Urine 3+ (Negative); Color Urine Yellow; Glucose Urine UA Negative (Negative); Ketones Urine Negative (Negative); Leukocyte Esterase Urine 3+ (Negative); Nitrite Urine Negative (Negative); Protein Urine Trace (Negative); Specific Gravity Urine 1.009 (1.000-1.030); Urobilinogen Urine Negative (Negative); WBC Urine Automated >30 /hpf (0-5); pH Urine 5.5 (4.5-7.5)
--- NOTE | 2023-05-09 17:52 | XRay Report ---
SINGLE VIEW CHEST CLINICAL HISTORY: Change in mental status. FINDINGS: An AP, portable, upright chest radiograph is compared to study dated 03/18/2023. The heart is enlarged noting atherosclerotic calcification of the thoracic into. The pulmonary vasculature is non congested. Chronic interstitial thickening is similar to previous. The lungs and pleural spaces are c lear. No pneumothorax is seen. The skeletal structures are osteopenic. The bony thorax is grossly int act. Arthritic change is seen in the shoulders. IMPRESSION: Cardiomegaly with no active disease in the chest. ACT 112: Negative or not required by law. Electronically signed by: Luis Fernando Felix M.D. 05/09/2023 5:51 PM
[2023-05-09] MEDS: OPTIRAY 320 100ml IV ONE (18:29)
--- NOTE | 2023-05-09 18:36 | CT Scan Report ---
CT SCAN OF THE BRAIN WITHOUT IV CONTRAST CLINICAL HISTORY: Change in mental status. COMPARISON STUDY: CT of the brain dated 01/03/2023. TECHNIQUE: Unenhanced axial CT scan of the brain is performed from the vertex to the skull base. A do se lowering technique was utilized adhering to the principles of ALARA. FINDINGS: Brain parenchyma: There is age-related involutional change noting advanced confluent subcortical and periventricular microangiopathic disease. There is no hemorrhage, mass effect, or evidence of acute t erritorial ischemia by CT criteria. Perez-white matter differentiation is preserved. No extra-axial fl uid collection is seen. Ventricles, sulci, cisterns: Prominent secondary to involutional change. Intracranial vasculature: There is atherosclerotic calcification of the cavernous carotid and vertebr al arteries. Calvarium: Unremarkable. Sinuses and mastoids: The visualized paranasal sinuses are clear. The mastoid air cells are well pneu matized. Orbits: The bony orbits are grossly intact. There is evidence of bilateral ocular lens surgery. IMPRESSION: There is no hemorrhage, mass effect, or evidence of acute territorial ischemia by CT [place]. ACT 112: Negative or not required by law. Electronically signed by: Luis Fernando Felix M.D. 05/09/2023 6:35 PM
[2023-05-09 18:39] LABS: INR 1.1 (0.9-1.1); Partial Thromboplastin Ratio 1.1; Partial Thromboplastin Time 30 Seconds (21-31); Prothrombin Time 11.9 Seconds (9.0-12.0)
--- NOTE | 2023-05-09 19:01 | CT Scan Report ---
CT SCAN OF THE ABDOMEN AND PELVIS WITH IV CONTRAST CLINICAL HISTORY: Generalized abdominal pain. COMPARISON STUDY: Abdominal CT dated 03/09/2023. TECHNIQUE: Following the IV administration of 90 cc of Optiray 320, CT scan of the abdomen and pelvi s is performed from the lung bases to the proximal femora. Images are reviewed in the axial, sagittal , and coronal planes. IV contrast was administered without complication. A dose lowering technique wa s utilized adhering to the principles of ALARA. There is streak artifact from the right arm which cou ld not be elevated above the abdomen. CT DOSE: 1920.66 mGy.cm FINDINGS: Lung bases: The heart is enlarged and without pericardial effusion. The coronary arteries are densely calcified. There is bibasilar scarring/atelectasis. No airspace consolidation or pleural effusion is seen. A 4 mm right middle lobe pulmonary nodule on image #3, a 3 mm right middle lobe nodule on imag e #22, and a 6 mm left lower lobe nodule image #10 are unchanged. Liver: The contrast-enhanced liver is normal in size, contour, and attenuation. There is mild to mode rate intrahepatic biliary ductal dilatation. The hepatic veins and portal veins are patent. Gallbladder: Surgically absent and clips in the gallbladder fossa. Spleen: Normal in size and attenuation. Pancreas: The pancreas is atrophic. Parenchymal calcifications indicating chronic pancreatitis. There is mild dilatation of the pancreatic duct which measures up to 5 mm. Adrenal glands: Unremarkable. Kidneys: The contrast enhanced kidneys demonstrate mild cortical atrophy and are without hydronephros is. The kidneys enhance symmetrically. Numerous subcentimeter cortical hypodensities likely represent cysts but are too small for definitive characterization. Abdominal vasculature: The abdominal aorta is normal in course and caliber noting advanced atheroscle rotic calcification. A stent is partially visualized in the right femoral artery. Bowel: There is postsurgical change from rectosigmoid resection with colocolonic anastomosis. No nancy l obstruction is identified. There is moderate colonic diverticulosis without CT evidence of acute di verticulitis. [id number] fecal retention is noted throughout the colon. The appendix is not vi sualized. Peritoneum: There is no intraperitoneal free air or abdominal ascites. There is a fat-containing umbi lical hernia. There is laxity of the ventral abdominal wall with protrusion of abdominal contents. Lymphadenopathy: None. Pelvic viscera: The the bladder wall appears mildly thickened and hyperemic. The uterus and adnexa ar e normal as visualized. Skeletal structures: The skeletal structures are osteopenic. There is mild to moderate lumbosacral sp ondylosis. No lytic or blastic lesions are seen. IMPRESSION: 1. Question cystitis. Correlate with clinical findings and urinalysis. 2. Again seen are changes of chronic pancreatitis. 3. Biliary ductal dilatation is likely related to prior cholecystectomy. Correlate with clinical and laboratory findings. 4. Cardiomegaly. 5. Colonic diverticulosis without CT evidence of acute diverticulitis. 6. Additional findings as above. ACT 112: Negative or not required by law. Electronically signed by: Luis Fernando Felix M.D. 05/09/2023 6:59 PM
[2023-05-09] MEDS: SODIUM CHLORIDE 0.9% 500 ML IV ONE (19:15)
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
[2023-05-09] MEDS: ACETAMINOPHEN 325 MG TAB PO STA (21:08)
[2023-05-09] MEDS: CEFEPIME 2,000 MG/20 ML VIAL IV STA (21:08)
[2023-05-09] MEDS ORDERED: traMADol HCL 50 MG TABLET PO PRN (23:02)
[2023-05-09] MEDS ORDERED: ONDANSETRON INJ 2 MG/ML 2 ML VIAL IV PRN (23:02)
[2023-05-10] MEDS: [UNRECOGNIZED DRUG - OTHER] SCH (00:18)
[2023-05-10] MEDS: LEVOTHYROXINE SODIUM 75 MCG TABLET PO SCH (05:34)
[2023-05-10 07:49] LABS: Basophils # (auto) 0.02 K/uL (0.00-0.20); Basophils % (auto) 0.2 %; Hematocrit (blood only) 40.9 % (37.0-47.0); Hemoglobin 13.8 g/dl (12.0-16.0); Immature Granulocytes # (auto) 0.07 K/uL (0.01-0.20); Immature Granulocytes % (auto) 0.6 %; Lymphocytes # (auto) 0.82 K/uL (1.20-3.40); Lymphocytes % (auto) 6.6 %; Mean Corpuscular Hemoglobin 30.1 pg (25.0-34.0); Mean Corpuscular Hgb Conc 33.7 g/dL (32.0-36.0); Mean Corpuscular Volume 89.3 fL (80.0-100.0); Mean Platelet Volume 9.9 fL (9.4-12.4); Monocytes # (auto) 0.98 K/uL (0.11-0.59); Monocytes % (auto) 7.8 %; Neutrophils # (auto) 10.62 K/uL (1.40-6.50); Neutrophils % (auto) 84.8 %; Platelet Count 179 K/uL (130-400); RDW Coefficient of Variation 13.4 % (11.5-14.5); Red Blood Count 4.58 M/uL (4.20-5.40); White Blood Count 12.51 K/ul (4.8-10.8)
[2023-05-10 08:02] LABS: BUN Creatinine Ratio 16.1 (10-20); Calcium 8.9 mg/dl (8.6-10.3); Creatinine Clr Calc Pharmacy 51.2 ml/min; Est GFR (African American) 70.9 ml/min; Est GFR (Non-African American) 61.2 ml/min; Magnesium 1.9 mg/dl (1.7-2.4); Potassium 3.8 mmol/L (3.5-5.1)
[2023-05-10] MEDS: CEFEPIME 2,000 MG in SYRINGE 0 ML IV SCH (08:35)
[2023-05-10] MEDS: METOPROLOL TARTRATE 25 MG TAB PO SCH (08:36)
[2023-05-10] MEDS: amLODIPine BESYLATE 5 MG TAB PO SCH (08:37)
[2023-05-10] MEDS: ATORVASTATIN 40 MG TAB PO SCH (08:39)
--- NOTE | 2023-05-10 11:35 | Hospitalist Progress Note ---
Date of Service May 10, 2023 Assessment & Plan (1) Recurrent urinary tract infection: Plan: Ambulatory dysfunction and acute change in cognitive baseline that developed on 05/07 Hx of recurrent UTIs with similar symptoms Unclear if patient has been taking methenamine hippurate UA positive on arrival A/P CT may indicate cystitis No leukocytosis, mild elevation compared to past counts; febrile at 38.1 C in the ED Cefepime 2000 mg IV q12h as patient has grown Pseudomonas in the past (UCx 09/2022) Preliminary urine culture positive for gram-negative bacilli (2) Altered mental status: Plan: Metabolic encephalopathy Confusion and slurred speech on arrival Not oriented to month or event Head CT revealed no acute findings (3) Hematuria: Plan: 3+ blood in urine; Hx of hematuria Hemoglobin is stable. Continue Eliquis (4) PAF (paroxysmal atrial fibrillation): Plan: EKG on arrival revealed NSR with short [place] at 77 bpm; QTc 411 Continue metoprolol (5) Generalized weakness: Plan: Multiple recent hospital admissions Global deconditioning PT/OT consulted for ambulatory dysfunction (6) Moderately severe recurrent major depression: (7) Ambulatory dysfunction: (8) Adult failure to thrive: (9) Resting tremor: Plan CODE STATUS: Full code VTE PPx: SCDs Admission and Anticipated Discharge Date Admission Date: May 09, 2023 Subjective Patient seen and evaluated at bedside with . She still reports dysuria. Denies frequency, urgency, suprapubic pain. reports her cystoscopy with urology is scheduled for May 22. She still has some minor confusion. Denies chest pain, abdominal pain, shortness of breath, lightheadedness, or dizziness. Physical Exam Physical Exam: General: No acute distress, nondiaphoretic, well-developed, well-nourished. Skin: The skin was without rashes, erythema, edema, or bruising. Cardiac: Regular rate and rhythm without murmurs gallops or rubs. Pulm: Clear to auscultation bilaterally without wheezes, rales or rhonchi. No retractions or accessory muscle use. Abdominal: Positive bowel sounds x 4. Soft, nontender, without masses or organomegaly. No guarding or rebound tenderness. Neuro: Not oriented to month or event. Intermittent slurred speech. No facial droop. No arm or leg weakness. Results & Data Results & Data Vital Signs (Past 12 Hours) Vital Signs Temp Pulse Pulse Resp BP Pulse Ox O2 Del Method 05/10/23 08:05 70 05/10/23 07:55 37.5 C 74 18 148/76 H 96 Room Air 05/10/23 02:15 36.7 C 65 16 131/72 93 Room Air Laboratory Results Reviewed CBC Reviewed chemistries Reviewed urine culture PG Care Time/CCT Total # of Minutes Spent Total Time Spent with Patient: Total time spent is greater than 50% in coordination of care (as documented) at patient's floor/unit and/or counseling patient: Coding Level of Care Code 15470 SUB INP/OBS CARE 3/50MIN Diagnoses Recurrent urinary tract infection N39.0 Altered mental status R41.82 Hematuria R31.9 PAF (paroxysmal atrial fibrillation) I48.0 Generalized weakness R53.1 Moderately severe recurrent major depression F33.2 Ambulatory dysfunction R26.2 Adult failure to thrive R62.7 Resting tremor G25.2
--- NOTE | 2023-05-10 16:06 | Electrocardiogram Report ---
Test Reason : Blood Pressure : / mmHG Vent. Rate : 077 BPM Atrial Rate : 077 BPM P-R Int : 102 ms QRS Dur : 088 ms QT Int : 364 ms P-R-T Axes : -29 -55 094 degrees QTc Int : 411 ms Sinus rhythm with short NH Left axis deviation Nonspecific ST and T wave abnormality Abnormal ECG When compared with ECG of 18-MAR-2023 17:43, No significant change was found Confirmed by Gregorio Mcdaniel ([id number]) on 05/10/2023 4:06:05 PM Referred By: Confirmed By:Gregorio Mcdaniel
[2023-05-10] MEDS: APIXABAN 5 MG TABLET PO SCH (21:07)
[2023-05-10] MEDS: ACETAMINOPHEN 325 MG TAB PO PRN (21:07)
[2023-05-11 07:02] LABS: Basophils # (auto) 0.04 K/uL (0.00-0.20); Basophils % (auto) 0.4 %; Eosinophils # (auto) 0.06 K/uL (0.00-0.50); Eosinophils % (auto) 0.6 %; Hematocrit (blood only) 40.5 % (37.0-47.0); Hemoglobin 13.5 g/dl (12.0-16.0); Immature Granulocytes # (auto) 0.07 K/uL (0.01-0.20); Immature Granulocytes % (auto) 0.7 %; Lymphocytes # (auto) 1.42 K/uL (1.20-3.40); Mean Corpuscular Hemoglobin 29.9 pg (25.0-34.0); Mean Corpuscular Hgb Conc 33.3 g/dL (32.0-36.0); Mean Corpuscular Volume 89.6 fL (80.0-100.0); Mean Platelet Volume 9.8 fL (9.4-12.4); Monocytes # (auto) 0.81 K/uL (0.11-0.59); Neutrophils # (auto) 7.72 K/uL (1.40-6.50); Neutrophils % (auto) 76.3 %; Platelet Count 163 K/uL (130-400); RDW Coefficient of Variation 13.5 % (11.5-14.5); RDW Standard Deviation 44.5 fL (36.4-46.3); Red Blood Count 4.52 M/uL (4.20-5.40); White Blood Count 10.12 K/ul (4.8-10.8)
[2023-05-11 07:22] LABS: BUN Creatinine Ratio 18.6 (10-20); Calcium 8.9 mg/dl (8.6-10.3); Creatinine Clr Calc Pharmacy 51.9 ml/min; Est GFR (African American) 71.9 ml/min; Potassium 3.4 mmol/L (3.5-5.1)
--- NOTE | 2023-05-11 09:42 | Hospitalist Progress Note ---
Date of Service May 11, 2023 Assessment & Plan (1) Recurrent urinary tract infection: Plan: - History of recurrent UTIs. Unclear if patient has been taking methenamine hippurate at home. - No leukocytosis, febrile on presentation - UA positive on arrival. Preliminary urine culture reveals Klebsiella pneumonia - Continue cefepime - Recommend continuation of antibiotics until urology appointment for cystoscopy on 05/23/2023 (2) Altered mental status: Plan: - Ambulatory dysfunction, acute change in cognitive baseline, and slurred speech that developed on 05/07 - Head CT revealed no acute findings. Altered mental status most likely secondary to UTI. - Mental status returned to baseline after 24 hours of antibiotics. (3) Hematuria: Plan: - 3+ blood in urine on presentation; Hx of hematuria - Hgb WNL and hemodynamically stable. (4) PAF (paroxysmal atrial fibrillation): Plan: - EKG on arrival revealed NSR - Continue metoprolol and Eliquis (5) Generalized weakness: Plan: Multiple recent hospital admissions Global deconditioning PT/OT consulted for ambulatory dysfunction (6) Moderately severe recurrent major depression: (7) Ambulatory dysfunction: (8) Adult failure to thrive: (9) Resting tremor: Plan CODE STATUS: Full code VTE PPx: SCDs Admission and Anticipated Discharge Date Admission Date: May 09, 2023 Subjective Patient seen and evaluated at bedside this morning. She reports significant improvement in her symptoms compared to yesterday. Dysuria and confusion have resolved. Denies frequency, urgency, suprapubic pain, chest pain, shortness of breath, lightheadedness, or dizziness. Discussed continuation of antibiotics until urology appt on 05/23/23 to prevent recurrence of UTI, and patient is agreeable to this. Physical Exam Physical Exam: General: No acute distress, nondiaphoretic, well-developed, well-nourished. Skin: The skin was without rashes, erythema, edema, or bruising. Cardiac: Regular rate and rhythm without murmurs gallops or rubs. Pulm: Clear to auscultation bilaterally without wheezes, rales or rhonchi. No retractions or accessory muscle use. Abdominal: Positive bowel sounds x 4. Soft, nontender, without masses or organomegaly. No guarding or rebound tenderness. Neuro: A&O x3. No focal neurological deficits. Results & Data Results & Data Vital Signs (Past 12 Hours) Vital Signs Temp Pulse Pulse Resp BP Pulse Ox O2 Del Method 05/11/23 07:34 36.7 C 62 18 146/74 H 95 Room Air 05/11/23 07:18 60 05/11/23 03:15 36.5 C 65 16 153/76 H 94 Room Air 05/11/23 03:01 66 05/10/23 22:56 37 C 68 16 124/75 94 Room Air Laboratory Results Reviewed CBC Reviewed chemistries Reviewed urine culture PG Care Time/CCT Total # of Minutes Spent Total Time Spent with Patient: Total time spent is greater than 50% in coordination of care (as documented) at patient's floor/unit and/or counseling patient: Coding Level of Care Code 84267 SUB INP/OBS CARE 2/35MIN Diagnoses Recurrent urinary tract infection N39.0 Altered mental status R41.82 Hematuria R31.9 PAF (paroxysmal atrial fibrillation) I48.0 Generalized weakness R53.1 Moderately severe recurrent major depression F33.2 Ambulatory dysfunction R26.2 Adult failure to thrive R62.7 Resting tremor G25.2
[2023-05-12 06:31] LABS: Basophils # (auto) 0.03 K/uL (0.00-0.20); Basophils % (auto) 0.4 %; Eosinophils # (auto) 0.09 K/uL (0.00-0.50); Eosinophils % (auto) 1.2 %; Hematocrit (blood only) 39.2 % (37.0-47.0); Hemoglobin 13.5 g/dl (12.0-16.0); Immature Granulocytes # (auto) 0.04 K/uL (0.01-0.20); Immature Granulocytes % (auto) 0.5 %; Lymphocytes % (auto) 20.3 %; Mean Corpuscular Hemoglobin 30.3 pg (25.0-34.0); Mean Corpuscular Hgb Conc 34.4 g/dL (32.0-36.0); Mean Corpuscular Volume 88.1 fL (80.0-100.0); Mean Platelet Volume 9.9 fL (9.4-12.4); Monocytes # (auto) 0.63 K/uL (0.11-0.59); Monocytes % (auto) 8.5 %; Neutrophils % (auto) 69.1 %; Platelet Count 188 K/uL (130-400); RDW Coefficient of Variation 13.2 % (11.5-14.5); RDW Standard Deviation 42.5 fL (36.4-46.3); Red Blood Count 4.45 M/uL (4.20-5.40); White Blood Count 7.39 K/ul (4.8-10.8)
[2023-05-12 07:45] LABS: BUN Creatinine Ratio 28.1 (10-20); Calcium 8.8 mg/dl (8.6-10.3); Creatinine Clr Calc Pharmacy 69.8 ml/min; Est GFR (Non-African American) 81.9 ml/min; Potassium 3.5 mmol/L (3.5-5.1)
--- NOTE | 2023-05-12 11:59 | Hospitalist Progress Note ---
Date of Service May 12, 2023 Assessment & Plan (1) Recurrent urinary tract infection: Plan: - History of recurrent UTIs. Unclear if patient has been taking methenamine hippurate at home. - No leukocytosis, febrile on presentation - UA positive on arrival - Urine culture positive for pansensitive Klebsiella pneumoniae and Citrobacter werkmanii - Continue cefepime - Recommend continuation of antibiotics until urology appointment for cystoscopy on 05/23/2023 (2) Altered mental status: Plan: - Ambulatory dysfunction, acute change in cognitive baseline, and slurred speech that developed on 05/07 - Head CT revealed no acute findings. Altered mental status most likely secondary to UTI. - Mental status returned to baseline after 24 hours of antibiotics. (3) Ambulatory dysfunction: Plan: - Multiple recent hospital admissions - Global deconditioning - PT/OT consulted for ambulatory dysfunction -- recommend SNF (4) Hematuria: Plan: - 3+ blood in urine on presentation; Hx of hematuria - Hgb WNL and hemodynamically stable. (5) PAF (paroxysmal atrial fibrillation): Plan: - EKG on arrival revealed NSR - Continue metoprolol and Eliquis (6) Moderately severe recurrent major depression: (7) Adult failure to thrive: (8) Resting tremor: Plan CODE STATUS: Full code VTE PPx: SCDs Admission and Anticipated Discharge Date Admission Date: May 09, 2023 Subjective Patient seen and evaluated at bedside this morning with . She had no complaints at this time. We had a discussion about rehab placement due to global deconditioning, however patient initially refused and wanted to go home. However, after her daughter visited and talked with the patient, she was then agreeable to rehab upon discharge. Denies dysuria, frequency, urgency, suprapubic pain, chest pain, shortness of breath, lightheadedness, or dizziness. Referrals for rehab will be sent out today, and plan to discharge upon being accepted into rehab placement. Physical Exam Physical Exam: General: No acute distress, nondiaphoretic, well-developed, well-nourished. Skin: The skin was without rashes, erythema, edema, or bruising. Cardiac: Regular rate and rhythm without murmurs gallops or rubs. Pulm: Clear to auscultation bilaterally without wheezes, rales or rhonchi. No retractions or accessory muscle use. Abdominal: Positive bowel sounds x 4. Soft, nontender, without masses or organomegaly. No guarding or rebound tenderness. Neuro: A&O x3. No focal neurological deficits. Results & Data Results & Data Vital Signs (Past 12 Hours) Vital Signs Temp Pulse Pulse Resp BP Pulse Ox O2 Del Method 05/12/23 08:35 74 05/12/23 07:31 36.4 C L 53 L 18 136/78 97 Room Air 05/12/23 06:52 61 05/12/23 04:07 36.8 C 65 18 138/74 96 Room Air Laboratory Results Reviewed CBC Reviewed BMP Reviewed urine culture PG Care Time/CCT Total # of Minutes Spent Total Time Spent with Patient: Total time spent is greater than 50% in coordination of care (as documented) at patient's floor/unit and/or counseling patient: Coding Level of Care Code 76543 SUB INP/OBS CARE 3/50MIN Diagnoses Recurrent urinary tract infection N39.0 Altered mental status R41.82 Ambulatory dysfunction R26.2 Hematuria R31.9 PAF (paroxysmal atrial fibrillation) I48.0 Moderately severe recurrent major depression F33.2 Adult failure to thrive R62.7 Resting tremor G25.2
[2023-05-13 09:57] LABS: Hematocrit (blood only) 39.9 % (37.0-47.0); Hemoglobin 13.5 g/dl (12.0-16.0); Mean Corpuscular Hgb Conc 33.8 g/dL (32.0-36.0); Mean Corpuscular Volume 88.7 fL (80.0-100.0); Mean Platelet Volume 10.5 fL (9.4-12.4); Platelet Count 168 K/uL (130-400); RDW Coefficient of Variation 13.1 % (11.5-14.5); RDW Standard Deviation 42.5 fL (36.4-46.3); White Blood Count 5.82 K/ul (4.8-10.8)
[2023-05-13 10:13] LABS: Anion Gap 8 (3-11); Calcium 8.6 mg/dl (8.6-10.3); Carbon Dioxide 24 mmol/L (21-32); Chloride 107 mmol/L (98-107); Sodium 139 mmol/L (136-145)
[2023-05-13 10:18] LABS: BUN Creatinine Ratio 24.1 (10-20); Blood Urea Nitrogen 14 mg/dl (6-23); Est GFR (African American) 97.4 ml/min; Glucose 199 mg/dl (70-99(Fasting))
--- NOTE | 2023-05-13 12:02 | Hospitalist Progress Note ---
Date of Service May 13, 2023 Assessment & Plan (1) Recurrent urinary tract infection: Plan: - History of recurrent UTIs. Unclear if patient has been taking methenamine hippurate at home. - No leukocytosis, febrile on presentation - UA positive on arrival - Urine culture positive for pansensitive Klebsiella pneumoniae and Citrobacter werkmanii - Continue cefepime - Recommend continuation of antibiotics until urology appointment for cystoscopy on 05/23/2023 (2) Altered mental status: Plan: - Ambulatory dysfunction, acute change in cognitive baseline, and slurred speech that developed on 05/07 - Head CT revealed no acute findings. Altered mental status most likely secondary to UTI. - Mental status returned to baseline after 24 hours of antibiotics. (3) Ambulatory dysfunction: Plan: - Multiple recent hospital admissions - Global deconditioning - PT/OT consulted for ambulatory dysfunction -- recommend SNF (4) Hematuria: Plan: - 3+ blood in urine on presentation; Hx of hematuria - Hgb WNL and hemodynamically stable. (5) PAF (paroxysmal atrial fibrillation): Plan: - EKG on arrival revealed NSR - Continue metoprolol and Eliquis (6) Moderately severe recurrent major depression: (7) Adult failure to thrive: (8) Resting tremor: Plan CODE STATUS: Full code VTE PPx: SCDs Admission and Anticipated Discharge Date Admission Date: May 09, 2023 Subjective Patient seen and evaluated at bedside with and grandchildren. She has no complaints at this time. We are waiting for skilled rehab placement, anticipating discharge on Saturday or of this week. She appeared to be in better spirits today with her granddaughters visiting. Physical Exam Physical Exam: General: No acute distress, nondiaphoretic, well-developed, well-nourished. Skin: The skin was without rashes, erythema, edema, or bruising. Cardiac: Regular rate and rhythm without murmurs gallops or rubs. Pulm: Clear to auscultation bilaterally without wheezes, rales or rhonchi. No retractions or accessory muscle use. Abdominal: Positive bowel sounds x 4. Soft, nontender, without masses or organomegaly. No guarding or rebound tenderness. Neuro: A&O x3. No focal neurological deficits. Results & Data Results & Data Vital Signs (Past 12 Hours) Vital Signs Temp Pulse Pulse Resp BP BP Pulse Ox 05/13/23 10:45 36.6 C 70 18 139/67 98 05/13/23 07:45 36.8 C 65 14 145/74 H 134/73 95 05/13/23 07:31 57 L 05/13/23 03:55 37 C 58 L 18 127/62 96 O2 Del Method 05/13/23 10:45 Room Air 05/13/23 07:45 Room Air 05/13/23 07:31 05/13/23 03:55 Room Air Laboratory Results Reviewed CBC Reviewed BMP Reviewed urine culture PG Care Time/CCT Total # of Minutes Spent Total Time Spent with Patient: Total time spent is greater than 50% in coordination of care (as documented) at patient's floor/unit and/or counseling patient: Coding Level of Care Code 54808 SUB INP/OBS CARE 2/35MIN Diagnoses Recurrent urinary tract infection N39.0 Altered mental status R41.82 Ambulatory dysfunction R26.2 Hematuria R31.9 PAF (paroxysmal atrial fibrillation) I48.0 Moderately severe recurrent major depression F33.2 Adult failure to thrive R62.7 Resting tremor G25.2
[2023-05-14 08:29] LABS: Hematocrit (blood only) 38.7 % (37.0-47.0); Hemoglobin 12.8 g/dl (12.0-16.0); Mean Corpuscular Hemoglobin 29.8 pg (25.0-34.0); Mean Corpuscular Hgb Conc 33.1 g/dL (32.0-36.0); Mean Platelet Volume 9.4 fL (9.4-12.4); Platelet Count 217 K/uL (130-400); RDW Coefficient of Variation 13.2 % (11.5-14.5); RDW Standard Deviation 43.8 fL (36.4-46.3); White Blood Count 6.76 K/ul (4.8-10.8)
[2023-05-14 09:14] LABS: BUN Creatinine Ratio 22.4 (10-20); Calcium 8.9 mg/dl (8.6-10.3); Est GFR (African American) 92.9 ml/min; Est GFR (Non-African American) 80.2 ml/min; Potassium 3.9 mmol/L (3.5-5.1)
--- NOTE | 2023-05-14 16:26 | Hospitalist Progress Note ---
Date of Service May 14, 2023 Assessment & Plan (1) Recurrent urinary tract infection: Plan: - History of recurrent UTIs. Unclear if patient has been taking methenamine hippurate at home. - No leukocytosis, febrile on presentation - UA positive on arrival - Urine culture positive for pansensitive Klebsiella pneumoniae and Citrobacter werkmanii - Continue cefepime. Will start Cipro 05/15/2023 and continue until 05/22/2023. - Recommend continuation of antibiotics until urology appointment for cystoscopy on 05/23/2023 (2) Altered mental status: Plan: - Ambulatory dysfunction, acute change in cognitive baseline, and slurred speech that developed on 05/07 - Head CT revealed no acute findings. Altered mental status most likely secondary to UTI. - Mental status returned to baseline after 24 hours of antibiotics. (3) Ambulatory dysfunction: Plan: - Multiple recent hospital admissions - Global deconditioning - PT/OT consulted for ambulatory dysfunction -- recommend SNF (4) Hematuria: Plan: - 3+ blood in urine on presentation; Hx of hematuria - Hgb WNL and hemodynamically stable. (5) PAF (paroxysmal atrial fibrillation): Plan: - EKG on arrival revealed NSR - Continue metoprolol and Eliquis (6) Moderately severe recurrent major depression: (7) Adult failure to thrive: (8) Resting tremor: Plan CODE STATUS: Full code VTE PPx: SCDs Admission and Anticipated Discharge Date Admission Date: May 09, 2023 Subjective Patient seen and evaluated at bedside with . She reports that she slept well last night and ate her full breakfast this morning. She has no complaints at this time. We are waiting for rehab placement. Physical Exam Physical Exam: General: No acute distress, nondiaphoretic, well-developed, well-nourished. Skin: The skin was without rashes, erythema, edema, or bruising. Cardiac: Regular rate and rhythm without murmurs gallops or rubs. Pulm: Clear to auscultation bilaterally without wheezes, rales or rhonchi. No retractions or accessory muscle use. Abdominal: Positive bowel sounds x 4. Soft, nontender, without masses or organomegaly. No guarding or rebound tenderness. Neuro: A&O x3. No focal neurological deficits. Results & Data Results & Data Vital Signs (Past 12 Hours) Vital Signs Temp Pulse Pulse Resp BP BP Pulse Ox 05/14/23 15:34 58 L 05/14/23 15:12 37.1 C 53 L 18 123/71 96 05/14/23 12:04 35.7 C L 57 L 16 119/74 95 05/14/23 07:59 35.4 C L 62 16 136/64 97 05/14/23 07:18 49 L O2 Del Method 05/14/23 15:34 05/14/23 15:12 Room Air 05/14/23 12:04 Room Air 05/14/23 07:59 Room Air 05/14/23 07:18 Laboratory Results Reviewed CBC Reviewed BMP PG Care Time/CCT Total # of Minutes Spent Total Time Spent with Patient: Total time spent is greater than 50% in coordination of care (as documented) at patient's floor/unit and/or counseling patient: Coding Level of Care Code 73025 SUB INP/OBS CARE 2/35MIN Diagnoses Recurrent urinary tract infection N39.0 Altered mental status R41.82 Ambulatory dysfunction R26.2 Hematuria R31.9 PAF (paroxysmal atrial fibrillation) I48.0 Moderately severe recurrent major depression F33.2 Adult failure to thrive R62.7 Resting tremor G25.2
[2023-05-15 06:32] LABS: Mean Corpuscular Hemoglobin 30.2 pg (25.0-34.0); Mean Corpuscular Hgb Conc 34.3 g/dL (32.0-36.0); Mean Corpuscular Volume 87.9 fL (80.0-100.0); Mean Platelet Volume 9.5 fL (9.4-12.4); Platelet Count 213 K/uL (130-400); RDW Standard Deviation 41.6 fL (36.4-46.3); Red Blood Count 3.98 M/uL (4.20-5.40)
[2023-05-15 07:11] LABS: BUN Creatinine Ratio 18.2 (10-20); Calcium 8.8 mg/dl (8.6-10.3); Creatinine Clr Calc Pharmacy 66.9 ml/min; Est GFR (African American) 93.4 ml/min; Est GFR (Non-African American) 80.6 ml/min; Potassium 3.7 mmol/L (3.5-5.1)
[2023-05-15] MEDS: POLYETHYLENE (MIRALAX) 17 GM PACK PO PRN (09:01)
[2023-05-15] MEDS: CIPROFLOXACIN 250 MG TAB PO SCH (09:02)
--- NOTE | 2023-05-15 15:27 | Hospitalist Progress Note ---
Date of Service May 15, 2023 Assessment & Plan (1) Recurrent urinary tract infection: Plan: - History of recurrent UTIs. Unclear if patient has been taking methenamine hippurate at home. - No leukocytosis, febrile on presentation - UA positive on arrival - Urine culture positive for pansensitive Klebsiella pneumoniae and Citrobacter werkmanii. - Continue Cipro until 05/22/2023. Recommend continuation of antibiotics until urology appointment for cystoscopy on 05/22/2023. - Discuss if patient needs new prescription for methenamine hippurate upon discharge. (2) Altered mental status: Plan: - Upon presentation: ambulatory dysfunction, acute change in cognitive baseline, and slurred speech that developed on 05/07 - Admission head CT revealed no acute findings. Altered mental status most lik darshan secondary to UTI. - Mental status returned to baseline after 24 hours of antibiotics. (3) Ambulatory dysfunction: Plan: - Multiple recent hospital admissions - Global deconditioning - PT/OT consulted for ambulatory dysfunction -- recommend SNF (4) Hematuria: Plan: - 3+ blood in urine on presentation; Hx of hematuria - Hgb WNL and hemodynamically stable. (5) PAF (paroxysmal atrial fibrillation): Plan: - EKG on arrival revealed NSR - Continue metoprolol and Eliquis (6) Moderately severe recurrent major depression: (7) Adult failure to thrive: (8) Resting tremor: Plan CODE STATUS: Full code VTE PPx: SCDs Admission and Anticipated Discharge Date Admission Date: May 09, 2023 Subjective Patient seen and evaluated bedside with . She has no complaints at this time. We are still waiting for rehab placement, which should be tomorrow 05/16/2023 to [facility]. Physical Exam Physical Exam: General: No acute distress, nondiaphoretic, well-developed, well-nourished. Skin: The skin was without rashes, erythema, edema, or bruising. Cardiac: Regular rate and rhythm without murmurs gallops or rubs. Pulm: Clear to auscultation bilaterally without wheezes, rales or rhonchi. No retractions or accessory muscle use. Abdominal: Positive bowel sounds x 4. Soft, nontender, without masses or organomegaly. No guarding or rebound tenderness. Neuro: A&O x3. No focal neurological deficits. Results & Data Results & Data Vital Signs (Past 12 Hours) Vital Signs Temp Pulse Pulse Pulse Resp BP BP 05/15/23 14:59 37.2 C 56 L 18 123/72 05/15/23 11:25 36.7 C 62 20 110/55 L 05/15/23 08:11 36.7 C 64 18 130/70 05/15/23 05:50 63 05/15/23 03:43 36.3 C L 61 18 133/67 Pulse Ox O2 Del Method 05/15/23 14:59 Room Air 05/15/23 11:25 95 Room Air 05/15/23 08:11 96 Room Air 05/15/23 05:50 05/15/23 03:43 95 Room Air Laboratory Results Reviewed CBC Reviewed BMP PG Care Time/CCT Total # of Minutes Spent Total Time Spent with Patient: Total time spent is greater than 50% in coordination of care (as documented) at patient's floor/unit and/or counseling patient: Coding Level of Care Code 60409 SUB INP/OBS CARE 2/35MIN Diagnoses Recurrent urinary tract infection N39.0 Altered mental status R41.82 Ambulatory dysfunction R26.2 Hematuria R31.9 PAF (paroxysmal atrial fibrillation) I48.0 Moderately severe recurrent major depression F33.2 Adult failure to thrive R62.7 Resting tremor G25.2
[2023-05-16 06:18] LABS: Hemoglobin 11.9 g/dl (12.0-16.0); Mean Corpuscular Hemoglobin 30.6 pg (25.0-34.0); Mean Corpuscular Volume 87.4 fL (80.0-100.0); Mean Platelet Volume 9.2 fL (9.4-12.4); Platelet Count 239 K/uL (130-400); RDW Coefficient of Variation 13.1 % (11.5-14.5); RDW Standard Deviation 41.1 fL (36.4-46.3); Red Blood Count 3.89 M/uL (4.20-5.40); White Blood Count 8.84 K/ul (4.8-10.8)
[2023-05-16 06:29] LABS: BUN Creatinine Ratio 17.2 (10-20); Calcium 8.8 mg/dl (8.6-10.3); Est GFR (African American) 97.4 ml/min; Potassium 3.7 mmol/L (3.5-5.1)
[2023-05-16] MEDS: CIPROFLOXACIN 250 MG TAB PO SCH (09:52)
--- NOTE | 2023-05-16 12:20 | Discharge Summary ---
Date of Service May 16, 2023 Admission HPI Per Admitting Provider Yobani is an 82-year-old female with PMH of a flutter, paroxysmal A-fib (on apixaban), hypothyroidism, diabetes, HTN, CAD, recurrent UTIs, MCI, ADHD, and depression. She presented via EMS for generalized weakness and malaise that has been worsening over the past several days. Patient's daughter (Martha) is at the bedside and provides most of history. Daughter reports that the patient had trouble getting out of bed yesterday, and was unsteady on her feet. When she tried to get out of bed today for her doctor's appointment at 1 PM, she was unable to get up. No facial droop, or unilateral deficits, the patient's daughter has noticed slurred speech and confusion; daughter reports that this is common for her when she develops UTIs. Hx of recurrent UTIs; daughter is unsure if she has been taking her methenamine hippurate. Only recent change in medication was that she took Senokot for the first time yesterday. Patient lives with her at [facility], who helps to manage her medications. She reports she did not take her regular morning medications today. Patient's daughter noticed that she has been developing a resting tremor in both hands over the past 6 months, that comes and goes. Unclear what causes this to come on. Patient denies any recent falls, or injuries to the head or neck. However she did start to fall while exiting the bathroom in the ED, and was helped to the ground by her daughter. No head strike. Patient ambulates with a walker at baseline, and often has increased difficulty/dysfunction when she develops UTIs. Patient's daughter does note that she has had an acute change in cognition, and reports that she was speaking incoherently earlier; reportedly said she saw a "gorilla". She denies smoking, alcohol use, tobacco use. She is hypertensive at 136/80 at time of admission; vitals otherwise stable. ED course: NSS 500 mL IV ROS: Patient endorses chills, resting tremors, body aches, dizziness/lightheadedness with walking, constipation, and back pain (chronic). Patient denies fever, nightsweats, chest pain, SOB, abdominal pain, N/V/D, suprapubic pain, burning with urination, dysuria, blood in urine, urinary s/s, flank pain, or saddle anesthesia. Principal Diagnosis Recurrent UTI, acute metabolic encephalopathy, ambulatory dysfunction Discharge Exam General-alert and oriented x3, no fever, no chills HEENT-head atraumatic and normocephalic, pupils equal and reactive to light, extraocular muscles intact Neck-no lymphadenopathy or thyromegaly, trachea midline Chest-clear to auscultation. No rales, wheezing or rhonchi Cardiac-regular rate and rhythm, normal S1 and S2 Abdomen-normal bowel sounds, nontender, no hepatosplenomegaly Extremities-no cyanosis, clubbing, or edema Neuro-cranial nerves II through XII intact, motor and sensory function within normal limits, strength symmetrical, no focal deficits Psych-normal affect, normal mood Discharge Data Allergies Allergy/AdvReac Type Severity Reaction Status Date / Time bee venom protein (honey bee) Allergy Unknown Unverified 04/17/23 10:02 No Known Drug Allergies Allergy Verified 04/17/23 10:02 Consultations 05/09/23 19:27 ED Decision to Admit Stat Ordered Studies 05/09/23 17:23 CT abd pelvis IV con only Stat CT head/brain wo con Stat Hospital Course (1) Recurrent urinary tract infection: - History of recurrent UTIs. Unclear if patient has been taking methenamine hippurate at home. - No leukocytosis, febrile on presentation - UA positive on arrival - Urine culture positive for pansensitive Klebsiella pneumoniae and Citrobacter werkmanii. - Continue Cipro until 05/22/2023. Recommend continuation of antibiotics until urology appointment for cystoscopy on 05/22/2023. - Discuss if patient needs new prescription for methenamine hippurate upon discharge. (2) Altered mental status: - Upon presentation: ambulatory dysfunction, acute change in cognitive baseline, and slurred speech that developed on 05/07 - Admission head CT revealed no acute findings. Altered mental status most likely secondary to UTI. - Mental status returned to baseline after 24 hours of antibiotics. (3) Ambulatory dysfunction: - Multiple recent hospital admissions - Global deconditioning - PT/OT consulted for ambulatory dysfunction -- recommend SNF (4) Hematuria: - 3+ blood in urine on presentation; Hx of hematuria - Hgb WNL and hemodynamically stable. (5) PAF (paroxysmal atrial fibrillation): - EKG on arrival revealed NSR - Continue metoprolol and Eliquis (6) Moderately severe recurrent major depression: Stable. Continue current medical management Plan Discharge to [place] [facility] todayMay 15 Total Time Total Time Spent Total Time Spent (In Minutes): 45 minutes Discharge Plan Discharge Items Patient Disposition: Transfer Long-Term Fac Reason For Visit: AMBULATORY DYSFUNCTION, UTI Discharge Diagnosis: Urinary tract infection (UTI) Ambulatory dysfunction Activity: Resume your previous activity Non-emergency contact: Primary Care Provider and Urologist Call non-emergency contact if: you have any medication questions and your symptoms worsen Follow-up/Referrals: Yash Tavares DO [Primary Care Provider] - Diet: Regular and Heart Healthy Addtl Attending Provider Instructions: Mrs. Chaudhari, Og were admitted to the hospital due to a urinary tract infection (UTI) and confusion. The confusion was most likely secondary to the UTI. You had a head CT scan which revealed no acute findings, further supporting that the altered mental status was from UTI. You were treated with IV antibiotics for the UTI, and once the infection was controlled your mentation returned to baseline. Upon discharge from the hospital: * Continue antibiotics. This antibiotic is called ciprofloxacin, and you will take it twice daily. Continue this antibiotic until your urology appointment. * Follow-up with urology for the cystoscopy on May 22, 2023 Please return to the hospital if you experience any of the following: confusion, severe weakness, burning with urination, blood in your urine, chest pain, shortness of breath, lightheadedness, dizziness, or feeling like you are going to pass out. It was a pleasure taking care of you while you were in the hospital, Caro Dawn PA-C Pending Studies at Discharge: No Stand-Alone Forms: My [facility] Skilled Items Patient informed of condition?: Yes DNR: No Discharge Level of Care: Skilled Communicable Disease: No Discharge Prognosis: Stable Lines: None Urinary Catheter: No Medications and DC Order Prescriptions: New ciprofloxacin HCl [Cipro] 500 mg tablet 500 mg PO BID Qty: 21 0RF Continued levothyroxine 75 mcg tablet 75 mcg PO DAILY Qty: 90 3RF Rx Instructions: script . filled in early January 2023 atorvastatin 80 mg tablet 80 mg PO DAILY Qty: 90 1RF Eliquis 5 mg tablet 5 mg PO BID Qty: 60 3RF Rx Instructions: hasnt picked up since february amlodipine [Norvasc] 5 mg tablet 5 mg PO QAM Qty: 90 1RF nitroglycerin 0.4 mg tablet, sublingual 0.4 mg SL Q5M PRN (Reason: chest pain) Qty: 25 1RF Rx Instructions: filled early January 2023 methenamine hippurate 1 gram tablet 1 g PO BID Qty: 180 3RF Rx Instructions: last picked up in Feb olopatadine [Pataday Once Daily Relief] 0.2 % drops 1 drp ophthalmic (eye) DAILY Qty: 2.5 0RF acetaminophen 325 mg tablet 650 mg PO Q6H PRN (Reason: fever or pain) Patient Comments: CONFIRMED W/ PT AND ON CC DC SUMMARY 04/09. Rx Instructions: unable to verify 05/09/23 cholecalciferol (vitamin D3) [Vitamin D3] 2,000 unit Capsule 2,000 unit PO DAILY Rx Instructions: unable to verify 05/09/23 tramadol 50 mg tablet 50 mg PO DAILY PRN (Reason: Pain) polyethylene glycol 3350 [Miralax] 17 gram Powder In Packet 17 g PO DAILY PRN (Reason: constipation) Qty: 14 0RF Rx Instructions: unable to verify 05/09/23 metoprolol tartrate 25 mg tablet 25 mg PO UD Rx Instructions: 1 and 1/2 tabs daily (37.5 mg) Discharge Orders: Discharge Order (Routine); Ordered 05/16/23 Ordered By: Barber Tellez Admission Data Admit Date/Time: 05/09/23 20:25 Attending Provider: Barber Tellez Admit Provider: Wily Garner Primary Care Provider: Yash Tavares Other Providers: Wily Garner; [place]; [facility] Coding Level of Care Code 65319 INP/OBS DISCH >30 MIN Diagnoses Recurrent urinary tract infection N39.0 Altered mental status R41.82 Ambulatory dysfunction R26.2 Hematuria R31.9 PAF (paroxysmal atrial fibrillation) I48.0 Moderately severe recurrent major depression F33.2
== END 2023-05-16 14:13 | DRG 689 ==
LOC: ED 14:51 → 2W 20:25 → SUATTDRO 20:25 → INTOOBSV 20:25 → 2W 22:16

== ENCOUNTER 2023-11-15 10:32 | Inpatient (IN) ==
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
[2023-11-15] MEDS: SODIUM CHLORIDE 0.9% 500 ML IV ONE (11:17)
[2023-11-15 11:29] LABS: Basophils # (auto) 0.04 K/uL (0.00-0.20); Basophils % (auto) 0.4 %; Eosinophils # (auto) 0.08 K/uL (0.00-0.50); Eosinophils % (auto) 0.7 %; Hematocrit (blood only) 43.3 % (37.0-47.0); Hemoglobin 14.5 g/dl (12.0-16.0); Immature Granulocytes # (auto) 0.05 K/uL (0.01-0.20); Immature Granulocytes % (auto) 0.5 %; Lymphocytes # (auto) 1.56 K/uL (1.20-3.40); Lymphocytes % (auto) 14.4 %; Mean Corpuscular Hemoglobin 30.6 pg (25.0-34.0); Mean Corpuscular Hgb Conc 33.5 g/dL (32.0-36.0); Mean Corpuscular Volume 91.4 fL (80.0-100.0); Mean Platelet Volume 9.3 fL (9.4-12.4); Monocytes # (auto) 0.78 K/uL (0.11-0.59); Monocytes % (auto) 7.2 %; Neutrophils # (auto) 8.31 K/uL (1.40-6.50); Neutrophils % (auto) 76.8 %; Platelet Count 219 K/uL (130-400); RDW Coefficient of Variation 12.7 % (11.5-14.5); RDW Standard Deviation 42.3 fL (36.4-46.3); Red Blood Count 4.74 M/uL (4.20-5.40); White Blood Count 10.82 K/ul (4.8-10.8)
[2023-11-15 11:30] LABS: Appearance Urine Turbid (Clear); Bacteria Urine Automated None Seen (None Seen); Bilirubin Urine Negative (Negative); Blood Urine 2+ (Negative); Color Urine Yellow; Glucose Urine UA Negative (Negative); Ketones Urine Negative (Negative); Leukocyte Esterase Urine 3+ (Negative); Nitrite Urine Negative (Negative); Protein Urine 2+ (Negative); RBC Urine Automated 0-2 /hpf (0-2); Specific Gravity Urine 1.014 (1.000-1.030); Urobilinogen Urine Negative (Negative); WBC Urine Automated >50 /hpf (0-5); pH Urine 5.5 (4.5-7.5)
[2023-11-15 11:47] LABS: Albumin Globulin Ratio 1.4 (0.9-2); Albumin Level 3.8 gm/dl (3.4-5.0); Bilirubin,Total 0.9 mg/dl (0.2-1.0); Calcium 9.3 mg/dl (8.6-10.3); Globulin 2.7 gm/dl (2.5-4.0); Potassium 4.2 mmol/L (3.5-5.1); Total Protein 6.5 gm/dl (6.0-8.3)
--- NOTE | 2023-11-15 11:47 | XRay Report ---
SINGLE VIEW CHEST CLINICAL HISTORY: Cough FINDINGS: An AP, portable, upright chest radiograph is compared to study dated 07/05/2023. The heart i s enlarged noting atherosclerotic calcification of the thoracic aorta. The pulmonary vasculature is n oncongested. Chronic interstitial thickening similar to previous. The lungs and pleural spaces are cl ear. No pneumothorax is seen. The skeletal structures are osteopenic. The bony thorax is grossly inta ct. Degenerative change is noted in the shoulders and spine. IMPRESSION: Cardiomegaly with no active disease in the chest. ACT 112: Negative or not required by law. Electronically signed by: Luis Fernando Felix M.D. 11/15/2023 11:44 AM
[2023-11-15 11:56] LABS: Troponin I High Sensitivity 113.9 pg/ml (0-14)
[2023-11-15] MEDS: cefTRIAXone SODIUM 2,000 MG/50 ML BAG IV STA (12:15)
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
[2023-11-15 13:37] LABS: Adenovirus PCR Not Detected (NotDetected); Bordetella parapertussis PCR Not Detected (NotDetected); Bordetella pertussis PCR Not Detected (NotDetected); Chlamydia pneumoniae PCR Not Detected (NotDetected); Coronavirus 229E PCR Not Detected (NotDetected); Coronavirus CoV-2 (COVID19)PCR Not Detected (NotDetected); Coronavirus HKU1 PCR Not Detected (NotDetected); Coronavirus NL63 PCR Not Detected (NotDetected); Coronavirus OC43PCR Not Detected (NotDetected); Human Metapneumovirus PCR Not Detected (NotDetected); Influenza A PCR Not Detected (NotDetected); Influenza B PCR Not Detected (NotDetected); Mycoplasma pneumoniae PCR Not Detected (NotDetected); Parainfluenza Virus 1 PCR Not Detected (NotDetected); Parainfluenza Virus 2 PCR Not Detected (NotDetected); Parainfluenza Virus 3 PCR Not Detected (NotDetected); Parainfluenza Virus 4 PCR Not Detected (NotDetected); Respiratory Syncytial VirusPCR Not Detected (NotDetected); Rhinovirus/Enterovirus PCR DETECTED (NotDetected)
--- NOTE | 2023-11-15 18:41 | Electrocardiogram Report ---
Test Reason : Blood Pressure : */* mmHG Vent. Rate : 59 BPM Atrial Rate : 59 BPM P-R Int : 110 ms QRS Dur : 90 ms QT Int : 402 ms P-R-T Axes : 62 -49 79 degrees QTcB Int : 397 ms Sinus bradycardia Left axis deviation RSR' or QR pattern in V1 suggests right ventricular conduction delay Abnormal ECG When compared with ECG of 05-Jul-2023 13:35, SD interval has decreased RSR' pattern in V1 is now Present Criteria for Anterior infarct are no longer Present Confirmed by Kali Hayes ([id number]) on 11/15/2023 6:41:03 PM Referred By: Confirmed By: Kali Hayes
--- OUTSIDE RECORDS SUMMARY | 2023-11-15 19:10 | External Medical Summary | Continuity of Care Document ---
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 Name Role Phone JamilYash saldana Primary Care Physician [phone] [id number] Date(s): 11/12/23 - 11/12/23 [facility] [address] [facility] [address] [phone] Encounter Diagnosis Seborrheic keratoses(Discharge Diagnosis) - 11/12/23 Seborrheic dermatitis(Discharge Diagnosis) - 11/12/23 Xerosis of skin(Discharge Diagnosis) - 11/12/23 Senile purpura(Discharge Diagnosis) - 11/12/23 Discharge Disposition: Home or Self Care Attending Physician: PAVEL Peña Holly C Allergies, Adverse Reactions, Alerts Substance Criticality Severity Reaction Reaction Severity Status Bee stings Anaphylaxis Active Assessment and Plan Extracted from: Title:Dermatology Office Visit Note Author:PAVEL Peña Holly C Date:11/12/23 1.Seborrheic keratoses Chronic Stable Discussed benign nature of lesions. May treat prn if become painful or irritated. Discussed signs and symptoms of skin cancer with patient and advised to call and schedule an appointment if develops any new or concerning lesions or wounds that won't heal. Advised to wear hats, sunscreens and SPF clothing. 2.Seborrheic dermatitis New Flared scalp and forehead, moderate to severe Will start ketoconazole shampoo 2%, lather, let sit for 5 to 10 minutes then rinse. Safe to do every day,most will do 1-3 times a week for maintenance. she only washes her hair every several days, I advised to wash hair daily. Start clobetasol solution 0.05%apply to scalp 1-2 times a day for the itch. No longer than 2 weeks at a time. Side effects discussed including thinning of the skin. 3.Xerosis of skin Acute Flared whole body-moderate Advisedlukewarmwater,no scrubbing, use a gentle cleanser, moisturize within 3 minutes ofshower or bathing.Vaselineis one of the best moisturizers.Also CeraVe,Cetaphil,and Vanicreamare wellliked and tolerated. she does not bath or shower except for every several days, I advised to wash more often and then moisturize, information sheet given for fragrance free products. 4.Senile purpura Chronic Stable Provided reassurance aboutthe benign nature of this lesion. No indication for treatment today. Advised patient to call with any problems, questions, or concerns. States understanding. Patient was seen independently,Dr Shelton for immediate collaboration as needed during this visit. Will follow up in as needed Medications aspirin 325 mg oral tablet Start: 03/02/21 3:23:00 PM EST, 1 tab, PO, q2-3 days Start Date: 03/02/21 Status: Ordered atorvastatin 80 mg oral tablet Start: 02/28/22 11:37:00 AM EST, 1 tab, PO, qhs Start Date: 02/28/22 Status: Ordered clobetasol 0.05% topical solution Start: 11/12/23 10:09:00 AM EDT, 1 appl, topical, bid, Disp# 50 mL, Refills: 0, apply to psoriasis on scalp for itch, Pharmacy: [facility] Start Date: 11/12/23 Status: Ordered FLUoxetine 20 mg oral capsule Start: 02/23/21 11:38:00 AM EST, 1 cap, PO, Daily Start Date: 02/23/21 Status: Ordered glipiZIDE 2.5 mg oral tablet, extended release Start: 02/23/21 11:38:00 AM EST, 1 tab, PO, Daily Start Date: 02/23/21 Status: Ordered hydrocortisone valerate 0.2% topical cream Start: 09/04/19 11:25:00 AM EDT, 1 appl, topical, bid, Disp# 60 g, Refills: 2, to AA on Buttock, Left Elbow and hands. Start Date: 09/04/19 Status: Ordered ketoconazole 2% topical cream Start: 02/28/22 11:46:00 AM EST, 1 appl, topical, bid, Disp# 30 g, Refills: 2, apply to area under the breasts, Pharmacy: [facility]/pharmacy #[id number] Start Date: 02/28/22 Status: Ordered ketoconazole 2% topical shampoo Start: 11/12/23 10:08:00 AM EDT, 1 appl, topical, Daily, Disp# 120 mL, Refills: 6, lather into scalp, let sit 10 minutes then rinse daily., Pharmacy: [facility] Start Date: 11/12/23 Status: Ordered levothyroxine 75 mcg (0.075 mg) oral tablet TAKE 1 TABLET BY MOUTH EVERY DAY Start Date: 09/19/21 Status: Ordered Metoprolol Tartrate 25 mg oral tablet Start: 02/28/22 11:37:00 AM EST Start Date: 02/28/22 Status: Ordered nitroglycerin 0.4 mg sublingual tablet DISSOLVE 1 TABLET SUBLINGUALLY EVERY 5 MIN NEEDED FOR CHEST PAIN DIRECTED Start Date: 04/06/20 Status: Ordered triamcinolone 0.025% topical cream Start: 02/28/22 11:46:00 AM EST, 1 appl, topical, Daily, Disp# 60 g, Refills: 1, apply to rash underbreasts, Pharmacy: [facility]/pharmacy #[id number] Start Date: 02/28/22 Status: Ordered Vitamin D3 1000 intl units (25 mcg) oral capsule Start: 09/04/19 10:57:00 AM EDT, 1 cap, PO, Daily Start Date: 09/04/19 Status: Ordered Mental Status 11/12/23 Barriers to Learning one year None evide nt Mandatory Health Literacy Documentation Yes Health Literacy Communication Barriers N ever Primary Language Belarusian Problem List Condition Confirmation Course Effective Dates Status H ealth Status Informant Xerosis of skin Confirmed Active Coronary artery disease Confirmed Active Depression Confirmed Active History of squamous cell carcinoma Confirmed Active HTN (hypertension) Confirmed Active Hypothyroidism Confirmed Active Peripheral vascular disease Confirmed Active Seborrheic dermatitis Confirmed Active Seborrheic keratoses Confirmed Active Senile purpura Confirmed Active Tobacco user Confirmed Active Diagnosis Diagnosis Type Effective Dates Health Status Clinical Service Informant Senile purpura Discharge Diagnosis 11/12/23 Non-Specified Seborrheic dermatitis Discharge Diagnosis 11/12/23 Non-Specified Xerosis of skin Discharge Diagnosis 11/12/23 Non-Specified Seborrheic keratoses Discharge Diagnosis 11/12/23 Non-Specified Procedures Procedure Date Related Diagnosis Body Site Status Appendectomy Completed Cholecystectomy Completed Dental Completed Stent Completed Surgery 1 Completed Tonsillectomy Completed 1abdominal Social History Social History Type Response Smoking Status Former Smoker, quit > 1 yr Sex Female Sex Representation Female (finding) Dermatology Outpatient Note * PAVEL Peña, Idalia Bowling: PERFORM Event Display: Dermatology Outpt Note Authored Date: [id number] Chief Complaint area to left groin History of Present Illness 83 YearsoldFemalepatient here for skin check. new to me. has seen Dr Michellep1/2022, note reviewed. Patient reports area of concern today: spot on groin, has been there many years. Her daughter sent a list of questions today, Yobani, is not concerned about the list.The daughter's list questions right arm blood blisters, psoriasis on back head and neck,skin on chest that isrough how to get it smoothandback of legs, rough skin on face how to fix it,blood blisters and brown spots on the legs. is with patient, Grandradha Ji, drove them today, but he steps out of the room for the exam. Denies history of skin cancer. No other skin areas of concern. Otherwise healthy. Physical Exam Well developed, well nourished,WhiteFemalein no acute distress. in a wheelchair andbarely able to stand, took 2 to assist.Oriented x3 with appropriate mood and affect. Skin: skin exam performed of hair, scalp, ears, face, nose, lips, neck, chest, abdomen, back, axilla, upper extremities, hands. brown waxy keratotic papules and plaques consistent with seborrheic keratoses. dry skin pink patches with yellow greasy scale onScalpand foreheadconsistent with seborrheic dermatitis. violaceousmacules consistent with senile purpura. Nolesions suspicious for skin cancer.No unusual features under dermoscopy. Patient declined further exam. Denied any other areas of concerns. Assessment/Plan 1.Seborrheic keratoses Chronic Stable Discussed benign nature of lesions. May treat prn if become painful or irritated. Discussed signs and symptoms of skin cancer with patient and advised to call and schedule an appointment if develops any new or concerning lesions or wounds that won't heal. Advised to wear hats, sunscreens and SPF clothing. 2.Seborrheic dermatitis New Flared scalp and forehead, moderate to severe Will start ketoconazole shampoo 2%, lather, let sit for 5 to 10 minutes then rinse. Safe to do every day,most will do 1-3 times a week for maintenance. she only washes her hair every several days, I advised to wash hair daily. Start clobetasol solution 0.05%apply to scalp 1-2 times a day for the itch. No longer than 2 weeks at a time. Side effects discussed including thinning of the skin. 3.Xerosis of skin Acute Flared whole body-moderate Advisedlukewarmwater,no scrubbing, use a gentle cleanser, moisturize within 3 minutes ofshower or bathing.Vaselineis one of the best moisturizers.Also CeraVe,Cetaphil,and Vanicreamare wellliked and tolerated. she does not bath or shower except for every several days, I advised to wash more often and then moisturize, information sheet given for fragrance free products. 4.Senile purpura Chronic Stable Provided reassurance aboutthe benign nature of this lesion. No indication for treatment today. Advised patient to call with any problems, questions, or concerns. States understanding. Patient was seenindependently,Dr Shelton for immediate collaboration as needed during this visit. Will follow up inas needed Problem List/Past Medical History Ongoing Coronary artery disease Depression History of squamous cell carcinoma HTN (hypertension) Hypothyroidism Peripheral vascular disease Seborrheic dermatitis Seborrheic keratoses Senile purpura Tobacco user Xerosis of skin Procedure/Surgical History DentalAppendectomyTonsillectomyCholecystectomySurgeryStent Medications aspirin(aspirin 325 mg oral tablet), 325 mg= 1 tab, PO atorvastatin(atorvastatin 80 mg oral tablet), 80 mg= 1 tab, PO, qhs cholecalciferol(Vitamin D3 1000 intl units (25 mcg) oral capsule), 25 mcg= 1 cap, PO, Daily clobetasol topical(clobetasol 0.05% topical solution), 1 appl, topical, bid FLUoxetine(FLUoxetine 20 mg oral capsule), 20 mg= 1 cap, PO, Daily glipiZIDE(glipiZIDE 2.5 mg oral tablet, extended release), 2.5 mg= 1 tab, PO, Daily hydrocortisone topical(hydrocortisone valerate 0.2% topical cream), 1 appl, topical, bid, 2 refills ketoconazole topical(ketoconazole 2% topical cream), 1 appl, topical, bid, 2 refills ketoconazole topical(ketoconazole 2% topical shampoo), 1 appl, topical, Daily, 6 refills levothyroxine(levothyroxine 75 mcg (0.075 mg) oral tablet) metoprolol(Metoprolol Tartrate 25 mg oral tablet) nitroglycerin(nitroglycerin 0.4 mg sublingual tablet) triamcinolone topical(triamcinolone 0.025% topical cream), 1 appl, topical, Daily, 1 refills Allergies Bee stingsAnaphylaxis Social History Smoking Status Former Smoker, quit > 1 yr Electronic Signature on File Electronically Reviewed/Signed by: Idalia Peña PA-C Author Signature Dt/Tm:11/12/2023 10:52 AM Department of Dermatology Electronically Reviewed/Signed by: Kylie Gibbs MD Cosigner Signature Dt/Tm: 11/12/2023 11:07 AM Department of Dermatology [facility] Patient Care team information Care Team Personnel Name: DO Tavares Brian R Position: Referring Member Role: Primary Care Provider Address: [address] Care Team Related Persons Name: KEVIN HICKS
[2023-11-15] MEDS: ACETAMINOPHEN 325 MG TAB PO PRN (19:42)
[2023-11-15] MEDS: METOPROLOL TARTRATE 25 MG TAB PO SCH (21:50)
[2023-11-15] MEDS: ENOXAPARIN INJ 40 MG/0.4 ML SYR SQ SCH (22:27)
[2023-11-16] MEDS: LEVOTHYROXINE SODIUM 75 MCG TABLET PO SCH (06:29)
[2023-11-16 07:05] LABS: Basophils # (auto) 0.05 K/uL (0.00-0.20); Basophils % (auto) 0.5 %; Eosinophils # (auto) 0.12 K/uL (0.00-0.50); Eosinophils % (auto) 1.2 %; Hematocrit (blood only) 39.6 % (37.0-47.0); Hemoglobin 13.4 g/dl (12.0-16.0); Immature Granulocytes # (auto) 0.03 K/uL (0.01-0.20); Immature Granulocytes % (auto) 0.3 %; Lymphocytes # (auto) 2.63 K/uL (1.20-3.40); Lymphocytes % (auto) 26.9 %; Mean Corpuscular Hemoglobin 30.9 pg (25.0-34.0); Mean Corpuscular Hgb Conc 33.8 g/dL (32.0-36.0); Mean Corpuscular Volume 91.5 fL (80.0-100.0); Mean Platelet Volume 10.4 fL (9.4-12.4); Monocytes # (auto) 0.88 K/uL (0.11-0.59); Neutrophils # (auto) 6.07 K/uL (1.40-6.50); Neutrophils % (auto) 62.1 %; Platelet Count 214 K/uL (130-400); RDW Coefficient of Variation 12.6 % (11.5-14.5); RDW Standard Deviation 41.7 fL (36.4-46.3); Red Blood Count 4.33 M/uL (4.20-5.40); White Blood Count 9.78 K/ul (4.8-10.8)
[2023-11-16 07:19] LABS: BUN Creatinine Ratio 22.1 (10-20); Calcium 8.7 mg/dl (8.6-10.3); Creatinine Clr Calc Pharmacy 63.9 ml/min; Magnesium 1.5 mg/dl (1.7-2.4); Potassium 3.8 mmol/L (3.5-5.1)
[2023-11-16] MEDS ORDERED: GLUCOSE 40% GEL 15 GM TUBE PO PRN (07:36)
[2023-11-16] MEDS ORDERED: GLUCOSE 10 TAB/TUBE PO PRN (07:36)
[2023-11-16] MEDS ORDERED: CARBOHYDRATES FOR HYPOGLYCEMIA PO PRN (07:36)
[2023-11-16] MEDS ORDERED: DEXTROSE 50% 50 ML SYRINGE IV PRN (07:36)
[2023-11-16] MEDS ORDERED: GLUCAGON FOR INJ 1 MG VIAL SQ PRN (07:36)
[2023-11-16] MEDS: CYANOCOBALAMIN (B-12) 500 MCG TABLET PO SCH (08:51)
[2023-11-16] MEDS: MAGNESIUM SULFATE / D5W 1 GM/100 ML BAG IV SCH (08:51)
[2023-11-16] MEDS: ATORVASTATIN 40 MG TAB PO SCH (08:51)
[2023-11-16] MEDS: VIBEGRON 75 MG TAB PO SCH (08:52)
[2023-11-16] MEDS: ASPIRIN 81 MG ECTAB PO SCH (08:53)
[2023-11-16] MEDS: DULoxetine HCL 20 MG CAP PO SCH (08:53)
[2023-11-16] MEDS: amLODIPine BESYLATE 5 MG TAB PO SCH (08:54)
[2023-11-16] MEDS: metFORMIN HCL 500 MG TAB PO SCH (08:54)
--- NOTE | 2023-11-16 12:09 | Hospitalist Progress Note ---
Date of Service November 16, 2023 Assessment & Plan (1) Generalized weakness: Plan: secondary to acute illness with suspected UTI and viral illness. Supportive care. PT and OT ordered (2) UTI (urinary tract infection): Plan: Suspected on admission. Await urine culture results. Continue Rocephin, day 2 (3) Enterovirus infection: Plan: Viral illness present on admission. Supportive care. Droplet precautions (4) T2DM (type 2 diabetes mellitus): Plan: ADA diet. Sliding scale coverage if needed. Continue metformin Plan Hopeful return to previous living arrangements early next week Admission and Anticipated Discharge Date Admission Date: November 15, 2023 Subjective Alert and oriented. No distress. She remains on Rocephin, day 2. She appears to have presented with a viral illness and possibly a UTI. Culture results are pending. Magnesium is slightly low at 1.5. Replacement ordered. Review of Systems 2 Review of Systems: Constitutionalno fever or chills ENTno blurred vision, no double vision, no epistaxis, no sore throat Respiratoryno cough, no wheezing, no shortness of breath Cardiacno palpitations, no chest pain, no syncope Kareen nausea, vomiting, diarrhea, melena, hematochezia GUno urinary retention, no urinary incontinence, no dysuria, no hematuria Musculoskeletalno joint pain, no muscle tenderness Skinno bruising, no rashes, no pruritus Neurono isolated weakness, no paresthesia, no weakness Psychno depression, no anxiety Physical Exam 2 Physical Exam: General-alert and oriented x3, no fever, no chills HEENT-head atraumatic and normocephalic, pupils equal and reactive to light, extraocular muscles intact Neck-no lymphadenopathy or thyromegaly, trachea midline Chest-clear to auscultation. No rales, wheezing or rhonchi Cardiac-regular rate and rhythm, normal S1 and S2 Abdomen-normal bowel sounds, no hepatosplenomegaly Extremities-no cyanosis, clubbing, or edema Neuro-cranial nerves II through XII intact, motor and sensory function within normal limits, strength symmetrical, no focal deficits Psych-normal affect, normal mood Results & Data Results & Data Vital Signs (Past 12 Hours) Vital Signs Pulse Resp BP Pulse Ox O2 Del Method 11/16/23 11:15 Room Air 11/16/23 06:32 61 20 136/77 95 Room Air Laboratory Results 11/16/23 06:05 11/16/23 06:05 PG Care Time/CCT Total # of Minutes Spent Total Time Spent with Patient: Total time spent is greater than 50% in coordination of care (as documented) at patient's floor/unit and/or counseling patient: Coding Level of Care Code 22686 SUB INP/OBS CARE 3/50MIN Diagnoses Generalized weakness R53.1 UTI (urinary tract infection) N39.0 Enterovirus infection B34.1 T2DM (type 2 diabetes mellitus) E11.9
[2023-11-16] MEDS: INSULIN ASPART PER UNIT CHARGE SC SCH (12:20)
[2023-11-16] MEDS: cefTRIAXone SODIUM 2,000 MG/50 ML BAG IV SCH (12:38)
[2023-11-16] MEDS: INFLUENZA VACC TS2024-25(65y+)/PF (IIV3) 0.5mL Syr IM ONE (13:12)
[2023-11-17 06:16] LABS: Basophils # (auto) 0.04 K/uL (0.00-0.20); Basophils % (auto) 0.5 %; Eosinophils # (auto) 0.28 K/uL (0.00-0.50); Eosinophils % (auto) 3.5 %; Hematocrit (blood only) 39.4 % (37.0-47.0); Hemoglobin 13.4 g/dl (12.0-16.0); Immature Granulocytes # (auto) 0.06 K/uL (0.01-0.20); Immature Granulocytes % (auto) 0.8 %; Lymphocytes # (auto) 2.19 K/uL (1.20-3.40); Lymphocytes % (auto) 27.7 %; Mean Corpuscular Hemoglobin 30.2 pg (25.0-34.0); Mean Corpuscular Volume 88.9 fL (80.0-100.0); Mean Platelet Volume 10.1 fL (9.4-12.4); Monocytes # (auto) 0.77 K/uL (0.11-0.59); Monocytes % (auto) 9.7 %; Neutrophils # (auto) 4.58 K/uL (1.40-6.50); Neutrophils % (auto) 57.8 %; Platelet Count 241 K/uL (130-400); RDW Coefficient of Variation 12.5 % (11.5-14.5); RDW Standard Deviation 40.9 fL (36.4-46.3); Red Blood Count 4.43 M/uL (4.20-5.40); White Blood Count 7.92 K/ul (4.8-10.8)
[2023-11-17] MEDS: MICONAZOLE NITRATE POWDER 85 GM EXT PRN (06:35)
[2023-11-17 06:45] LABS: Calcium 8.7 mg/dl (8.6-10.3); Magnesium 1.7 mg/dl (1.7-2.4); Potassium 3.8 mmol/L (3.5-5.1)
[2023-11-17 06:51] LABS: BUN Creatinine Ratio 19.7 (10-20); Creatinine Clr Calc Pharmacy 65.8 ml/min
--- NOTE | 2023-11-17 11:48 | Electrocardiogram Report ---
Test Reason : Blood Pressure : */* mmHG Vent. Rate : 65 BPM Atrial Rate : 65 BPM P-R Int : 128 ms QRS Dur : 88 ms QT Int : 410 ms P-R-T Axes : 53 -48 157 degrees QTcB Int : 426 ms Normal sinus rhythm Left axis deviation Abnormal ECG When compared with ECG of 15-Nov-2023 11:23, RSR' pattern in V1 is no longer Present Confirmed by Cain Laird ([id number]) on 11/17/2023 11:48:34 AM Referred By: REFERRED SELF Confirmed By: Cain Laird
--- NOTE | 2023-11-17 12:37 | Hospitalist Progress Note ---
Date of Service November 17, 2023 Assessment & Plan (1) Generalized weakness: Plan: secondary to acute illness with suspected viral illness. Supportive care. PT and OT ordered (2) UTI (urinary tract infection): Plan: UTI ruled out. Rocephin has been discontinued. Urine culture is negative (3) Enterovirus infection: Plan: Viral illness present on admission. Supportive care. Droplet precautions (4) T2DM (type 2 diabetes mellitus): Plan: ADA diet. Sliding scale coverage if needed. Continue metformin (5) Abnormal EKG: Plan: Anterior T waves are inverted. Troponin is minimally elevated. She denies chest pain. Cardiac echo ordered to evaluate left ventricular function. Plan Hopeful return to previous living arrangements within the next day or 2 Admission and Anticipated Discharge Date Admission Date: November 15, 2023 Subjective Alert and oriented. Afebrile. Urine culture negative. Rocephin has been discontinued. EKG #[address] to [address] anterior ST segment depression although she denies chest pain. Cardiac echo has been requested to evaluate left ventricular function. Troponin is mildly elevated. Hypomagnesemia has been corrected to 1.7 with parenteral replacement. Oral magnesium oxide has been ordered. Review of Systems 2 Review of Systems: Constitutionalno fever or chills ENTno blurred vision, no double vision, no epistaxis, no sore throat Respiratoryno cough, no wheezing, no shortness of breath Cardiacno palpitations, no chest pain, no syncope Kareen nausea, vomiting, diarrhea, melena, hematochezia GUno urinary retention, no urinary incontinence, no dysuria, no hematuria Musculoskeletalno joint pain, no muscle tenderness Skinno bruising, no rashes, no pruritus Neurono isolated weakness, no paresthesia, no weakness Psychno depression, no anxiety Physical Exam 2 Physical Exam: General-alert and oriented x3, no fever, no chills HEENT-head atraumatic and normocephalic, pupils equal and reactive to light, extraocular muscles intact Neck-no lymphadenopathy or thyromegaly, trachea midline Chest-clear to auscultation. No rales, wheezing or rhonchi Cardiac-regular rate and rhythm, normal S1 and S2 Abdomen-normal bowel sounds, no hepatosplenomegaly Extremities-no cyanosis, clubbing, or edema Neuro-cranial nerves II through XII intact, motor and sensory function within normal limits, strength symmetrical, no focal deficits Psych-normal affect, normal mood Results & Data Results & Data Vital Signs (Past 12 Hours) Vital Signs Temp Pulse Resp BP Pulse Ox O2 Del Method 11/17/23 08:04 36.5 C 68 16 131/76 96 Room Air Laboratory Results 11/17/23 05:34 11/17/23 05:34 PG Care Time/CCT Total # of Minutes Spent Total Time Spent with Patient: Total time spent is greater than 50% in coordination of care (as documented) at patient's floor/unit and/or counseling patient: Coding Level of Care Code 49391 SUB INP/OBS CARE 3/50MIN Diagnoses Generalized weakness R53.1 UTI (urinary tract infection) N39.0 Enterovirus infection B34.1 T2DM (type 2 diabetes mellitus) E11.9 Abnormal EKG R94.31
[2023-11-17] MEDS: MAGNESIUM OXIDE 400 MG TAB PO SCH (12:57)
--- NOTE | 2023-11-17 19:52 | XCELERA ---
[id number]
[2023-11-18 08:33] LABS: Basophils # (auto) 0.05 K/uL (0.00-0.20); Basophils % (auto) 0.8 %; Eosinophils # (auto) 0.16 K/uL (0.00-0.50); Eosinophils % (auto) 2.4 %; Hematocrit (blood only) 42.8 % (37.0-47.0); Hemoglobin 13.9 g/dl (12.0-16.0); Immature Granulocytes # (auto) 0.04 K/uL (0.01-0.20); Immature Granulocytes % (auto) 0.6 %; Lymphocytes # (auto) 2.16 K/uL (1.20-3.40); Lymphocytes % (auto) 32.4 %; Mean Corpuscular Hgb Conc 32.5 g/dL (32.0-36.0); Mean Corpuscular Volume 92.4 fL (80.0-100.0); Mean Platelet Volume 9.6 fL (9.4-12.4); Monocytes # (auto) 0.46 K/uL (0.11-0.59); Monocytes % (auto) 6.9 %; Neutrophils # (auto) 3.79 K/uL (1.40-6.50); Neutrophils % (auto) 56.9 %; Platelet Count 258 K/uL (130-400); RDW Coefficient of Variation 12.8 % (11.5-14.5); RDW Standard Deviation 43.3 fL (36.4-46.3); Red Blood Count 4.63 M/uL (4.20-5.40); White Blood Count 6.66 K/ul (4.8-10.8)
[2023-11-18 08:49] LABS: BUN Creatinine Ratio 15.6 (10-20); Calcium 8.9 mg/dl (8.6-10.3); Creatinine Clr Calc Pharmacy 56.4 ml/min; Potassium 3.9 mmol/L (3.5-5.1)
--- NOTE | 2023-11-18 13:55 | Hospitalist Progress Note ---
Date of Service November 18, 2023 Assessment & Plan (1) Generalized weakness: Plan: secondary to acute illness with rhino/enterovirus Supportive care - IS, FV Encourage ambulation isolation precautions PT and OT - recommending rehab - CM following (2) UTI (urinary tract infection): Plan: UTI ruled out. Rocephin has been discontinued. Urine culture is negative (3) T2DM (type 2 diabetes mellitus): Plan: A1c 08/2023 7.7 Continue metformin SSI changed to CF only, suspect can d/c tomorrow if BSG acceptable (4) Abnormal EKG: Plan: Anterior T waves are inverted. Troponin is minimally elevated - peaked at 113 She denies chest pain. Echo: EF 60-65%, normal systolic function Plan Dispo: continued inpatient stay DVT proh: lovenox family updated at bedside 11/17 Admission and Anticipated Discharge Date Admission Date: November 15, 2023 Supervising Physician Co-Signing Physician Notes PA Supervision Note: I did not personally see or examine the patient today, but I verified all hall points of DAYANARA Thompson's assessment and plan with the following exceptions/additions: None Subjective PAtient seen lying in bed, present at bedside. Pt states she is feeling better, has not been out of bed today. Reports non -productive cough. no fever or chills agreeable to rehab Review of Systems Review of Systems: All systems reviewed & are unremarkable except as noted in Subjective Physical Exam Physical Exam: General: NAD, VS as above Resp: normal respiratory effort, lungs clear to auscultation CV: RRR, no murmur, Extremities: Moves all extremities, no edema Neuro: A&O x3, Results & Data Results & Data Vital Signs (Past 12 Hours) Vital Signs Temp Pulse Resp BP Pulse Ox O2 Del Method 11/18/23 07:40 Room Air 11/18/23 07:17 97.5 F L 70 16 126/75 94 Room Air Laboratory Results CBC and chemistry reviewed Diagnostic Findings Echo reviewed PG Care Time/CCT Total # of Minutes Spent Total Time Spent with Patient: Total time spent is greater than 50% in coordination of care (as documented) at patient's floor/unit and/or counseling patient: Coding Level of Care Code 37126 SUB INP/OBS CARE 3/50MIN Diagnoses Generalized weakness R53.1 UTI (urinary tract infection) N39.0 T2DM (type 2 diabetes mellitus) E11.9 Abnormal EKG R94.31
--- NOTE | 2023-11-19 13:38 | Hospitalist Progress Note ---
Date of Service November 19, 2023 Assessment & Plan (1) Generalized weakness: Plan: secondary to acute illness with rhino/enterovirus Supportive care - IS, FV Encourage ambulation isolation precautions PT and OT - recommending rehab - CM following (2) UTI (urinary tract infection): Plan: UTI ruled out. Rocephin has been discontinued. Urine culture is negative (3) T2DM (type 2 diabetes mellitus): Plan: A1c 08/2023 7.7 Continue metformin SSI changed to CF only and has not needed, will d/c insulin (4) Abnormal EKG: Plan: Anterior T waves are inverted. Troponin is minimally elevated - peaked at 113 She denies chest pain. Echo: EF 60-65%, normal systolic function Plan Dispo: continued inpatient stay DVT proh: elmax family updated at bedside 11/17 , 11/18 Admission and Anticipated Discharge Date Admission Date: November 15, 2023 Supervising Physician Co-Signing Physician Notes PA Supervision Note: I did not personally see or examine the patient today, but I verified all hall points of DAYANARA Thompson's assessment and plan with the following exceptions/additions: None Subjective Patient seen lying in bed,. Is been present at bedside. States she has been out of bed with therapy today and just got back in bed 10 minutes ago. Feels like her cough is improving. Good appetite, had a bowel movement yesterday Review of Systems Review of Systems: All systems reviewed & are unremarkable except as noted in Subjective Physical Exam Physical Exam: General: NAD, VS as above Resp: normal respiratory effort, coarse in the bases, patient demonstrated ability to use incentive spirometer CV: RRR, no murmur, Extremities: Moves all extremities, no edema Neuro: A&O x3, Results & Data Results & Data Vital Signs (Past 12 Hours) Vital Signs Temp Pulse Resp BP Pulse Ox O2 Del Method 11/19/23 12:58 Room Air 11/19/23 07:22 97.5 F L 62 16 137/74 96 Room Air Laboratory Results [id number] glucose reviewed PG Care Time/CCT Total # of Minutes Spent Total Time Spent with Patient: Total time spent is greater than 50% in coordination of care (as documented) at patient's floor/unit and/or counseling patient: Coding Level of Care Code 04415 SUB INP/OBS CARE 2/35MIN Diagnoses Generalized weakness R53.1 UTI (urinary tract infection) N39.0 T2DM (type 2 diabetes mellitus) E11.9 Abnormal EKG R94.31
[2023-11-20] MEDS: POLYETHYLENE (MIRALAX) 17 GM PACK PO PRN (06:07)
--- NOTE | 2023-11-20 11:09 | Hospitalist Progress Note ---
Date of Service November 20, 2023 Assessment & Plan (1) Generalized weakness: Plan: secondary to acute illness with rhino/enterovirus Supportive care - IS, FV Encourage ambulation isolation precautions PT and OT - recommending rehab - CM following Senna added for constipation (2) UTI (urinary tract infection): Plan: UTI ruled out. Rocephin has been discontinued. Urine culture is negative (3) T2DM (type 2 diabetes mellitus): Plan: A1c 08/2023 7.7 Continue metformin SSI changed to CF only and has not needed, will d/c insulin (4) Abnormal EKG: Plan: Anterior T waves are inverted. Troponin is minimally elevated - peaked at 113 She denies chest pain. Echo: EF 60-65%, normal systolic function Plan Dispo: continued inpatient stay DVT proh: lovenox family updated at bedside 11/17 , 11/18, 11/19 Admission and Anticipated Discharge Date Admission Date: November 15, 2023 Supervising Physician Co-Signing Physician Notes PA Supervision Note: I did not personally see or examine the patient today, but I verified all hall points of DAYANARA Thompson's assessment and plan with the following exceptions/additions: None Subjective patient seen sitting up in bed, present at bedside unclear when last BM was, yessterday she told me she had one 11/17, but now does not recall, last documented was 11/13 uses senna at home but recently stopped cough when using flutter valve Review of Systems Review of Systems: All systems reviewed & are unremarkable except as noted in Subjective Physical Exam Physical Exam: General: NAD, VS as above Resp: normal respiratory effort, coarse in the bases, patient demonstrated ability to use incentive spirometer CV: RRR, no murmur, Extremities: Moves all extremities, nonpitting LE edema Neuro: A&O x3, Results & Data Results & Data Vital Signs (Past 12 Hours) Vital Signs Temp Pulse Resp BP Pulse Ox O2 Del Method 11/20/23 08:00 Room Air 11/20/23 07:44 97.5 F L 63 18 134/70 98 Room Air Laboratory Results POC glucose reviewed PG Care Time/CCT Total # of Minutes Spent Total Time Spent with Patient: Total time spent is greater than 50% in coordination of care (as documented) at patient's floor/unit and/or counseling patient: Coding Level of Care Code 49213 SUB INP/OBS CARE 2/35MIN Diagnoses Generalized weakness R53.1 UTI (urinary tract infection) N39.0 T2DM (type 2 diabetes mellitus) E11.9 Abnormal EKG R94.31
[2023-11-20] MEDS: DOCUSATE SODIUM/SENNA 50/8.6MG TAB PO SCH (13:11)
--- NOTE | 2023-11-21 13:59 | Hospitalist Progress Note ---
Date of Service November 21, 2023 Assessment & Plan (1) Generalized weakness: Plan: secondary to acute illness with rhino/enterovirus Supportive care - IS, FV Encourage ambulation isolation precautions PT and OT - recommending rehab - CM following Senna added for constipation (2) UTI (urinary tract infection): Plan: UTI ruled out. Rocephin has been discontinued. Urine culture is negative (3) T2DM (type 2 diabetes mellitus): Plan: A1c 08/2023 7.7 Continue metformin SSI changed to CF only and has not needed, d/c insulin (4) Abnormal EKG: Plan: Anterior T waves are inverted. Troponin is minimally elevated - peaked at 113 She denies chest pain. Echo: EF 60-65%, normal systolic function Plan Dispo: continued inpatient stay DVT proh: elmax family updated at bedside 11/17 , 11/18, 11/19, 11/20 Admission and Anticipated Discharge Date Admission Date: November 15, 2023 Supervising Physician Co-Signing Physician Notes PA Supervision Note: I did not personally see or examine the patient today, but I verified all hall points of DAYANARA Thompson's assessment and plan with the following exceptions/additions: None Subjective patient seen sitting up in bed, present at bedside worked with therapy this morning and now back in bed. cough decreasing BM yesterday Review of Systems Review of Systems: All systems reviewed & are unremarkable except as noted in Subjective Physical Exam Physical Exam: General: NAD, VS as above Resp: normal respiratory effort, coarse in the bases, encouraged FV use CV: RRR, no murmur, Extremities: Moves all extremities, nonpitting LE edema Neuro: A&O x3, Results & Data Results & Data Vital Signs (Past 12 Hours) Vital Signs Temp Pulse Resp BP Pulse Ox O2 Del Method 11/21/23 08:10 Room Air 11/21/23 07:37 97.9 F 67 18 132/78 96 Room Air PG Care Time/CCT Total # of Minutes Spent Total Time Spent with Patient: Total time spent is greater than 50% in coordination of care (as documented) at patient's floor/unit and/or counseling patient: Coding Level of Care Code 75418 SUB INP/OBS CARE 1/25MIN Diagnoses Generalized weakness R53.1 UTI (urinary tract infection) N39.0 T2DM (type 2 diabetes mellitus) E11.9 Abnormal EKG R94.31
[2023-11-21] MEDS: LIDOCAINE 2% 20 MG/ML 5 ML SYR IV ONE (18:23)
[2023-11-21 19:09] LABS: Appearance Urine Turbid (Clear); Bacteria Urine Automated None Seen (None Seen); Bilirubin Urine Negative (Negative); Blood Urine 3+ (Negative); Cast Urine Automated 0-2 /lpf (0-2); Color Urine Yellow; Epithelial Cell Urine Auto >20 /hpf (0-2); Glucose Urine UA Negative (Negative); Ketones Urine Trace (Negative); Leukocyte Esterase Urine 3+ (Negative); Nitrite Urine Negative (Negative); Protein Urine Trace (Negative); Specific Gravity Urine 1.024 (1.000-1.030); Urobilinogen Urine Negative (Negative); WBC Urine Automated >50 /hpf (0-5); pH Urine 5.5 (4.5-7.5)
--- NOTE | 2023-11-22 15:12 | Hospitalist Progress Note ---
Date of Service November 22, 2023 Assessment & Plan (1) Generalized weakness: Plan: secondary to acute illness with rhino/enterovirus Supportive care - IS, FV Encourage ambulation isolation precautions PT and OT - recommending rehab - CM following Senna added for constipation (2) UTI (urinary tract infection): Plan: UTI ruled out. Rocephin has been discontinued. Urine culture is negative repeat urine culture sent 11/20 due to family complaining of patient acting like normally does with a UTI, will defer antibiotics until his results (3) T2DM (type 2 diabetes mellitus): Plan: A1c 08/2023 7.7 Continue metformin SSI changed to CF only and has not needed, d/c insulin (4) Abnormal EKG: Plan: Anterior T waves are inverted. Troponin is minimally elevated - peaked at 113 She denies chest pain. Echo: EF 60-65%, normal systolic function Plan Dispo: continued inpatient stay DVT proh: lovenox family updated at bedside 11/17 , 11/18, 11/19, 11/20, 11/21 Admission and Anticipated Discharge Date Admission Date: November 15, 2023 Supervising Physician Co-Signing Physician Notes PA Supervision Note: I did not personally see or examine the patient today, but I verified all hall points of DAYANARA Thompson's assessment and plan with the following exceptions/additions: None Subjective patient seen lying in bed, present at bedside. No acute concerns denies urinary symptoms or urinary frequency. Cough is improving Physical Exam Physical Exam: General: NAD, VS as above Resp: normal respiratory effort, coarse in the bases, encouraged FV use CV: RRR, no murmur, Extremities: Moves all extremities, nonpitting LE edema Neuro: A&O x3, Results & Data Results & Data Vital Signs (Past 12 Hours) Vital Signs Temp Pulse Resp BP Pulse Ox O2 Del Method 11/22/23 08:16 59 L 126/69 11/22/23 07:40 Room Air 11/22/23 07:12 97.9 F 60 17 123/72 96 Room Air PG Care Time/CCT Total # of Minutes Spent Total Time Spent with Patient: Total time spent is greater than 50% in coordination of care (as documented) at patient's floor/unit and/or counseling patient: Coding Level of Care Code 27216 SUB INP/OBS CARE 03/07MIN Diagnoses Generalized weakness R53.1 UTI (urinary tract infection) N39.0 T2DM (type 2 diabetes mellitus) E11.9 Abnormal EKG R94.31
--- NOTE | 2023-11-23 11:04 | Hospitalist Progress Note ---
Date of Service November 23, 2023 Assessment & Plan (1) Generalized weakness: Plan: secondary to acute illness with rhino/enterovirus Supportive care - IS, FV Encourage ambulation isolation precautions PT and OT - recommending rehab - CM following, P2P pending for Saturday Senna added for constipation (2) UTI (urinary tract infection): Plan: UTI ruled out. Rocephin has been discontinued. Urine culture is negative repeat urine culture sent 11/20 due to family complaining of patient acting like normally does with a UTI - no growth, no abx indicated (3) T2DM (type 2 diabetes mellitus): Plan: A1c 08/2023 7.7 Continue metformin SSI changed to CF only and has not needed, d/c insulin (4) Abnormal EKG: Plan: Anterior T waves are inverted. Troponin is minimally elevated - peaked at 113 She denies chest pain. Echo: EF 60-65%, normal systolic function Plan Dispo: continued inpatient stay DVT proh: lovenox family updated at bedside 11/17 , 11/18, 11/19, 11/20, 11/21, 11/22 Admission and Anticipated Discharge Date Admission Date: November 15, 2023 Supervising Physician Co-Signing Physician Notes Attending Attestation - Chart reviewed, care plan d/w DAYANARA Thompson. I agree w/ the hall components of her documentation. Teofilo Mina MD Subjective patient seen lying in bed, present at bedside Cough is improving Discussed peer to peer process and possible results on Saturday. Offered to go home with HH this weekend, and they would like to wait until Saturday's determination. Encouraged out of bed to the chair Review of Systems Review of Systems: All systems reviewed & are unremarkable except as noted in Subjective Physical Exam Physical Exam: General: NAD, VS as above Resp: normal respiratory effort, improved in the bases, encouraged FV use CV: RRR, no murmur, Extremities: Moves all extremities, nonpitting LE edema Neuro: A&O x3, Results & Data Results & Data Vital Signs (Past 12 Hours) Vital Signs Temp Pulse Resp BP Pulse Ox O2 Del Method 11/23/23 09:39 97.7 F 62 16 128/75 97 Room Air Laboratory Results UC reviewed PG Care Time/CCT Total # of Minutes Spent Total Time Spent with Patient: Total time spent is greater than 50% in coordination of care (as documented) at patient's floor/unit and/or counseling patient: Coding Level of Care Code 64687 SUB INP/OBS CARE Diagnoses Generalized weakness R53.1 UTI (urinary tract infection) N39.0 T2DM (type 2 diabetes mellitus) E11.9 Abnormal EKG R94.31
[2023-11-24] MEDS ORDERED: ALBUT/IPRATROP 3MG/0.5MG NEB 3 ML VIAL NEB PRN (10:04)
--- NOTE | 2023-11-24 10:06 | Hospitalist Progress Note ---
Date of Service November 24, 2023 Assessment & Plan (1) Generalized weakness: Plan: secondary to acute illness with rhino/enterovirus Supportive care - IS, FV Encourage ambulation isolation precautions PT and OT - recommending rehab - CM following, P2P pending for Saturday Duonebs added prn Senna added for constipation (2) UTI (urinary tract infection): Plan: UTI ruled out. Rocephin has been discontinued. Urine culture is negative repeat urine culture sent 11/20 due to family complaining of patient acting like normally does with a UTI - no growth, no abx indicated (3) T2DM (type 2 diabetes mellitus): Plan: A1c 08/2023 7.7 Continue metformin SSI changed to CF only and has not needed, d/c insulin and ACHS (4) Abnormal EKG: Plan: Anterior T waves are inverted. Troponin is minimally elevated - peaked at 113 She denies chest pain. Echo: EF 60-65%, normal systolic function Plan Dispo: continued inpatient stay DVT proh: logannox family updated at bedside 11/17 , 11/18, 11/19, 11/20, 11/21, 11/22, 11/23 Admission and Anticipated Discharge Date Admission Date: November 15, 2023 Supervising Physician Co-Signing Physician Notes Attending Attestation - Chart reviewed, care plan d/w DAYANARA Thompson. I agree w/ the hall components of her documentation. Teofilo Mina MD Subjective Patient seen sitting up in bed. Feels sore today, but can describe where still with productive cough reports 14 stairs for entry into home Review of Systems Review of Systems: All systems reviewed & are unremarkable except as noted in Subjective Physical Exam Physical Exam: General: NAD, VS as above Resp: normal respiratory effort, corse with expiratory wheezing, + cough, encouraged FV use CV: RRR, no murmur, Extremities: Moves all extremities, nonpitting LE edema Neuro: A&O x3, Results & Data Results & Data Vital Signs (Past 12 Hours) Vital Signs Temp Pulse Resp BP Pulse Ox O2 Del Method 11/24/23 08:00 97.7 F 60 14 126/72 96 Room Air Laboratory Results kidney function reviewed PG Care Time/CCT Total # of Minutes Spent Total Time Spent with Patient: Total time spent is greater than 50% in coordination of care (as documented) at patient's floor/unit and/or counseling patient: Coding Level of Care Code 27720 SUB INP/OBS CARE 235MIN Diagnoses Generalized weakness R53.1 UTI (urinary tract infection) N39.0 T2DM (type 2 diabetes mellitus) E11.9 Abnormal EKG R94.31
[2023-11-24] MEDS: ALBUT/IPRATROP 3MG/0.5MG NEB 3 ML VIAL NEB STA (11:25)
[2023-11-25 07:13] VITALS: PULSE 62; RESP 16; TEMP 97.5; O2SAT 97
--- NOTE | 2023-11-25 11:54 | Hospitalist Progress Note ---
Date of Service November 25, 2023 Assessment & Plan (1) Generalized weakness: Plan: secondary to acute illness with rhino/enterovirus Supportive care - IS, FV Encourage ambulation isolation precautions PT and OT - recommending rehab - CM following, P2P pending for Saturday Duonebs added prn Senna added for constipation (2) UTI (urinary tract infection): Plan: UTI ruled out. Rocephin has been discontinued. Urine culture is negative repeat urine culture sent 11/20 due to family complaining of patient acting like normally does with a UTI - no growth, no abx indicated (3) T2DM (type 2 diabetes mellitus): Plan: A1c 08/2023 7.7 Continue metformin SSI changed to CF only and has not needed, d/c insulin and ACHS (4) Abnormal EKG: Plan: Anterior T waves are inverted. Troponin is minimally elevated - peaked at 113 She denies chest pain. Echo: EF 60-65%, normal systolic function Plan Dispo: continued inpatient stay DVT proh: tiny family updated at bedside 11/17 , 11/18, 11/19, 11/20, 11/21, 11/22, 11/23 Admission and Anticipated Discharge Date Admission Date: November 15, 2023 Results & Data Results & Data Vital Signs (Past 12 Hours) Vital Signs Temp Pulse Resp BP Pulse Ox O2 Del Method 11/25/23 07:12 36.4 C L 62 16 128/67 97 Room Air PG Care Time/CCT Total # of Minutes Spent Total Time Spent with Patient: Total time spent is greater than 50% in coordination of care (as documented) at patient's floor/unit and/or counseling patient: Coding Diagnoses Generalized weakness R53.1 UTI (urinary tract infection) N39.0 T2DM (type 2 diabetes mellitus) E11.9 Abnormal EKG R94.31
--- NOTE | 2023-11-25 15:26 | Discharge Summary ---
Discharge Summary Date of Service November 25, 2023 Principal Dx & Hospital Course #1 = Principal Diagnosis (1) Generalized weakness: Patient presented to the ED on 11/15/2023 w/ complaints of ambulatory dysfunction and weakness. This was found to be secondary to rhino/enterovirus Supportive care Ambulation encouraged isolation precautions were in place PT/OT recommended rehab Peer to Peer overturned 11/24, patient has presence of 14 stairs in her house and feels much weaker than her baseline. Patient being discharged to [facility] 11/24. (2) Recurrent urinary tract infection: UTI was ruled out. Rocephin was discontinued. UC was negative. Repeat UC on 11/20 was also negative. (3) Diabetes type 2, controlled: A1c as of 08/2023 was 7.7 Metformin continued. (4) Abnormal EKG: Anterior T waves inverted. Troponin minimally elevated - peaked at 113 Denied CP or SOB. Echo EF 60-65%, normal systolic function Plan Discharged to [facility] 11/24 Updated at bedside 11/24 Admission HPI Per Admitting Provider Yobani Chaudhari is an 83 year old female who presents to the ER with worsening ambulatory dysfunction and off balance. She reports her daughter wanted her to come in because she was staggering around the house. She reports having a bad cough since yesterday with green/yellow sputum. She reports chronic dysuria for 4-5 years however acutely her urine has been more cloudy for the last 2-3 days. No flank pain. She felt febrile last night. No one sided weakness, change in sensation, hearing, vision or speech changes. She does not feel confused. She reports taking all her her morning medications this morning. Discharge Plan Discharge Items Patient Disposition: Transfer Custodial Fac Reason For Visit: UTI, GENERALIZED WEAKNESS Discharge Diagnosis: Rhino/enterovirus, weakness Activity: Resume your previous activity Non-emergency contact: Primary Care Provider Call non-emergency contact if: you have any medication questions and your symptoms worsen Follow-up/Referrals: Yash Tavares, [Primary Care Provider] - Diet: Carb Consistent or DM2 Addtl Attending Provider Instructions: Mrs. Chaudhari, You were recently hospitalized for experiencing weakness and found to be positive for the rhino/enterovirus which is a respiratory illness. You were treated appropriately with supportive care. Due to this being a viral illness, no antibiotics were necessary for treatment. Please see recommendations below regarding your discharge. 1. Please continue outpatient medications. 2. Please follow up with your PCP within 1-2 weeks of discharge. If you experience any worsening weakness, fever, chills, chest pain, or shortness of breath please report back to the ER for further care. Sincerely, Jane Bear PA-C Stand-Alone Forms: My [facility] Skilled Items Patient informed of condition?: Yes DNR: Yes Discharge Level of Care: Acute rehab Communicable Disease: Yes Discharge Prognosis: Improving Lines: None Urinary Catheter: No Medications and DC Order Prescriptions: Continued amlodipine [Norvasc] 5 mg tablet 5 mg PO QAM Qty: 90 3RF aspirin 81 mg tablet,delayed release (DR/EC) 81 mg PO QAM Qty: 30 1RF duloxetine [Cymbalta] 20 mg capsule,delayed release(DR/EC) 20 mg PO DAILY Qty: 30 2RF levothyroxine 75 mcg tablet 75 mcg PO UD Qty: 90 3RF Rx Instructions: filled in early January 2023 metoprolol tartrate 25 mg tablet 37.5 mg PO BID Qty: 180 3RF nitroglycerin 0.4 mg tablet, sublingual 0.4 mg SL Q5M PRN (Reason: chest pain) Qty: 25 1RF Rx Instructions: filled early January 2023 olopatadine [Pataday Once Daily Relief] 0.2 % drops 1 drp ophthalmic (eye) DAILY Qty: 2.5 0RF Gemtesa 75 mg tablet 75 mg PO DAILY Qty: 30 5RF methenamine hippurate 1 gram tablet 1 g PO BID Qty: 180 1RF metformin 500 mg tablet 500 mg PO BID 100 Days Qty: 200 3RF amoxicillin 500 mg capsule 500 mg PO BID Qty: 14 0RF mecobalamin (vitamin B12) 1 tab PO DAILY Rx Instructions: unable to verify 5/24/24 cholecalciferol (vitamin D3) [Vitamin D3] 2,000 unit Capsule 2,000 unit PO DAILY Rx Instructions: unable to verify 5/24/24 conjugated estrogens 0.625 mg/gram cream 0.625 mg vaginal UD Rx Instructions: last filled 2021 Apply once daily for 2 weeks. After this period, apply twice per week acetaminophen 325 mg Tablet 325 mg PO QID PRN (Reason: Pain) polyethylene glycol 3350 [Miralax] 17 gram Powder In Packet 17 g PO DAILY PRN (Reason: Constipation) methenamine hippurate 1 gram tablet 1 g PO DAILY atorvastatin 80 mg tablet 80 mg PO QAM Discharge Orders: Discharge Order (Routine); Ordered 11/25/23 Ordered By: Jane Bear Admission Data Admit Date/Time: 11/15/23 13:47 Attending Provider: Irineo Garcia Admit Provider: Teofilo Rodriguez Primary Care Provider: Yash Tavares Other Providers: Teofilo Rodriguez; Brendan Greco [facility]; [place] Other Interventions: Discharge Summary Assessment (RN) Last Done: 11/25/23 15:32 Hospital Stay Data Consultations 11/15/23 13:03 ED Decision to Admit Stat Discharge Instructions Given to Patient (Per Discharging Provider) Mrs. Chaudhari, Og were recently hospitalized for experiencing weakness and found to be positive for the rhino/enterovirus which is a respiratory illness. You were treated appropriately with supportive care. Due to this being a viral illness, no antibiotics were necessary for treatment. Please see recommendations below regarding your discharge. 1. Please continue outpatient medications. 2. Please follow up with your PCP within 1-2 weeks of discharge. If you experience any worsening weakness, fever, chills, chest pain, or shortness of breath please report back to the ER for further care. Sincerely, Jane Bear PA-C Supervising Physician Co-Signing Physician Notes During face to face encounter, I obtained a brief physical examination, discussed hospital stay with patient and discharge instructions with patient. I discussed discharge plan of care with CARMINA Bear. I reviewed above note and agree with it except for the following: Patient evaluated for generalized weakness. Patient will be transferred to SNF for rehab. Total Time Total Time Spent Total Time Spent (In Minutes): 35 Total Time Includes: Examination of the Patient, Discharge Planning and Medication Reconciliation Coding Level of Care Code 03383 INP/OBS DISCH >30 MIN Diagnoses Generalized weakness R53.1 Recurrent urinary tract infection N39.0 Diabetes type 2, controlled E11.9 Abnormal EKG R94.31
[2023-11-25 15:33] VITALS: BP 122/69
== END 2023-11-25 16:30 | DRG 866 ==
LOC: ED 10:32 → SUATTDRO 13:47 → EDINP 13:47 → 3E 11-16 11:28
DX: Z79.84 Long term (current) use of oral hypoglycemic drugs; E03.9 Hypothyroidism, unspecified; I25.10 Atherosclerotic heart disease of native coronary artery without angina pectoris; I10 Essential (primary) hypertension; Z87.891 Personal history of nicotine dependence; R62.7 Adult failure to thrive; R94.31 Abnormal electrocardiogram [ECG] [EKG]; R79.89 Other specified abnormal findings of blood chemistry; I25.2 Old myocardial infarction; Z79.890 Hormone replacement therapy; R53.1 Weakness; E11.9 Type 2 diabetes mellitus without complications; E78.5 Hyperlipidemia, unspecified; R26.2 Difficulty in walking, not elsewhere classified; N32.0 Bladder-neck obstruction; B34.8 Other viral infections of unspecified site; Z79.82 Long term (current) use of aspirin

== ENCOUNTER 2024-02-09 12:42 | Inpatient (IN) ==
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
[2024-02-09] MEDS: SODIUM CHLORIDE 0.9% 1,000 ML IV ONE (13:10)
[2024-02-09 13:24] LABS: Basophils # (auto) 0.03 K/uL (0.00-0.20); Basophils % (auto) 0.3 %; Eosinophils # (auto) 0.03 K/uL (0.00-0.50); Eosinophils % (auto) 0.3 %; Hematocrit (blood only) 41.9 % (37.0-47.0); Hemoglobin 13.9 g/dl (12.0-16.0); Immature Granulocytes # (auto) 0.06 K/uL (0.01-0.20); Immature Granulocytes % (auto) 0.5 %; Lymphocytes # (auto) 1.68 K/uL (1.20-3.40); Lymphocytes % (auto) 14.9 %; Mean Corpuscular Hemoglobin 30.7 pg (25.0-34.0); Mean Corpuscular Hgb Conc 33.2 g/dL (32.0-36.0); Mean Corpuscular Volume 92.5 fL (80.0-100.0); Mean Platelet Volume 9.7 fL (9.4-12.4); Monocytes # (auto) 0.81 K/uL (0.11-0.59); Monocytes % (auto) 7.2 %; Neutrophils # (auto) 8.65 K/uL (1.40-6.50); Neutrophils % (auto) 76.8 %; Platelet Count 229 K/uL (130-400); RDW Coefficient of Variation 14.1 % (11.5-14.5); RDW Standard Deviation 48.3 fL (36.4-46.3); Red Blood Count 4.53 M/uL (4.20-5.40); White Blood Count 11.26 K/ul (4.8-10.8)
--- NOTE | 2024-02-09 13:31 | XRay Report ---
XR chest 1V portable CLINICAL HISTORY: weakness TECHNIQUE: Single frontal radiograph of the chest was obtained. Comparison: Comparison is made to chest radiograph 11/15/2023 FINDINGS: No lines and tubes are seen. Cardiomegaly is noted. The aortic arch is calcified. The lungs are clear . No evidence of pleural effusion or pneumothorax. IMPRESSION: No acute chest disease. ACT 112: Negative or not required by law. Electronically signed by: Oral Mc M.D. 02/09/2024 1:30 PM
[2024-02-09] MEDS: ACETAMINOPHEN 500 MG TAB PO STA (13:49)
[2024-02-09 14:13] LABS: Appearance Urine Cloudy (Clear); Bacteria Urine Automated 2+ (None Seen); Bilirubin Urine Negative (Negative); Blood Urine 3+ (Negative); Color Urine Yellow; Epithelial Cell Urine Auto 0-2 /hpf (0-2); Glucose Urine UA Negative (Negative); Ketones Urine Trace (Negative); Leukocyte Esterase Urine 2+ (Negative); Nitrite Urine Positive (Negative); Protein Urine 1+ (Negative); Specific Gravity Urine 1.025 (1.000-1.030); Urobilinogen Urine Negative (Negative); WBC Urine Automated >50 /hpf (0-5); pH Urine 5.5 (4.5-7.5)
--- NOTE | 2024-02-09 14:26 | CT Scan Report ---
EXAM: CT Head Without Intravenous Contrast INDICATION: Trauma. TECHNIQUE: Axial computed tomography images of the head/brain without intravenous contrast. Sagittal and/or coronal reformats are provided. Sagittal and coronal reformatted images were created and reviewed. This CT exam was performed using one or more of the following dose reduction techniques: automated exposure control, adjustment of the mA and/or kV according to patient size, and/or use of iterative reconstruction technique. COMPARISON: 12/26/2023 FINDINGS: Limitations: None. Brain and extra-axial spaces: There is age appropriate cortical atrophy and chronic ischemic periventricular white matter hypodensity. No acute infarct, hemorrhage or mass noted. Bones/joints: No acute changes. Soft tissues: No significant abnormality noted. Vasculature: There is atherosclerotic calcification of the intracranial vertebral and carotid arteries. Sinuses: No layering fluid in the visualized portions of the paranasal sinuses. Mastoid air cells: No mastoid effusion. Orbits: No significant abnormality noted. IMPRESSION: Cerebral atrophy. No acute changes. ACT 112: Negative or not required by law. Electronically signed by Anitha Perdomo 02-09-2024 2:26 PM
[2024-02-09] MEDS: cefTRIAXone SODIUM 2,000 MG/50 ML BAG IV STA (15:02)
[2024-02-09 15:03] LABS: Influenza A virus by PCR Negative (Neg); Influenza B virus by PCR Negative (Neg); RSV by PCR Negative (Neg); SARS CoV2 RNA(COVID-19) Ceph NEGATIVE (Negative)
--- NOTE | 2024-02-09 15:25 | Electrocardiogram Report ---
Test Reason : Blood Pressure : */* mmHG Vent. Rate : 55 BPM Atrial Rate : 55 BPM P-R Int : 108 ms QRS Dur : 88 ms QT Int : 444 ms P-R-T Axes : 94 -40 52 degrees QTcB Int : 424 ms Sinus bradycardia with short RI Left axis deviation Abnormal ECG When compared with ECG of 26-Dec-2023 11:40, T wave inversion now evident in Lateral leads ST changes more pronounced Confirmed by Ninfa Rodriguez (Bienvenido) on 02/09/2024 3:25:44 PM Referred By: Confirmed By: Ninfa Rodriguez
[2024-02-09 15:28] LABS: Albumin Level 3.7 gm/dl (3.4-5.0); BUN Creatinine Ratio 23.8 (10-20); Bilirubin Direct 0.1 mg/dl (0-0.2); Bilirubin,Total 1.2 mg/dl (0.2-1.0); Calcium 9.3 mg/dl (8.6-10.3); Creatinine Clr Calc Pharmacy 71.4 ml/min; Magnesium 1.8 mg/dl (1.7-2.4); Potassium 3.9 mmol/L (3.5-5.1); Total Protein 6.7 gm/dl (6.0-8.3)
[2024-02-09 15:34] LABS: Troponin I High Sensitivity 35.7 pg/ml (0-14)
[2024-02-09] MEDS ORDERED: CARBOHYDRATES FOR HYPOGLYCEMIA PO PRN (16:44)
[2024-02-09] MEDS ORDERED: DEXTROSE 50% 50 ML SYRINGE IV PRN (16:44)
[2024-02-09] MEDS ORDERED: GLUCOSE 40% GEL 15 GM TUBE PO PRN (16:44)
[2024-02-09] MEDS ORDERED: GLUCAGON FOR INJ 1 MG VIAL SQ PRN (16:44)
[2024-02-09] MEDS ORDERED: GLUCOSE 10 TAB/TUBE PO PRN (16:44)
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
[2024-02-09] MEDS ORDERED: ALUMINUM/MAGNESIUM SUSP 30 ML UDC PO PRN (18:56)
[2024-02-09] MEDS ORDERED: MAGNESIUM HYDROXIDE SUSP 30 ML UDC PO PRN (18:56)
[2024-02-09] MEDS ORDERED: ONDANSETRON INJ 2 MG/ML 2 ML VIAL IV PRN (18:56)
[2024-02-09] MEDS ORDERED: POLYETHYLENE (MIRALAX) 17 GM PACK PO PRN (18:56)
[2024-02-09] MEDS: SODIUM CHLORIDE 0.9% 500 ML IV SCH (19:47)
[2024-02-09] MEDS: METOPROLOL TARTRATE 25 MG TAB PO SCH (20:19)
[2024-02-09] MEDS: cefTRIAXone SODIUM 2,000 MG/50 ML BAG IV SCH (20:22)
[2024-02-09] MEDS: INSULIN ASPART PER UNIT CHARGE SC SCH (21:21)
[2024-02-10] MEDS: LEVOTHYROXINE SODIUM 75 MCG TABLET PO SCH (05:43)
[2024-02-10] MEDS: VIBEGRON 75 MG TAB PO SCH (08:41)
[2024-02-10] MEDS: ATORVASTATIN 40 MG TAB PO SCH (08:41)
[2024-02-10] MEDS: amLODIPine BESYLATE 5 MG TAB PO SCH (08:42)
[2024-02-10] MEDS: ASPIRIN 81 MG ECTAB PO SCH (08:42)
[2024-02-10] MEDS: ENOXAPARIN INJ 40 MG/0.4 ML SYR SQ SCH (08:42)
[2024-02-10] MEDS: ACETAMINOPHEN 325 MG TAB PO PRN (08:58)
[2024-02-10 09:24] LABS: Hematocrit (blood only) 36.4 % (37.0-47.0); Hemoglobin 12.2 g/dl (12.0-16.0); Mean Corpuscular Hemoglobin 31.3 pg (25.0-34.0); Mean Corpuscular Hgb Conc 33.5 g/dL (32.0-36.0); Mean Corpuscular Volume 93.3 fL (80.0-100.0); Platelet Count 209 K/uL (130-400); RDW Coefficient of Variation 13.8 % (11.5-14.5); RDW Standard Deviation 47.1 fL (36.4-46.3); White Blood Count 8.16 K/ul (4.8-10.8)
[2024-02-10 09:48] LABS: BUN Creatinine Ratio 22.8 (10-20); Calcium 8.5 mg/dl (8.6-10.3); Potassium 4.1 mmol/L (3.5-5.1)
[2024-02-10 10:03] LABS: Thyroid Stimulating Hormone 2.867 uIu/ml (0.300-4.500)
[2024-02-10 10:12] LABS: Estimated Average Glucose 151 mg/dl; Hemoglobin A1C 6.9 % (4.5-5.6)
--- NOTE | 2024-02-10 18:01 | Hospitalist Progress Note ---
Date of Service February 10, 2024 Assessment & Plan (1) Acute UTI (urinary tract infection): (2) Ground-level fall: (3) Diabetes type 2, controlled: (4) CAD (coronary artery disease): Plan 83-year-old woman with history of frequent UTIs admitted with urinary tract infection and associated weakness resulting in ground-level fall # UTI # frequent UTIs and she has been followed by urology. has been on methenamine & cranberry in the past though it does not seem like she is taking these at this time. Vaginal Estrace cream was prescribed in the past but she did not use it. Last urology note was reviewed, she had cystoscopy by Dr. Nguyễn in May which showed trabeculated bladder with a few diverticuli. Abdominal imaging in the past without obstruction/ nephrolithiasis (CT 07/04) - continue IV ceftriaxone, last urine culture with Klebsiella which was sensitive to this. follow-up urine culture - pinpoint growth - leukocytosis resolved on today's CBC # ground-level mechanical fallhead CT was negative for acute findings. CK only mildly elevated in the 200s - has some back pain which seems to be related to falling and has minor abrasion on her back, monitor - was given IV fluids the first night, PT and OT evaluation pending # minimally elevated high-sensitivity troponin # coronary artery disease, followed by Dr. Evans last coronary angiogram 12/2022 with nonobstructive coronary artery disease. last echo fall 2023 with normal LV and RV function, poor quality study # Hypertension -repeat HS-trop remained low at 30. I review of previous labs in [facility] her troponin is always at least minimally elevated -reviewed EKG which has t-wave inversion in V1-6 and t-wave flattening in I, II. These are more prominent than on past tracings -continue metoprolol, amlodipine, ASA, and high intensity statin # paroxysmal atrial fibrillation - mildly tachycardic at 117 this evening presumably this is her A-fib -continue metoprolol -no longer on anticoagulation # diabetes type 2 on metformin at home diabetic diet, as needed short acting insulin, monitor BG, hold metformin -A1c 6.9 chronic medical problems: Hypothyroidism continue levothyroxine - may not be taking her meds, check TSH = 2.8 peripheral arterial disease, right femoral artery stent cholecystectomy chronic pancreatitis based on imaging atrial fibrillation mild cognitive impairment B12 deficiency major depression adult failure to thrive ambulatory dysfunction, history of falls chronic LE edema, venous stasis DVT ppx: enoxaparin PT/OT eval pending She lives with her and says her daughter lives in [place] today she offered that she actually had been in [facility] from fall [address] through February 05 when she returned home with her , then admitted here on 02/08 I am concerned that home with her may be an unrealistic plan Admission and Anticipated Discharge Date Admission Date: February 09, 2024 Subjective she is feeling better today no abdominal pain dysuria or frequency, feels a little stronger no more feeling of chills/sweats today she tells me that she just got out of [facility] on 02/05 Physical Exam 2 Physical Exam: PHYSICAL EXAMINATION Last 24h vital signs reviewed, see documentation in flowsheet General: sitting in bed more well-appearing than yesterday, frail HEENT: Normocephalic, atraumatic, pupils round and equal, sclerae anicteric, no conjunctival injection, moist mucus membranes Lungs: Normal respiratory effort. Clear to auscultation bilaterally. No RRW Heart: Regular rate and rhythm, no murmurs. No JVD Abdomen: Soft, nontender, nondistended. Bowel sounds present. Extremities: lower extremities warm. 2+ lower extremity edema. Neuro: Alert and oriented x hospital and basic situation but vague historian, face symmetric, moves 4 extremities well Psych: Normal affect and behavior Results & Data Results & Data Vital Signs (Past 12 Hours) Vital Signs Temp Pulse Resp BP Pulse Ox O2 Del Method 02/10/24 16:00 98.8 F 116 H 16 119/67 96 Room Air 02/10/24 07:34 98.1 F 70 16 161/73 H 93 Room Air Laboratory Results 02/10/24 08:15 02/10/24 08:15 PG Care Time/CCT Total # of Minutes Spent Total Time Spent with Patient: Total time spent is greater than 50% in coordination of care (as documented) at patient's floor/unit and/or counseling patient: Coding Level of Care Code 73469 SUB INP/OBS CARE 2/35MIN Diagnoses Acute UTI (urinary tract infection) N39.0 Ground-level fall W18.30XA Diabetes type 2, controlled E11.9 CAD (coronary artery disease) I25.10
--- NOTE | 2024-02-11 19:27 | Hospitalist Progress Note ---
Date of Service February 11, 2024 Assessment & Plan (1) Acute UTI (urinary tract infection): Plan: 2nd klebsiella cont rocephin await final sensitivities Rx 7 days (2) Ground-level fall: Plan: details of fall at home uncertain but she denies feeling dizzy/lightheaded prior to falling legs buckle when she falls? but denies any knee or hip pain PT, OT evals appreciated fortunately no apparent injuries from the fall (3) Diabetes type 2, controlled: Plan: a1c 6.9% hold metformin while here cont novolog SSI (4) CAD (coronary artery disease): Plan: with prior stents s/p heart cath 2022 by [facility] [place] [facility]; findings - Coronary angiography: UXD-xjorf-puahnjy vessel trifurcating into LAD, circumflex, and ramus. Mild luminal irregularities. LAD-large caliber and transapical vessel. Proximal segment with mild plaque. First diagonal is medium to large and branching with ostial 50% stenosis. The rest of the vessel has mild luminal irregularities. The mid LAD has diffuse disease with up to 50 to 60% narrowing. It provides a medium caliber branching second diagonal with mild luminal irregularities. The early distal LAD has long eccentric stenosis appearing up to 40% narrowed. Then the most distal portion of the vessel has diffuse luminal irregularities. Of note, the flow is sluggish in the left coronary system. ZKh-kzhko-ojjvmyt and nondominant. Provides a large caliber multi branching OM1. This has mild diffuse disease proximally and then there is a focal 50% stenosis after the first major branch. The mid OM remains relatively large with diffuse mild less than 30% stenosis and then as it approaches the multi branching distal portion there is a long eccentric stenosis of 40 to 50%. Mid circumflex provides to atrial branches and there is a long prior stent which is widely patent. It provides a small to medium caliber OM 2 and then distally becomes small to medium in caliber and terminates. Ramus-small to medium caliber vessel with diffuse mild disease. GBY-omrvu-salobtg and dominant vessel. Proximal stent is widely patent. There is mild in-stent restenosis of 10% near the distal aspect of the stent. The mid and distal RCA have diffuse mild disease and then the vessel bifurcates into a large PDA and large posterolateral. The ostial to proximal PDA has 40% narrowing. Posterior lateral branch has diffuse luminal irregularities. IFR analysis of LAD-0.95, 0.95, 0.96. Therefore, this is not hemodynamically significant. No evidence of dissection or perforation post IFR analysis Summary: 1. Patent prior stents 2. Angiographically moderate coronary disease. LAD lesion is determined to be not hemodynamically significant by IFR analysis. cont statin, asa, BB (5) Chronic rhinitis: Plan: add astelin 2 sprays/nostril BID (6) PAF (paroxysmal atrial fibrillation): Plan: records report h/o PAF last EKG with jimjennifer was 12/2022; EKGs since then all with NSR cont metoprolol at one point was on Eliquis - stopped due to recurrent falls?? (7) Resting tremor: Plan: patient alludes to dx of PD but not on meds for such neuro note from 2023 is incomplete (no assessment/plan included on scanned document) certainly has tremor but this is non-diagnostic for PD would check orthostatic BPs to be complete (8) Hypothyroidism: Plan: TSH 2.8 cont synthroid (9) MCI (mild cognitive impairment): Plan: prior brain MRI with considerable atrophy most recent B12 and TSH levels wnl consider B1 level Plan abdominal distension - get KUB x-ray, r/o impaction, r/o ileus, etc. DVT proph - lovenox 40mg daily change observation to full admit status likely to need rehab stay once again Admission and Anticipated Discharge Date Admission Date: February 11, 2024 Subjective patient c/o chronic rhinnorhea does have bladder "pressure" denies dysuria no nausea or emesis does feel a bit bloated in her abdomen - last stool?? nursing flowsheets - 50% or more of meals consumed Review of Systems Review of Systems: cv - no orthopnea, no chest pain pulm - no dyspnea GI - no pain Physical Exam Physical Exam: gen - lying comfortably in bed, NAD, mild confusion noted neck - no JVD mouth - MMM heart - 1/6 BLAKE LSB, RRR, s1 s2 lungs - CTA b/l abd - soft NT BS+; mildly distended & tympanic to percussion ext - no edema, pulses 2+ b/l Results & Data Results & Data Vital Signs (Past 12 Hours) Vital Signs Temp Pulse Resp BP Pulse Ox O2 Del Method 02/11/24 08:12 36.7 C 60 16 165/78 H 97 Room Air Laboratory Results Laboratory Results - last 24 hr 02/10/24 02/11/24 02/11/24 20:49 07:40 11:35 POC Glucose 173 H 124 H 174 H 02/11/24 16:21 POC Glucose 149 H PG Care Time/CCT Total # of Minutes Spent Total Time Spent with Patient: Total time spent is greater than 50% in coordination of care (as documented) at patient's floor/unit and/or counseling patient: Coding Level of Care Code 77137 SUB INP/OBS CARE 3/50MIN Diagnoses Acute UTI (urinary tract infection) N39.0 Ground-level fall W18.30XA Diabetes type 2, controlled E11.9 CAD (coronary artery disease) I25.10 Chronic rhinitis J31.0 PAF (paroxysmal atrial fibrillation) I48.0 Resting tremor G25.2 Hypothyroidism E03.9 MCI (mild cognitive impairment) G31.84
--- NOTE | 2024-02-11 19:36 | XRay Report ---
Exam(s): XR KUB EXAM: XR Abdomen, 1 View CLINICAL HISTORY: Reason for exam: abd distension; impaction? ileus?. TECHNIQUE: Frontal supine view of the abdomen/pelvis. COMPARISON: No relevant prior studies available. FINDINGS: Gastrointestinal tract: Nonspecific bowel gas pattern. Moderate rectal stool without obvious impaction, but evaluation is limited. No dilation. Bones/joints: Osteopenia. Vasculature: Bilateral femoral artery stents. Vascular calcifications. IMPRESSION: Nonspecific bowel gas pattern. No specific findings of obstruction. Moderate rectal stool without obvious impaction, but evaluation is limited. Electronically signed by: Janet David M.D. 02/11/24 19:35 PM
[2024-02-11] MEDS: SENNA 8.6 MG TAB PO SCH (20:01)
[2024-02-11] MEDS: POLYETHYLENE (MIRALAX) 17 GM PACK PO SCH (20:01)
[2024-02-11] MEDS: AZELASTINE HCL 0.1% NASAL 200 SPRAYS/27,400 MCG BTL SCH (20:02)
[2024-02-12 07:20] LABS: Calcium 8.7 mg/dl (8.6-10.3); Creatinine Clr Calc Pharmacy 69.2 ml/min; Potassium 3.9 mmol/L (3.5-5.1)
[2024-02-12] MEDS: cephALEXin 500 MG CAP PO SCH (09:53)
--- NOTE | 2024-02-12 15:48 | Hospitalist Progress Note ---
Date of Service February 12, 2024 Assessment & Plan (1) Acute UTI (urinary tract infection): Plan: 2nd klebsiella stop rocephin change to keflex BID x 5 additional days (2) Ground-level fall: Plan: details of fall at home uncertain but she denies feeling dizzy/lightheaded prior to falling legs buckle when she falls? but denies any knee or hip pain PT, OT evals appreciated fortunately no apparent injuries from the fall will check orthostatic BPs to ensure no orthostasis check lumbar spine CT - r/o stenosis as cause of RLE weakness/buckling do suspect advanced OA of knees/hips contributes to fall risk (3) Diabetes type 2, controlled: Plan: a1c 6.9% hold metformin while here cont novolog SSI (4) CAD (coronary artery disease): Plan: with prior stents s/p heart cath 2022 by [facility] [place] [facility]; findings - Coronary angiography: VNU-baigt-zyrmolg vessel trifurcating into LAD, circumflex, and ramus. Mild luminal irregularities. LAD-large caliber and transapical vessel. Proximal segment with mild plaque. First diagonal is medium to large and branching with ostial 50% stenosis. The rest of the vessel has mild luminal irregularities. The mid LAD has diffuse di sease with up to 50 to 60% narrowing. It provides a medium caliber branching second diagonal with mild luminal irregularities. The early distal LAD has long eccentric stenosis appearing up to 40% narrowed. Then the most distal portion of the vessel has diffuse luminal irregularities. Of note, the flow is sluggish in the left coronary system. UZm-zrzhj-gtaavtu and nondominant. Provides a large caliber multi branching OM1. This has mild diffuse disease proximally and then there is a focal 50% stenosis after the first major branch. The mid OM remains relatively large with diffuse mild less than 30% stenosis and then as it approaches the multi branching distal portion there is a long eccentric stenosis of 40 to 50%. Mid circumflex provides to atrial branches and there is a long prior stent which is widely patent. It provides a small to medium caliber OM 2 and then distally becomes small to medium in caliber and terminates. Ramus-small to medium caliber vessel with diffuse mild disease. RIF-ynxvc-nvwewxo and dominant vessel. Proximal stent is widely patent. There is mild in-stent restenosis of 10% near the distal aspect of the stent. The mid and distal RCA have diffuse mild disease and then the vessel bifurcates into a large PDA and large posterolateral. The ostial to proximal PDA has 40% narr owing. Posterior lateral branch has diffuse luminal irregularities. IFR analysis of LAD-0.95, 0.95, 0.96. Therefore, this is not hemodynamically significant. No evidence of dissection or perforation post IFR analysis Summary: 1. Patent prior stents 2. Angiographically moderate coronary disease. LAD lesion is determined to be not hemodynamically significant by IFR analysis. cont statin, asa, BB (5) Chronic rhinitis: Plan: improved cont astelin 2 sprays/nostril BID (6) PAF (paroxysmal atrial fibrillation): Plan: records report h/o PAF last EKG with maureen was 12/2022; EKGs since then all with NSR cont metoprolol at one point was on Eliquis - stopped due to recurrent falls?? (7) Resting tremor: Plan: patient alludes to dx of PD but not on meds for such neuro note from 2023 is incomplete (no assessment/plan included on scanned document) certainly has tremor but this is non-diagnostic for PD orthostatic BPs to be checked (8) Hypothyroidism: Plan: TSH 2.8 cont synthroid (9) MCI (mild cognitive impairment): Plan: prior brain MRI with considerable atrophy most recent B12 and TSH levels wnl B1 level sent/pending Plan constipation - add miralax/senna DVT proph - lovenox 40mg daily left message for pt's on his voicemail 02/12/24 rehab? home with services? favor former Admission and Anticipated Discharge Date Admission Date: February 11, 2024 Subjective overall feels pretty good today legs feel weak but otherwise doing well rhinorrhea better with astelin eating well keeps mentioning "right leg" giving way as the cause of recent falls denies any back pain denies paresthesias in legs Review of Systems Review of Systems: cv - no orthopnea or chest pain pulm - no dyspnea at rest Physical Exam Physical Exam: gen - lying comfortably in bed, NAD, very pleasant; seems much less confused today neck - no JVD mouth - MMM heart - 1/6 BLAKE LSB, RRR, s1 s2 lungs - CTA b/l abd - soft NT BS+; still mildly distended ext - no edema, pulses 2+ b/l Results & Data Results & Data Vital Signs (Past 12 Hours) Vital Signs Temp Pulse Resp BP Pulse Ox O2 Del Method 02/12/24 15:06 37.0 C 55 L 16 127/74 94 Room Air 02/12/24 07:01 36.6 C 56 L 16 160/76 H 94 Room Air 02/12/24 06:55 Room Air Laboratory Results Laboratory Results - last 48 hr 02/11/24 02/11/24 02/11/24 11:35 16:21 20:11 Sodium Potassium Chloride Carbon Dioxide Anion Gap BUN Creatinine Est Cr Clr Drug Dosing eGFR BUN/Creatinine Ratio Glucose POC Glucose 174 H 149 H 215 H Calcium 02/12/24 02/12/24 02/12/24 06:18 07:49 11:29 Sodium 143 Potassium 3.9 Chloride 107 Carbon Dioxide 29 Anion Gap 7 BUN 13 Creatinine 0.65 Est Cr Clr Drug Dosing 69.2 eGFR 86.23 BUN/Creatinine Ratio 20.0 Glucose 129 H POC Glucose 159 H 175 H Calcium 8.7 Diagnostic Findings Microbiology 02/09/24 13:55 Urine,Clean Catch Urine Culture - Final Klebsiella pneumoniae PG Care Time/CCT Total # of Minutes Spent Total Time Spent with Patient: Total time spent is greater than 50% in coordination of care (as documented) at patient's floor/unit and/or counseling patient: Coding Level of Care Code 05685 SUB INP/OBS CARE 2/35MIN Diagnoses Acute UTI (urinary tract infection) N39.0 Ground-level fall W18.30XA Diabetes type 2, controlled E11.9 CAD (coronary artery disease) I25.10 Chronic rhinitis J31.0 PAF (paroxysmal atrial fibrillation) I48.0 Resting tremor G25.2 Hypothyroidism E03.9 MCI (mild cognitive impairment) G31.84
[2024-02-12] MEDS: THIAMINE HCL 100 MG TAB PO SCH (21:25)
--- NOTE | 2024-02-12 22:36 | CT Scan Report ---
Exam(s): CT L SPINE EXAM: CT Lumbar Spine Without Intravenous Contrast CLINICAL HISTORY: Reason for exam: falls, right leg gives way; eval DJD l-spine. TECHNIQUE: Axial computed tomography images of the lumbar spine without intravenous contrast. CTDI is 39.15 mGy and DLP is 1072.78 mGy-cm. Automated exposure control was utilized for the study. A dose lowering technique was utilized adhering to the principles of ALARA. COMPARISON: Prior CT scan of abdomen pelvis from 03/06 2023. FINDINGS: Vertebrae: Mild grade 1 retrolisthesis of L2 on L3 measuring 3 mm. No acute fracture. Diffuse osteopenia throughout the visualized bones. Discs/spinal canal/neural foramina: No acute findings. No spinal canal stenosis. Soft tissues: Unremarkable. IMPRESSION: No evidence of acute lumbar spine pathology. Electronically signed by: Lilliam Lauren MD 02/12/24 22:35 PM
--- NOTE | 2024-02-13 19:14 | Hospitalist Progress Note ---
Date of Service February 13, 2024 Assessment & Plan (1) Acute UTI (urinary tract infection): Plan: 2nd klebsiella cont keflex BID x 5 days (day #2 of such today) previously had 2 doses of IV rocephin (2) Ground-level fall: Plan: details of fall at home uncertain but she denies feeling dizzy/lightheaded prior to falling legs buckle when she falls? but denies any knee or hip pain PT, OT evals appreciated fortunately no apparent injuries from the fall checked orthostatic BPs to ensure no orthostasis --> negative checked lumbar spine CT - no obvious significant stenosis as cause of RLE w eakness/buckling do suspect advanced OA of knees/hips contributes to fall risk (3) Diabetes type 2, controlled: Plan: a1c 6.9% hold metformin while here cont novolog SSI (4) CAD (coronary artery disease): Plan: with prior stents s/p heart cath 2022 by [facility] [place] [facility]; findings - Coronary angiography: SUX-iksnk-zzvgsyf vessel trifurcating into LAD, circumflex, and ramus. Mild luminal irregularities. LAD-large caliber and transapical vessel. Proximal segment with mild plaque. First diagonal is medium to large and branching with ostial 50% stenosis. The rest of the vessel has mild luminal irregularities. The mid LAD has diffuse disease with up to 50 to 60% narrowing. It provides a medium caliber branching second diagonal with mild luminal irregularities. The early distal LAD has long eccentric stenosis appearing up to 40% narrowed. Then the most distal portion of the vessel has diffuse luminal irregularities. Of note, the flow is sluggish in the left coronary system. XFz-wjtar-pylppfv and nondominant. Provides a large caliber multi branching OM1. This has mild diffuse disease proximally and then there is a focal 50% stenosis after the first major branch. The mid OM remains relatively large with diffuse mild less than 30% stenosis and then as it approaches the multi branching distal portion there is a long eccentric stenosis of 40 to 50%. Mid circumflex provides to atrial branches and there is a long prior stent which is widely patent. It provides a small to medium caliber OM 2 and then distally becomes small to medium in caliber and terminates. Ramus-small to medium caliber vessel with diffuse mild disease. OOH-jmljf-jidjvdu and dominant vessel. Proximal stent is widely patent. There is mild in-stent restenosis of 10% near the distal aspect of the stent. The mid and distal RCA have diffuse mild disease and then the vessel bifurcates into a large PDA and large posterolateral. The ostial to proximal PDA has 40% narrowing. Posterior lateral branch has diffuse luminal irregularities. IFR analysis of LAD-0.95, 0.95, 0.96. Therefore, this is not hemodynamically significant. No evidence of dissection or perforation post IFR analysis Summary: 1. Patent prior stents 2. Angiographically moderate coronary disease. LAD lesion is determined to be not hemodynamically significant by IFR analysis. cont statin, asa, BB (5) Chronic rhinitis: Plan: improved cont astelin 2 sprays/nostril BID (6) PAF (paroxysmal atrial fibrillation): Plan: records report h/o PAF last EKG with maureen was 12/2022; EKGs since then all with NSR cont metoprolol at one point was on Eliquis - stopped due to recurrent falls?? (7) Resting tremor: Plan: patient alludes to dx of PD but not on meds for such neuro note from 2023 is incomplete (no assessment/plan included on scanned document) certainly has very mild tremor but this is non-diagnostic for PD (8) Hypothyroidism: Plan: TSH 2.8 cont synthroid (9) MCI (mild cognitive impairment): Plan: prior brain MRI with considerable atrophy most recent B12 and TSH levels wnl B1 level sent/pending cont thiamine 200mg BID while awaiting level Plan constipation - resolved cut miralax back to once daily hold senna DVT proph - lovenox 40mg daily left message for pt's on his voicemail 02/12/24 will try to reach him again tomorrow (apparently he is sick with resp illness) rehab? home with services? patient agreeable to rehab placement Admission and Anticipated Discharge Date Admission Date: February 11, 2024 Subjective no events apparently had huge bowel movement patient asks for laxatives to be cut back eating well no urinary symptoms IS agreeable to rehab stay Review of Systems Review of Systems: CV - no chest pain, no orthopnea pulm - no dyspnea or LUO Physical Exam Physical Exam: gen - lying comfortably in bed, NAD, looks well neck - no JVD mouth - MMM heart - 1/6 BLAKE LSB, RRR, s1 s2 lungs - CTA b/l abd - soft NT BS+; distension resolved ext - no edema, pulses 2+ b/l Results & Data Results & Data Vital Signs (Past 12 Hours) Vital Signs Temp Pulse Resp BP Pulse Ox O2 Del Method 02/13/24 15:08 36.6 C 57 L 16 136/75 97 Room Air 02/13/24 07:32 58 L 148/81 H 02/13/24 07:26 58 L 154/72 H 02/13/24 07:17 36.6 C 57 L 16 144/76 H 96 Room Air Laboratory Results Laboratory Results - last 24 hr 02/12/24 02/13/24 02/13/24 20:40 07:56 11:30 POC Glucose 189 H 142 H 142 H 02/13/24 16:30 POC Glucose 170 H PG Care Time/CCT Total # of Minutes Spent Total Time Spent with Patient: Total time spent is greater than 50% in coordination of care (as documented) at patient's floor/unit and/or counseling patient: Coding Level of Care Code 31194 SUB INP/OBS CARE 2/35MIN Diagnoses Acute UTI (urinary tract infection) N39.0 Ground-level fall W18.30XA Diabetes type 2, controlled E11.9 CAD (coronary artery disease) I25.10 Chronic rhinitis J31.0 PAF (paroxysmal atrial fibrillation) I48.0 Resting tremor G25.2 Hypothyroidism E03.9 MCI (mild cognitive impairment) G31.84
[2024-02-14] MEDS: POLYETHYLENE (MIRALAX) 17 GM PACK PO SCH (08:30)
--- NOTE | 2024-02-14 21:18 | Hospitalist Progress Note ---
Date of Service February 14, 2024 Assessment & Plan (1) Acute UTI (urinary tract infection): Plan: 2nd klebsiella cont keflex BID x 5 days (day #3 of such today) previously had 2 doses of IV rocephin (2) Ground-level fall: Plan: details of fall at home uncertain but she denies feeling dizzy/lightheaded prior to falling legs buckle when she falls? but denies any knee or hip pain PT, OT evals appreciated fortunately no apparent injuries from the fall checked orthostatic BPs to ensure no orthostasis --> negative checked lumbar spine CT - no obvious significant stenosis as cause of RLE w eakness/buckling do suspect advanced OA of knees/hips contributes to fall risk (3) Diabetes type 2, controlled: Plan: a1c 6.9% hold metformin while here cont novolog SSI (4) CAD (coronary artery disease): Plan: with prior stents s/p heart cath 2022 by [facility] [place] [facility]; findings - Coronary angiography: LTT-vdafx-gztevmd vessel trifurcating into LAD, circumflex, and ramus. Mild luminal irregularities. LAD-large caliber and transapical vessel. Proximal segment with mild plaque. First diagonal is medium to large and branching with ostial 50% stenosis. The rest of the vessel has mild luminal irregularities. The mid LAD has diffuse disease with up to 50 to 60% narrowing. It provides a medium caliber branching second diagonal with mild luminal irregularities. The early distal LAD has long eccentric stenosis appearing up to 40% narrowed. Then the most distal portion of the vessel has diffuse luminal irregularities. Of note, the flow is sluggish in the left coronary system. DSo-eqete-lpgalvt and nondominant. Provides a large caliber multi branching OM1. This has mild diffuse disease proximally and then there is a focal 50% stenosis after the first major branch. The mid OM remains relatively large with diffuse mild less than 30% stenosis and then as it approaches the multi branching distal portion there is a long eccentric stenosis of 40 to 50%. Mid circumflex provides to atrial branches and there is a long prior stent which is widely patent. It provides a small to medium caliber OM 2 and then distally becomes small to medium in caliber and terminates. Ramus-small to medium caliber vessel with diffuse mild disease. HFX-zowab-avniplw and dominant vessel. Proximal stent is widely patent. There is mild in-stent restenosis of 10% near the distal aspect of the stent. The mid and distal RCA have diffuse mild disease and then the vessel bifurcates into a large PDA and large posterolateral. The ostial to proximal PDA has 40% narrowing. Posterior lateral branch has diffuse luminal irregularities. IFR analysis of LAD-0.95, 0.95, 0.96. Therefore, this is not hemodynamically significant. No evidence of dissection or perforation post IFR analysis Summary: 1. Patent prior stents 2. Angiographically moderate coronary disease. LAD lesion is determined to be not hemodynamically significant by IFR analysis. cont statin, asa, BB (5) Chronic rhinitis: Plan: improved cont astelin 2 sprays/nostril BID (6) PAF (paroxysmal atrial fibrillation): Plan: records report h/o PAF last EKG with maureen was 12/2022; EKGs since then all with NSR cont metoprolol at one point was on Eliquis - stopped due to recurrent falls?? (7) Resting tremor: Plan: patient alludes to dx of PD but not on meds for such neuro note from 2023 is incomplete (no assessment/plan included on scanned document) certainly has very mild tremor but this is non-diagnostic for PD (8) Hypothyroidism: Plan: TSH 2.8 cont synthroid (9) MCI (mild cognitive impairment): Plan: prior brain MRI with considerable atrophy most recent B12 and TSH levels wnl B1 level sent/pending cont thiamine 200mg BID while awaiting level (10) PAD (peripheral artery disease): Plan: h/o femoral artery stent pulses b/l feet are intact no claudication/ischemic sx's cont statin cont asa Plan constipation - resolved cont miralax once daily DVT proph - lovenox 40mg daily left message for pt's on his voicemail 02/12/24 patient agreeable to rehab placement - referral to [facility] in progress Admission and Anticipated Discharge Date Admission Date: February 11, 2024 Subjective no events no issues feeling good worked with PT today we discussed that case management made referral to [facility] no further explosive bowel movements eating well Review of Systems Review of Systems: CV - no chest pain pulm - no dyspnea GI - no abd pain or N/V Physical Exam Physical Exam: gen - lying comfortably in bed, NAD, looks good neck - no JVD mouth - MMM heart - /6 BLAKE LSB, RRR, s1 s2 lungs - CTA b/l abd - soft NT BS+; distension resolved ext - no edema, pulses 2+ b/l Results & Data Results & Data Vital Signs (Past 12 Hours) Vital Signs Temp Pulse Resp BP BP Pulse Ox O2 Del Method 02/14/24 20:11 36.8 C 54 L 16 154/69 H 95 Room Air 02/14/24 15:31 36.5 C 53 L 16 134/72 96 Room Air Laboratory Results Laboratory Results - last 48 hr 02/13/24 02/13/24 02/13/24 11:30 16:30 20:22 POC Glucose 142 H 170 H 166 H 02/14/24 02/14/24 02/14/24 07:48 11:14 16:18 POC Glucose 108 H 186 H 146 H PG Care Time/CCT Total # of Minutes Spent Total Time Spent with Patient: Total time spent is greater than 50% in coordination of care (as documented) at patient's floor/unit and/or counseling patient: Coding Level of Care Code 95541 SUB INP/OBS CARE 03/07MIN Diagnoses Acute UTI (urinary tract infection) N39.0 Ground-level fall W18.30XA Diabetes type 2, controlled E11.9 CAD (coronary artery disease) I25.10 Chronic rhinitis J31.0 PAF (paroxysmal atrial fibrillation) I48.0 Resting tremor G25.2 Hypothyroidism E03.9 MCI (mild cognitive impairment) G31.84 PAD (peripheral artery disease) I73.9
--- NOTE | 2024-02-15 17:48 | Hospitalist Progress Note ---
Date of Service February 15, 2024 Assessment & Plan (1) Acute UTI (urinary tract infection): Plan: 2nd klebsiella cont keflex BID x 5 days (day #4 of such today) previously had 2 doses of IV rocephin (2) Ground-level fall: Plan: details of fall at home uncertain but she denies feeling dizzy/lightheaded prior to falling legs buckle when she falls? but denies any knee or hip pain PT, OT evals appreciated fortunately no apparent injuries from the fall checked orthostatic BPs to ensure no orthostasis --> negative checked lumbar spine CT - no obvious significant stenosis as cause of RLE w eakness/buckling do suspect advanced OA of knees/hips contributes to fall risk (3) Diabetes type 2, controlled: Plan: a1c 6.9% hold metformin while here cont novolog SSI (4) CAD (coronary artery disease): Plan: with prior stents s/p heart cath 2022 by [facility] [place] [facility]; findings - Coronary angiography: GSV-iknjf-keniklo vessel trifurcating into LAD, circumflex, and ramus. Mild luminal irregularities. LAD-large caliber and transapical vessel. Proximal segment with mild plaque. First diagonal is medium to large and branching with ostial 50% stenosis. The rest of the vessel has mild luminal irregularities. The mid LAD has diffuse disease with up to 50 to 60% narrowing. It provides a medium caliber branching second diagonal with mild luminal irregularities. The early distal LAD has long eccentric stenosis appearing up to 40% narrowed. Then the most distal portion of the vessel has diffuse luminal irregularities. Of note, the flow is sluggish in the left coronary system. BWg-eqvdt-atisgyd and nondominant. Provides a large caliber multi branching OM1. This has mild diffuse disease proximally and then there is a focal 50% stenosis after the first major branch. The mid OM remains relatively large with diffuse mild less than 30% stenosis and then as it approaches the multi branching distal portion there is a long eccentric stenosis of 40 to 50%. Mid circumflex provides to atrial branches and there is a long prior stent which is widely patent. It provides a small to medium caliber OM 2 and then distally becomes small to medium in caliber and terminates. Ramus-small to medium caliber vessel with diffuse mild disease. WDO-ixamx-uhbculx and dominant vessel. Proximal stent is widely patent. There is mild in-stent restenosis of 10% near the distal aspect of the stent. The mid and distal RCA have diffuse mild disease and then the vessel bifurcates into a large PDA and large posterolateral. The ostial to proximal PDA has 40% narrowing. Posterior lateral branch has diffuse luminal irregularities. IFR analysis of LAD-0.95, 0.95, 0.96. Therefore, this is not hemodynamically significant. No evidence of dissection or perforation post IFR analysis Summary: 1. Patent prior stents 2. Angiographically moderate coronary disease. LAD lesion is determined to be not hemodynamically significant by IFR analysis. cont statin, asa, BB pt's admission EKG with anterior ST changes will repeat her EKG tomorrow am and also obtain updated echo (previous echo with very poor image quality) (5) Chronic rhinitis: Plan: improved cont astelin 2 sprays/nostril BID (6) PAF (paroxysmal atrial fibrillation): Plan: records report h/o PAF last EKG with maureen was 12/2022; EKGs since then all with NSR cont metoprolol at one point was on Eliquis - stopped due to recurrent falls?? (7) Resting tremor: Plan: patient alludes to dx of PD but not on meds for such neuro note from 2023 is incomplete (no assessment/plan included on scanned document) certainly has very mild tremor but this is non-diagnostic for PD (8) Hypothyroidism: Plan: TSH 2.8 cont synthroid (9) MCI (mild cognitive impairment): Plan: prior brain MRI with considerable atrophy most recent B12 and TSH levels wnl B1 level sent/pending cont thiamine 200mg BID while awaiting level (10) PAD (peripheral artery disease): Plan: h/o femoral artery stent pulses b/l feet are intact no claudication/ischemic sx's cont statin cont asa (11) Neuropathy: Plan: has complained of neuropathy in both feet several times this admission not sleeping well in light of both issues - trial gabapentin 100mg HS to start Plan constipation - resolved cont miralax once daily DVT proph - lovenox 40mg daily left message for pt's on his voicemail 02/12/24 did updated pt's this evening, 02/15/24 told him is improving with mobility - walked 150 feet with PT yesterday patient agreeable to rehab placement - referral to [facility] in progress auth pending Admission and Anticipated Discharge Date Admission Date: February 11, 2024 Subjective c/o neuropathy discomfort in all toes both feet "I'm supposed to see a specialist for this" otherwise feels good eating well no other new issues we discussed gabapentin for the neuropathy willing to try she did report not sleeping well last pm because of her roommate who was coughing all night Review of Systems Review of Systems: cv - no chest pain pulm - no dyspnea GI - no abd pain or nausea Physical Exam Physical Exam: gen - lying comfortably in bed, NAD, looks well neck - no JVD mouth - MMM heart - 1/6 BLAKE LSB, RRR, s1 s2 lungs - CTA b/l abd - soft NT BS+; distension resolved ext - no edema, pulses 2+ b/l feet Results & Data Results & Data Vital Signs (Past 12 Hours) Vital Signs Temp Pulse Resp BP Pulse Ox O2 Del Method 02/15/24 15:29 36.8 C 66 17 126/74 94 Room Air 02/15/24 08:25 36.6 C 56 L 16 151/78 H 96 Room Air Laboratory Results Laboratory Results - last 48 hr 02/14/24 02/14/24 02/14/24 07:48 11:14 16:18 POC Glucose 108 H 186 H 146 H 02/15/24 02/15/24 02/15/24 07:38 11:57 16:41 POC Glucose 130 H 166 H 133 H 02/15/24 20:36 POC Glucose 185 H PG Care Time/CCT Total # of Minutes Spent Total Time Spent with Patient: Total time spent is greater than 50% in coordination of care (as documented) at patient's floor/unit and/or counseling patient: Coding Level of Care Code 28108 SUB INP/OBS CARE 2/35MIN Diagnoses Acute UTI (urinary tract infection) N39.0 Ground-level fall W18.30XA Diabetes type 2, controlled E11.9 CAD (coronary artery disease) I25.10 Chronic rhinitis J31.0 PAF (paroxysmal atrial fibrillation) I48.0 Resting tremor G25.2 Hypothyroidism E03.9 MCI (mild cognitive impairment) G31.84 PAD (peripheral artery disease) I73.9 Neuropathy G62.9
[2024-02-15] MEDS: GABAPENTIN 100 MG CAP PO SCH (20:53)
--- NOTE | 2024-02-16 15:07 | XCELERA ---
[id number] \\[id number]
--- NOTE | 2024-02-16 19:38 | Hospitalist Progress Note ---
Date of Service February 16, 2024 Assessment & Plan (1) Acute UTI (urinary tract infection): Plan: 2nd klebsiella cont keflex BID x 5 days (day #5 of such today) previously had 2 doses of IV rocephin thus today is last day of all abx (2) Ground-level fall: Plan: details of fall at home uncertain but she denies feeling dizzy/lightheaded prior to falling legs buckle when she falls? PT, OT evals appreciated; making progress; walked 150 feet the other day fortunately no apparent injuries from the fall at home checked orthostatic BPs to ensure no orthostasis --> negative checked lumbar spine CT - no obvious significant stenosis as cause of RLE weakness/buckling echo today with preserved EF and no LV wall motion abnormalities do suspect advanced OA of knees/hips contributes to fall risk B12 level wnl (3) Diabetes type 2, controlled: Plan: a1c 6.9% can resume metformin 500 BID cont novolog SSI (4) CAD (coronary artery disease): Plan: with prior stents s/p heart [place] [facility]; findings - Coronary angiography: OZB-buqbb-fslmted vessel trifurcating into LAD, circumflex, and ramus. Mild luminal irregularities. LAD-large caliber and transapical vessel. Proximal segment with mild plaque. First diagonal is medium to large and branching with ostial 50% stenosis. The rest of the vessel has mild luminal irregularities. The mid LAD has diffuse disease with up to 50 to 60% narrowing. It provides a medium caliber branching second diagonal with mild luminal irregularities. The early distal LAD has long eccentric stenosis appearing up to 40% narrowed. Then the most distal portion of the vessel has diffuse luminal irregularities. Of note, the flow is sluggish in the left coronary system. TMs-vwevx-yufmhme and nondominant. Provides a large caliber multi branching OM1. This has mild diffuse disease proximally and then there is a focal 50% stenosis after the first major branch. The mid OM remains relatively large with diffuse mild less than 30% stenosis and then as it approaches the multi branching distal portion there is a long eccentric stenosis of 40 to 50%. Mid circumflex provides to atrial branches and there is a long prior stent which is widely patent. It provides a small to medium caliber OM 2 and then distally becomes small to medium in caliber and terminates. Ramus-small to medium caliber vessel with diffuse mild disease. OYQ-pklou-dcosqvg and dominant vessel. Proximal stent is widely patent. There is mild in-stent restenosis of 10% near the distal aspect of the stent. The mid and distal RCA have diffuse mild disease and then the vessel bifurcates into a large PDA and large posterolateral. The ostial to proximal PDA has 40% narrowing. Posterior lateral branch has diffuse luminal irregularities. IFR analysis of LAD-0.95, 0.95, 0.96. Therefore, this is not hemodynamically significant. No evidence of dissection or perforation post IFR analysis Summary: 1. Patent prior stents 2. Angiographically moderate coronary disease. LAD lesion is determined to be not hemodynamically significant by IFR analysis. cont statin, asa, BB pt's admission EKG with anterior ST changes repeat EKG today with diffuse T wave inversions anteriorly but echo with normal EF and normal LV wall motion should have close f/u with cardiology in light of known CAD (5) Chronic rhinitis: Plan: improved cont astelin 2 sprays/nostril BID (6) PAF (paroxysmal atrial fibrillation): Plan: records report h/o PAF last EKG with maureen was 12/2022; EKGs since then all with NSR cont metoprolol at one point was on Eliquis - stopped due to recurrent falls?? (7) Resting tremor: Plan: patient alludes to dx of PD but not on meds for such neuro note from 2023 is incomplete (no assessment/plan included on scanned document) certainly has very mild tremor but this is non-diagnostic for PD (8) Hypothyroidism: Plan: TSH 2.8 cont synthroid (9) MCI (mild cognitive impairment): Plan: prior brain MRI with considerable atrophy most recent B12 and TSH levels wnl B1 level sent/pending cont thiamine 200mg BID while awaiting level (10) PAD (peripheral artery disease): Plan: h/o femoral artery stent pulses b/l feet are intact no claudication/ischemic sx's cont statin cont asa (11) Neuropathy: Plan: has complained of neuropathy in both feet several times this admission not sleeping well in light of both issues - trialed gabapentin 100mg HS last pm tolerated such w/o excess sedation in a few days would go to 100mg BID Plan constipation - resolved cont miralax once daily but if no BM by tomorrow then add back senna 1 tab daily DVT proph - lovenox 40mg daily left message for pt's on his voicemail 02/12/24 did update pt's 02/15/24 by phone patient agreeable to rehab placement - referral to [facility] in progress auth pending Admission and Anticipated Discharge Date Admission Date: February 11, 2024 Subjective no events feels good no complaints eating very well no BM since 13 feeling stronger Review of Systems Review of Systems: cv - no chest pain pulm - no dyspnea GI - no N/V Physical Exam Physical Exam: gen - lying comfortably in bed, NAD, looks great neck - no JVD mouth - MMM heart - 1/6 BLAKE LSB, RRR, s1 s2 lungs - CTA b/l abd - soft NT BS+; distension resolved ext - no edema, pulses 2+ b/l feet Results & Data Results & Data Vital Signs (Past 12 Hours) Vital Signs Temp Pulse Resp BP BP Pulse Ox O2 Del Method 02/16/24 16:05 36.7 C 61 16 151/81 H 95 Room Air 02/16/24 12:00 36.9 C 52 L 14 120/71 93 Room Air 02/16/24 08:00 36.7 C 52 L 14 162/73 H 98 Room Air 02/16/24 07:55 Room Air Laboratory Results Laboratory Results - last 24 hr 02/15/24 02/16/24 02/16/24 20:36 07:42 11:36 POC Glucose 185 H 163 H 183 H 02/16/24 16:29 POC Glucose 210 H PG Care Time/CCT Total # of Minutes Spent Total Time Spent with Patient: Total time spent is greater than 50% in coordination of care (as documented) at patient's floor/unit and/or counseling patient: Coding Level of Care Code 76900 SUB INP/OBS CARE 2/35MIN Diagnoses Acute UTI (urinary tract infection) N39.0 Ground-level fall W18.30XA Diabetes type 2, controlled E11.9 CAD (coronary artery disease) I25.10 Chronic rhinitis J31.0 PAF (paroxysmal atrial fibrillation) I48.0 Resting tremor G25.2 Hypothyroidism E03.9 MCI (mild cognitive impairment) G31.84 PAD (peripheral artery disease) I73.9 Neuropathy G62.9
[2024-02-17] MEDS: metFORMIN HCL 500 MG TAB PO SCH (08:14)
[2024-02-17] MEDS: SENNA 8.6 MG TAB PO SCH (10:17)
--- NOTE | 2024-02-17 18:33 | Hospitalist Progress Note ---
Date of Service February 17, 2024 Assessment & Plan (1) Acute UTI (urinary tract infection): Plan: 2nd klebsiella completed 2 days of rocephin followed by 5 days of keflex abx completed (2) Ground-level fall: Plan: details of fall at home uncertain but she denied feeling dizzy/lightheaded prior to falling legs buckle when she falls? PT, OT evals appreciated; making progress; walked 150 feet the other day fortunately no apparent injuries from the fall at home checked orthostatic BPs to ensure no orthostasis --> negative checked lumbar spine CT - no obvious significant stenosis as cause of RLE weakness/buckling echo with preserved EF and no LV wall motion abnormalities B12 level wnl CT head 02/08 negative for acute findings good pulses on leg exam - does have h/o femoral artery stents for PAD but no evidence of compromised arterial blood flow on exam do suspect advanced OA of knees/hips contributes to fall risk and when she gets UTIs she gets considerable generalized weakness neuropathy of feet can also increase fall risk (3) Diabetes type 2, controlled: Plan: a1c 6.9% resumed metformin 500 BID cont novolog SSI (4) CAD (coronary artery disease): Plan: with prior stents s/p heart cath 20[place] by [facility]; findings - Coronary angiography: VIK-rcvwq-ylzuaen vessel trifurcating into LAD, circumflex, and ramus. Mild luminal irregularities. LAD-large caliber and transapical vessel. Proximal segment with mild plaque. First diagonal is medium to large and branching with ostial 50% stenosis. The rest of the vessel has mild luminal irregularities. The mid LAD has diffuse disease with up to 50 to 60% narrowing. It provides a medium caliber branching second diagonal with mild luminal irregularities. The early distal LAD has long eccentric stenosis appearing up to 40% narrowed. Then the most distal portion of the vessel has diffuse luminal irregularities. Of note, the flow is sluggish in the left coronary system. CMl-aloji-vpezsnj and nondominant. Provides a large caliber multi branching OM1. This has mild diffuse disease proximally and then there is a focal 50% stenosis after the first major branch. The mid OM remains relatively large with diffuse mild less than 30% stenosis and then as it approaches the multi branching distal portion there is a long eccentric stenosis of 40 to 50%. Mid circumflex provides to atrial branches and there is a long prior stent which is widely patent. It provides a small to medium caliber OM 2 and then distally becomes small to medium in caliber and terminates. Ramus-small to medium caliber vessel with diffuse mild disease. IJL-irdwn-qfggdmr and dominant vessel. Proximal stent is widely patent. There is mild in-stent restenosis of 10% near the distal aspect of the stent. The mid and distal RCA have diffuse mild disease and then the vessel bifurcates into a large PDA and large posterolateral. The ostial to proximal PDA has 40% narrowing. Posterior lateral branch has diffuse luminal irregularities. IFR analysis of LAD-0.95, 0.95, 0.96. Therefore, this is not hemodynamically significant. No evidence of dissection or perforation post IFR analysis Summary: 1. Patent prior stents 2. Angiographically moderate coronary disease. LAD lesion is determined to be not hemodynamically significant by IFR analysis. cont statin, asa, BB pt's admission EKG with anterior ST changes repeat EKG with diffuse T wave inversions anteriorly but echo with normal EF and normal LV wall motion should have close f/u with cardiology in light of known CAD of note - no ischemic symptoms at any time during the hospitalization (5) Chronic rhinitis: Plan: improved cont astelin 2 sprays/nostril BID (6) PAF (paroxysmal atrial fibrillation): Plan: records report h/o PAF last EKG with maureen was 12/2022; EKGs since then all with NSR cont metoprolol at one point was on Eliquis - stopped due to recurrent falls?? (7) Resting tremor: Plan: patient alludes to possible dx of PD when she was at [facility] in 12/2023 she was seen by neurology and placed on sinemet? but daughter states that neuro didn't think she had PD -- just a bad tremor during this admission she has been OFF sinemet with only minimal right hand/arm tremor noted and it is not causing dysfunction daughter mentioned that she had considerable fatigue on sinemet so daughter is actually happy she is not receiving the sinemet [place] neuro note from 2023 is incomplete (no assessment/plan included on scanned document) would send to [facility] [place] for their opinion on her tremor (8) Hypothyroidism: Plan: TSH 2.8 cont synthroid (9) MCI (mild cognitive impairment): Plan: prior brain MRI with considerable atrophy most recent B12 and TSH levels wnl B1 level returned normal will stop thiamine supplement (10) PAD (peripheral artery disease): Plan: h/o femoral artery stent pulses b/l feet are intact no claudication/ischemic sx's cont statin cont asa (11) Neuropathy: Plan: has complained of neuropathy in both feet several times this admission not sleeping well in light of both issues - trialed gabapentin 100mg HS tolerating such w/o excess sedation in a few days would go to 100mg BID Plan constipation - resolved cont miralax once daily cont senna 1 tab daily DVT proph - lovenox 40mg daily left message for pt's on his [employer] 02/12/24 did update pt's 02/15/24 by phone updated pt's daughter today at bedside, 02/17/24 patient agreeable to rehab placement - referral to [facility] in progress auth still pending (auth submitted on 02/14/24) medically stable for d/c Admission and Anticipated Discharge Date Admission Date: February 11, 2024 Subjective no events overnight pt's daughter at bedside today questions answered her main question is whey she has episodes of weakness patient denies any new complaints eating well/robustly no c/o pain Review of Systems Review of Systems: cv - no orthopnea, no chest pain pulm - no dyspnea GI - no abd pain or N/V; no diarrhea or constipation Physical Exam Physical Exam: gen - lying comfortably in bed, NAD, looks well neck - no JVD mouth - MMM heart - 1/6 BLAKE LSB, RRR, s1 s2 lungs - CTA b/l abd - soft NT BS+; distension resolved ext - no edema, pulses 2+ b/l feet Results & Data Results & Data Vital Signs (Past 12 Hours) Vital Signs Temp Pulse Resp BP Pulse Ox O2 Del Method 02/17/24 15:40 36.9 C 62 16 115/70 95 Room Air 02/17/24 07:45 Room Air 02/17/24 07:19 36.5 C 52 L 16 138/77 97 Room Air Laboratory Results Laboratory Results - last 24 hr 02/12/24 02/17/24 02/17/24 06:18 08:05 11:20 POC Glucose 137 H 195 H Whole Bld Vitamin B1 98 02/17/24 02/17/24 16:38 20:02 POC Glucose 122 H 182 H PG Care Time/CCT Total # of Minutes Spent Total Time Spent with Patient: Total time spent is greater than 50% in coordination of care (as documented) at patient's floor/unit and/or counseling patient: Coding Level of Care Code 27589 SUB INP/OBS CARE 2/35MIN Diagnoses Acute UTI (urinary tract infection) N39.0 Ground-level fall W18.30XA Diabetes type 2, controlled E11.9 CAD (coronary artery disease) I25.10 Chronic rhinitis J31.0 PAF (paroxysmal atrial fibrillation) I48.0 Resting tremor G25.2 Hypothyroidism E03.9 MCI (mild cognitive impairment) G31.84 PAD (peripheral artery disease) I73.9 Neuropathy G62.9
--- NOTE | 2024-02-18 05:58 | Electrocardiogram Report ---
Test Reason : Blood Pressure : */* mmHG Vent. Rate : 51 BPM Atrial Rate : 51 BPM P-R Int : 122 ms QRS Dur : 90 ms QT Int : 468 ms P-R-T Axes : 51 -39 63 degrees QTcB Int : 431 ms Poor data quality, interpretation may be adversely affected Sinus bradycardia Left axis deviation Abnormal ECG When compared with ECG of 09-Feb-2024 12:53, T wave inversion no longer evident in Lateral leads Confirmed by Cain Laird [id number]) on 02/18/2024 5:57:38 AM Referred By: REFERRED SELF Confirmed By: Cain Laird
[2024-02-18] MEDS: METHENAMINE HIPPURATE 1 GM TAB PO SCH (08:28)
[2024-02-18 08:30] LABS: Hematocrit (blood only) 37.6 % (37.0-47.0); Hemoglobin 12.3 g/dl (12.0-16.0); Mean Corpuscular Hemoglobin 31.2 pg (25.0-34.0); Mean Corpuscular Hgb Conc 32.7 g/dL (32.0-36.0); Mean Corpuscular Volume 95.4 fL (80.0-100.0); Mean Platelet Volume 11.1 fL (9.4-12.4); Platelet Count 220 K/uL (130-400); RDW Coefficient of Variation 13.6 % (11.5-14.5); RDW Standard Deviation 48.5 fL (36.4-46.3); Red Blood Count 3.94 M/uL (4.20-5.40); White Blood Count 7.66 K/ul (4.8-10.8)
[2024-02-18 08:47] LABS: Calcium 8.8 mg/dl (8.6-10.3); Magnesium 1.8 mg/dl (1.7-2.4); Potassium 4.5 mmol/L (3.5-5.1)
[2024-02-18 08:53] LABS: BUN Creatinine Ratio 31.1 (10-20); Creatinine Clr Calc Pharmacy 60.8 ml/min
--- NOTE | 2024-02-18 15:27 | Hospitalist Progress Note ---
Date of Service February 18, 2024 Assessment & Plan (1) Acute UTI (urinary tract infection): Plan: 2nd klebsiella completed 2 days of rocephin followed by 5 days of keflex abx completed (2) Ground-level fall: Plan: details of fall at home uncertain but she denied feeling dizzy/lightheaded prior to falling PT, OT following orthostatic BPs to ensure no orthostasis --> negative lumbar spine CT - no obvious significant stenosis as cause of RLE weakness/buckling echo with preserved EF and no LV wall motion abnormalities B12 level wnl CT head 02/08 negative for acute findings good pulses on leg exam - does have h/o femoral artery stents for PAD but no evidence of compromised arterial blood flow on exam do suspect advanced OA of knees/hips contributes to fall risk and when she gets UTIs she gets considerable generalized weakness neuropathy of feet can also increase fall risk (3) Diabetes type 2, controlled: Plan: a1c 6.9% resumed metformin 500 BID cont novolog SSI (4) Resting tremor: Plan: patient alludes to possible dx of PD when she was at [facility] in 12/2023 she was seen by neurology and placed on sinemet but daughter states that neuro didn't think she had PD -- just a bad tremor during this admission she has been OFF sinemet with only minimal right hand/arm tremor noted and it is not causing dysfunction daughter mentioned that she had considerable fatigue on sinemet so daughter is actually happy she is not receiving the sinemet [place] neuro note from 2023 is incomplete (no assessment/plan included on scanned document) would send to [facility] post-[place]/c for their opinion on her tremor (5) Neuropathy: Plan: has complained of neuropathy in both feet several times this admission not sleeping well in light of both issues - trialed gabapentin 100mg HS tolerating such w/o excess sedation consider up titration if needed to 100mg BID Plan Chronic conditions: Hypothyroidism: Synthroid Rhinitis: nasal spray PAD/CAD: continue ASA and statin A fib: metoprolol DVT proph - lovenox 40mg daily P2P Overturned 02/17 for patient to report to [facility] for rehab Anticipate discharge 02/18. Updated at bedside 02/17. Admission and Anticipated Discharge Date Admission Date: February 11, 2024 Subjective Patient seen and examined this morning with her at bedside. patient reported to be feeling well today and denied any complaints. Physical Exam Constitutional: WD/WN, vitals as above Eyes: PERRL, conjunctivae normal, anicteric sclerae Respiratory: breathing unlabored Cardiovascular: well perfused Psychiatric: A+Ox3, euthymic affect Results & Data Results & Data Vital Signs (Past 12 Hours) Vital Signs Temp Pulse Resp BP Pulse Ox O2 Del Method 02/18/24 08:00 Room Air 02/18/24 07:07 36.4 C L 59 L 18 131/75 94 Room Air PG Care Time/CCT Total # of Minutes Spent Total Time Spent with Patient: Total time spent is greater than 50% in coordination of care (as documented) at patient's floor/unit and/or counseling patient: Coding Level of Care Code 67464 SUB INP/OBS CARE 2/35MIN Diagnoses Acute UTI (urinary tract infection) N39.0 Ground-level fall W18.30XA Diabetes type 2, controlled E11.9 Resting tremor G25.2 Neuropathy G62.9
[2024-02-18] MEDS: MELATONIN 3 MG TAB PO PRN (20:57)
[2024-02-19 08:15] VITALS: RESP 14
--- NOTE | 2024-02-19 09:22 | Discharge Summary ---
Discharge Summary Date of Service February 19, 2024 Principal Dx & Hospital Course #1 = Principal Diagnosis (1) Acute UTI (urinary tract infection): Patient presented to the ED on 02/09/2024 for chief complaint of generalized weakness and a fall. Found to be + for UTI. 2nd klebsiella completed 2 days of Rocephin followed by 5 days of Keflex UTI resolved. no further abx indicated. (2) Ground-level fall: details of fall at home uncertain but she denied feeling dizzy/lightheaded prior to falling orthostatic BPs to ensure no orthostasis --> negative lumbar spine CT - no obvious significant stenosis as cause of RLE weaknes s/buckling echo with preserved EF and no LV wall motion abnormalities B12 level wnl CT head 02/08 negative for acute findings good pulses on leg exam - does have h/o femoral artery stents for PAD but no evidence of compromised arterial blood flow on exam do suspect advanced OA of knees/hips contributes to fall risk and when she gets UTIs she gets considerable generalized weakness neuropathy of feet can also increase fall risk (3) Diabetes type 2, controlled: a1c 6.9% outpatient medications on discharge. (4) Resting tremor: patient alludes to possible dx of PD when she was at [facility] in 12/2023 she was seen by neurology and placed on sinemet but daughter states that neuro didn't think she had PD -- just a bad tremor during this admission she has been OFF sinemet with only minimal right hand/arm tremor noted and it is not causing dysfunction daughter mentioned that she had considerable fatigue on sinemet so daughter is actually happy she is not receiving the sinemet [place] neuro note from 2023 is incomplete (no assessment/plan included on scanned document) Consider follow up with [facility] regarding tremor on d/c - defer to PCP. (5) Neuropathy: has complained of neuropathy in both feet several times this admission not sleeping well in light of both issues - trialed gabapentin 100mg HS defer to PCP for further work up - concern that gabapentin may increase falls at home. Consider prescribing at follow up appt. Plan Chronic conditions: Hypothyroidism: Synthroid Rhinitis: nasal spray PAD/CAD: continue ASA and statin A fib: metoprolol Patient discharged to [facility] rehab 02/18. Admission HPI Per Admitting Provider 83 y/o with frequent UTIs, DM type 2, CAD presenting with weakness and a fall at home. She lives with her . Yesterday she had generalized weakness, arthralgias, chills/sweat and increased urinary frequency. She got up to use the bathroom last night and fell just outside the bathroom. She spent several hours down on the floor. She's vague on why her didn't find her and get help sooner. He's elderly as well and she says he's had a cough recently. Right now she feels much better after some IV fluids. No abdominal or suprapubic pain, no flank pain. No nausea/vomiting/diarrhea. No chest pain or shortness of breath. Her mid and lower back does hurt some but not severely. She has pain in feet which is chronic. She says she no longer takes methenamine or cranberry - she thinks it caused diarrhea. She is also not taking estrace cream. No longer takes cymbalta. Last had cipro for UTI in December. Did well in January and had a nice holiday. Discharge Exam Constitutional WD/WN, vitals as above Respiratory breathing unlabored Cardiovascular well perfused Psychiatric A+Ox3, euthymic affect Discharge Plan Discharge Items Patient Disposition: Transfer Inpatient Rehab Fac Reason For Visit: UTI Discharge Diagnosis: UTI Activity: Resume your previous activity Non-emergency contact: Primary Care Provider Call non-emergency contact if: you have any medication questions and your symptoms worsen Follow-up/Referrals: Moy Reid MD [Primary Care Provider] - Diet: Carb Consistent or DM2 Addtl Attending Provider Instructions: Mrs. Chaudhari, You were recently hospitalized for weakness and a fall. You were found to have a UTI and were treated appropriately. Please see recommendations below regarding your discharge. 1. Please resume the remainder of your outpatient medications. 2. Please follow up with your PCP within 1-2 weeks of discharge. If you develop any worsening symptoms including progressive weakness, recurrent falls, chest pain, or shortness of breath please report back to the ER for further care. Sincerely, Jane Bear PA-C Pending Studies at Discharge: No Stand-Alone Forms: My [facility] Skilled Items Patient informed of condition?: Yes DNR: Yes Discharge Level of Care: Acute rehab Communicable Disease: No Discharge Prognosis: Improving Lines: None Urinary Catheter: No Medications and DC Order Prescriptions: Continued aspirin 81 mg tablet,delayed release (DR/EC) 81 mg PO QAM Qty: 30 1RF levothyroxine 75 mcg tablet 75 mcg PO UD Qty: 90 3RF Rx Instructions: filled in early January 2023 olopatadine [Pataday Once Daily Relief] 0.2 % drops 1 drp ophthalmic (eye) DAILY Qty: 2.5 0RF Gemtesa 75 mg tablet 75 mg PO DAILY Qty: 30 5RF duloxetine [Cymbalta] 20 mg capsule,delayed release(DR/EC) 20 mg PO DAILY Qty: 90 1RF Hold Instructions: Pt states she stopped ciprofloxacin HCl 250 mg tablet 250 mg PO BID Rx Instructions: 1 tab BID x 7 days dc [facility] metoprolol tartrate 25 mg tablet 37.5 mg PO BID 90 Days Qty: 270 3RF mecobalamin (vitamin B12) 1 tab PO DAILY Rx Instructions: unable to verify 07/04/24 amlodipine [Norvasc] 5 mg tablet 5 mg PO QAM Qty: 90 3RF metformin 500 mg tablet 500 mg PO BID 100 Days Qty: 200 3RF methenamine hippurate 1 gram tablet 1 g PO BID Qty: 180 1RF nitroglycerin 0.4 mg tablet, sublingual 0.4 mg SL Q5M PRN (Reason: chest pain) Qty: 25 1RF Rx Instructions: PT NEEDS NEW RX- CANT FIND RX AFTER DC [facility] cholecalciferol (vitamin D3) [Vitamin D3] 2,000 unit Capsule 2,000 unit PO DAILY Rx Instructions: unable to verify 24/24 conjugated estrogens 0.625 mg/gram cream 0.625 mg vaginal UD Rx Instructions: last filled 2021 Apply once daily for 2 weeks. After this period, apply twice per week acetaminophen 325 mg Tablet 325 mg PO QID PRN (Reason: Pain) polyethylene glycol 3350 [Miralax] 17 gram Powder In Packet 17 g PO DAILY PRN (Reason: Constipation) atorvastatin 80 mg tablet 80 mg PO QAM Discharge Orders: Discharge Order (Routine); Ordered 02/19/24 Ordered By: Jane Bear Admission Data Admit Date/Time: 02/11/24 14:05 Attending Provider: Irineo Garcia Admit Provider: Caro Osorio Primary Care Provider: Moy Reid Other Providers: Sarah Rincon; [place]; Brendan Greco at [place] Other Interventions: Discharge Summary Assessment (RN) Last Done: 02/19/24 11:46 Hospital Stay Data Consultations 02/09/24 15:31 ED Decision to Admit Stat Diagnostic Imagining Performed 02/09/24 12:57 CT head/brain wo con Stat 02/12/24 18:58 CT lumbar spine wo con Routine Pending Results Patient Have Any Pending Studies at Discharge: No Discharge Instructions Given to Patient (Per Discharging Provider) Mrs. Chaudhari, Og were recently hospitalized for weakness and a fall. You were found to have a UTI and were treated appropriately. Please see recommendations below regarding your discharge. 1. Please resume the remainder of your outpatient medications. 2. Please follow up with your PCP within 1-2 weeks of discharge. If you develop any worsening symptoms including progressive weakness, recurrent falls, chest pain, or shortness of breath please report back to the ER for further care. Sincerely, Jane Bear PA-C Total Time Total Time Spent Total Time Spent (In Minutes): 42 Total Time Includes: Examination of the Patient, Discharge Planning and Medication Reconciliation Coding Level of Care Code 67714 INP/OBS DISCH >30 MIN Diagnoses Acute UTI (urinary tract infection) N39.0 Ground-level fall W18.30XA Diabetes type 2, controlled E11.9 Resting tremor G25.2 Neuropathy G62.9
[2024-02-19 11:07] VITALS: TEMP 98.4; O2SAT 96
[2024-02-19 11:11] VITALS: BP 131/75; PULSE 74
== END 2024-02-19 12:26 | DRG 690 ==
LOC: SUATTDRO → ED 12:42 → EDINP 12:42 → SUATTDRO 16:43 → 3W 18:12 → SUATTDRO 02-11 14:05

== ENCOUNTER 2024-08-16 11:09 | Observation (INO) ==
[2024-08-16 11:43] LABS: Hematocrit (blood only) 44.3 % (37.0-47.0); Hemoglobin 14.8 g/dl (12.0-16.0); Immature Granulocytes # (auto) 0.05 K/uL (0.01-0.20); Immature Granulocytes % (auto) 0.6 %; Mean Corpuscular Hemoglobin 31.0 pg (25.0-34.0); Mean Corpuscular Volume 92.7 fL (80.0-100.0); Platelet Count 275 K/uL (130-400); RDW Standard Deviation 41.5 fL (36.4-46.3); Red Blood Count 4.78 M/uL (4.20-5.40); White Blood Count 8.72 K/ul (4.8-10.8)
[2024-08-16 12:02] LABS: Anion Gap 10 (3-11); Blood Urea Nitrogen 17 mg/dl (6-23); Calcium 9.5 mg/dl (8.6-10.3); Carbon Dioxide 28 mmol/L (21-32); Chloride 101 mmol/L (98-107); Creatinine Clr Calc Pharmacy 54.8 ml/min; Glucose 120 mg/dl (70-99(Fasting)); Potassium 3.9 mmol/L (3.5-5.1); Sodium 139 mmol/L (136-145)
[2024-08-16 12:03] LABS: Alanine Aminotransferase < 3 U/L (7-52); Albumin Globulin Ratio 1.3 (0.9-2); Alkaline Phosphatase 88 U/L (34-104); Bilirubin,Total 0.9 mg/dl (0.2-1.0); Creatine Kinase 340 U/L (26-192); Globulin 3.2 gm/dl (2.5-4.0); Lipase 11 U/L (11-82); Magnesium 1.7 mg/dl (1.7-2.4); Total Protein 7.2 gm/dl (6.0-8.3)
--- NOTE | 2024-08-16 12:08 | XRay Report ---
XR chest 1V portable CLINICAL HISTORY: weakness COMPARISON STUDY: Chest radiograph July 04, 2024. FINDINGS: Lung volumes are normal. Lungs are clear. There is no pneumothorax or pleural effusion. The cardiomediastinal silhouette is stable. There is no evidence for pulmonary edema. IMPRESSION: No acute cardiopulmonary findings. No change in appearance of the chest. ACT 112: Negative or not required by law. Electronically signed by: Torrey Pat M.D. 08/16/2024 12:07 PM
[2024-08-16 12:10] LABS: INR 1.0 (0.9-1.1); Prothrombin Time 11.0 Seconds (9.0-12.0)
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
[2024-08-16 12:17] LABS: Thyroid Stimulating Hormone 0.449 uIu/ml (0.300-4.500)
--- NOTE | 2024-08-16 12:33 | CT Scan Report ---
CT SCAN OF THE BRAIN WITHOUT IV CONTRAST CLINICAL HISTORY: Weakness. COMPARISON STUDY: MRI of the brain January 18, 2021. Head CT February 09, 2024. TECHNIQUE: Unenhanced axial CT scan of the brain was performed from the vertex to the skull base. A dose lowering technique was utilized adhering to the principles of ALARA. CT DOSE: 547.75 mGy.cm FINDINGS: Brain parenchyma: No acute intracranial hemorrhage, midline shift or mass effect is present. Perez-whi te matter differentiation is preserved. There are no extra-axial fluid collections. There are no find ings to suggest acute dural sinus thrombosis or acute territorial infarct. Moderate atrophy is again noted. White matter hypodensities are similar to prior exam and favor small vessel disease. Ventricles, sulci, cisterns: There is no hydrocephalus. The basal cisterns are patent. Calvarium: Unremarkable. Sinuses and mastoids: The visualized paranasal sinuses are clear. The mastoid air cells are well pneu matized. Orbits: The bony orbits are grossly intact. IMPRESSION: No acute intracranial findings. No significant change in appearance of the brain. ACT 112: Negative or not required by law. Electronically signed by: Torrey Pat M.D. 08/16/2024 12:31 PM
[2024-08-16 13:17] LABS: Appearance Urine Cloudy (Clear); Bacteria Urine Automated None Seen (None Seen); Cast Urine Automated 0-2 /lpf (0-2); Glucose Urine UA Negative (Negative); RBC Urine Automated >20 /hpf (0-2); WBC Urine Automated >50 /hpf (0-5)
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
[2024-08-16] MEDS ORDERED: POLYETHYLENE (MIRALAX) 17 GM PACK PO PRN (16:47)
[2024-08-16] MEDS: SODIUM CHLORIDE 0.9% 1,000 ML IV SCH (18:23)
--- NOTE | 2024-08-16 19:19 | Electrocardiogram Report ---
Test Reason : Blood Pressure : */* mmHG Vent. Rate : 61 BPM Atrial Rate : 61 BPM P-R Int : 108 ms QRS Dur : 88 ms QT Int : 412 ms P-R-T Axes : 28 -53 183 degrees QTcB Int : 414 ms Sinus rhythm with short MI Left axis deviation Abnormal ECG When compared with ECG of 04-Jul-2024 16:25, QRS axis Shifted left ST now depressed in Lateral leads T wave inversion more evident in Lateral leads Confirmed by Cain Laird [id number]) on 08/16/2024 7:19:30 PM Referred By: REFERRED SELF Confirmed By: Cain Laird
[2024-08-16] MEDS: METOPROLOL TARTRATE 25 MG TAB PO SCH (19:41)
[2024-08-16] MEDS: GABAPENTIN 100 MG CAP PO SCH (19:41)
[2024-08-16] MEDS: CARBIDOPA/LEVODOPA 25/100MG TAB PO SCH (19:42)
[2024-08-16] MEDS: METHENAMINE HIPPURATE 1 GM TAB PO SCH (19:42)
[2024-08-16] MEDS: APIXABAN 2.5 MG TAB PO SCH (19:43)
[2024-08-16] MEDS: ACETAMINOPHEN 325 MG TAB PO PRN (19:46)
[2024-08-16] MEDS: MELATONIN 3 MG TAB PO PRN (19:47)
[2024-08-17 07:53] LABS: Hematocrit (blood only) 36.7 % (37.0-47.0); Hemoglobin 12.1 g/dl (12.0-16.0); Mean Corpuscular Hemoglobin 30.9 pg (25.0-34.0); Mean Corpuscular Volume 93.6 fL (80.0-100.0); Platelet Count 214 K/uL (130-400); RDW Standard Deviation 42.7 fL (36.4-46.3); Red Blood Count 3.92 M/uL (4.20-5.40); White Blood Count 7.76 K/ul (4.8-10.8)
[2024-08-17 08:10] LABS: Anion Gap 7.0 (3-11); Blood Urea Nitrogen 19.0 mg/dl (6-23); Calcium 8.3 mg/dl (8.6-10.3); Carbon Dioxide 26.0 mmol/L (21-32); Chloride 107.0 mmol/L (98-107); Creatine Kinase 188.0 U/L (26-192); Creatinine Clr Calc Pharmacy 64.6 ml/min; Glucose 129.0 mg/dl (70-99(Fasting)); Potassium 3.9 mmol/L (3.5-5.1); Sodium 140.0 mmol/L (136-145)
[2024-08-17] MEDS: CHOLECALCIFEROL 25 MCG (1000 UNITS) TAB PO SCH (08:28)
[2024-08-17] MEDS: ASPIRIN 81 MG ECTAB PO SCH (08:29)
[2024-08-17] MEDS: VIBEGRON 75 MG TAB PO SCH (08:30)
[2024-08-17] MEDS: CYANOCOBALAMIN (B-12) 500 MCG TABLET PO SCH (08:30)
[2024-08-17] MEDS: LEVOTHYROXINE SODIUM 75 MCG TABLET PO SCH (08:30)
[2024-08-17] MEDS: PREMARIN VAG CRM 14 APPLN/30 GM TUBE PV SCH (08:31)
--- NOTE | 2024-08-17 20:14 | Hospitalist Progress Note ---
"Date of Service August 17, 2024 Assessment & Plan (1) Hematuria: (2) Generalized weakness: (3) Adult failure to thrive: (4) Elevated troponin: (5) T2DM (type 2 diabetes mellitus): Plan 84yo female with T2DM, atherogenic dyslipidemia, ambulatory dysfunction, Parkinson's disease, PAD, recurrent UTIs, urinary incontinence, CAD and carotid artery disease. Presented with weakness and gross hematuria. Admitted for likely placement to SNF. #Hematuria - -none since admission -H/H stable -saw urology in late June - no mention of hematuria; she did have hematuria during a UTI on a prior admission per records -CT a/p in 2023 without urinary tract abnormalities (no stones, etc) #recurrent UTIs - -continue Topical estrogen, gemtessa and methenamine hippurate -urine cx pending but no obvious symptoms of a UTI at this time #Weakness | Failure to thrive | Parkinson's Disease - -physical deconditioning playing large role -Parkinson's likely contributes -OA of knees, hips, back also likely plays into her ambulatory issues -TSH WNL. -added scheduled tylenol for generalized OA -added lidoderm patches for back pain -continue Sinemet -appreciate PT/OT evals #constipation - -severe -dulcolax suppos x 1 now -make miralax scheduled, and add senna daily #Elevated troponin | Elevated CPK - -Mild trop elevation at76.3-->59.9. Trops chronically elevated -no recent ischemic symptoms -EKG with anterior ST depressions but these have been chronic for some time -Mild CK elevation at 340 at admission; s/p IV fluids, CPK now normal -resume statin -patient did have a fall onto her knees at home - CPK elevation likely was from such #diabetes melitis type II - -a1c 6.3% in June -can cont metformin #HTN - -continue amlodipine #CAD/PAD - -Continue Aspirin, metoprolol and statin #mental health - -continue Cymbalta #h/o PAF - -cont Eliquis 2.5mg BID -cont meto tartrate 37.5mg BID called pt's at # listed in chart, did not answer, left message 08/17/24 dispo - [facility] Admission and Anticipated Discharge Date Admission Date: August 16, 2024 Subjective no events worked with PT, sat in the chair, feels good overall c/o no bowel movement in over a week feels a little bloated also with b/l knee pain and mid-back pain she knows a referral to [facility] is in process Review of Systems Review of Systems: cv - no chest pain pulm - no dyspnea GI - no N/V - no further hematuria Physical Exam Physical Exam: gen - lying comfortably in bed, NAD, looks well, pleasant neck - no JVD mouth - MMM heart - 1/6 BLAKE LSB, RRR, s1 s2 lungs - CTA b/l abd - soft NT BS+; mildly distended ext - no edema, pulses 2+ b/l feet neuro - masked facies musculo - tender mid-thoracic region on back to palpation b/l OA changes of knees Results & Data Results & Data Vital Signs (Past 12 Hours) Vital Signs Temp Pulse Resp BP Pulse Ox O2 Del Method 08/17/24 19:38 36.6 C 75 18 143/82 H 96 Room Air 08/17/24 14:54 36.6 C 67 16 131/73 97 Room Air Laboratory Results Laboratory Results - last 24 hr 08/17/24 07:16 WBC 7.76 RBC 3.92 L Hgb 12.1 Hct 36.7 L MCV 93.6 MCH 30.9 MCHC 33.0 RDW Std Deviation 42.7 RDW Coeff of Shayne 12.5 Plt Count 214 MPV 10.0 Sodium 140 Potassium 3.9 Chloride 107 Carbon Dioxide 26 Anion Gap 7 BUN 19 Creatinine 0.61 Est Cr Clr Drug Dosing 64.6 eGFR 87.01 BUN/Creatinine Ratio 31.1 H Glucose 129 H Calcium 8.3 L Total Creatine Kinase 188 Diagnostic Findings Microbiology 08/16/24 12:59 Urine,Clean Catch Urine Culture - Preliminary Pin-point growth present, reincubating. PG Care Time/CCT Total # of Minutes Spent Total Time Spent with Patient: Total time spent is greater than 50% in coordination of care (as documented) at patient's floor/unit and/or counseling patient: Coding Level of Care Code 05163 SUB INP/OBS CARE 2/35MIN Diagnoses Hematuria R31.9 Generalized weakness R53.1 Adult failure to thrive R62.7 Elevated troponin R79.89 T2DM (type 2 diabetes mellitus) E11.9"
[2024-08-17] MEDS: ACETAMINOPHEN 500 MG TAB PO SCH (21:10)
[2024-08-18] MEDS: POLYETHYLENE (MIRALAX) 17 GM PACK PO SCH (07:19)
[2024-08-18] MEDS: SENNA 8.6 MG TAB PO SCH (07:19)
[2024-08-18] MEDS: ATORVASTATIN 40 MG TAB PO SCH (09:39)
[2024-08-18] MEDS: LIDOCAINE 5% 1 PATCH TD SCH (09:40)
[2024-08-18] MEDS: Nursing to Pharmacy Communication SCH (12:23)
--- NOTE | 2024-08-18 18:06 | Hospitalist Progress Note ---
"Date of Service August 18, 2024 Assessment & Plan (1) Hematuria: (2) Generalized weakness: (3) Adult failure to thrive: (4) Elevated troponin: (5) T2DM (type 2 diabetes mellitus): Plan 84yo female with T2DM, atherogenic dyslipidemia, ambulatory dysfunction, Parkinson's disease, PAD, recurrent UTIs, urinary incontinence, CAD and carotid artery disease. Presented with weakness and gross hematuria. Admitted for placement to SNF and observation of the hematuria issue. #Hematuria - -none since admission -H/H stable -saw urology in late June - no mention of hematuria; she did have hematuria during a UTI on a prior admission per records -CT a/p in 2023 without urinary tract abnormalities (no stones, etc) -cont to observe #recurrent UTIs - -continue Topical estrogen, gemtessa and methenamine hippurate -urine cx with aerococcus - this is contamination - no Rx needed #Weakness | Failure to thrive | Parkinson's Disease - -physical deconditioning playing large role -Parkinson's likely contributes -OA of knees, hips, back also likely plays into her ambulatory issues -TSH WNL -cont scheduled tylenol for generalized OA -cont lidoderm patches for back pain -cont Sinemet -appreciate PT/OT evals #constipation - -severe, but MUCH improved s/p suppos, miralax, senna -cont bowel regimen with miralax scheduled and senna daily #Elevated troponin | Elevated CPK - -Mild trop elevation at76.3-->59.9. Trops chronically elevated -no recent ischemic symptoms -EKG with anterior ST depressions but these have been chronic for some time -Mild CK elevation at 340 at admission; s/p IV fluids, CPK now normal -resume statin -patient did have a fall onto her knees at home - CPK elevation likely was from such #diabetes melitis type II - -a1c 6.3% in June -can cont metformin #HTN - -continue amlodipine #CAD/PAD - -Continue Aspirin, metoprolol and statin #mental health - -continue Cymbalta #h/o PAF - -cont Eliquis 2.5mg BID -cont meto tartrate 37.5mg BID called pt's at # listed in chart, did not answer, left message 08/17/24 dispo - [facility] discharge on 08/19? Admission and Anticipated Discharge Date Admission Date: August 16, 2024 Subjective good day today appetite good multiple BMs since yesterday stomach/abd feel better & less distended lidoderm patches work well on back joint pains a little better she knows that plans are in the works for placement at [facility] denies any new complaints Review of Systems Review of Systems: - again denies any gross hematuria Physical Exam Physical Exam: gen - lying comfortably in bed, NAD, looks well neck - no JVD mouth - MMM heart - 1/6 BLAKE LSB, RRR, s1 s2 lungs - CTA b/l abd - soft NT BS+; distension MUCH improved ext - no edema, pulses 2+ b/l feet neuro - masked facies Results & Data Results & Data Vital Signs (Past 12 Hours) Vital Signs Temp Pulse Resp BP Pulse Ox O2 Del Method 08/18/24 15:28 36.8 C 66 16 124/76 97 Room Air 08/18/24 07:34 36.5 C 61 17 134/76 95 Room Air PG Care Time/CCT Total # of Minutes Spent Total Time Spent with Patient: Total time spent is greater than 50% in coordination of care (as documented) at patient's floor/unit and/or counseling patient: Coding Level of Care Code 43069 SUB INP/OBS CARE 2/35MIN Diagnoses Hematuria R31.9 Generalized weakness R53.1 Adult failure to thrive R62.7 Elevated troponin R79.89 T2DM (type 2 diabetes mellitus) E11.9"
[2024-08-18] MEDS: REMOVE LIDODERM PATCH SCH (20:12)
[2024-08-19] MEDS: LEVOTHYROXINE SODIUM 75 MCG TABLET PO SCH (05:37)
[2024-08-19 06:57] VITALS: TEMP 97.7
--- NOTE | 2024-08-19 11:03 | Discharge Summary ---
"Discharge Summary Date of Service August 19, 2024 Principal Dx & Hospital Course #1 = Principal Diagnosis (1) Hematuria: (2) Generalized weakness: (3) Adult failure to thrive: (4) Elevated troponin: (5) T2DM (type 2 diabetes mellitus): Plan 84yo female with T2DM, atherogenic dyslipidemia, ambulatory dysfunction, Parkinson's disease, PAD, recurrent UTIs, urinary incontinence, CAD and carotid artery disease. Presented with weakness and gross hematuria. Admitted for placement to SNF and observation of the hematuria issue. #Hematuria - -none since admission -H/H stable -saw urology in late June - no mention of hematuria; she did have hematuria during a UTI on a prior admission per records -CT a/p in 2023 without urinary tract abnormalities (no stones, etc) -cont to observe #recurrent UTIs - -continue Topical estrogen, gemtessa and methenamine hippurate -urine cx with aerococcus - this is contamination - no Rx needed #Weakness | Failure to thrive | Parkinson's Disease - -physical deconditioning playing large role -Parkinson's likely contributes -OA of knees, hips, back also likely plays into her ambulatory issues -TSH WNL -cont scheduled tylenol for generalized OA -cont lidoderm patches for back pain -cont Sinemet -PT/OT #constipation - -severe, but MUCH improved s/p suppos, miralax, senna -cont bowel regimen with miralax scheduled and senna daily #Elevated troponin | Elevated CPK - -Mild trop elevation at76.3-->59.9. Trops chronically elevated -no recent ischemic symptoms -EKG with anterior ST depressions but these have been chronic for some time -Mild CK elevation at 340 at admission; s/p IV fluids, CPK now normal -resume statin -patient did have a fall onto her knees at home - CPK elevation likely was from such #diabetes melitis type II - -a1c 6.3% in June -can cont metformin and general diet #HTN - -continue amlodipine #CAD/PAD - -Continue Aspirin, metoprolol and statin #mental health - -continue Cymbalta #h/o PAF - -cont Eliquis 2.5mg BID -cont meto tartrate 37.5mg BID called pt's at # listed in chart, did not answer, left message 08/17/24 dispo - [place] [facility] Admission HPI Per Admitting Provider Mrs. Chaudhari is an 84-year-old female with PMH of T2DM, atherogenic dyslipidemia, ambulatory dysfunction, Parkinson's disease, PAD, recurrent UTIs, urinary incontinence, and carotid artery disease. Presents with weakness. Patient is mainly bed bound at baseline with as her primary caregiver. EMS reports they are called to the house frequently to help her get out of bed. Came today because they were concerned she had a UTI because has been having on going blood in her urine. She is on Eliquis for afib, has been discontinued in the past, dose recently lowered to 2.5mg history obtained from patient and her at bedside. is the primary prototype deicer assembler. States that Saturday he was able to help her and she could still walk short distances but then tried to walk back to the bathroom she he had to lower her to the ground. On Saturday she was unable to walk and today she could not really get her out of bed so they decided to call 911. Yobani denies having any fevers chills or illness symptoms at home. We had a araceli discussion about her progression, states that she has not had physical therapy in over a month because of [employer] company has canceled. She states she has been doing exercises at home but unable to tell me what type of exercises she has been doing at home. Discharge Exam Last 24h vitals reviewed GEN: no acute distress, sitting in bed HEENT: pupils equal, sclerae anicteric, moist MM RESP: normal WOB, CTAB CV: reg no mrg ABD: soft/nt/nd +BT : no bautista SKIN: warm and dry, no generalized rashes NEURO: AOx person, place, and basic situation. Face symmetric, speech normal, moves 4 ext spontaneously and equally Discharge Plan Discharge Items Patient Disposition: Transfer [facility] Reason For Visit: WEAKNESS, PLACEMENT Discharge Diagnosis: hematuria, weakness, parkinson's disease Condition on Discharge: Fair Activity: Resume your previous activity Weightbearing: Full weightbearing Non-emergency contact: Primary Care Provider Call non-emergency contact if: you have any medication questions and your s ymptoms worsen Follow-up/Referrals: Yash Tavares, [Primary Care Provider] - Diet: Regular Addtl Attending Provider Instructions: PT and OT evaluate and treat DM type 2 - last A1c 6.3% in June. Failure to thrive - continue general diet and metformin Pending Studies at Discharge: No Stand-Alone Forms: My [facility] Skilled Items Patient informed of condition?: Yes DNR: Yes Discharge Level of Care: Skilled Communicable Disease: No Discharge Prognosis: Improving Lines: None Urinary Catheter: No Medications and DC Order Prescriptions: New lidocaine 5 % Adhesive Patch,Medicated 3 patch transdermal QAM Qty: 0 0RF sennosides [Senna Lax] 8.6 mg Tablet 17.2 mg PO QAM Qty: 0 0RF polyethylene glycol 3350 [Miralax] 17 gram Powder In Packet 17 g PO DAILY Qty: 0 0RF acetaminophen [Tylenol Extra Strength] 500 mg Tablet 1,000 mg PO TID Qty: 0 0RF Continued aspirin 81 mg tablet,delayed release (DR/EC) 81 mg PO QAM Qty: 30 1RF levothyroxine 75 mcg tablet 75 mcg PO UD Qty: 90 3RF Rx Instructions: filled in early January 2023 metoprolol tartrate 25 mg tablet 37.5 mg PO BID 90 Days Qty: 270 3RF methenamine hippurate 1 gram tablet 1 g PO BID Qty: 180 1RF gabapentin 100 mg capsule 100 mg PO QPM Qty: 30 5RF metformin 500 mg tablet 500 mg PO BID 100 Days Qty: 200 3RF amlodipine [Norvasc] 5 mg tablet 2.5 mg PO QAM Qty: 1 3RF atorvastatin 80 mg tablet 80 mg PO QAM Qty: 90 3RF carbidopa-levodopa 25-100 mg tablet 1 tab PO TID 30 Days Qty: 90 5RF Gemtesa 75 mg tablet 75 mg PO DAILY Qty: 90 3RF duloxetine 40 mg capsule,delayed release(DR/EC) 40 mg PO DAILY Qty: 30 5RF Hold Instructions: Pt states she stopped olopatadine [Pataday Once Daily Relief] 0.2 % drops 1 drp ophthalmic (eye) DAILY Qty: 2.5 0RF Eliquis 2.5 mg tablet 2.5 mg PO BID Qty: 60 5RF nitroglycerin 0.4 mg tablet, sublingual 0.4 mg SL Q5M PRN (Reason: chest pain) Qty: 25 1RF cholecalciferol (vitamin D3) [Vitamin D3] 2,000 unit Capsule 2,000 unit PO DAILY Rx Instructions: unable to verify 5/24/24 mecobalamin (vitamin B12) [B12 Active] 1,000 mcg Tablet,Chewable 1,000 mcg PO DAILY Rx Instructions: unable to verify 07/05/23 conjugated estrogens 0.625 mg/gram cream 0.625 mg vaginal UD Qty: 0 0RF Rx Instructions: last filled 2021 Apply once daily for 2 weeks. After this period, apply twice per week Discontinued phenazopyridine [Pyridium] 200 mg tablet 200 mg PO TID PRN (Reason: UTI) Rx Instructions: Can take three times daily for up to three days; then must give the body a two day break acetaminophen 325 mg Tablet 325 mg PO QID PRN (Reason: Pain) Discharge Orders: Discharge Order (Routine); Ordered 08/19/24 Ordered By: Caro Osorio Admission Data Admit Date/Time: 08/16/24 14:58 Attending Provider: Caro Osorio Admit Provider: Teofilo Mina Primary Care Provider: Yash Tavares [facility] Data Consultations 08/16/24 14:31 ED Decision to Admit Stat Diagnostic Imagining Performed 08/16/24 11:22 CT head/brain wo con Stat Pending Results Patient Have Any Pending Studies at Discharge: No Discharge Instructions Given to Patient (Per Discharging Provider) PT and OT evaluate and treat DM type 2 - last A1c 6.3% in June. Failure to thrive - continue general diet and metformin Total Time Total Time Spent Total Time Spent (In Minutes): I personally spent: [40] minutes today on clinical care activities including: x reviewing chart notes and vital signs [x] reviewing labs [x] discussion with career portals teacher examining and counseling the patient [x] writing prescriptions, discharge instructions documentation Coding Level of Care Code 41825 INP/OBS DISCH >30 MIN Diagnoses Hematuria R31.9 Generalized weakness R53.1 Adult failure to thrive R62.7 Elevated troponin R79.89 T2DM (type 2 diabetes mellitus) E11.9"
[2024-08-19 14:49] VITALS: BP 124/77; PULSE 61; RESP 16; O2SAT 96
== END 2024-08-19 14:59 | DRG 696 ==
LOC: ED 11:09 → SUATTDRO 14:58 → INTOOBSV 14:58 → 3N 14:58